=== PATIENT | female | born 1965 | race African-American/Black ===

== ENCOUNTER 2020-04-04 19:51 | Emergency (ER) | payer OTHER, BC, SELFPAY ==
[2020-04-04 19:58] VITALS: BP 143/75; PULSE 100; RESP 18; TEMP 35.7; O2SAT 99
--- NOTE | 2020-04-04 21:23 | PC.NURSE ---
Patient's BG was 518, ERP notified.
[2020-04-04 21:25] LABS: Glucose Point of Care > 500 (65-105)
[2020-04-04 21:45] LABS: Basophils Percent Auto 0.3 % (0.2-1.2); Eosinophils Absolute Auto 0.2 K/mm3 (0-0.3); Eosinophils Percent Auto 2.8 % (0-4.4); Hematocrit 41.8 % (37.0-47.0); Hemoglobin 13.7 g/dL (12.0-15.0); Immature Granulocyte Absolute 0.02 K/mm3 (0.00-0.031); Immature Granulocyte Percent A 0.3 % (0-0.5); Lymphocytes Absolute Auto 2.43 K/mm3 (0.9-3.2); Mean Corpuscular HGB Conc 32.8 g/dl (32-36); Mean Corpuscular Hemoglobin 27.2 pg (26-34); Mean Corpuscular Volume 82.9 fl (80-100); Mean Platelet Volume 11.1 fl (7.4-10.4); Monocytes Absolute Auto 0.5 K/mm3 (0.1-0.6); Monocytes Percent Auto 8.8 % (2.6-8.5); Neutrophils Absolute Auto 2.7 K/mm3 (1.3-6.7); Neutrophils Percent Auto 45.8 % (45.5-73.1); Platelet Count Result 169 k/mm3 (150-375); Red Blood Count 5.04 M/mm3 (4.2-5.4); Red Cell Distribution Width 12.3 % (11.5-14.5); White Blood Count 5.8 K/mm3 (4.5-10.0)
[2020-04-04 21:47] LABS: Add Urine Microscopic? YES; Appearance Urine Clear (Clear); Bilirubin Urine Negative (Negative); Blood Urine Negative (Negative); Color Urine Straw (Yellow); Glucose Urine UA 3+ mg/dL (Negative); Ketones Urine Negative (Negative); Leukocyte Esterase Ur Negative LEU/UL (Negative); Nitrate Urine Negative (Negative); Protein Urine Negative (Negative); RBC Urine 0-2 /hpf (0-2); Squamous Epithelial Cell Urine Rare /hpf (Few); Urobilinogen Urine Negative mg/dL (<2.0); WBC Urine 0-3 /hpf
[2020-04-04 21:50] LABS: Specific Grav Ur 1.035 (1.001-1.035)
[2020-04-04 21:55] LABS: Anion Gap 9 mmol/L (8-16); Blood Urea Nitrogen 18 mg/dL (7-17); Calcium 9.3 mg/dL (8.4-10.2); Carbon Dioxide 33 mmol/L (22-30); Chloride 97 mmol/L (98-107); Estimated CRCL calculation 85 ml/min; Estimated Glomerular Filt Rate > 60; Glucose 496 mg/dL (65-105); Potassium 3.8 mmol/L (3.4-5.0); Sodium 139 mmol/L (137-145)
[2020-04-04] MEDS: INSULIN ASPART (*BKC) 100 UNITS/ML 12 UNITS SUB-Q (22:20)
--- NOTE | 2020-04-04 22:38 | ED.GENADULT ---
HPI - General Adult General Chief complaint: Allergic Reaction Stated complaint: allergic reaction Time Seen by Provider: 04/04/20 20:44 Source: patient and family Mode of arrival: ambulatory Limitations: no limitations History of Present Illness HPI narrative: 54-year-old with a history of diabetes, hypertension here with complaints of facial pain, blurred vision on and off for past few days. Patient states that she has allergies and has been taking no medication. She also states that she has not been checking her blood sugar for past several months. Patient states that she is on insulin. She denies any fever or chills. Patient states that she ate ice cream and chicken earlier prior to coming to the ER. Onset (ago): day(s) (4) Location: face and eyes Severity: moderate Quality: aching Relieving factors: none Related Data Home Medications Medication Instructions Recorded Confirmed blood sugar diagnostic [OneTouch 04/04/20 04/04/20 Ultra Blue Test Strip] gabapentin 04/04/20 insulin glargine [Lantus Solostar SUBCUT 04/04/20 U-100 Insulin] insulin lispro [Humalog KwikPen unit SUBCUT 04/04/20 Insulin] insulin lispro [Humalog U-100 04/04/20 Insulin] lisinopril 04/04/20 lisinopril-hydrochlorothiazide tablet 04/04/20 tramadol mg 04/04/20 Allergies Allergy/AdvReac Type Severity Reaction Status Date / Time No Known Allergies Allergy Mild Verified 04/04/20 20:42 Review of Systems Review of Systems: All systems reviewed & are unremarkable except as noted in HPI and below Constitutional: Constitutional: Reports no additional constitutional complaints Eyes: Eyes: Reports as per HPI ENT: Reports system reviewed and no additional complaints, except as documented Cardiovascular: Cardiovascular: Reports no additional cardiovascular complaints Respiratory: Respiratory: Reports no additional respiratory complaints Musculoskeletal: Musculoskeletal: Reports no additional musculoskeletal complaints Neurologic: Reports system reviewed and no additional complaints, except as documented Exam Narrative: Exam Narrative: GENERAL: Well-appearing, morbidly obese , and in no acute distress. HEAD: Normocephalic, atraumatic. EYES: PERRLA and EOMI.photophobia in the left ENT: Nares clear, no rhinorrhea or epistaxis. Mucous membranes moist. NECK: Supple. CHEST: Clear to auscultation. No respiratory distress. HEART: Regular rate and rhythm. No murmur heard. Normal peripheral pulses. ABDOMEN: Soft, nontender, nondistended, normal active bowel sounds. EXTREMITIES: Normal range of motion. No edema. SKIN: Warm, dry, no rash. NEURO: No focal deficits. Alert and oriented x3. Course Vital Signs Vital signs: Vital Signs Temperature 35.7 C L 04/04/20 19:58 Pulse Rate 100 04/04/20 19:58 Respiratory Rate 18 04/04/20 19:58 Blood Pressure 143/75 H 04/04/20 19:58 Pulse Oximetry 99 04/04/20 19:58 Temperature 35.7 C L 04/04/20 19:58 Pulse Rate 100 04/04/20 19:58 Respiratory Rate 18 04/04/20 19:58 Blood Pressure 143/75 H 04/04/20 19:58 Pulse Oximetry 99 04/04/20 19:58 Medical Decision Making MDM Narrative Medical decision making narrative: I did Accu-Chek on this patient her blood sugar was greater than 500 given l I did obtain CBC and chemistry and a UA on this patient her sugars are elevated most likely from her medication noncompliance. And her vision is blurred secondary to elevated blood sugar. I will give her on NovoLog 12 units subcu. Advised her to follow-up with her stores clerk in the next few days. Also recommended her to go get her glucometer tomorrow from the pharmacy and keep checking her blood sugars. Also recommended strict diet and exercise and take medication as prescribed. She is requesting time off. Vital Signs Vital Signs: Vital Signs Temperature 35.7 C L 04/04/20 19:58 Pulse Rate 100 04/04/20 19:58 Respiratory Rate 18 04/04/20 19:58 Blood Pres
[2020-04-04 22:41] LABS: Glucose Point of Care 487 (65-105)
[2020-04-04 23:00] VITALS: BP 154/82; PULSE 82; RESP 16; TEMP 36.9; O2SAT 100
== END 2020-04-04 23:04 | disposition home or self-care (01) ==
PROVIDERS: Emergency Provider Family Medicine
DX: E11.9 Type 2 diabetes mellitus without complications (principal); I10 Essential (primary) hypertension; Z79.4 Long term (current) use of insulin
CPT/HCPCS: 36415; 80048; 81001; 82948; 85025; 99283; J1815

== ENCOUNTER 2021-01-02 06:07 | Observation (INO) | payer OTHER, BC, SELFPAY ==
[2021-01-02] VITALS (12 sets, daily range): BP systolic 110–166; BP diastolic 60–104; PULSE 87–97; RESP 14–19; TEMP 36.2–36.7; O2SAT 98–100; BMI 53.2
--- NOTE | ~2021-01-02 | MR_ITS ---
EXAMINATION: MR foot RT wo/w con DATE: 01/03/2021 13:18 INDICATION: Nontraumatic right foot pain with abnormal x-ray TECHNIQUE: Magnetic resonance imaging (MRI) of the right fore/mid foot was performed without and with 20 mL Multihance intravenous contrast. Sequences included axial, sagittal and coronal T1-weighted FS E and T2-weighted FS FSE, axial T1-weighted FS FSE and postcontrast axial and coronal T1-weighted FS FSE. COMPARISON: Right foot radiographs dated 01/02/2021 FINDINGS: There is prominent marrow edema throughout the right fourth metatarsal with nondisplaced transverse f racture across the proximal metaphyseal region and nondisplaced transverse fracture across the neck o f the fourth metatarsal. There is some low signal periosteal reaction at the proximal metadiaphyseal region with subtle calcific lesions seen on the prior radiograph suggesting this is subacute. Thin li near fluid signal intensity extends along a mildly comminuted nondisplaced fracture extending across the cuboid which is without significant surrounding marrow edema suggesting this may be chronic. Ther e is mild edema and enhancement at the head of the second metatarsal, neck of the third metatarsal an d at the base of the third and fifth metatarsals which could be related to stress reaction. Curviline ar subarticular sclerosis at the heads of the third and fourth metatarsals, the former without underl milana edema suggesting chronic osteonecrosis. Lisfranc ligament complex as well as the collateral liga ment complex at the metatarsophalangeal and interphalangeal joints appear normal. Visualized portions of the flexor and extensor tendons are normal with no tenosynovitis. Likely reactive subcutaneous ed corinna and mild non mass like enhancement over the dorsum of the foot involving the musculature at the m id to lateral aspect of the forefoot. Mild polyarticular osteoarthritis at multiple joints in the mid and forefoot. Small joint effusion at the third metatarsophalangeal joint. No abscess or other abnor mal fluid collections. IMPRESSION: 1. Likely subacute nondisplaced fractures at the distal neck and proximal metadiaphysis of the right fourth metatarsal. 2. Additional age-indeterminate nondisplaced mildly comminuted fracture of the cuboid without signifi cant surrounding marrow edema. 3. Likely reactive marrow edema and enhancement at the base of the third and fifth metatarsals, the n jackie of the third metatarsal and head of the second metatarsal without evident fracture lines in this could be related to stress reaction related to altered weightbearing resulting from the fourth metata rsal fracture. 4. Likely chronic osteonecrosis at the heads of the third and fourth metatarsals. Reviewed, dictated and finalized at location A. IMPRESSION: 1. Likely subacute nondisplaced fractures at the distal neck and proximal metad iaphysis of the right fourth metatarsal. 2. Additional age-indeterminate nondisplaced mildly comminuted fracture of the cuboid without significant surrounding marrow edema. 3. Likely reactive marrow edema and enhancement at the base of the third and fi fth metatarsals, the neck of the third metatarsal and head of the second metata rsal without evident fracture lines in this could be related to stress reaction related to altered weightbearing resulting from the fourth metatarsal fracture . 4. Likely chronic osteonecrosis at the heads of the third and fourth metatarsal s.
--- NOTE | ~2021-01-02 | XR_ITS ---
XR foot RT min 3V 01/02/2021 07:45 Indication: Right foot pain with swelling. Procedure: 4 views right foot Comparison: No prior studies for comparison. Findings: There is periosteal reaction along the fourth metatarsal shaft. Mild osteoarthritis first M TP joint. No acute fracture is identified. No subluxation. Lisfranc joint intact. There are degenerat kin calcaneal enthesophytes. Mild diffuse soft tissue swelling. Impression: 1: Periosteal reaction of the fourth metatarsal shaft, nonspecific. No discrete healing fracture line is identified. Consider infection in the appropriate clinical setting. If there is concern for osteo myelitis, correlation with MRI recommended. Reviewed, dictated and finalized at location A. Impression: 1: Periosteal reaction of the fourth metatarsal shaft, nonspecific. No discrete healing fracture line is identified. Consider infection in the appropriate cli nical setting. If there is concern for osteomyelitis, correlation with MRI ricardo mmended.
--- NOTE | ~2021-01-02 | XR_ITS ---
EXAMINATION: XR chest 2V 01/02/2021 06:40 INDICATION: Chest pain PROCEDURE: PA and lateral views the chest COMPARISON: 04/15/2019 FINDINGS: The lungs are clear. The cardiomediastinal silhouette is within normal limits. There are no pleural effusions. There is no pneumothorax suspected. IMPRESSION: 1: NO ACUTE CARDIOPULMONARY DISEASE. Reviewed, dictated and finalized at location A.
--- NOTE | ~2021-01-02 | CT_ITS ---
EXAMINATION: CTA chest PE protocol DATE: 01/02/2021 09:01 CDT INDICATION: Chest pain. Elevated d-dimer. TECHNIQUE: Computed tomographic angiography (CTA) of the chest was performed with 100 mL Omnipaque-35 0 intravenous contrast. The dose-length product was 1000.38 mGy-cm. Maximum intensity projection 3D-r econstructions of the aorta and other arteries were constructed by the technologist on a separate wor kstation. Automated exposure control and iterative reconstruction technique were employed. COMPARISON: None. FINDINGS: There is mediastinal lipomatosis. Heart size normal. Small hiatal hernia. No significant pl eural or pericardial effusion. Study is technically adequate without evidence for pulmonary embolism. No thoracic lymphadenopathy. No endobronchial lesions. No focal airspace disease. No pneumothorax. M ild thoracic spondylosis. IMPRESSION: 1. No evidence for pulmonary embolism. No acute cardiopulmonary disease. Reviewed, dictated and finalized at location A.
--- NOTE | ~2021-01-02 | US_ITS ---
EXAMINATION:US venous doppler LE BI INDICATION:Leg swelling and pain TECHNIQUE: Multiple grayscale, color flow and Doppler images of the right and left lower extremity de ep venous systems were obtained and reviewed. COMPARISON:No prior studies for comparison. FINDINGS: The common femoral, superficial femoral and popliteal veins demonstrate normal respiratory variation, augmentation and compressibility. Color flow is also seen within the posterior tibial, pe roneal, greater saphenous and profunda veins. IMPRESSION: 1: No lower extremity deep venous thrombosis. Reviewed, dictated and finalized at location A.
--- NOTE | 2021-01-02 06:26 | ECG_ITS ---
Measurements Intervals [place] Rate: 96 P: 47 CO: 181 QRS: 0 QRSD: 76 T: 43 QT: 348 QTc: 440 Interpretive Statements SINUS RHYTHM DELAYED PRECORDIAL R/S TRANSITION LOW QRS VOLTAGE IN PRECORDIAL LEADS BORDERLINE ECG Electronically Signed On 01-02-2021 8:43:22 CDT by Geovani Champion D.O.
[2021-01-02 06:35] LABS: Basophils Percent Auto 0.6 % (0.2-1.2); Eosinophils Absolute Auto 0.2 K/mm3 (0-0.3); Eosinophils Percent Auto 4.1 % (0-4.4); Hematocrit 38.3 % (37.0-47.0); Hemoglobin 12.9 g/dL (12.0-15.0); Immature Granulocyte Absolute 0.01 K/mm3 (0.00-0.031); Immature Granulocyte Percent A 0.2 % (0-0.5); Lymphocytes Absolute Auto 2.05 K/mm3 (0.9-3.2); Lymphocytes Percent Auto 42.1 % (18.3-44.2); Mean Corpuscular HGB Conc 33.7 g/dl (32-36); Mean Corpuscular Hemoglobin 27.3 pg (26-34); Mean Platelet Volume 10.4 fl (7.4-10.4); Monocytes Absolute Auto 0.5 K/mm3 (0.1-0.6); Monocytes Percent Auto 10.5 % (2.6-8.5); Neutrophils Absolute Auto 2.1 K/mm3 (1.3-6.7); Neutrophils Percent Auto 42.5 % (45.5-73.1); Platelet Count Result 193 k/mm3 (150-375); Red Blood Count 4.73 M/mm3 (4.2-5.4); Red Cell Distribution Width 12.2 % (11.5-14.5); White Blood Count 4.9 K/mm3 (4.5-10.0)
--- NOTE | 2021-01-02 06:35 | PC.NURSE ---
Pt to imaging at this time.
[2021-01-02 06:45] LABS: Anion Gap 9 mmol/L (8-16); Blood Urea Nitrogen 18 mg/dL (7-17); Carbon Dioxide 25 mmol/L (22-30); Chloride 103 mmol/L (98-107); Estimated CRCL calculation 81 ml/min; Estimated Glomerular Filt Rate > 60; Glucose 378 mg/dL (65-105); INR 0.9; Potassium 4.4 mmol/L (3.4-5.0); Prothrombin Time 12.8 Seconds (11.1-14.7); Sodium 137 mmol/L (137-145)
[2021-01-02] MEDS: ASPIRIN 81 MG CHEWABLE TABLET 324 MG PO (06:45)
[2021-01-02 06:46] LABS: Partial Thromboplastin Time 45.4 SECONDS (22.3-36.8)
[2021-01-02 06:57] LABS: Troponin I < 0.012 ng/mL (0.000-0.034)
--- NOTE | 2021-01-02 07:33 | ED.CHESTPAIN ---
HPI - Chest Pain General Chief Complaint: Chest Pain Stated Complaint: chest pain, swollen lower extremities Time Seen by Provider: 01/02/21 07:05 Source: patient, RN notes reviewed and old records reviewed Mode of arrival: ambulatory Limitations: no limitations History of Present Illness HPI narrative: This is a 55 year old female with history of DM, hypertension, morbid obesity who presents for evaluation of bilateral leg pain and chest pain. She states yesterday she developed pain across her chest. She describes her pain as heaviness and she states it is worse with coughing. She also has had a nonproductive cough for 2 months. She also report bilateral feet and leg swelling for 2 months. She was evaluated by a doctor at [facility] for her feet and leg swelling with pain. She has a diagnosis of peripheral neuropathy for her pain, and she takes gabapentin. She reports having a negative leg Doppler performed by her doctors to her evaluate her symptoms, but she states her symptoms have worsened. She reports discoloration to her right foot and worsening pain to her right leg. She also reports shortness of breath with activity and chest fluttering. She denies lung or heart disease. Her BS has been found to be high in ER and she admits to not taking her insulin last night. MD complaint: chest heaviness Related Data Home Medications Medication Instructions Recorded Confirmed blood sugar diagnostic [OneTouch 04/04/20 01/02/21 Ultra Blue Test Strip] gabapentin 04/04/20 insulin glargine [Lantus Solostar SUBCUT 04/04/20 U-100 Insulin] insulin lispro [Humalog KwikPen unit SUBCUT 04/04/20 Insulin] insulin lispro [Humalog U-100 04/04/20 Insulin] lisinopril 04/04/20 tramadol mg 04/04/20 metformin 1,500 mg PO DAILY 01/02/21 01/02/21 rosuvastatin 40 mg PO DAILY 01/02/21 01/02/21 Allergies Allergy/AdvReac Type Severity Reaction Status Date / Time No Known Allergies Allergy Mild Verified 01/02/21 06:24 Review of Systems Review of Systems: All systems reviewed & are unremarkable except as noted in HPI and below Constitutional: Constitutional: Denies chills and Denies fever(s) Cardiovascular: Cardiovascular: Reports chest pain Respiratory: Respiratory: Reports cough, Reports dyspnea and Denies wheezing Gastrointestinal: Gastrointestinal: Denies abdominal pain, Denies nausea and Denies vomiting Genitourinary: Genitourinary: Denies hematuria Musculoskeletal: Musculoskeletal: Denies back pain FORMERLY [facility] Past Medical History Medical History (Updated 01/02/21 @ 13:50 by Radha Sandhu MD) Diabetes mellitus Diabetic peripheral neuropathy HTN (hypertension) with goal to be determined Family History Family History (Updated 01/02/21 @ 12:41 by Ruba Grey RN) Father Cancer Sibling Cancer Kidney disease Father COPD (chronic obstructive pulmonary disease) Mother Kidney disease Social History Social History (Updated 01/02/21 @ 08:18 by Radha Sandhu MD) Smoking status: Never smoker Alcohol intake: never Substance use: never Gender identity (if verbalized by the patient): Female Sexual Orientation (if Verbalized by the Patient): Straight or Heterosexual Spiritual care concerns: No Exam Const: General: alert Nutritional Appearance: obese Orientation/consciousness: patient oriented x3 HENMT: Head: normocephalic and atraumatic Face and sinus: face symmetric Mouth: Yes Normal oral and palatal mucosa present, Yes lip normal, Yes oropharynx normal and Yes moist mucous membranes Eyes: Pupils: Equal, round and reactive pupils present EOM: EOMs intact bilaterally Resp: Effort & Inspection: normal respiratory effort and no retractions Auscultation: clear to auscultation bilaterally Cardio: Rate: regular rate Rhythm: regular rhythm Heart sounds: no murmurs GI: Auscultation: normal bowel sounds Other: nontender Back/Spine/Pelvis: Back: no CVA tende
[2021-01-02] MEDS: INSULIN HUMAN REGULAR (*BKC) 100 UNITS/ML 8 UNITS SUB-Q (07:36)
[2021-01-02] MEDS: NITROGLYCERIN OINTMENT 1 INCH DOSE TRANSDERM (07:52)
[2021-01-02] MEDS: HYDROmorphone HCL INJ (*CRX) 1 MG/ML SYR 0.5 MG IV PUSH (07:52)
[2021-01-02] MEDS: ONDANSETRON INJ 4 MG/2 ML VIAL IV PUSH (07:52)
[2021-01-02 08:10] LABS: Add Urine Microscopic? YES; Appearance Urine Clear (Clear); Bilirubin Urine Negative (Negative); Blood Urine Negative (Negative); Color Urine Yellow (Yellow); Glucose Urine UA 3+ mg/dL (Negative); Ketones Urine Negative (Negative); Leukocyte Esterase Ur Negative LEU/UL (Negative); Nitrate Urine Negative (Negative); Protein Urine 1+ mg/dL (Negative); RBC Urine 0-2 /hpf (0-2); Squamous Epithelial Cell Urine Few /hpf (Few); Urobilinogen Urine Negative mg/dL (<2.0); WBC Urine 0-3 /hpf
--- NOTE | 2021-01-02 08:19 | PC.NURSE ---
called lab [id number] talked to Rosio, added on a D dimer, C reactive prot, MG, BNP. BMP and CBCD were duplicate orders. Doc did not want another one
[2021-01-02 08:26] LABS: D Dimer 1.48 ug/mL (<0.48)
[2021-01-02 08:37] LABS: CRP 1.3 mg/dL (<1.0); Magnesium 1.4 mg/dL (1.6-2.3)
[2021-01-02 08:40] LABS: NT Pro B Type Natriuretic Pept 27 pg/mL (5-100)
[2021-01-02] MEDS: MAGNESIUM SULF 2 GM/WATER 50ML 2 GM/50 ML BAG IVPB (09:15)
[2021-01-02 10:30] LABS: Troponin I < 0.012 ng/mL (0.000-0.034)
--- NOTE | 2021-01-02 12:17 | ADMGEN ---
This patient, Florencia Levy, was admitted to IMU Room 200-01 at 1215 on 01/02/2021. Patient/family oriented to hospital policies and general routines including ID bracelet, bed and alarms, visiting hours, pain management, procedures, bathroom and other care routines, personal items, smoking policy, room service/diet, and visiting hours. Information on how to activate the Rapid Response Team has been discussed. Patient/Family are encouraged to report perceived risks to care and to ask questions if they do not understand what they are told or what they should do.
[2021-01-02 12:31] LABS: Glucose Point of Care 320 mg/dl (65-105)
[2021-01-02] MEDS: MORPHINE SULFATE (*CRX) 4 MG/ML INJ IV PUSH (12:54)
[2021-01-02 13:52] LABS: Troponin I < 0.012 ng/mL (0.000-0.034)
--- NOTE | 2021-01-02 14:25 | PM.IMHP ---
H&P: HPI History of Present Illness Date/Time: 01/02/21 14:25 Chief Complaint: Chest pain. Narrative: This is a pleasant 55-year-old female with insulin-dependent type 2 diabetes mellitus, hypertension, and morbid obesity who presented to the emergency department earlier today via private vehicle from home with complaints of chest pain. She describes a pressure or heavy like sensation diffusely throughout her anterior chest which began sometime last evening almost like somebody was trying to hold me down. She was feeling a bit short of breath with that however she was having a mild coughing fit at the time, which apparently has been going on for approximately 2 months. Additionally she has had quite of bit of swelling in her legs and in fact she was referred to a pay agent just last week and is set to have a stress test tomorrow. At the time my evaluation her main complaint is of pain in her right foot, which she describes as a severe, throbbing pain. She also notes that the right foot is much more swollen when compared to the left and that she has noticed bruising on the side of the foot though she has not had any injury or bite or wound in the area. The pain is different from that which she experiences with her diabetic neuropathy. She denies fever, chills, sweats, exertional chest pain, pleuritic pain, palpitations, nausea, vomiting, and sweats. No history of venous thromboembolism or gout. No known history of cardiac disease or sleep apnea. Review of Systems Review of Systems: Narrative: Twelve systems were reviewed with pertinent positives and negatives as per HPI. She has had a dry cough for a couple of months. No cold or flu symptoms. No known exposure to those positive for COVID-19. She has not been vaccinated against COVID. She sleeps on her right side and tells me that she sleeps pretty good. She does snore on occasion. She has chronic orthopnea and has had for many years. No PND or daytime somnolence. No diarrhea or constipation. She denies dysuria. Except as documented, all other systems were reviewed and are negative. [facility] Past Medical History Medical History (Updated 01/02/21 @ 21:45 by Lacie Perez PA-C) Depression with anxiety Diabetic peripheral neuropathy Essential hypertension History of MRSA infection Skin and soft tissue infection of the left hip requiring debridement. Insulin dependent type 2 diabetes mellitus Morbid obesity Surgical History Surgical History (Updated 01/02/21 @ 21:39 by Lacie Perez PA-C) History of section History of cholecystectomy History of hysterectomy History of tonsillectomy Status post debridement Debridement of wound on the left hip. Family History Family History Father Cancer Sibling Cancer Kidney disease Father COPD (chronic obstructive pulmonary disease) Mother Kidney disease Social History Social History (Updated 01/02/21 @ 21:39 by Lacie Perez PA-C) Social History: The patient lives in [place], [place] with her . She has 4 children. Lifelong nonsmoker. No alcohol or illicit substance abuse. She designates her , Hong, as her surrogate decision maker and she wishes to be a full code. Meds Home Medications and Allergies Home Medications Medication Instructions Recorded Confirmed Type blood sugar diagnostic [OneTouch 04/04/20 01/02/21 History Ultra Blue Test Strip] gabapentin 300 mg PO TID 04/04/20 01/02/21 History insulin glargine [Lantus Solostar 40 unit SUBCUT HS 04/04/20 01/02/21 History U-100 Insulin] insulin lispro [Humalog KwikPen See Protocol SUBCUT TIDWM 04/04/20 01/02/21 History Insulin] lisinopril 40 mg PO DAILY 04/04/20 01/02/21 History tramadol 50 mg PO QID 04/04/20 01/02/21 History metformin 1,500 mg PO DAILY 01/02/21 01/02/21 History rosuvastatin 40 mg PO DAILY 01/02/21 01/02/21 History Allergies A
[2021-01-02 15:33] LABS: Alanine Aminotransferase 20 U/L (4-35); Albumin Level 3.5 g/dL (3.5-5.1); Alkaline Phosphatase 93 U/L (38-126); Aspartate Amino Transferase 30 U/L (14-36); Bilirubin,Total 0.4 mg/dL (0.2-1.3)
[2021-01-02 15:46] LABS: Erythrocyte Sedimentation Rate 89 mm/hr (0-20)
[2021-01-02 15:58] LABS: Hemoglobin A1C 12.7 % (<5.7)
[2021-01-02 16:16] LABS: Glucose Point of Care 382 mg/dl (65-105)
[2021-01-02] MEDS: traMADol HCL (*CRX) 50 MG TABLET PO ×2 (16:43→20:43)
[2021-01-02] MEDS: INSULIN ASPART (*BKC) 100 UNITS/ML SUB-Q (16:43)
[2021-01-02] MEDS: MORPHINE SULFATE (*CRX) 4 MG/ML INJ 2 MG IV PUSH (17:32)
[2021-01-02 20:35] LABS: Glucose Point of Care 386 mg/dl (65-105)
[2021-01-02] MEDS: INSULIN GLARGINE (*BKC) 100 UNITS/ML 42 UNITS SUB-Q (22:07)
[2021-01-02] MEDS: GABAPENTIN 300 MG CAPSULE PO (22:08)
[2021-01-03] VITALS (12 sets, daily range): BP systolic 114–135; BP diastolic 65–87; PULSE 83–100; RESP 14–17; TEMP 35.7–36.9; O2SAT 96–100
[2021-01-03 05:14] LABS: Anion Gap 8 mmol/L (8-16); Blood Urea Nitrogen 20 mg/dL (7-17); Calcium 8.7 mg/dL (8.4-10.2); Carbon Dioxide 25 mmol/L (22-30); Chloride 102 mmol/L (98-107); Estimated CRCL calculation 81 ml/min; Estimated Glomerular Filt Rate > 60; Glucose 365 mg/dL (65-105); Magnesium 1.6 mg/dL (1.6-2.3); Potassium 4.2 mmol/L (3.4-5.0); Sodium 135 mmol/L (137-145)
[2021-01-03] MEDS: GABAPENTIN 300 MG CAPSULE PO ×3 (06:21→21:11)
[2021-01-03 08:00] LABS: Glucose Point of Care 406 mg/dl (65-105)
[2021-01-03] MEDS: traMADol HCL (*CRX) 50 MG TABLET PO ×4 (08:28→21:11)
[2021-01-03] MEDS: INSULIN ASPART (*BKC) 100 UNITS/ML 10 UNITS SUB-Q (08:28)
[2021-01-03] MEDS: ENOXAPARIN 40 MG/0.4 ML SYRINGE SUB-Q ×2 (08:29→21:11)
[2021-01-03] MEDS: ROSUVASTATIN 10 MG TABLET 40 MG PO (08:29)
[2021-01-03] MEDS: INSULIN GLARGINE (*BKC) 100 UNITS/ML 20 UNITS SUB-Q ×2 (08:29→13:31)
[2021-01-03] MEDS: lisinopriL 20 MG TABLET 40 MG PO (08:30)
--- NOTE | 2021-01-03 09:11 | ECG_ITS ---
Measurements Intervals [place] Rate: 94 P: 47 AR: 177 QRS: -2 QRSD: 76 T: 44 QT: 346 QTc: 435 Interpretive Statements SINUS RHYTHM LOW QRS VOLTAGE IN PRECORDIAL LEADS BORDERLINE R WAVE PROGRESSION, ANTERIOR LEADS BASELINE ARTIFACT- I, III, AVL BORDERLINE ECG Electronically Signed On 01-03-2021 11:04:23 CDT by Geovani Champion D.O.
--- NOTE | 2021-01-03 09:17 | PM.CNCAR ---
Assessment and Plan Assessment and plan (1) Cellulitis of right foot: Code(s): L03.115 - Cellulitis of right lower limb Status: Acute Assessment and Plan: Patient is a 55-year-old woman with history of hypertension, morbid obesity, insulin-dependent type 2 diabetes mellitus, diabetic neuropathy, family history premature myocardial infarction (mother with MO at age 48), MRSA infection of the skin and soft tissue involving the left hip requiring debridement, depression, anxiety,who is seen in cardiac consultation for chief complaint of chest pain. - patient was started on antibiotics per the primary service for probable cellulitis involving the right foot, with plans for MRI of the right foot as well to evaluate for osteomyelitis given x-ray findings. - Lower extremity venous Doppler 01/02/2021 was negative for DVT. - She reports snoring but denies any prior testing for sleep apnea. Given her lower extremity edema and morbid obesity, she would benefit from outpatient home sleep testing for JACKY. (2) Chest pain: Code(s): R07.9 - Chest pain, unspecified Status: Acute Assessment and Plan: - Her presenting chest pain has resolved. - EKG without evidence of acute injury. Repeat EKG. - Serial troponin I was negative for injury. - CTA of the chest was negative for pulmonary embolism. - Obtain fasting lipid panel. - Continue aspirin. - Obtain echo to evaluate cardiac structure and function. - Pending resolution of her right lower extremity cellulitis and correction of electrolyte abnormalities as well as marked hyperglycemia, consider Lexiscan nuclear stress testing is an outpatient or inpatient. (3) Hypomagnesemia: Code(s): E83.42 - Hypomagnesemia Status: Acute Assessment and Plan: - continue to monitor and replete magnesium, initially low at 1.3, now improved. - She reports chronic hypomagnesemia and will replete intravenously and orally. (4) Essential hypertension: Code(s): I10 - Essential (primary) hypertension Status: Acute Assessment and Plan: - Blood pressure was mildly elevated on presentation but subsequently improved. - continue to monitor on current regimen. (5) Uncontrolled diabetes mellitus: Code(s): E11.65 - Type 2 diabetes mellitus with hyperglycemia Status: Acute Assessment and Plan: -She has marked hyperglycemia this admission. -adjustment of diabetic regimen as per primary service. History of Present Illness History of Present Illness Consult date/time: 06/28/21 09:17 Patient is a 55-year-old woman with history of hypertension, morbid obesity, insulin-dependent type 2 diabetes mellitus, diabetic neuropathy, family history premature myocardial infarction (mother with MO at age 48), MRSA infection of the skin and soft tissue involving the left hip requiring debridement, depression, anxiety,who is seen in cardiac consultation for chief complaint of chest pain. Patient reports bilateral chest discomfort which was a pressure lasting approximately 6-8 hours, that resolved with aspirin and nitroglycerin. Her chest discomfort was associated with mild dyspnea. She reports she was scheduled to see a base filler at [facility] whom she has not seen yet. She reports chronic 4 pillow orthopnea for years. She reports paroxysmal nocturnal dyspnea for several weeks. She reports occasional palpitations without dizziness or syncope. She reports bilateral foot swelling worse on the right with some associated discomfort in the right foot which is a severe throbbing pain. She reports dark discoloration of the skin involving her right foot for several days. She denies any history of cardiac arrhythmia, congestive heart failure, myocardial infarction, or cardiac valvular disease. She reports snoring but denies any prior testing for sleep apnea. She reports a several month history of dry cough and that she has not bee
[2021-01-03] MEDS: ASPIRIN 81 MG ENTERIC TABLET PO (11:48)
[2021-01-03 11:55] LABS: Glucose Point of Care 481 mg/dl (65-105)
[2021-01-03] MEDS: MAGNESIUM SULF 2 GM/WATER 50ML 2 GM/50 ML BAG IVPB (13:31)
[2021-01-03] MEDS: INSULIN ASPART (*BKC) 100 UNITS/ML 15 UNITS SUB-Q (13:32)
[2021-01-03] MEDS: PERFLUTREN LIPID MICROSPHERES 1.5 ML VIAL DILUTED TO 10 ML TOTAL VOLUME IV PUSH (14:26)
--- NOTE | 2021-01-03 15:51 | PM.IMPN ---
Progress Note: A&P Assessment and Plan (1) Chest pain: Code(s): R07.9 - Chest pain, unspecified Status: Acute Assessment and Plan: Her pain is a bit atypical for a cardiac etiology however she certainly has risk factors for such. Dr. Singh (cardiology) has been consulted and his input is appreciated. It looks like he has ordered an echocardiogram for tomorrow. 01/03/21 15:51 patient is a 55-year-old female with history of diabetes, hypertension, morbid obesity, and family history of premature coronary artery disease her mother had AL at age of 48, patient presented to emergency department with complaint chest pain a 3 sets of cardiac enzymes, there are no acute changes on EKG, CTA of the chest is negative for pulmonary emboli and cardiac echo is pending, patient seen by Prosthodontist/Owner does not recommend any ischemic workup at present time, however Lexiscan stress test as an outpatient, patient chest pain has resolved will continue to monitor, patient also has a complaint of pain, redness, swelling and painful to bear weight suspect patient has cellulitis started on imipenem and vancomycin lower extremity Doppler is negative for DVT, patient had a x-ray of the it showed Periosteal reaction of the fourth metatarsal shaft, nonspecific. No discrete healing fracture line is identified. Consider infection in the appropriate clinical setting. If there is concern for osteomyelitis, correlation with MRI recommended. to further evaluate patient had MRI which showed: 1. Likely subacute nondisplaced fractures at the distal neck and proximal metadiaphysis of the right fourth metatarsal. 2. Additional age-indeterminate nondisplaced mildly comminuted fracture of the cuboid without significant surrounding marrow edema. 3. Likely reactive marrow edema and enhancement at the base of the third and fifth metatarsals, the neck of the third metatarsal and head of the second metatarsal without evident fracture lines in this could be related to stress reaction related to altered weightbearing resulting from the fourth metatarsal fracture. 4. Likely chronic osteonecrosis at the heads of the third and fourth metatarsals. will continue present management with antibiotic and consult orthopedic surgeon for further recommendation, once clinically stable will have a PT OT evaluate the patient (2) Uncontrolled insulin dependent diabetes mellitus: Status: Acute Assessment and Plan: Random glucose today was 317 and she reportedly does not know what insulin she is supposed to be taking. This will need to be clarified IKER or I will give her a dose of lantus tonight if we cannot get in touch with her customer resource specialist. Metformin on hold as she received IV contrast. Check hemoglobin A1c. Initiate sliding scale insulin, Accu-Cheks, and hypoglycemic protocol. (3) Hypomagnesemia: Code(s): E83.42 - Hypomagnesemia Status: Acute Assessment and Plan: Magnesium will be replaced and monitored. (4) Abnormal x-ray of extremity: Code(s): R93.6 - Abnormal findings on diagnostic imaging of limbs Status: Acute Assessment and Plan: Right foot x-ray shows periosteal reaction of the 4th metatarsal shaft, a nonspecific finding. It looks like she may have cellulitis of the right foot thus will start on antibiotics. MRI of the foot ordered to further delineate what is going on. (5) Essential hypertension: Code(s): I10 - Essential (primary) hypertension Status: Acute Assessment and Plan: Blood pressures were reviewed and they are reasonably well controlled. Continue antihypertensives and monitor. (6) Morbid obesity: Code(s): E66.01 - Morbid (severe) obesity due to excess calories Status: Acute Assessment and Plan: We did discuss lifestyle changes that she can make including weight loss and compliance with her medications. (7) Diabetic peripheral neuropath
--- NOTE | 2021-01-03 16:01 | PM.CNOR ---
Assessment and Plan Assessment and plan (1) Fracture of right foot affected by diabetic neuropathy: Qualifiers: Encounter type: initial encounter Fracture type: closed Qualified Code(s): S92.901A - Unspecified fracture of right foot, initial encounter for closed fracture; E11.40 - Type 2 diabetes mellitus with diabetic neuropathy, unspecified Code(s): S92.901A - Unspecified fracture of right foot, initial encounter for closed fracture; E11.40 - Type 2 diabetes mellitus with diabetic neuropathy, unspecified Status: Acute Assessment and Plan: Pleasant morbidly obese female with uncontrolled DM and neuropathy with right foot pain. Reviewed xrays and MRI. MRI shows multiple fractures and osteonecrosis. Consistent with early Charcot neuropathy. Ordered a Cam walking boot for patient. No need for antibiotics from orthopaedic standpoint. No signs of cellulitis or osteomyelitis. She will need to follow up with a insurance specialist or Front End Specialist. Appreciate the consult. History of Present Illness HPI Consult date: 01/03/21 Requesting physician: Abiola Justin MD Consult reason: fracture Chief complaint: chest pain, uncontrolled diabetes mellitus Narrative: Patient complains of right foot pain. Worse when she is walking on uneven surfaces. She notes discoloration and swelling in her foot. She states she feels like she is walking on rocks. Pain is worse on the lateral portion of her foot. No known injury. Review of Systems Review of Systems: All systems reviewed & are unremarkable except as noted in HPI and below PMFSH Past Medical History Medical History Depression with anxiety Diabetic peripheral neuropathy Essential hypertension History of MRSA infection Skin and soft tissue infection of the left hip requiring debridement. Insulin dependent type 2 diabetes mellitus Morbid obesity Surgical History Surgical History History of section History of cholecystectomy History of hysterectomy History of tonsillectomy Status post debridement Debridement of wound on the left hip. Family History Family History Father Cancer Sibling Cancer Kidney disease Father COPD (chronic obstructive pulmonary disease) Mother Kidney disease Social History Social History Social History: The patient lives in [place], [place] with her . She has 4 children. Lifelong nonsmoker. No alcohol or illicit substance abuse. She designates her , Hong, as her surrogate decision maker and she wishes to be a full code. Meds Home Medications and Allergies Home Medications Medication Instructions Recorded Confirmed Type blood sugar diagnostic [OneTouch 04/04/20 01/02/21 History Ultra Blue Test Strip] gabapentin 300 mg PO TID 04/04/20 01/02/21 History insulin glargine [Lantus Solostar 40 unit SUBCUT HS 04/04/20 01/02/21 History U-100 Insulin] insulin lispro [Humalog KwikPen See Protocol SUBCUT TIDWM 04/04/20 01/02/21 History Insulin] lisinopril 40 mg PO DAILY 04/04/20 01/02/21 History tramadol 50 mg PO QID 04/04/20 01/02/21 History metformin 1,500 mg PO DAILY 01/02/21 01/02/21 History rosuvastatin 40 mg PO DAILY 01/02/21 01/02/21 History Allergies Allergy/AdvReac Type Severity Reaction Status Date / Time No Known Allergies Allergy Mild Verified 01/02/21 06:24 Vital Signs Vital Signs - 24 hr 01/02/21 18:00 01/02/21 20:00 01/02/21 21:55 Temperature 98.1 F Pulse Rate 97 97 96 Respiratory Rate 17 Blood Pressure 116/60 Pulse Oximetry 98 01/03/21 00:00 01/03/21 01:42 01/03/21 02:47 Temperature 98.2 F Pulse Rate 97 90 Respiratory Rate 17 Blood Pressure 121/68 Pulse Oximetry 97 96 01/03/21 04:00 01/03/21 06:00 01/03/21 08:00
--- NOTE | 2021-01-03 16:12 | ECHO_ITS ---
Patient Info Name: Florencia Levy Age: 55 years : 1965 Gender: Female Ht: 64 in Wt: 310 lbs BSA: 2.61 m2 HR: 87 bpm BP: 119 / 65 mmHg Technical Quality: Poor Exam Date: 01/03/2021 1:54 PM Exam Location: [facility] Patient Status: Inpatient Admit Date: 01/02/2021 Staff Ordering Physician: Michelet Singh MD ([email or web address]) Community Liaison Officer: Ny Alarcon RDCS Attending Provider: Dexter Mora MD Exam Type: CA echo dop color flow w con Study Info Indications R06.02 - Shortness of breath R07.9 - Chest pain, unspecified Complete two-dimensional, color flow and Doppler transthoracic echocardiogram is performed with contrast to opacify the left ventricle and to improve the deliniation of the left ventricle endocardial borders. Contrast/Agitated Saline Contrast/Ag. Saline: Definity Amount: 2.00 ml Administered By: Avani Bello RN Existing IV Access: Yes IV Access Condition: patent with no signs of infiltration Reason for Poor Study: patient body habitus Summary 1. Suboptimal study due to body habitus. 2. Left ventricular systolic function is normal, estimated at 60-65%. 3. Right ventricle is not well visualized but appears normal in size and systolic function. 4. No significant valvular disease. 5. Unable to estimate pulmonary artery systolic pressure due to lack of TR jet. 6. There is no pericardial effusion. Left Ventricle Left ventricular chamber dimension is normal. Left ventricular systolic function is normal, estimated at 60-65%. There is no increased left ventricular wall thickness. Left ventricular septal wall motion is normal. The left ventricular diastolic function is grade I diastolic dysfunction. Right Ventricle Right ventricle is not well visualized but appears normal in size and systolic function. Left Atria Left atrial chamber dimension is normal. Right Atria Right atrial chamber dimension is normal. Aortic Valve The aortic valve is trileaflet. There is no aortic valve sclerosis. There is no aortic valve stenosis. There is no aortic valve regurgitation. Pulmonic Valve The pulmonic valve is normal. There is no pulmonic valve stenosis. There is no pulmonic regurgitation. Mitral Valve The mitral valve has normal leaflets. There is no mitral valve stenosis. There is no mitral valve regurgitation. Tricuspid Valve The tricuspid valve leaflets are normal. There is no significant tricuspid valve stenosis. There is no tricuspid valve regurgitation. Unable to estimate pulmonary artery systolic pressure due to lack of TR jet. Pericardium/Pleural The pericardium appears normal. There is no pericardial effusion. Inferior Vena Cava Normal inferior vena cava with >50% collapse upon inspiration. Aorta The aortic root size at the sinus of Valsalva is normal. The prox ascending aorta size is normal. Left Ventricular Outflow Tract Name Value Normal LVOT 2D LVOT Diameter 2.10 cm LVOT Doppler LVOT Peak Gradient 5 mmHg LVOT Mean Gradient
[2021-01-03 16:27] LABS: Glucose Point of Care 371 mg/dl (65-105)
[2021-01-03] MEDS: MAGNESIUM OXIDE 400 MG TABLET PO (17:08)
[2021-01-03] MEDS: INSULIN ASPART (*BKC) 100 UNITS/ML SUB-Q (17:09)
[2021-01-03 18:09] LABS: Glucose Point of Care 345 mg/dl (65-105)
--- NOTE | 2021-01-03 18:16 | PC.NURSE ---
This patient, Florencia Levy, was received from IMU on 01/03/21 at 1800. Patient/family oriented to unit policies and routines
[2021-01-03] MEDS: MAGNESIUM HYDROXIDE SUSP 30 ML UDC PO (21:14)
[2021-01-03 21:24] LABS: Glucose Point of Care 382 mg/dl (65-105)
[2021-01-03 23:05] LABS: Vancomycin Trough 18.3 ug/mL (10.0-20.0)
[2021-01-04] VITALS (9 sets, daily range): BP systolic 107–137; BP diastolic 71–86; PULSE 79–108; RESP 16–20; TEMP 35.8–36.4; O2SAT 99–100
[2021-01-04] MEDS: GABAPENTIN 300 MG CAPSULE PO ×3 (05:49→21:17)
[2021-01-04 05:56] LABS: Anion Gap 6 mmol/L (8-16); Blood Urea Nitrogen 19 mg/dL (7-17); Calcium 8.9 mg/dL (8.4-10.2); Carbon Dioxide 27 mmol/L (22-30); Chloride 102 mmol/L (98-107); Cholesterol 121 mg/dL (0-200); Estimated CRCL calculation 100 ml/min; Estimated Glomerular Filt Rate > 60; Glucose 363 mg/dL (65-105); HDL Direct 25 mg/dL; Potassium 4.7 mmol/L (3.4-5.0); Sodium 135 mmol/L (137-145); Triglycerides 382 mg/dL (<150)
[2021-01-04 06:07] LABS: LDL Cholesterol Direct 50 mg/dL
[2021-01-04 08:02] LABS: Glucose Point of Care 296 mg/dl (65-105)
[2021-01-04 08:39] LABS: Glucose Point of Care 332 mg/dl (65-105)
[2021-01-04] MEDS: traMADol HCL (*CRX) 50 MG TABLET PO ×4 (09:01→21:17)
[2021-01-04] MEDS: MAGNESIUM OXIDE 400 MG TABLET PO ×2 (09:01→16:58)
[2021-01-04] MEDS: lisinopriL 20 MG TABLET 40 MG PO (09:01)
[2021-01-04] MEDS: ASPIRIN 81 MG ENTERIC TABLET PO (09:01)
[2021-01-04] MEDS: ROSUVASTATIN 10 MG TABLET 40 MG PO (09:01)
[2021-01-04] MEDS: ENOXAPARIN 40 MG/0.4 ML SYRINGE SUB-Q ×2 (09:02→21:17)
[2021-01-04] MEDS: INSULIN ASPART (*BKC) 100 UNITS/ML SUB-Q ×3 (09:02→17:55)
[2021-01-04] MEDS: MAGNESIUM HYDROXIDE SUSP 30 ML UDC PO (09:19)
--- NOTE | 2021-01-04 10:24 | PM.PNCARD ---
Progress Note: A&P Assessment and Plan (1) Chest pain: Code(s): R07.9 - Chest pain, unspecified Status: Acute Assessment and Plan: 55-year-old woman with history of morbid obesity, HTN, insulin-dependent type 2 DM, family history premature myocardial infarction (mother with AK at age 48),who is seen in cardiac consultation for chief complaint of chest pain and lower ext edema - Her presenting chest pain has resolved. - EKG without evidence of acute injury. Repeat EKG. - Serial troponin I was negative for injury. - CTA of the chest was negative for pulmonary embolism. -Echo with normal EF and no regional wall motion changes - Continue aspirin. - Pending resolution of her right lower extremity cellulitis and correction of electrolyte abnormalities as well as marked hyperglycemia, consider Lexiscan nuclear stress testing in outpatient setting (2) Lower extremity edema: Code(s): R60.0 - Localized edema Status: Acute Assessment and Plan: Treatment for cellulitis per primary team. Diastolic dysfunction noted on echo. Will add lasix. Consider sleep study as outpatient for likely sleep apnea suggested by symptoms and body habitus (3) Hypomagnesemia: Code(s): E83.42 - Hypomagnesemia Status: Acute Assessment and Plan: - continue to monitor and replete magnesium, initially low at 1.3, now improved. - (4) Essential hypertension: Code(s): I10 - Essential (primary) hypertension Status: Acute Assessment and Plan: - Blood pressure was mildly elevated on presentation but subsequently improved. - continue to monitor on current regimen. (5) Uncontrolled diabetes mellitus: Code(s): E11.65 - Type 2 diabetes mellitus with hyperglycemia Status: Acute Assessment and Plan: -She has marked hyperglycemia this admission. -adjustment of diabetic regimen as per primary service. Subjective Date/time seen: 01/04/21 10:24 lower ext edema and pain is better. She feels abx are helping. Was short of breath on admission but that is also getting better Review of Systems Review of Systems: All systems reviewed & are unremarkable except as noted in HPI and below Exam Narrative: Exam Narrative: General: well-developed female sitting up in bed in no acute distress. morbidly obese. HEENT: Normocephalic, atraumatic. PERRL, EOMI. Sclerae anicteric. Oral mucosa moist. Oropharynx is crowded and poorly visualized. Neck: Supple. Exam limited due to neck circumference but no obvious JVD or thyromegaly. Respiratory: Lungs are clear to auscultation bilaterally. She is speaking in full sentences and is in no respiratory distress. Cardiovascular: No heave. No jugular venous distention. Regular rate and rhythm with S1-S2, with 1 of 6 intensity systolic murmur. Peripheral pulses intact. Gastrointestinal: Abdomen is soft, morbidly obese, nontender, and nondistended with positive bowel sounds. Skin: Warm and dry. No rash or lesions on limited exam. there is some hyperpigmentation on the dorsum of the right foot extending throughout the lateral part of the foot. There is marked swelling with mild erythema and warmth. No fluctuance noted. She is exquisitely tender to even light palpation over the right midfoot. Extremities: No cyanosis or clubbing. Bilateral pedal edema, right 2+ much greater than left 1+. Negative Charu sign bilaterally. Radial and pedal pulses intact. Neurological: Alert. Cranial nerves 2-12 are grossly intact. No gross focal deficits to casual conversation. Psychiatric: Pleasant and cooperative with normal mood and affect. Objective Data Vital Signs Vital Signs: Vital Signs - 24 hr 01/03/21 11:50 01/03/21 16:00 01/03/21 16:21 Temperature 35.8 C L 35.7 C L Pulse Rate 100 100 94 Respiratory Rate 16 16 Blood Pressure 114/73 126/73 Pulse Oximetry 100 100 01/03/21 20:00 01/03/21 21:39 01/04/21 00:00 Temperature 36.6 C 36.4
[2021-01-04 13:15] LABS: Glucose Point of Care 394 mg/dl (65-105)
[2021-01-04] MEDS: FUROSEMIDE 40 MG TABLET PO (13:18)
--- NOTE | 2021-01-04 13:24 | PM.PNORT ---
Progress Note: A&P Assessment and Plan (1) Fracture of right foot affected by diabetic neuropathy: Qualifiers: Encounter type: initial encounter Fracture type: closed Qualified Code(s): S92.901A - Unspecified fracture of right foot, initial encounter for closed fracture; E11.40 - Type 2 diabetes mellitus with diabetic neuropathy, unspecified Code(s): S92.901A - Unspecified fracture of right foot, initial encounter for closed fracture; E11.40 - Type 2 diabetes mellitus with diabetic neuropathy, unspecified Status: Acute Assessment and Plan: No significant change in condition. No evidence of cellulitis or infection. I reviewed the previous MRI personally. Examined the patient and agree with the consultation by Maria Eugenia Cowan PA-C. Explained to patient that the subacute fractures can be difficult to treat and can progress. She has risk of developing further degeneration and fractures of the foot with potential Charcot arthropathy. She expresses understanding and says that she will be working on her diabetes and is looking into weight loss surgery. Have ordered a cast boot which is on its way. Maintain partial weight-bearing, with a walker. She will need to follow up with a patient financial services specialist or Installer Helper. Subjective Subjective Date/Time Seen: 01/04/21 13:24 Interval history: No change in patient pain or clinical presentation. Exam Narrative: Exam Narrative: Foot remains moderately swollen. No warmth or erythema. Diffuse tenderness. Weight-bearing as tolerated. Capillary refill brisk. Objective Data Vital Signs Vital Signs: Vital Signs - 24 hr 01/03/21 16:00 01/03/21 16:21 01/03/21 20:00 Temperature 35.7 C L Pulse Rate 100 94 89 Respiratory Rate 16 16 Blood Pressure 126/73 Pulse Oximetry 100 100 01/03/21 21:39 01/04/21 00:00 01/04/21 04:00 Temperature 36.6 C 36.4 C 36.4 C L Pulse Rate 89 90 79 Respiratory Rate 16 16 16 Blood Pressure 119/66 123/82 128/86 Pulse Oximetry 100 99 99 01/04/21 08:00 01/04/21 10:15 Temperature 36.0 C L Pulse Rate 85 96 Respiratory Rate 18 Blood Pressure 116/77 Pulse Oximetry 100 Intake/Output Intake/Output: Intake & Output 01/01/21 01/02/21 01/03/21 01/04/21 23:59 23:59 23:59 23:59 Intake Total 730 3110 1480 Output Total 1600 Balance 730 1510 1480 Meds/Results Medications: Active Medications Generic Name Dose Route Start Last Admin Trade Name Freq PRN Reason Stop Dose Admin Acetaminophen 650 mg 01/02/21 14:47 Acetaminophen 325 Mg Tablet PO Q6H PRN Mild Pain (1-3) or Fever Aspirin 81 mg 01/03/21 09:15 01/04/21 09:01 Aspirin 81 Mg Enteric Tablet PO 81 mg QAM JENNIFER Administration Dextrose 12.5 gm 01/02/21 07:32 Dextrose 50% 25 Gm/50 Ml Syringe IV PUSH PRN PRN Hypoglycemia Protocol Enoxaparin Sodium 40 mg 01/03/21 21:00 01/04/21 09:02 Enoxaparin 40 Mg/0.4 Ml Syringe SUB-Q 40 mg Q12HR JENNIFER Administration Furosemide 40 mg 01/04/21 10:35 01/04/21 13:18 Furosemide 40 Mg Tablet PO 40 mg DAILY JENNIFER Administration Gabapentin 300 mg 01/02/21 14:00 01/04/21 13:18 Gabapentin 300 Mg Capsule PO 300 mg Q8HR JENNIFER Administration Glucagon 1 mg 01/02/21 07:32 Glucagon For Inj 1 Mg Vial IM PRN PRN Hypoglycemia Protocol Glucose 15 gm 01/02/21 07:32 Glucose Oral Gel 15 Gm Of Glucse In 37.5 Gm Tube PO PRN PRN Hypoglycemia Protocol Dextrose 1,000 mls @ 100 mls/hr 01/02/21 07:32 Dextrose 5% 1,000 Ml IVPB PRN PRN Hypoglycemia Protocol Vancomycin HCl 1,500 mg in 500 mls @ 333.333 mls/hr 01/03/21 07:00 01/04/21 02:55 Vancomycin 1,500 Mg/D5w 500 Ml IVPB Infused Q8H JENNIFER Infusion Imipenem/Cilastatin Sodium 500 mg in 100 mls @ 300 mls/hr 01/03/21 18:00 01/04/21 05:48 Primaxin 500 Mg/D5w 100 Ml IVPB 150 mls/hr Q6HR JENNIFER Administration Insulin Aspart 4 - 8 units
--- NOTE | 2021-01-04 13:52 | PM.IMPN ---
Progress Note: A&P Assessment and Plan (1) Chest pain: Code(s): R07.9 - Chest pain, unspecified Status: Acute Assessment and Plan: Her pain is a bit atypical for a cardiac etiology however she certainly has risk factors for such. Dr. Singh (cardiology) has been consulted and his input is appreciated. echocardiogram with left ventricular systolic function of 60-65%, no significant valvular disease, no pericardial effusion, right ventricle with normal size and systolic function. Cardiology has been consulted and is planning to do stress tests either inpatient versus outpatient chest pain has resolved. EKG with no acute changes, serial cardiac enzymes negative, CT of the chest was negative for pulmonary embolism. She does have a history of diabetes hypertension morbid obesity and family history of premature coronary artery disease with her mother having [place] at age of 48. likely will benefit from doing stress test (2) Uncontrolled insulin dependent diabetes mellitus: Status: Acute Assessment and Plan: severely hyperglycemic on admission. Metformin on hold A1c at 12.7. [facility] reports he is on Lantus 60 units at bedtime along with Humalog SSI. Will start Lantus 42 units at bedtime starting this evening. Continue to monitor her Accu-Cheks along with SSI and hypoglycemia protocol. (3) Hypomagnesemia: Code(s): E83.42 - Hypomagnesemia Status: Acute Assessment and Plan: Magnesium Replaced (4) Abnormal x-ray of extremity: Code(s): R93.6 - Abnormal findings on diagnostic imaging of limbs Status: Acute Assessment and Plan: Right foot x-ray shows periosteal reaction of the 4th metatarsal shaft, a nonspecific finding. It looks like she may have cellulitis of the right foot and the os started on antibiotics with vancomycin and IV imipenem. MRI foot with subacute nondisplaced fractures of the distal neck and proximal the meta diaphysis of the right 4th metatarsal. Eight indeterminate nondisplaced mildly commuted fracture of the cuboid without significant surrounding marrow edema, likely reactive marrow edema and enhancement of the base of the 3rd and 5th metatarsals, the neck of the 3rd metatarsal and head of the 2nd metatarsal without evident fracture lines in these. Also notes likely chronic osteonecrosis at the heads of the 3rd and 4th metatarsals. Orthopedics consulted. Recommend partial weight-bearing with a walker cast boot follow-up with crime specialist/build and deployment engineer (5) Essential hypertension: Code(s): I10 - Essential (primary) hypertension Status: Acute Assessment and Plan: Blood pressures were reviewed and they are reasonably well controlled. Continue antihypertensives and monitor. (6) Morbid obesity: Code(s): E66.01 - Morbid (severe) obesity due to excess calories Status: Acute Assessment and Plan: We did discuss lifestyle changes that she can make including weight loss and compliance with her medications. (7) Diabetic peripheral neuropathy: Code(s): E11.42 - Type 2 diabetes mellitus with diabetic polyneuropathy Status: Inactive Assessment and Plan: I think a lot of the pain in her legs and feet are due to her neuropathy from her uncontrolled diabetes. Continue gabapentin. (8) Cellulitis of right foot: Code(s): L03.115 - Cellulitis of right lower limb Status: Acute Assessment and Plan: possible however she does have underlying with recent nondisplaced fractures in her foot chief as well as peripheral neuropathy. She has been started on vancomycin and imipenem. no fever or a white cell count. with her lack of IV access, will change to oral antibiotic at this time. (9) DVT prophylaxis: Code(s): Z29.9 - Encounter for prophylactic measures, unspecified Status: Acute Assessment and Plan: Lovenox (10) Lower extremity edema: Code(s): R60.0
[2021-01-04] MEDS: BISACODYL 10 MG SUPPOSITORY RECTAL (16:59)
[2021-01-04] MEDS: CEPHALEXIN 500 MG CAPSULE PO ×2 (17:00→23:48)
[2021-01-04 17:53] LABS: Glucose Point of Care 339 mg/dl (65-105)
[2021-01-04] MEDS: INSULIN ASPART (*BKC) 100 UNITS/ML 12 UNITS SUB-Q (17:55)
[2021-01-04] MEDS: INSULIN GLARGINE (*BKC) 100 UNITS/ML 42 UNITS SUB-Q (21:19)
[2021-01-04 21:23] LABS: Glucose Point of Care 332 mg/dl (65-105)
[2021-01-05] VITALS (7 sets, daily range): BP systolic 138–142; BP diastolic 76–84; PULSE 78–98; RESP 16–20; TEMP 35.5–36.1; O2SAT 97–100
[2021-01-05] MEDS: CEPHALEXIN 500 MG CAPSULE PO ×2 (05:28→11:52)
[2021-01-05] MEDS: GABAPENTIN 300 MG CAPSULE PO ×2 (05:28→13:13)
[2021-01-05 05:46] LABS: Basophils Percent Auto 0.4 % (0.2-1.2); Eosinophils Absolute Auto 0.2 K/mm3 (0-0.3); Eosinophils Percent Auto 3.3 % (0-4.4); Hematocrit 35.5 % (37.0-47.0); Hemoglobin 11.8 g/dL (12.0-15.0); Immature Granulocyte Absolute 0.01 K/mm3 (0.00-0.031); Immature Granulocyte Percent A 0.2 % (0-0.5); Lymphocytes Absolute Auto 1.94 K/mm3 (0.9-3.2); Lymphocytes Percent Auto 42.5 % (18.3-44.2); Mean Corpuscular HGB Conc 33.2 g/dl (32-36); Mean Corpuscular Hemoglobin 26.7 pg (26-34); Mean Corpuscular Volume 80.3 fl (80-100); Mean Platelet Volume 10.5 fl (7.4-10.4); Monocytes Absolute Auto 0.5 K/mm3 (0.1-0.6); Monocytes Percent Auto 10.7 % (2.6-8.5); Neutrophils Percent Auto 42.9 % (45.5-73.1); Platelet Count Result 172 k/mm3 (150-375); Red Blood Count 4.42 M/mm3 (4.2-5.4); White Blood Count 4.6 K/mm3 (4.5-10.0)
[2021-01-05 05:54] LABS: Anion Gap 5 mmol/L (8-16); Blood Urea Nitrogen 21 mg/dL (7-17); Calcium 9.2 mg/dL (8.4-10.2); Carbon Dioxide 28 mmol/L (22-30); Chloride 102 mmol/L (98-107); Estimated CRCL calculation 90 ml/min; Estimated Glomerular Filt Rate > 60; Glucose 330 mg/dL (65-105); Potassium 4.4 mmol/L (3.4-5.0); Sodium 135 mmol/L (137-145)
[2021-01-05] MEDS: MAGNESIUM HYDROXIDE SUSP 30 ML UDC PO (08:23)
[2021-01-05] MEDS: ENOXAPARIN 40 MG/0.4 ML SYRINGE SUB-Q (08:23)
[2021-01-05] MEDS: ROSUVASTATIN 10 MG TABLET 40 MG PO (08:23)
[2021-01-05] MEDS: lisinopriL 20 MG TABLET 40 MG PO (08:23)
[2021-01-05 08:24] LABS: Glucose Point of Care 294 mg/dl (65-105)
[2021-01-05] MEDS: MAGNESIUM OXIDE 400 MG TABLET PO (08:24)
[2021-01-05] MEDS: ASPIRIN 81 MG ENTERIC TABLET PO (08:24)
[2021-01-05] MEDS: FUROSEMIDE 40 MG TABLET PO ×2 (08:24→13:13)
[2021-01-05] MEDS: traMADol HCL (*CRX) 50 MG TABLET PO ×2 (08:24→12:00)
[2021-01-05] MEDS: INSULIN ASPART (*BKC) 100 UNITS/ML SUB-Q ×2 (08:25→11:52)
[2021-01-05] MEDS: INSULIN ASPART (*BKC) 100 UNITS/ML 12 UNITS SUB-Q ×2 (08:25→11:52)
--- NOTE | 2021-01-05 10:41 | PM.PNCARD ---
Progress Note: A&P Assessment and Plan (1) Chest pain: Code(s): R07.9 - Chest pain, unspecified Status: Acute Assessment and Plan: 55-year-old woman with history of morbid obesity, HTN, insulin-dependent type 2 DM, family history premature myocardial infarction (mother with TX at age 48),who is seen in cardiac consultation for chief complaint of chest pain and lower ext edema - Her presenting chest pain has resolved. - EKG without evidence of acute injury. Repeat EKG. - Serial troponin I was negative for injury. - CTA of the chest was negative for pulmonary embolism. -Echo with normal EF and no regional wall motion changes - Continue aspirin. - Pending resolution of her right lower extremity cellulitis and correction of electrolyte abnormalities as well as marked hyperglycemia, consider Lexiscan nuclear stress testing in outpatient setting (2) Lower extremity edema: Code(s): R60.0 - Localized edema Status: Acute Assessment and Plan: Significantly better after received lasix. Also on Abx per primary team Would given another dose of lasix this afternoon Will continue lasix on discharge 40 mg daily She will need sleep study to be arranged in outpatient settings (3) Hypomagnesemia: Code(s): E83.42 - Hypomagnesemia Status: Acute Assessment and Plan: - continue to monitor and replete magnesium, initially low at 1.3, now improved. - (4) Essential hypertension: Code(s): I10 - Essential (primary) hypertension Status: Acute Assessment and Plan: - Blood pressure was mildly elevated on presentation but subsequently improved. - continue to monitor on current regimen. (5) Uncontrolled diabetes mellitus: Code(s): E11.65 - Type 2 diabetes mellitus with hyperglycemia Status: Acute Assessment and Plan: -She has marked hyperglycemia this admission. -adjustment of diabetic regimen as per primary service. Subjective Date/time seen: 01/05/21 10:41 She feels much better since received lasix. Leg edema as well as dyspnea improved she admits to snoring and falling asleep watching TV. Never tested for sleep apnea in the past. Review of Systems Review of Systems: All systems reviewed & are unremarkable except as noted in HPI and below Exam Narrative: Exam Narrative: General: well-developed female sitting up in bed in no acute distress. morbidly obese. HEENT: Normocephalic, atraumatic. PERRL, EOMI. Sclerae anicteric. Oral mucosa moist. Oropharynx is crowded and poorly visualized. Neck: Supple. Exam limited due to neck circumference but no obvious JVD or thyromegaly. Respiratory: Lungs are clear to auscultation bilaterally. She is speaking in full sentences and is in no respiratory distress. Cardiovascular: No heave. No jugular venous distention. Regular rate and rhythm with S1-S2, with 1 of 6 intensity systolic murmur. Peripheral pulses intact. Gastrointestinal: Abdomen is soft, morbidly obese, nontender, and nondistended with positive bowel sounds. Skin: Warm and dry. No rash or lesions on limited exam. there is some hyperpigmentation on the dorsum of the right foot extending throughout the lateral part of the foot. There is marked swelling with mild erythema and warmth. No fluctuance noted. She is exquisitely tender to even light palpation over the right midfoot. Extremities: No cyanosis or clubbing. Bilateral pedal edema, right 2+ much greater than left 1+. Negative Charu sign bilaterally. Radial and pedal pulses intact. Neurological: Alert. Cranial nerves 2-12 are grossly intact. No gross focal deficits to casual conversation. Psychiatric: Pleasant and cooperative with normal mood and affect. Objective Data Vital Signs Vital Signs: Vital Signs - 24 hr 01/04/21 12:00 01/04/21 14:10 01/04/21 16:00 Temperature 35.8 C L Pulse Rate 108 H 87 97 Respiratory Rate 16 Blood Pressure 137/80 Pulse Oximetry 10
[2021-01-05 11:49] LABS: Glucose Point of Care 363 mg/dl (65-105)
--- NOTE | 2021-01-05 14:48 | PM.DS ---
DS: Admitting Diagnosis Admitting Diagnosis Admitting Diagnosis: Shortness of breath, leg swelling DS: Discharge Diagnosis Discharge Diagnosis (1) Lower extremity edema: Code(s): R60.0 - Localized edema Status: Acute (2) Fracture of right foot affected by diabetic neuropathy: Qualifiers: Encounter type: initial encounter Fracture type: closed Qualified Code(s): S92.901A - Unspecified fracture of right foot, initial encounter for closed fracture; E11.40 - Type 2 diabetes mellitus with diabetic neuropathy, unspecified Code(s): S92.901A - Unspecified fracture of right foot, initial encounter for closed fracture; E11.40 - Type 2 diabetes mellitus with diabetic neuropathy, unspecified Status: Acute (3) Cellulitis of right foot: Code(s): L03.115 - Cellulitis of right lower limb Status: Acute (4) Chest pain: Code(s): R07.9 - Chest pain, unspecified Status: Acute (5) Abnormal x-ray of extremity: Code(s): R93.6 - Abnormal findings on diagnostic imaging of limbs Status: Acute (6) Hypomagnesemia: Code(s): E83.42 - Hypomagnesemia Status: Acute (7) Uncontrolled insulin dependent diabetes mellitus: Status: Acute (8) Morbid obesity: Code(s): E66.01 - Morbid (severe) obesity due to excess calories Status: Acute (9) Essential hypertension: Code(s): I10 - Essential (primary) hypertension Status: Acute (10) Insulin dependent type 2 diabetes mellitus: Code(s): E11.9 - Type 2 diabetes mellitus without complications; Z79.4 - oysterman (current) use of insulin Status: Acute (11) Atypical chest pain: Code(s): R07.89 - Other chest pain Status: Acute (12) Peripheral neuropathy: Code(s): G62.9 - Polyneuropathy, unspecified Status: Acute (13) Hyperlipidemia: Code(s): E78.5 - Hyperlipidemia, unspecified Status: Acute (14) History of snoring: Code(s): Z87.898 - Personal history of other specified conditions Status: Acute DS: Summary Hospital Course Hospital Course: (1) atypical Chest pain: Her pain is a bit atypical for a cardiac etiology however she certainly has risk factors for such. Dr. Singh (cardiology) has been consulted and his input is appreciated. echocardiogram with left ventricular systolic function of 60-65%, no significant valvular disease, no pericardial effusion, right ventricle with normal size and systolic function. Cardiology has been consulted and is planning to do stress tests as an outpatient. Her chest pain has resolved EKG with no acute changes, serial cardiac enzymes negative, CT of the chest was negative for pulmonary embolism. She does have a history of diabetes hypertension morbid obesity and family history of premature coronary artery disease with her mother having VT at age of 48. likely will benefit from doing stress test. To be planned for getting a stress test done as an outpatient basis to follow-up with image editor in 2 weeks for further assessment. (2) Uncontrolled insulin dependent diabetes mellitus: She was severely hyperglycemic on admission. Metformin on hold A1c at 12.7. she reports he is on Lantus 60 units at bedtime along with Humalog SSI. she was started on Lantus 42 units at bedtime . She will continue to titrate the insulin dosing as an outpatient basis. She also have a follow-up appointment with manager salt was he is getting status with soon I have advised her to continue checking her blood sugar making a log of home. She will bring the home blood sugar log at follow-up appointment with primary care as well as manager salt for further assessment. (3) Hypomagnesemia: Code(s): E83.42 - Hypomagnesemia Status: Acute Assessment and Plan: Magnesium Replaced . Continue magnesium 400 mg twice daily at discharge (4) Abnormal x-ray of extremity: Right foot x-ray shows perioste
== END 2021-01-05 15:33 | disposition home or self-care (01) ==
LOC: ANHED 10:16 → ANHIMU 11:54 → ANH2MED 01-04 08:34 → ANHIMU 01-06 17:13
PROVIDERS: Emergency Medicine; Internal Medicine Cardiovascular Disease; Physician Assistant; Admitting Provider Emergency Medicine; Emergency Provider General Practice; Visit Provider Internal Medicine
DX: R07.9 Chest pain, unspecified (principal); S92.901A Unspecified fracture of right foot, initial encounter for closed fracture; L03.115 Cellulitis of right lower limb; E11.9 Type 2 diabetes mellitus without complications; I10 Essential (primary) hypertension; E66.01 Morbid (severe) obesity due to excess calories; R06.02 Shortness of breath; R60.0 Localized edema; E11.42 Type 2 diabetes mellitus with diabetic polyneuropathy; E11.65 Type 2 diabetes mellitus with hyperglycemia; E83.42 Hypomagnesemia; Z79.4 Long term (current) use of insulin; Z68.43 Body mass index [BMI] 50.0-59.9, adult
CPT/HCPCS: 36415; 71046; 71275; 73630; 73720; 80048; 80061; 80076; 80202; 81001; 82948; 83036; 83735; 83880; 84443; 84484; 85025; 85380; 85610; 85652; 85730; 86140; 93005; 93970; 96365; 96366; 96367; 96372; 96375; 96376; 99285; A9270; A9577; C8929; G0378; J0743; J1170; J1650; J1815; J2270; J2405; J3370; J3475; Q9957; Q9967

== ENCOUNTER 2021-05-16 14:52 | Outpatient (CLI) | payer BC, SELFPAY ==
--- NOTE | ~2021-05-16 | US_ITS ---
EXAMINATION: US venous doppler LE RT DATE: 05/16/2021 15:47 INDICATION: Right leg pain TECHNIQUE: Tucker scale images without and with compression and Doppler images of the right lower extre mity veins were obtained. COMPARISON: 01/02/2021 FINDINGS: The right common femoral vein, profunda femoral vein, femoral vein, popliteal vein, peronea l trunk, posterior tibial veins, and greater saphenous vein are patent. IMPRESSION: 1. Patent right lower extremity veins. No evidence of deep venous thrombosis. Reviewed, dictated and finalized at location B. [employer]
[2021-05-16 16:32] LABS: Basophils Percent Auto 0.2 % (0.2-1.2); Eosinophils Absolute Auto 0.1 K/mm3 (0-0.3); Eosinophils Percent Auto 2.6 % (0-4.4); Hematocrit 42.6 % (37.0-47.0); Hemoglobin 13.9 g/dL (12.0-15.0); Immature Granulocyte Absolute 0.01 K/mm3 (0.00-0.031); Immature Granulocyte Percent A 0.2 % (0-0.5); Lymphocytes Absolute Auto 2.12 K/mm3 (0.9-3.2); Lymphocytes Percent Auto 38.7 % (18.3-44.2); Mean Corpuscular HGB Conc 32.6 g/dl (32-36); Mean Corpuscular Hemoglobin 27.3 pg (26-34); Mean Corpuscular Volume 83.7 fl (80-100); Mean Platelet Volume 11.1 fl (7.4-10.4); Monocytes Absolute Auto 0.5 K/mm3 (0.1-0.6); Monocytes Percent Auto 9.1 % (2.6-8.5); Neutrophils Absolute Auto 2.7 K/mm3 (1.3-6.7); Neutrophils Percent Auto 49.2 % (45.5-73.1); Platelet Count Result 159 k/mm3 (150-375); Red Blood Count 5.09 M/mm3 (4.2-5.4); Red Cell Distribution Width 12.9 % (11.5-14.5); White Blood Count 5.5 K/mm3 (4.5-10.0)
[2021-05-16 16:56] LABS: Alanine Aminotransferase 29 U/L (4-35); Albumin Level 4.1 g/dL (3.5-5.1); Alkaline Phosphatase 100 U/L (38-126); Anion Gap 11 mmol/L (8-16); Aspartate Amino Transferase 31 U/L (14-36); Bilirubin,Total 0.4 mg/dL (0.2-1.3); Blood Urea Nitrogen 17 mg/dL (7-17); Calcium 9.4 mg/dL (8.4-10.2); Carbon Dioxide 27 mmol/L (22-30); Chloride 100 mmol/L (98-107); Cholesterol 161 mg/dL (0-200); Estimated Glomerular Filt Rate > 60; Glucose 389 mg/dL (65-110); HDL Direct 34 mg/dL; Potassium 3.7 mmol/L (3.4-5.0); Sodium 138 mmol/L (137-145); Triglycerides 442 mg/dL (<150)
[2021-05-16 17:12] LABS: LDL Cholesterol Direct 73 mg/dL
[2021-05-16 17:23] LABS: Creatinine Urine 179.2 mg/dL
[2021-05-16 17:28] LABS: MALB Creatinine Ratio 61.4 mg/g (0-30)
[2021-05-16 17:30] LABS: Vitamin D 25 Hydroxy 32.9 ng/mL
[2021-05-16 18:02] LABS: Folic Acid 14.9 ng/mL (2.76->20)
[2021-05-18 14:11] LABS: C-Peptide 3.23 ng/mL (0.80-3.85)
[2021-05-18 18:08] LABS: Glutamic acid decarboxylase AA <5 IU/mL (<5)
[2021-05-19 06:53] LABS: Fructosamine 456 umol/L (205-285)
== END 2021-05-16 14:53 | disposition home or self-care (01) ==
LOC: ANHIMG 15:11
PROVIDERS: Visit Provider Podiatrist Foot & Ankle Surgery
DX: M79.606 Pain in leg, unspecified (principal); E78.2 Mixed hyperlipidemia; E11.65 Type 2 diabetes mellitus with hyperglycemia; Z79.4 Long term (current) use of insulin; E55.9 Vitamin D deficiency, unspecified
CPT/HCPCS: 36415; 80053; 80061; 82043; 82306; 82607; 82746; 82985; 84681; 85025; 86341; 93971

== ENCOUNTER 2021-06-06 14:15 | Outpatient (CLI) | payer BC, SELFPAY ==
[2021-06-06 15:05] LABS: D Dimer 0.73 ug/mL (<0.48)
== END 2021-06-06 14:16 | disposition home or self-care (01) ==
LOC: ANHLAB 14:19
PROVIDERS: Visit Provider Podiatrist Foot & Ankle Surgery
DX: I82.401 Acute embolism and thrombosis of unspecified deep veins of right lower extremity (principal)
CPT/HCPCS: 36415; 85380

== ENCOUNTER 2021-10-07 17:05 | Emergency (ER) | payer BC, SELFPAY ==
[2021-10-07] VITALS (12 sets, daily range): BP systolic 144–155; BP diastolic 77–95; PULSE 76–105; RESP 15–42; TEMP 36.8; O2SAT 96–100
--- NOTE | ~2021-10-07 | XR_ITS ---
EXAMINATION: XR chest 2V DATE: 10/07/2021 18:33 INDICATION: Chest pain. TECHNIQUE: Frontal and lateral views of the chest were obtained. COMPARISON: Chest 2 views 01/02/2021, chest CT 01/02/2021 FINDINGS: The chest demonstrates clear lungs without pneumonia, pleural effusion, or pneumothorax. Th e heart size is normal. IMPRESSION: 1. No acute cardiopulmonary disease. Reviewed, dictated and finalized at location A.
--- NOTE | ~2021-10-07 | CT_ITS ---
EXAMINATION: CT brain wo con DATE: 10/07/2021 20:15 INDICATION: Left upper extremity weakness. Headache. TECHNIQUE: Computed tomography (CT) of the head was performed without intravenous contrast. The mA wa s adjusted according to patient size. Iterative reconstruction technique was employed. The dose-lengt h product was 605.33 mGy-cm. COMPARISON: None FINDINGS: There is no intracranial hemorrhage, acute infarction, or abnormal intracranial mass lesion . The ventricles are normal in size. The orbits are normal. There is mild mucosal thickening in the p aranasal sinuses. The mastoid air cells are normal. IMPRESSION: 1. Normal brain. Reviewed, dictated and finalized at location A. IMPRESSION: 1. Normal brain.
--- NOTE | ~2021-10-07 | CT_ITS ---
EXAMINATION: CT cervical spine wo con DATE: 10/07/2021 20:15 INDICATION: Left upper extremity weakness. Neck pain. TECHNIQUE: Computed tomography (CT) of the cervical spine was performed without intravenous contrast. Automated exposure control and iterative reconstruction technique were employed. The dose-length pro duct was 623.78 mGy-cm. COMPARISON: None FINDINGS: There is 4 degrees levocurvature of cervical spine. There is kyphosis of cervical spine. Ve rtebral body heights are normal. There is mildly decreased disc height at C4-C5, moderately decreased disc height at C5-C6, and mildly decreased disc height at C6-C7 and C7-T1. There is intermittent oss ification of posterior longitudinal ligament from C3 to C6. The following disc levels are specificall y discussed: C2-C3: There is no uncovertebral joint osteoarthritis. There is moderate right and severe left facet joint osteoarthritis. There is no neural foraminal stenosis. There is no central canal stenosis. C3-C4: There is no uncovertebral joint osteoarthritis. There is mild bilateral facet joint osteoarthr itis. There is no neural foraminal stenosis. There is mild central canal stenosis. C4-C5: There is no uncovertebral joint osteoarthritis. There is moderate bilateral facet joint osteoa rthritis. There is no neural foraminal stenosis. There is mild central canal stenosis. C5-C6: There is severe bilateral uncovertebral joint osteoarthritis. There is severe right and mild l eft facet joint osteoarthritis. There is mild bilateral neural foraminal stenosis. There is mild cent ral canal stenosis. C6-C7: There is no uncovertebral joint osteoarthritis. There is moderate right and mild left facet julio c int osteoarthritis. There is no neural foraminal stenosis. There is no central canal stenosis. C7-T1: There is no uncovertebral joint osteoarthritis. There is severe right and moderate left facet joint osteoarthritis. There is mild right neural foraminal stenosis. There is no central canal stenos is. IMPRESSION: 1. Moderate cervical spondylosis. Reviewed, dictated and finalized at location A.
--- NOTE | ~2021-10-07 | XR_ITS ---
EXAMINATION: XR shoulder LT min 2V DATE: 10/07/2021 21:12 INDICATION: Left shoulder pain. TECHNIQUE: 4 views of left shoulder were obtained. COMPARISON: Left shoulder radiographs 12/07/16 FINDINGS: Bone alignment is normal. No fracture. There is mild osteoarthritis of glenohumeral joint a nd severe osteoarthritis of acromioclavicular joint. There is calcific tendinitis of the rotator cuff . IMPRESSION: 1. Polyarticular osteoarthritis. 2. Calcific tendinitis of the rotator cuff. Reviewed, dictated and finalized at location A.
--- NOTE | 2021-10-07 17:12 | ECG_ITS ---
Measurements Intervals [place] Rate: 101 P: [place]: 0 QRS: 9 QRSD: 68 T: 52 QT: 340 QTc: 442 Interpretive Statements SINUS TACHYCARDIA LOW QRS VOLTAGE IN PRECORDIAL LEADS [QRS DEFLECTION < 1.0 mV IN CHEST LEADS] BORDERLINE ECG COMPARED TO ECG 01/03/2021 10:11:19 HEART RATE HAS INCREASED Electronically Signed On 10-07-2021 17:39:57 CDT by Neville Waite M.D.
[2021-10-07 17:23] LABS: Basophils Percent Auto 0.4 % (0.2-1.2); Eosinophils Absolute Auto 0.2 K/mm3 (0-0.3); Eosinophils Percent Auto 3.3 % (0-4.4); Hematocrit 40.3 % (37.0-47.0); Hemoglobin 13.1 g/dL (12.0-15.0); Immature Granulocyte Absolute 0.01 K/mm3 (0.00-0.031); Immature Granulocyte Percent A 0.2 % (0-0.5); Immature Platelet Fraction Pct 5.7 % (0.9-11.2); Lymphocytes Absolute Auto 2.17 K/mm3 (0.9-3.2); Lymphocytes Percent Auto 45.1 % (18.3-44.2); Mean Corpuscular HGB Conc 32.5 g/dl (32-36); Mean Corpuscular Hemoglobin 27.3 pg (26-34); Mean Corpuscular Volume 84.1 fl (80-100); Mean Platelet Volume 10.8 fl (7.4-10.4); Monocytes Absolute Auto 0.5 K/mm3 (0.1-0.6); Monocytes Percent Auto 9.8 % (2.6-8.5); Neutrophils Percent Auto 41.2 % (45.5-73.1); Platelet Count Result 150 k/mm3 (150-375); Red Blood Count 4.79 M/mm3 (4.2-5.4); Red Cell Distribution Width 12.8 % (11.5-14.5); White Blood Count 4.8 K/mm3 (4.5-10.0)
[2021-10-07 17:32] LABS: Partial Thromboplastin Time 40.6 SECONDS (22.3-36.8)
[2021-10-07 17:36] LABS: Alanine Aminotransferase 28 U/L (4-35); Albumin Level 3.7 g/dL (3.5-5.1); Alkaline Phosphatase 87 U/L (38-126); Anion Gap 10 mmol/L (8-16); Aspartate Amino Transferase 37 U/L (14-36); Bilirubin,Total 0.3 mg/dL (0.2-1.3); Blood Urea Nitrogen 21 mg/dL (7-17); Calcium 8.7 mg/dL (8.4-10.2); Carbon Dioxide 26 mmol/L (22-30); Chloride 100 mmol/L (98-107); Estimated Glomerular Filt Rate > 60; Glucose 506 mg/dL (65-110); Lipase 92 U/L (23-300); Potassium 4.4 mmol/L (3.4-5.0); Sodium 136 mmol/L (137-145)
[2021-10-07 17:43] LABS: Troponin I < 0.012 ng/mL (0.000-0.034)
[2021-10-07] MEDS: ASPIRIN 81 MG CHEWABLE TABLET 324 MG PO (19:12)
--- NOTE | 2021-10-07 20:29 | ED.CHESTPAIN ---
HPI - Chest Pain General Chief Complaint: Chest Pain Stated Complaint: chest pain since yesterday, head pain Time Seen by Provider: 10/07/21 18:58 Source: patient Mode of arrival: ambulatory Limitations: no limitations History of Present Illness HPI narrative: This is a 56 year old female that presents to the ER for an episode of chest pain today. Reports she has been having trouble with neck pain radiating into her left arm. This has been ongoing for the last week. Associated with some weakness in the left arm. No recent injury or trauma. Reports today she was at the grocery store and had an episode of chest tightness. This lasted for about 5 minutes and resolved. She denies any chest pain currently. Denies shortness of breath, edema, or numbness. Related Data Home Medications Medication Instructions Recorded Confirmed Lantus Solostar U-100 Insulin 40 unit SUBCUT HS 04/04/20 01/02/21 OneTouch Ultra Blue Test Strip 04/04/20 01/02/21 gabapentin 300 mg PO TID 04/04/20 01/02/21 insulin lispro [Humalog KwikPen See Protocol SUBCUT TIDWM 04/04/20 01/02/21 Insulin] lisinopril 40 mg PO DAILY 04/04/20 01/02/21 tramadol 50 mg PO QID 04/04/20 01/02/21 metformin 1,500 mg PO DAILY 01/02/21 01/02/21 rosuvastatin 40 mg PO DAILY 01/02/21 01/02/21 Allergies Allergy/AdvReac Type Severity Reaction Status Date / Time No Known Allergies Allergy Mild Verified 01/02/21 06:24 Review of Systems Review of Systems: CONSTITUTIONAL: Denies fever CARDIOVASCULAR: Reports chest pain. Denies edema. RESPIRATORY: Denies cough or dyspnea. MUSCULOSKELETAL: Reports back pain, joint pain, and myalgia. NEUROLOGIC: Reports weakness. Denies numbness All systems reviewed & are unremarkable except as noted in HPI and below PMFSH Past Medical History Medical History (Updated 10/07/21 @ 22:00 by Lalitha Maddox PA-C) Depression with anxiety Diabetic peripheral neuropathy Essential hypertension History of MRSA infection Skin and soft tissue infection of the left hip requiring debridement. Insulin dependent type 2 diabetes mellitus Morbid obesity Surgical History Surgical History History of section History of cholecystectomy History of hysterectomy History of tonsillectomy Status post debridement Debridement of wound on the left hip. Family History Family History Father Cancer Sibling Cancer Kidney disease Father COPD (chronic obstructive pulmonary disease) Mother Kidney disease Social History Social History Social History: The patient lives in [place], [place] with her . She has 4 children. Lifelong nonsmoker. No alcohol or illicit substance abuse. She designates her , Hong, as her surrogate decision maker and she wishes to be a full code. Exam Narrative: GENERAL: Well-appearing, well-nourished, and in no acute distress. HEAD: Normocephalic, atraumatic. EYES: PERRLA and EOMI. ENT: Nares clear, no rhinorrhea or epistaxis. Mucous membranes moist. Oropharynx without tonsillar hypertrophy exudate or other lesions. Bilateral TMs pearly ortega non-bulging NECK: Supple. No adenopathy or masses. Tender to palpation of the left trapezius and cervical paraspinal musculature CHEST: Clear to auscultation. No respiratory distress. No wheezes rales or rhonchi HEART: Regular rate and rhythm. No murmur heard. Normal peripheral pulses. EXTREMITIES: Normal range of motion. No edema. Strength 4/5 LUE, 5/5 RUE. Strength equal in bilateral lower extremities (5/5) SKIN: Warm, dry, no rash. NEURO: No focal deficits. Alert and oriented x3. CN II-XII grossly intact PSYCH: Normal mood and affect Course Vital Signs Vital signs: Vital Signs Temperature 98.2 F 10/07/21 17:31 Pulse Rate 98 10/07/21 17:31 Respiratory Rate 16 10/07/21 17:31 Blood Pressure
[2021-10-07] MEDS: SODIUM CHLORIDE 0.9% IV 500 ML 999 ML IV CONT (20:41)
[2021-10-07] MEDS: diazePAM INJ (*CRX) 10 MG/2 ML SYRINGE 5 MG IV PUSH (20:45)
[2021-10-07 20:53] LABS: Troponin I < 0.012 ng/mL (0.000-0.034)
[2021-10-07 21:26] LABS: Glucose Point of Care 380 mg/dl (65-105)
== END 2021-10-07 23:30 | disposition home or self-care (01) ==
PROVIDERS: Emergency Provider Emergency Medicine
DX: R07.89 Other chest pain (principal); M77.8 Other enthesopathies, not elsewhere classified; M54.2 Cervicalgia; E11.42 Type 2 diabetes mellitus with diabetic polyneuropathy; E66.01 Morbid (severe) obesity due to excess calories; Z68.43 Body mass index [BMI] 50.0-59.9, adult; M47.812 Spondylosis without myelopathy or radiculopathy, cervical region; M19.012 Primary osteoarthritis, left shoulder; Z86.14 Personal history of Methicillin resistant Staphylococcus aureus infection; Z79.4 Long term (current) use of insulin; Z79.84 Long term (current) use of oral hypoglycemic drugs; R00.0 Tachycardia, unspecified; R94.31 Abnormal electrocardiogram [ECG] [EKG]
CPT/HCPCS: 36415; 70450; 71046; 72125; 73030; 80053; 82948; 83690; 84484; 85025; 85055; 85610; 85730; 93005; 96365; 96366; 96375; 99284; A9270; J0131; J3360; J7040

== ENCOUNTER 2021-11-22 09:11 | Emergency (ER) | payer BC, SELFPAY ==
--- NOTE | ~2021-11-22 | XR_ITS ---
EXAMINATION: XR chest 1V portable DATE: 11/22/2021 12:04 INDICATION: Cough. TECHNIQUE: A single frontal view of the chest was obtained. COMPARISON: Chest 2 views 10/07/2021 FINDINGS: Sensitivity is decreased by obesity. The chest demonstrates clear lungs without pneumonia, pleural effusion, or pneumothorax. The heart size is normal. IMPRESSION: 1. No acute cardiopulmonary disease. Reviewed, dictated and finalized at location B.
[2021-11-22 09:20] VITALS: BP 130/87; PULSE 104; RESP 20; TEMP 35.4; O2SAT 99
[2021-11-22 11:39] VITALS: BP 143/80; PULSE 103; RESP 19; O2SAT 99
[2021-11-22 11:45] LABS: Glucose Point of Care > 500 mg/dl (65-105)
[2021-11-22 12:02] LABS: Basophils Percent Auto 0.5 % (0.2-1.2); Eosinophils Absolute Auto 0.1 K/mm3 (0-0.3); Eosinophils Percent Auto 1.3 % (0-4.4); Hematocrit 37.2 % (37.0-47.0); Hemoglobin 12.3 g/dL (12.0-15.0); Immature Granulocyte Absolute 0.03 K/mm3 (0.00-0.031); Immature Granulocyte Percent A 0.4 % (0-0.5); Lymphocytes Absolute Auto 1.84 K/mm3 (0.9-3.2); Lymphocytes Percent Auto 21.9 % (18.3-44.2); Mean Corpuscular HGB Conc 33.1 g/dl (32-36); Mean Corpuscular Hemoglobin 27.3 pg (26-34); Mean Corpuscular Volume 82.7 fl (80-100); Mean Platelet Volume 10.5 fl (7.4-10.4); Monocytes Absolute Auto 0.8 K/mm3 (0.1-0.6); Monocytes Percent Auto 9.8 % (2.6-8.5); Neutrophils Absolute Auto 5.6 K/mm3 (1.3-6.7); Neutrophils Percent Auto 66.1 % (45.5-73.1); Platelet Count Result 176 k/mm3 (150-375); Red Cell Distribution Width 12.8 % (11.5-14.5); White Blood Count 8.4 K/mm3 (4.5-10.0)
[2021-11-22 12:10] LABS: Alanine Aminotransferase 19 U/L (6-35); Albumin Level 3.5 g/dL (3.5-5.1); Alkaline Phosphatase 97 U/L (38-126); Anion Gap 7 mmol/L (8-16); Aspartate Amino Transferase 25 U/L (14-36); Bilirubin,Total 0.6 mg/dL (0.2-1.3); Blood Urea Nitrogen 10 mg/dL (7-17); Calcium 8.2 mg/dL (8.4-10.2); Carbon Dioxide 27 mmol/L (22-30); Chloride 100 mmol/L (98-107); Estimated CRCL calculation 108 ml/min; Estimated Glomerular Filt Rate > 60; Glucose 491 mg/dL (65-110); Lipase 83 U/L (23-300); Potassium 3.7 mmol/L (3.4-5.0); Sodium 134 mmol/L (137-145)
[2021-11-22] MEDS: MORPHINE SULFATE (*CRX) 4 MG/ML INJ IV PUSH (12:11)
[2021-11-22] MEDS: INSULIN HUMAN REGULAR (*BKC) 100 UNITS/ML 10 UNITS IV PUSH (12:14)
[2021-11-22] MEDS: SODIUM CHLORIDE 0.9% IV 1,000 ML 999 ML IV CONT (12:14)
[2021-11-22 13:00] LABS: SARS-CoV-2 RNA PCR Negative
[2021-11-22 13:06] LABS: Glucose Point of Care 393 mg/dl (65-105)
--- NOTE | 2021-11-22 13:32 | ED.GENADULT ---
HPI - General Adult General Chief complaint: Wound/Laceration Stated complaint: wound to right buttocks, weakness - fell today Time Seen by Provider: 11/22/21 11:39 History of Present Illness HPI narrative: Patient is a 56-year-old female who presents ER with gluteal abscess. She reports that initially 5 days ago she started having sinus congestion with cough. Had a negative home COVID test. She then developed nausea and vomiting and diarrhea. Occasionally the diarrhea will comes fascial go back to Laura. She then developed pain to her right buttock. Notes worsened over the last 2 days and today popped and began draining pus. She does not give recurrent buttock abscesses. No fevers or chills. Patient also reports due to fatigue and her GI illness she has stopped taking her insulin. Related Data Home Medications Medication Instructions Recorded Confirmed Lantus Solostar U-100 Insulin 40 unit SUBCUT HS 04/04/20 01/02/21 OneTouch Ultra Blue Test Strip 04/04/20 01/02/21 gabapentin 300 mg PO TID 04/04/20 01/02/21 insulin lispro [Humalog KwikPen See Protocol SUBCUT TIDWM 04/04/20 01/02/21 Insulin] lisinopril 40 mg PO DAILY 04/04/20 01/02/21 tramadol 50 mg PO QID 04/04/20 01/02/21 metformin 1,500 mg PO DAILY 01/02/21 01/02/21 rosuvastatin 40 mg PO DAILY 01/02/21 01/02/21 Allergies Allergy/AdvReac Type Severity Reaction Status Date / Time No Known Allergies Allergy Mild Verified 11/22/21 11:47 Review of Systems Review of Systems: All systems reviewed & are unremarkable except as noted in HPI and below Constitutional: Constitutional: Denies chills, Reports fatigue and Denies fever(s) ENT: Reports nasal congestion and Denies sore throat Cardiovascular: Cardiovascular: Denies chest pain, Denies rapid heart rate and Denies radiating jaw, neck or arm pain Respiratory: Respiratory: Reports cough, Denies dyspnea and Denies wheezing Gastrointestinal: Gastrointestinal: Denies abdominal pain, Reports diarrhea, Reports nausea and Reports vomiting Integumentary/Breasts: Skin/Breast: Denies erythema and Denies rash Comments: Abscess with drainage PMFSH Past Medical History Medical History (Updated 11/22/21 @ 15:32 by Ash García MD) Depression with anxiety Diabetic peripheral neuropathy Essential hypertension History of MRSA infection Skin and soft tissue infection of the left hip requiring debridement. Insulin dependent type 2 diabetes mellitus Morbid obesity Surgical History Surgical History History of section History of cholecystectomy History of hysterectomy History of tonsillectomy Status post debridement Debridement of wound on the left hip. Family History Family History Father Cancer Sibling Cancer Kidney disease Father COPD (chronic obstructive pulmonary disease) Mother Kidney disease Social History Social History Social History: The patient lives in [place], [place] with her . She has 4 children. Lifelong nonsmoker. No alcohol or illicit substance abuse. She designates her , Hong, as her surrogate decision maker and she wishes to be a full code. Exam Narrative: GENERAL: Well-appearing, morbidly obese, and in no acute distress. HEAD: Normocephalic, atraumatic. EYES: PERRL and EOMI. CHEST: Clear to auscultation. No respiratory distress. HEART: Regular rate and rhythm. Normal peripheral pulses. ABDOMEN: Soft, nontender, nondistended. EXTREMITIES: Normal range of motion. No edema. SKIN: Warm, dry, no rash. Right buttock with draining abscess that does not involve the rectum. There is mild induration but no fluctuance. The indurated ulrich does not move towards the rectum. It does move out towards the external buttock about 1.5 cm. No additional pus can be squeezed the area. No e
[2021-11-22 14:58] VITALS: BP 144/78; PULSE 97; RESP 18; O2SAT 99
[2021-11-22 17:29] VITALS: BP 140/80; PULSE 98; RESP 18; O2SAT 99
== END 2021-11-22 17:20 | disposition home or self-care (01) ==
PROVIDERS: Emergency Provider Emergency Medicine
DX: L02.31 Cutaneous abscess of buttock (principal); E11.65 Type 2 diabetes mellitus with hyperglycemia; Z79.4 Long term (current) use of insulin; Z20.822 Contact with and (suspected) exposure to COVID-19
CPT/HCPCS: 36415; 71045; 80053; 82948; 83690; 85025; 96361; 96374; 96375; 99284; C9803; J1815; J2270; J7030; U0003; U0005

== ENCOUNTER 2022-02-13 21:10 | Emergency (ER) | payer BC, SELFPAY ==
--- NOTE | ~2022-02-13 | XR_ITS ---
EXAM: XR ankle RT min 3V DATE: 02/13/2022 22:05 HISTORY: right ankle pain, injury, SWELLING TO MEDIAL/ LATERAL SIDES . COMPARISON: X-ray foot, same date. FINDINGS: Decreased mineralization. No acute fracture or dislocation. No lytic or blastic lesion. Mi ld degenerative change in the tibiotalar joint. Marked Achilles enthesopathy. Degenerative/posttrauma tic change in the midfoot. No erosion or periosteal change. Soft tissues edema about the ankle. IMPRESSION: No acute osseous finding in the right ankle. Reviewed, dictated and finalized at location K.
--- NOTE | ~2022-02-13 | XR_ITS ---
EXAM: XR foot RT min 3V DATE: 02/13/2022 21:46 HISTORY: MEDIAL RT FOOT PAIN X 2 DAYS POST FALL, BROKE FOOT 1 YR AGO . COMPARISON: None available. FINDINGS: Decreased mineralization. Obliquely oriented fracture, likely involving the cuboid and lat eral cuneiform with surrounding sclerotic degenerative changes. No acute fracture. Flattening of the second through third metatarsal heads, with osteophytosis. Moderate hallux valgus. IMPRESSION: No acute fracture in the right foot. Chronic cuboid and cuneiforms fractures with possibl e nonunion of the cuboid. Osteochondrosis of the second through fourth metatarsal heads. Reviewed, dictated and finalized at location K. IMPRESSION: No acute fracture in the right foot. Chronic cuboid and cuneiforms fractures with possible nonunion of the cuboid. Osteochondrosis of the second t hrough fourth metatarsal heads.
[2022-02-13 21:25] VITALS: BP 154/97; PULSE 97; RESP 19; TEMP 36.7; O2SAT 100
--- NOTE | 2022-02-13 21:46 | ED.LOWEXIN ---
HPI - Extremity Injury (Lower) General Chief Complaint: Extremity Injury, Lower <Lalitha Maddox PA-C - Last Filed: 02/13/22 22:57> Stated Complaint: r foot pain <ZAIN Tate Last Filed: 02/13/22 22:57> Time Seen by Provider: 02/13/22 21:33 <Lalitha Maddox PA-C - Last Filed: 02/13/22 22:57> Source: patient <ZAIN Tate Last Filed: 02/13/22 22:57> Mode of arrival: ambulatory <ZAIN Tate Last Filed: 02/13/22 22:57> Limitations: no limitations <ZAIN Tate Last Filed: 02/13/22 22:57> History of Present Illness HPI Narrative: This is a 56 year old female that presents to the ER for right foot pain after an injury 2 days ago. Reports she slipped while getting out of the tub. Reports rolling the right ankle. Denies any other injuries. Reports decreased range of motion due to pain. Denies numbness. <ZAIN Tate Last Filed: 02/13/22 22:57> Related Data Home Medications: Home Medications Medication Instructions Recorded Confirmed blood sugar diagnostic (OneTouch 04/04/20 01/02/21 Ultra Blue Test Strip) gabapentin 300 mg capsule 300 mg PO TID 04/04/20 01/02/21 insulin glargine 100 unit/mL (3 40 unit subcut HS 04/04/20 01/02/21 mL) subcutaneous pen (Lantus Solostar U-100 Insulin) insulin lispro 100 unit/mL See Protocol subcut TIDWM 04/04/20 01/02/21 subcutaneous pen (Humalog KwikPen (U-100) Insulin) lisinopril 40 mg tablet 40 mg PO DAILY 04/04/20 01/02/21 tramadol 50 mg tablet 50 mg PO QID 04/04/20 01/02/21 metformin 500 mg tablet,extended 1,500 mg PO DAILY 01/02/21 01/02/21 release 24 hr rosuvastatin 40 mg tablet 40 mg PO DAILY 01/02/21 01/02/21 <Lalitha Maddox PA-C - Last Filed: 02/13/22 22:57> Allergies/Adverse Reactions: Allergies Allergy/AdvReac Type Severity Reaction Status Date / Time No Known Allergies Allergy Mild Verified 02/13/22 21:30 <Lalitha Maddox PA-C - Last Filed: 02/13/22 22:57> Review of Systems Review of Systems: CONSTITUTIONAL: Denies fever MUSCULOSKELETAL: Reports joint pain, and myalgia. NEUROLOGIC: Denies numbness <Lalitha Maddox PA-C - Last Filed: 02/13/22 22:57> All systems reviewed & are unremarkable except as noted in HPI and below <Lalitha Maddox PA-C - Last Filed: 02/13/22 22:57> [facility] Past Medical History Medical History: Medical History (Updated 02/14/22 @ 00:01 by Raymundo Smith) Depression with anxiety Diabetic peripheral neuropathy Essential hypertension History of MRSA infection Skin and soft tissue infection of the left hip requiring debridement. Insulin dependent type 2 diabetes mellitus Morbid obesity <Lalitha Maddox PA-C - Last Filed: 02/13/22 22:57> Surgical History Surgical History: Surgical History History of section History of cholecystectomy History of hysterectomy History of tonsillectomy Status post debridement Debridement of wound on the left hip. <Lalitha Maddox PA-C - Last Filed: 02/13/22 22:57> Family History Family History: Family History Father Cancer Sibling Cancer Kidney disease Father COPD (chronic obstructive pulmonary disease) Mother Kidney disease <Lalitha Maddox PA-C - Last Filed: 02/13/22 22:57> Social History Social History: Social History (Updated 02/13/22 @ 21:47 by Lalitha Maddox PA-C) Social History: The patient lives in [place], [place] with her . She has 4 children. Lifelong nonsmoker. No alcohol or illicit substance abuse. She designates her , Hong, as her surrogate decision maker and she wishes to be a full code. Smoking status: Never smoker <Lalitha Maddox PA-C - Last Filed: 02/13/22 22:57> Exam Narrative: GENERAL: Well-appearing, well-nourished, and in no acute distress. HEAD: Normoceph
[2022-02-13] MEDS: HYDROcodone/acetaminophen (*CRX) 5-325 MG TABLET 1 TAB PO (23:06)
== END 2022-02-13 23:10 | disposition home or self-care (01) ==
PROVIDERS: Emergency Provider Emergency Medicine
DX: S93.601A Unspecified sprain of right foot, initial encounter (principal); E11.42 Type 2 diabetes mellitus with diabetic polyneuropathy; I10 Essential (primary) hypertension; E66.01 Morbid (severe) obesity due to excess calories; Z68.43 Body mass index [BMI] 50.0-59.9, adult; Z90.710 Acquired absence of both cervix and uterus; Z86.14 Personal history of Methicillin resistant Staphylococcus aureus infection; Z79.4 Long term (current) use of insulin; Z79.84 Long term (current) use of oral hypoglycemic drugs; M93.871 Other specified osteochondropathies, right ankle and foot; W18.2XXA Fall in (into) shower or empty bathtub, initial encounter
CPT/HCPCS: 73610; 73630; 99283; A9270

== ENCOUNTER 2022-07-26 19:21 | Emergency (ER) | payer OTHER, BC, SELFPAY ==
[2022-07-26] VITALS (20 sets, daily range): BP systolic 129–190; BP diastolic 65–162; PULSE 99–130; RESP 8–31; TEMP 37.1–37.7; O2SAT 69–100
--- NOTE | ~2022-07-26 | XR_ITS ---
EXAMINATION: XR chest 2V DATE: 07/26/2022 20:09 INDICATION: Cough. Central chest pain. TECHNIQUE: Frontal and lateral views of the chest were obtained. COMPARISON: Chest single view 11/22/2021 FINDINGS: The chest demonstrates clear lungs without pneumonia, pleural effusion, or pneumothorax. Th e heart size is normal. Surgical clips in the right upper quadrant are likely from cholecystectomy. IMPRESSION: 1. No acute cardiopulmonary disease. Reviewed, dictated and finalized at location A. VIORAL HEALTH AIDE
--- NOTE | ~2022-07-26 | CT_ITS ---
EXAMINATION: CTA chest PE protocol DATE: 07/26/2022 22:00 INDICATION: Shortness of breath and cough. TECHNIQUE: Computed tomography angiography (CTA) of the chest was performed with 100 mL Omnipaque-350 intravenous contrast timed to evaluate the pulmonary arteries. Coronal maximum intensity projection 3D-reconstructions were created by the technologist. Automated exposure control and iterative reconst ruction technique were employed. The dose-length product was 978.70 mGy-cm. COMPARISON: Chest CT 01/02/2021 FINDINGS: There is mild atelectasis bilaterally. No pleural effusion. The heart size is normal. No pe ricardial effusion. There is a small sliding hiatal hernia. There is no pulmonary embolus. The centra l pulmonary arteries are enlarged, consistent with pulmonary artery hypertension. There are changes o f cholecystectomy. There is diffuse hepatic steatosis. There are bridging endplate osteophytes at mul tiple levels in the spine, consistent with diffuse idiopathic skeletal hyperostosis (DISH). There is mild thoracic spondylosis. IMPRESSION: 1. No pulmonary embolus. Reviewed, dictated and finalized at location A. L TOUCH UP PAINTER IMPRESSION: 1. No pulmonary embolus.
--- NOTE | 2022-07-26 19:26 | ECG_ITS ---
Measurements Intervals [place] Rate: 109 P: 52 ME: 160 QRS: 28 QRSD: 71 T: 56 QT: 324 QTc: 437 Interpretive Statements SINUS TACHYCARDIA LOW QRS VOLTAGE IN PRECORDIAL LEADS CANNOT RULE OUT SEPTAL INFARCT, AGE INDETERMINATE BASELINE ARTIFACT- I, II, III, AVR, AVL, AVF, V1 ABNORMAL ECG COMPARED TO ECG 10/07/2021 17:14:23 NO SIGNIFICANT CHANGES Electronically Signed On 07-27-2022 7:42:06 GAG WRITER by Geovani Champion D.O.
[2022-07-26 20:16] LABS: Glucose Point of Care 409 mg/dl (65-105)
[2022-07-26 20:19] LABS: Basophils Percent Auto 0.5 % (0.2-1.2); Eosinophils Percent Auto 0.1 % (0-4.4); Hematocrit 37.6 % (37.0-47.0); Hemoglobin 12.8 g/dL (12.0-15.0); Immature Granulocyte Absolute 0.02 K/mm3 (0.00-0.031); Immature Granulocyte Percent A 0.2 % (0-0.5); Lymphocytes Percent Auto 20.9 % (18.3-44.2); Mean Corpuscular Hemoglobin 28.1 pg (26-34); Mean Corpuscular Volume 82.5 fl (80-100); Mean Platelet Volume 10.6 fl (7.4-10.4); Monocytes Absolute Auto 0.6 K/mm3 (0.1-0.6); Neutrophils Absolute Auto 5.8 K/mm3 (1.3-6.7); Neutrophils Percent Auto 71.3 % (45.5-73.1); Platelet Count Result 142 k/mm3 (150-375); Red Blood Count 4.56 M/mm3 (4.2-5.4); Red Cell Distribution Width 12.5 % (11.5-14.5); White Blood Count 8.1 K/mm3 (4.5-10.0)
[2022-07-26 20:39] LABS: Troponin I < 0.012 ng/mL (0.000-0.034)
--- NOTE | 2022-07-26 20:40 | ED.GENADULT ---
HPI - General Adult General Chief complaint: Weakness Stated complaint: cough/weakness/SOB. Time Seen by Provider: 07/26/22 19:50 Source: patient Mode of arrival: ambulatory Limitations: no limitations History of Present Illness HPI narrative: Patient is a 57 y/o female who presents to the ED with with multiple complaints. Patient reports she felt ill last week with cough, body aches, fever and chills. She assumed she had the flu and self isolated at home. Patient began feeling unwell again yesterday and reported having shortness of breath and an episode of midsternal chest heaviness yesterday morning. She also complains of generalized weakness, chills and body aches, in addition to nausea. She has not taken any Tylenol or ibuprofen today. She has not documented a fever at home today. Denied having any chest pain today. Denies lower extremity pain or swelling, vomiting, abdominal pain, hemoptysis. Patient is vaccinated for COVID, but not influenza. Related Data Home Medications Medication Instructions Recorded Confirmed blood sugar diagnostic (OneTouch 04/04/20 01/02/21 Ultra Blue Test Strip) gabapentin 300 mg capsule 300 mg PO TID 04/04/20 01/02/21 insulin glargine 100 unit/mL (3 40 unit subcut HS 04/04/20 01/02/21 mL) subcutaneous pen (Lantus Solostar U-100 Insulin) insulin lispro 100 unit/mL See Protocol subcut TIDWM 04/04/20 01/02/21 subcutaneous pen (Humalog KwikPen (U-100) Insulin) lisinopril 40 mg tablet 40 mg PO DAILY 04/04/20 01/02/21 tramadol 50 mg tablet 50 mg PO QID 04/04/20 01/02/21 metformin 500 mg tablet,extended 1,500 mg PO DAILY 01/02/21 01/02/21 release 24 hr rosuvastatin 40 mg tablet 40 mg PO DAILY 01/02/21 01/02/21 Allergies Allergy/AdvReac Type Severity Reaction Status Date / Time No Known Allergies Allergy Mild Verified 07/26/22 20:25 Review of Systems Review of Systems: CONSTITUTIONAL: See HPI. CARDIOVASCULAR: See HPI. RESPIRATORY: See HPI. GASTROINTESTINAL: See HPI. GENITOURINARY: Denies dysuria or hematuria. SKIN: Denies rash or itching. MUSCULOSKELETAL: See HPI. NEUROLOGIC: Denies headache, numbness, or weakness. All systems reviewed & are unremarkable except as noted in HPI and below PMFSH Past Medical History Medical History Depression with anxiety Diabetic peripheral neuropathy Essential hypertension History of MRSA infection Skin and soft tissue infection of the left hip requiring debridement. Insulin dependent type 2 diabetes mellitus Morbid obesity Surgical History Surgical History History of section History of cholecystectomy History of hysterectomy History of tonsillectomy Status post debridement Debridement of wound on the left hip. Family History Family History Father Cancer Sibling Cancer Kidney disease Father COPD (chronic obstructive pulmonary disease) Mother Kidney disease Social History Social History Social History: The patient lives in [place], [place] with her . She has 4 children. Lifelong nonsmoker. No alcohol or illicit substance abuse. She designates her , Hong, as her surrogate decision maker and she wishes to be a full code. Smoking status: Never smoker Exam Narrative: GENERAL: Mildly ill appearing, morbidly obese, non-toxic. Shivering. HEAD: Normocephalic, atraumatic. NECK: Supple. No adenopathy, no masses. RESPIRATORY: Airway patent, respirations nonlabored. Clear to auscultation bilaterally, no rales, rhonchi, wheezing. CARDIOVASCULAR: Tachycardic with regular rhythm without murmurs, rubs, or gallops. Radial pulses 2+ and equal bilaterally. ABDOMINAL: Soft, nontender, nondistended, no hepatosplenomegaly. Normoactive BS. MUSCULOSKELETAL: Moves all extre
[2022-07-26 20:42] LABS: Alanine Aminotransferase 27 U/L (6-35); Albumin Level 3.7 g/dL (3.5-5.1); Alkaline Phosphatase 74 U/L (38-126); Anion Gap 6 mmol/L (8-16); Aspartate Amino Transferase 30 U/L (14-36); Bilirubin,Total 0.6 mg/dL (0.2-1.3); Blood Urea Nitrogen 20 mg/dL (7-17); Calcium 8.3 mg/dL (8.4-10.2); Carbon Dioxide 29 mmol/L (22-30); Chloride 99 mmol/L (98-107); Estimated CRCL calculation 77 ml/min; Estimated Glomerular Filt Rate > 60; Glucose 410 mg/dL (65-110); Potassium 3.5 mmol/L (3.4-5.0); Sodium 134 mmol/L (137-145)
[2022-07-26 20:50] LABS: Influenza A QL RT-PCR Negative (Negative); Influenza B QL RT-PCR Negative (Negative); SARS-CoV-2 RNA PCR Positive
[2022-07-26] MEDS: SODIUM CHLORIDE 0.9% IV 1,000 ML 999 ML IV CONT (20:52)
[2022-07-26 21:29] LABS: D Dimer 0.97 ug/mL (<0.48)
--- NOTE | 2022-07-26 21:42 | PC.NURSE ---
Patient encouraged to give urine sample. patient stating she doesn't need to urinate at this time and refusing straight cath. will attempt to get urine from patient at later time.
[2022-07-26 22:58] LABS: Appearance Urine Clear (Clear); Bilirubin Urine Negative (Negative); Blood Urine 1+ (Negative); Color Urine Yellow (Yellow); Glucose Urine UA 3+ mg/dL (Negative); Ketones Urine Negative (Negative); Leukocyte Esterase Ur Negative LEU/UL (Negative); Nitrate Urine Negative (Negative); Protein Urine 3+ mg/dL (Negative); Urobilinogen Urine 0.2 mg/dL (<2.0); pH Urine 5.5 (5.0-9.0)
[2022-07-26 23:07] LABS: Bacteria Urine Trace /hpf; Mucus Urine Rare /lpf; Squamous Epithelial Cell Urine Rare /hpf (Few); WBC Urine 0-3 /hpf
[2022-07-26 23:10] LABS: Add Urine Microscopic? YES
--- NOTE | 2022-07-26 23:27 | PC.NURSE ---
Notified Provider of patient temp being 100.0 orally and heart rate 119. patient alert and oriented x4.
[2022-07-26] MEDS: SODIUM CHLORIDE 0.9% IV 500 ML 999 ML IV CONT (23:40)
[2022-07-26] MEDS: IBUPROFEN IV 400 MG in SODIUM CHLORIDE 0.9% IV 100 ML 208 MG IVPB (23:52)
[2022-07-27] VITALS: BP 181/92; PULSE 122; RESP 15; O2SAT 97
[2022-07-27 00:01] VITALS: BP 153/80; PULSE 122; RESP 22; O2SAT 96
[2022-07-27 00:47] LABS: Glucose Point of Care 366 mg/dl (65-105)
[2022-07-27 01:12] VITALS: BP 146/96; PULSE 110; RESP 19; TEMP 37.4; O2SAT 99
[2022-07-27 10:33] LABS: Glucose Point of Care 419 mg/dl (65-105)
== END 2022-07-27 01:30 | disposition home or self-care (01) ==
PROVIDERS: Emergency Medicine; Emergency Provider Physician Assistant
DX: U07.1 COVID-19 (principal); E11.65 Type 2 diabetes mellitus with hyperglycemia; I10 Essential (primary) hypertension
CPT/HCPCS: 36415; 71046; 71275; 80053; 81001; 82948; 84484; 85025; 85380; 87636; 93005; 96365; 96367; 99284; J0131; J1741; J7030; J7040; Q9967

== ENCOUNTER 2022-08-06 14:35 | Inpatient (IN) | payer OTHER, BC, SELFPAY ==
--- NOTE | ~2022-08-06 | CT_ITS ---
EXAMINATION: CT foot RT wo con DATE: 08/07/2022 08:54 INDICATION: Diabetic foot wound ulceration with prior puncture injury. TECHNIQUE: High resolution computed tomography (CT) of the right foot was performed without intraveno us contrast. Additional sagittal and coronal reconstructions were performed. Automated exposure contr ol and iterative reconstruction technique were employed. The dose-length product was 374.43 mGy-cm. COMPARISON: None FINDINGS: Again seen is a chronic comminuted nonunited fracture of the cuboid which remains into 3 fr agments with irregular sclerotic margins along the fracture planes. This results in depression of the fifth and to a lesser degree fourth tarsal metatarsal joints. Additional chronic intra-articular fra cture at the base of the fourth metatarsal with a couple small nonunited fragments. Chronic osteonecr osis (Freiberg's infraction) with flattening and mild fragmentation at the heads of the second-fourth metatarsals. No acute fracture. Mild polyarticular osteoarthritis in the mid and forefoot. Chronic A chilles enthesopathy with calcaneal spurs and heterotopic ossicles in the thickened prominently thick ened distal Achilles tendon. Similar findings are seen at the visualized portion of the contralateral right left hindfoot. Small plantar calcaneal spur. Additional small heterotopic ossicles at the varsha neus longus tendon approximately 1 cm distal to the tip of the medial malleolus. There is prominent t hickening of the tendon at the level of the ossicle which abruptly attenuates likely reflecting a chr onic full-thickness tear. There are couple small ulcerations the first located plantar to the base of the fourth metatarsal and the second plantar to the proximal diaphysis of the fifth metatarsal. Each demonstrates some motion skin thickening and edema in the surrounding plantar fat. No evident soft t issue gas, abscess or joint effusion. No interval erosion to suggest acute osteolysis in the setting of osteomyelitis. IMPRESSION: 1. Chronic comminuted nonunited fracture of the cuboid with impaction of the fragments resulting in s ome proximal migration of the base of the fifth and to lesser degree fourth metatarsals. 2. Additional chronic comminuted nonunited intra-articular fracture at the base of the fourth metatar imelda. 3. Chronic osteonecrosis at the heads of the second and fourth metatarsals with some fragmentation al isa the articular surfaces. 4. Chronic tear of the right peroneus longus tendon. 5. Prominent chronic enthesopathy at the distal bilateral Achilles tendons. 6. A couple small skin ulcerations at the lateral plantar aspect of the midfoot without evident absce ss, soft tissue gas or osteomyelitis. Reviewed, dictated and finalized at location A. DENTIAL INSTRUCTOR IMPRESSION: 1. Chronic comminuted nonunited fracture of the cuboid with impaction of the fr agments resulting in some proximal migration of the base of the fifth and to le sser degree fourth metatarsals. 2. Additional chronic comminuted nonunited intra-articular fracture at the base of the fourth metatarsal. 3. Chronic osteonecrosis at the heads of the second and fourth metatarsals with some fragmentation along the articular surfaces. 4. Chronic tear of the right peroneus longus tendon. 5. Prominent chronic enthesopathy at the distal bilateral Achilles tendons. 6. A couple small skin ulcerations at the lateral plantar aspect of the midfoot without evident abscess, soft tissue gas or osteomyelitis.
--- NOTE | ~2022-08-06 | XR_ITS ---
EXAMINATION: XR foot RT min 3V DATE: 08/06/2022 18:38 INDICATION: Right foot diabetic wound. TECHNIQUE: 4 views of right foot were obtained. COMPARISON: Right foot radiographs 02/13/2022, MRI 01/03/21 FINDINGS: Again seen is a comminuted fracture of cuboid with nonunion with 10 mm depression of the ar ticular surface at fifth tarsometatarsal joint. There is an old fracture deformity of base of fourth metatarsal. There is chronic flattening of the heads of the second-fourth metatarsals with articular surface fragmentation. There is mild osteoarthritis of some of the interphalangeal joints and midfoot joints. There are enthesophytes at the posterior and plantar aspects of calcaneal tuberosity. There is heterotopic ossification distal to lateral malleolus. IMPRESSION: 1. Comminuted fracture of cuboid with nonunion. 2. Chronic flattening of the heads of the second-fourth metatarsals with articular surface fragmentat ion. 3. Polyarticular osteoarthritis. Reviewed, dictated and finalized at location A. R TECHNICIAN IMPRESSION: 1. Comminuted fracture of cuboid with nonunion. 2. Chronic flattening of the heads of the second-fourth metatarsals with articu lar surface fragmentation. 3. Polyarticular osteoarthritis.
[2022-08-06 15:22] VITALS: BP 133/83; PULSE 101; RESP 15; TEMP 36.7; O2SAT 100
[2022-08-06 17:03] VITALS: BP 144/80; PULSE 83; TEMP 37.3; O2SAT 99
--- NOTE | 2022-08-06 18:22 | ED.LOWEXIN ---
HPI - Extremity Injury (Lower) General Chief Complaint: Extremity Injury, Lower <Lalitha Maddox PA-C - Last Filed: 08/06/22 21:22> Stated Complaint: RLE wounds <Lalitha Maddox PA-C - Last Filed: 08/06/22 21:22> Time Seen by Provider: 08/06/22 18:00 <Lalitha Maddox PA-C - Last Filed: 08/06/22 21:22> Source: patient <ZAIN Tate Last Filed: 08/06/22 21:22> Mode of arrival: ambulatory <ZAIN Tate Last Filed: 08/06/22 21:22> Limitations: no limitations <ZAIN Tate Last Filed: 08/06/22 21:22> History of Present Illness HPI Narrative: This is a 57 year old female that presents to the ER for right foot wound worsening over the last couple of days. Reports she stepped on a nut shell a couple of weeks ago. Reports over the last couple of days she has had worsening redness and swelling of the foot. She has had some drainage from the area. Denies fever or numbness. <Lalitha Maddox PA-C - Last Filed: 08/06/22 21:22> Related Data Home Medications: Home Medications Medication Instructions Recorded Confirmed blood sugar diagnostic (OneTouch 04/04/20 01/02/21 Ultra Blue Test Strip) gabapentin 300 mg capsule 300 mg PO TID 04/04/20 01/02/21 insulin glargine 100 unit/mL (3 40 unit subcut HS 04/04/20 01/02/21 mL) subcutaneous pen (Lantus Solostar U-100 Insulin) insulin lispro 100 unit/mL See Protocol subcut TIDWM 04/04/20 01/02/21 subcutaneous pen (Humalog KwikPen (U-100) Insulin) lisinopril 40 mg tablet 40 mg PO DAILY 04/04/20 01/02/21 tramadol 50 mg tablet 50 mg PO QID 04/04/20 01/02/21 metformin 500 mg tablet,extended 1,500 mg PO DAILY 01/02/21 01/02/21 release 24 hr rosuvastatin 40 mg tablet 40 mg PO DAILY 01/02/21 01/02/21 <Lalitha Maddox PA-C - Last Filed: 08/06/22 21:22> Allergies/Adverse Reactions: Allergies Allergy/AdvReac Type Severity Reaction Status Date / Time No Known Allergies Allergy Mild Verified 07/26/22 20:25 <Lalitha Maddox PA-C - Last Filed: 08/06/22 21:22> Review of Systems Review of Systems: CONSTITUTIONAL: Denies fever SKIN: Reports wound NEUROLOGIC: Denies numbness <Lalitha Maddox PA-C - Last Filed: 08/06/22 21:22> All systems reviewed & are unremarkable except as noted in HPI and below <Lalitha Maddox PA-C - Last Filed: 08/06/22 21:22> [facility] Past Medical History Medical History: Medical History Depression with anxiety Diabetic peripheral neuropathy Essential hypertension History of MRSA infection Skin and soft tissue infection of the left hip requiring debridement. Insulin dependent type 2 diabetes mellitus Morbid obesity <Lalitha Maddox PA-C - Last Filed: 08/06/22 21:22> Surgical History Surgical History: Surgical History History of section History of cholecystectomy History of hysterectomy History of tonsillectomy Status post debridement Debridement of wound on the left hip. <Lalitha Maddox PA-C - Last Filed: 08/06/22 21:22> Family History Family History: Family History Father Cancer Sibling Cancer Kidney disease Father COPD (chronic obstructive pulmonary disease) Mother Kidney disease <Lalitha Maddox PA-C - Last Filed: 08/06/22 21:22> Social History Social History: Social History Social History: The patient lives in [place], [place] with her . She has 4 children. Lifelong nonsmoker. No alcohol or illicit substance abuse. She designates her , Hong, as her surrogate decision maker and she wishes to be a full code. Smoking status: Never smoker <Lalitha Maddox PA-C - Last Filed: 08/06/22 21:22> Exam Narrative: GENERAL: Well-appearing, well-nourished, and
[2022-08-06 18:51] LABS: Basophils Percent Auto 0.2 % (0.2-1.2); Eosinophils Absolute Auto 0.1 K/mm3 (0-0.3); Eosinophils Percent Auto 1.4 % (0-4.4); Hematocrit 35.5 % (37.0-47.0); Hemoglobin 11.9 g/dL (12.0-15.0); Immature Granulocyte Absolute 0.02 K/mm3 (0.00-0.031); Immature Granulocyte Percent A 0.2 % (0-0.5); Lymphocytes Percent Auto 23.9 % (18.3-44.2); Mean Corpuscular HGB Conc 33.5 g/dl (32-36); Mean Corpuscular Hemoglobin 27.6 pg (26-34); Mean Corpuscular Volume 82.4 fl (80-100); Monocytes Absolute Auto 0.6 K/mm3 (0.1-0.6); Monocytes Percent Auto 7.7 % (2.6-8.5); Neutrophils Absolute Auto 5.6 K/mm3 (1.3-6.7); Neutrophils Percent Auto 66.6 % (45.5-73.1); Platelet Count Result 199 k/mm3 (150-375); Red Blood Count 4.31 M/mm3 (4.2-5.4); Red Cell Distribution Width 12.7 % (11.5-14.5); White Blood Count 8.4 K/mm3 (4.5-10.0)
[2022-08-06 19:01] LABS: Lactic Acid Reflex 1.8 mmol/L (0.7-2.0)
[2022-08-06 19:03] LABS: Anion Gap 5 mmol/L (8-16); Blood Urea Nitrogen 15 mg/dL (7-17); CRP 7.3 mg/dL (<1.0); Calcium 8.6 mg/dL (8.4-10.2); Carbon Dioxide 32 mmol/L (22-30); Chloride 100 mmol/L (98-107); Estimated CRCL calculation 102 ml/min; Estimated Glomerular Filt Rate > 60; Glucose 258 mg/dL (65-110); Sodium 137 mmol/L (137-145)
[2022-08-06 19:24] LABS: Erythrocyte Sedimentation Rate 137 mm/hr (0-20)
--- NOTE | 2022-08-06 20:10 | PM.IMHP ---
H&P: HPI History of Present Illness Date/Time: 08/06/22 20:10 Chief Complaint: Right foot redness Narrative: This is a 57-year-old female with past medical history significant for insulin-dependent type 2 diabetes mellitus, morbid obesity, hypertension, dyslipidemia, diabetic peripheral neuropathy. Patient presents to the emergency room due to right foot redness and discharge from puncture wound inflicted 2 weeks ago when she stepped on a pecan nut shell. Patient now has redness on dorsum of the foot in the plantar aspect there is ulcerated wound with discharge present. Patient also tested positive for COVID 2 weeks ago and has not been feeling well has he been having chills, fevers, night sweats, poor appetite, generalized malaise, tested a 2nd time for COVID and was negative roughly a week ago. Denies any cough, sputum production, no nausea, no vomiting, no diarrhea. Preliminary workup was significant for foot x-ray was reported as: FINDINGS: Again seen is a comminuted fracture of cuboid with nonunion with 10 mm depression of the articular surface at fifth tarsometatarsal joint. There is an old fracture deformity of base of fourth metatarsal. There is chronic flattening of the heads of the second-fourth metatarsals with articular surface fragmentation. There is mild osteoarthritis of some of the interphalangeal joints and midfoot joints. There are enthesophytes at the posterior and plantar aspects of calcaneal tuberosity. There is heterotopic ossification distal to lateral malleolus. IMPRESSION: 1. Comminuted fracture of cuboid with nonunion. 2. Chronic flattening of the heads of the second-fourth metatarsals with articular surface fragmentation. 3. Polyarticular osteoarthritis. Review of Systems Review of Systems: Right foot redness, pain, discharge from puncture wound. Constitutional: Constitutional: Reports body ache(s), Reports chills, Reports fatigue, Reports fever(s), Reports lethargy, Reports malaise, Reports night sweats, Reports poor appetite and Reports weakness Eyes: Eyes: Denies change in vision ENT: Denies dysphagia and Denies odynophagia Cardiovascular: Cardiovascular: Denies chest pain, Denies lightheadedness, Denies palpitations and Denies dyspnea on exertion Respiratory: Respiratory: Denies chest congestion, Denies cough, Denies pain on inspiration, Denies dyspnea, Denies dyspnea on exertion and Denies wheezing Gastrointestinal: Gastrointestinal: Denies abdominal pain, Denies dyspepsia, Denies heartburn, Denies diarrhea, Denies nausea and Denies vomiting Genitourinary: Genitourinary: Denies dysuria Musculoskeletal: Musculoskeletal: Reports myalgias and Reports other (Right foot redness and discharge from puncture wound) Integumentary/Breasts: Skin/Breast: Reports wounds (Plantar aspect of right foot) Neurologic: Denies focal weakness, Denies Sensory deficit (Neuro) and Reports paresthesias Psychiatric: Psychiatric: Reports no additional psychiatric complaints and Reports as per HPI Endocrine: Endocrine: Denies cold intolerance, Denies flushing, Denies heat intolerance, Denies polyphagia, Denies polydipsia and Denies palpitations Hematologic/Lymphatic: Hematologic/Lymphatic: Reports no additional hematologic/lymphatic complaints and Reports as per HPI Allergic/Immunologic: Allergic/Immunologic: Reports no additional allergic/immunologic complaints and Reports as per HPI PMFSH Past Medical History Medical History Depression with anxiety Diabetic peripheral neuropathy Essential hypertension History of MRSA infection Skin and soft tissue infection of the left hip requiring debridement. Insulin dependent type 2 diabetes mellitus Morbid obesity Surgical History Surgical History History of section History of cholecystectomy History of hysterectomy History of tonsillectomy Status
[2022-08-06 21:10] VITALS: BP 131/64; PULSE 95; RESP 18; O2SAT 100
[2022-08-06 21:18] LABS: Influenza A QL RT-PCR Negative (Negative); Influenza B QL RT-PCR Negative (Negative); SARS-CoV-2 RNA PCR Negative
[2022-08-06] MEDS: metroNIDAZOLE 500 MG/ISO 100ML 500 MG/100 ML BAG 100 MG IVPB (21:49)
[2022-08-06 22:03] VITALS: BMI 47.2
--- NOTE | 2022-08-06 22:04 | ADMGEN ---
This patient, Florencia Levy, was admitted to Medical Room 250-01. Patient/family oriented to hospital policies and general routines including ID bracelet, bed and alarms, visiting hours, pain management, procedures, bathroom and other care routines, personal items, smoking policy, room service/diet, and visiting hours. Information on how to activate the Rapid Response Team has been discussed. Patient/Family are encouraged to report perceived risks to care and to ask questions if they do not understand what they are told or what they should do.
[2022-08-06 22:32] VITALS: BP 139/72; PULSE 100; RESP 20; TEMP 36.5; O2SAT 100; BMI 45.3
[2022-08-07 06:00] VITALS: BP 149/87; PULSE 95; RESP 20; TEMP 37.3; O2SAT 96
[2022-08-07] MEDS: metroNIDAZOLE 500 MG/ISO 100ML 500 MG/100 ML BAG 100 MG IVPB ×3 (06:06→21:01)
[2022-08-07 08:31] LABS: Glucose Point of Care 340 mg/dl (65-105)
[2022-08-07] MEDS: GABAPENTIN 300 MG CAPSULE PO ×3 (08:58→21:00)
[2022-08-07] MEDS: ROSUVASTATIN 10 MG TABLET 40 MG PO (08:58)
[2022-08-07] MEDS: ASPIRIN 81 MG ENTERIC TABLET PO (08:58)
[2022-08-07] MEDS: lisinopriL 20 MG TABLET 40 MG PO (08:58)
[2022-08-07] MEDS: INSULIN ASPART (*BKC) 100 UNITS/ML 12 UNITS SUB-Q ×3 (09:06→17:31)
[2022-08-07] MEDS: traMADol HCL (*CRX) 50 MG TABLET PO (09:10)
[2022-08-07 09:55] VITALS: O2SAT 95
--- NOTE | 2022-08-07 10:16 | PM.CNGS ---
Assessment and Plan Assessment and plan (1) Diabetic foot ulcer: Code(s): E11.621 - Type 2 diabetes mellitus with foot ulcer; L97.509 - Non-pressure chronic ulcer of other part of unspecified foot with unspecified severity Status: Acute Assessment and Plan: wound clean, no s/s active infection, will do local wound care c silver gel, will need f/u c operators teacher as outpt (2) Diabetes mellitus: Qualifiers: Diabetes mellitus complication detail: with foot ulcer Diabetes mellitus complication status: with skin complications Diabetes mellitus manager intermediate insulin use: with halfway use Diabetes mellitus type: type 2 Qualified Code(s): E11.621 - Type 2 diabetes mellitus with foot ulcer; L97.509 - Non-pressure chronic ulcer of other part of unspecified foot with unspecified severity; Z79.4 - nursing home (current) use of insulin Code(s): E11.9 - Type 2 diabetes mellitus without complications Status: Acute Assessment and Plan: will need tight control, will need to f/u c PCP after dc History of Present Illness Consult details Consult date: 08/07/22 Reason for consult: wound care Requesting physician: Kenroy Ray MD Narrative: The patient is a 57-year-old female with multiple medical issues including uncontrolled diabetes and peripheral neuropathy presenting with a worsening right foot wound. The patient reports that she stepped on a pecan shell approximately 2 weeks ago and caused a small puncture in her right foot. She reports the wound seems to have enlarged and have worsening surrounding redness over the last 2 weeks. The patient also reports a small amount of drainage, although it does not seem purulent nature. The patient reports that she has not felt well over the last 2 weeks but was initially COVID positive. Review of Systems Constitutional: Constitutional: Reports as per HPI, Denies anorexia, Reports body ache(s), Reports chills, Reports fatigue, Denies fever(s), Reports lethargy, Reports poor appetite, Reports weakness, Denies weight gain and Denies weight loss Eyes: Eyes: Reports no additional eye complaints ENT: Reports system reviewed and no additional complaints, except as documented Cardiovascular: Cardiovascular: Reports no additional cardiovascular complaints Respiratory: Respiratory: Reports no additional respiratory complaints Gastrointestinal: Gastrointestinal: Reports no additional gastrointestinal complaints Genitourinary: Genitourinary: Reports no additional female genitourinary complaints Musculoskeletal: Musculoskeletal: Reports no additional musculoskeletal complaints Integumentary/Breasts: Skin/Breast: Reports as per HPI Neurologic: Reports system reviewed and no additional complaints, except as documented Psychiatric: Psychiatric: Reports no additional psychiatric complaints Endocrine: Endocrine: Reports no additional endocrine complaints Hematologic/Lymphatic: Hematologic/Lymphatic: Reports no additional hematologic/lymphatic complaints Allergic/Immunologic: Allergic/Immunologic: Reports no additional allergic/immunologic complaints PMFSH Past Medical History Medical History Depression with anxiety Diabetic peripheral neuropathy Essential hypertension History of MRSA infection Skin and soft tissue infection of the left hip requiring debridement. Insulin dependent type 2 diabetes mellitus Morbid obesity Surgical History Surgical History History of section History of cholecystectomy History of hysterectomy History of tonsillectomy Status post debridement Debridement of wound on the left hip. Family History Family History Father Cancer Sibling Cancer Kidney disease Father COPD (chronic obstructive pulmonary disease) Mother Kidney disease Social History Social
[2022-08-07] MEDS: SILVERGEL (ELTA) 45 ML 1 APPLIC TOPICAL (10:26)
--- NOTE | 2022-08-07 11:38 | PM.IMPN ---
Progress Note: A&P Assessment and Plan (1) Cellulitis of right foot: Code(s): L03.115 - Cellulitis of right lower limb Status: Acute Assessment and Plan: Admit to regular medical floor CT of the right foot in progress X-ray of the right foot reviewed Cultures in progress Started on cefepime vanc and metronidazole General surgery consult Local care 08/07/2022 interval history: 57-year-old morbidly obese patient with history of diabetes presented with puncture wound on right plantar aspect of her foot. upon arrival there was a concern for cellulitis and abscess, patient was seen by general surgery service patient does not need any surgical intervention however puncture wound has clear drainage and surrounding erythema and painful to bear weight, patient is being treated Cefepime, , Flagyl and vancomycin. will follow-up on wound and blood culture, will have PT OT evaluate the patient, will consult wound nurse, will continue to monitor and further recommendation to follow. (2) Diabetes mellitus: Qualifiers: Diabetes mellitus complication detail: with foot ulcer Diabetes mellitus complication status: with skin complications Diabetes mellitus nursing home insulin use: with manager long term care use Diabetes mellitus type: type 2 Qualified Code(s): E11.621 - Type 2 diabetes mellitus with foot ulcer; L97.509 - Non-pressure chronic ulcer of other part of unspecified foot with unspecified severity; Z79.4 - terminal supervisor (current) use of insulin Code(s): E11.9 - Type 2 diabetes mellitus without complications Status: Acute Assessment and Plan: Continue glargine Continue lisinopril Accu-Cheks AC and HS 1800 calorie restricted carb consistent diet (3) Morbid obesity: Code(s): E66.01 - Morbid (severe) obesity due to excess calories Status: Acute Assessment and Plan: Lifestyle and diet modifications (4) Insulin dependent type 2 diabetes mellitus: Code(s): E11.9 - Type 2 diabetes mellitus without complications; Z79.4 - terminal supervisor (current) use of insulin Status: Acute Assessment and Plan: Continue glargine and lispro (5) Peripheral neuropathy: Code(s): G62.9 - Polyneuropathy, unspecified Status: Acute Assessment and Plan: Continue gabapentin (6) HTN (hypertension) with goal to be determined: Code(s): I10 - Essential (primary) hypertension Status: Acute Assessment and Plan: Continue home meds Continue to monitor Subjective Date/time seen: 08/07/22 11:38 Right foot redness HPI;Narrative: This is a 57-year-old female with past medical history significant for insulin-dependent type 2 diabetes mellitus, morbid obesity, hypertension, dyslipidemia, diabetic peripheral neuropathy.? Patient presents to the emergency room due to right foot redness and discharge from puncture wound inflicted 2 weeks ago when she stepped on a pecan nut shell.? Patient now has redness on dorsum of the foot in the plantar aspect there is ulcerated wound with discharge present.? Patient also tested positive for COVID 2 weeks ago and has not been feeling well has he been having chills, fevers, night sweats, poor appetite, generalized malaise, tested a 2nd time for COVID and was negative roughly a week ago.? Denies any cough, sputum production, no nausea, no vomiting, no diarrhea.? Preliminary workup was significant for foot x-ray was reported as: FINDINGS: Again seen is a comminuted fracture of cuboid with nonunion with 10 mm depression of the articular surface at fifth tarsometatarsal joint. There is an old fracture deformity of base of fourth metatarsal. There is chronic flattening of the heads of the second-fourth metatarsals with articular surface fragmentation. There is mild osteoarthritis of some of the interphalangeal joints and midfoot joints. There are enthesophytes at the posterior and plantar aspects of calcaneal tuberosity. There is heterotopic ossification dis
[2022-08-07 12:20] LABS: Glucose Point of Care 403 mg/dl (65-105)
[2022-08-07] MEDS: INSULIN GLARGINE (*BKC) 100 UNITS/ML 20 UNITS SUB-Q (12:27)
[2022-08-07 14:45] VITALS: BP 150/85; PULSE 91; RESP 16; TEMP 36.8; O2SAT 99
[2022-08-07 17:26] LABS: Glucose Point of Care 308 mg/dl (65-105)
[2022-08-07] MEDS: INSULIN ASPART (*BKC) 100 UNITS/ML SUB-Q (17:31)
[2022-08-07] MEDS: INSULIN GLARGINE (*BKC) 100 UNITS/ML 40 UNITS SUB-Q (20:24)
[2022-08-07 20:29] LABS: Glucose Point of Care 264 mg/dl (65-105)
[2022-08-07 21:11] VITALS: BP 123/67; PULSE 89; RESP 18; TEMP 36.7; O2SAT 98
[2022-08-08 05:05] VITALS: BP 148/81; PULSE 83; RESP 18; TEMP 36.7; O2SAT 99
[2022-08-08] MEDS: GABAPENTIN 300 MG CAPSULE PO ×3 (05:20→21:26)
[2022-08-08] MEDS: metroNIDAZOLE 500 MG/ISO 100ML 500 MG/100 ML BAG 100 MG IVPB ×3 (05:21→22:15)
[2022-08-08 05:47] LABS: Hematocrit 32.5 % (37.0-47.0); Hemoglobin 10.7 g/dL (12.0-15.0); Mean Corpuscular HGB Conc 32.9 g/dl (32-36); Mean Corpuscular Volume 81.9 fl (80-100); Mean Platelet Volume 10.5 fl (7.4-10.4); Platelet Count Result 169 k/mm3 (150-375); Red Blood Count 3.97 M/mm3 (4.2-5.4); Red Cell Distribution Width 12.3 % (11.5-14.5); White Blood Count 5.3 K/mm3 (4.5-10.0)
[2022-08-08 05:56] LABS: Anion Gap 3 mmol/L (8-16); Blood Urea Nitrogen 16 mg/dL (7-17); Calcium 7.8 mg/dL (8.4-10.2); Carbon Dioxide 30 mmol/L (22-30); Chloride 103 mmol/L (98-107); Estimated CRCL calculation 88 ml/min; Estimated Glomerular Filt Rate > 60; Glucose 322 mg/dL (65-110); Potassium 3.7 mmol/L (3.4-5.0); Sodium 136 mmol/L (137-145)
[2022-08-08] MEDS: lisinopriL 20 MG TABLET 40 MG PO (08:44)
[2022-08-08] MEDS: ROSUVASTATIN 10 MG TABLET 40 MG PO (08:44)
[2022-08-08] MEDS: ASPIRIN 81 MG ENTERIC TABLET PO (08:44)
[2022-08-08 08:49] LABS: Glucose Point of Care 316 mg/dl (65-105)
[2022-08-08] MEDS: INSULIN ASPART (*BKC) 100 UNITS/ML SUB-Q ×3 (08:50→17:08)
[2022-08-08] MEDS: INSULIN ASPART (*BKC) 100 UNITS/ML 12 UNITS SUB-Q ×3 (08:50→17:08)
[2022-08-08] MEDS: SILVERGEL (ELTA) 45 ML 1 APPLIC TOPICAL (08:51)
[2022-08-08] MEDS: MAGNESIUM HYDROXIDE SUSP 30 ML UDC PO (10:31)
[2022-08-08 11:28] LABS: Vancomycin Trough 18.6 ug/mL (10.0-20.0)
--- NOTE | 2022-08-08 11:28 | PM.PNGS ---
Progress Note: A&P Assessment and Plan (1) Diabetic foot ulcer: Code(s): E11.621 - Type 2 diabetes mellitus with foot ulcer; L97.509 - Non-pressure chronic ulcer of other part of unspecified foot with unspecified severity Status: Acute Assessment and Plan: cont local wound care, no s/s active infection, no acute surgical issues, will s/o, call c ?s, issues, will need f/u c podiatry as outpt Subjective Subjective Date/Time Seen: 08/08/22 11:28 no acute issues, reports no pain in foot Review of Systems Review of Systems: All systems reviewed & are unremarkable except as noted in HPI and below Exam Const: General: cooperative, comfortable and no acute distress Resp: Auscultation: clear to auscultation bilaterally Cardio: Rate: regular rate Rhythm: regular rhythm GI: Inspection: normal to inspection Extrem: Other: R foot - dressing C/D/I Objective Data Vital Signs Vital Signs: Vital Signs - 24 hr 08/07/22 14:45 08/07/22 20:00 08/07/22 21:11 Temperature 36.8 C 36.7 C Pulse Rate 91 89 Respiratory Rate 16 18 Blood Pressure 150/85 H 123/67 Pulse Oximetry 99 98 Oxygen Delivery Room Air 08/08/22 05:05 Temperature 36.7 C Pulse Rate 83 Respiratory Rate 18 Blood Pressure 148/81 H Pulse Oximetry 99 Oxygen Delivery Intake/Output Intake/Output: Intake & Output 08/05/22 08/06/22 08/07/22 08/08/22 23:59 23:59 23:59 23:59 Intake Total 50 2070 850 Output Total 0 Balance 50 2070 850 Meds/Results Medications: Active Medications Generic Name Dose Route Start Last Admin Trade Name Freq PRN Reason Stop Dose Admin Acetaminophen 1,000 mg 08/06/22 23:33 Acetaminophen 500 Mg Tablet PO Q6H PRN Mild Pain (1-3) or Fever Aspirin 81 mg 08/07/22 09:00 08/08/22 08:44 Aspirin 81 Mg Enteric Tablet PO 81 mg QAM JENNIFER Administration Dextrose 12.5 gm 08/07/22 12:06 Dextrose 50% 25 Gm/50 Ml Syringe IV PUSH PRN PRN Hypoglycemia Protocol Gabapentin 300 mg 08/07/22 22:00 08/08/22 05:20 Gabapentin 300 Mg Capsule PO 300 mg Q8HR JENNIFER Administration Glucagon 1 mg 08/07/22 12:06 Glucagon For Inj 1 Mg Vial IM PRN PRN Hypoglycemia Protocol Glucose 15 gm 08/07/22 12:06 Glucose Oral Gel 15 Gm Of Glucse In 37.5 Gm Tube PO PRN PRN Hypoglycemia Protocol Cefepime HCl 2 gm in 50 mls @ 100 mls/hr 08/07/22 09:00 08/08/22 09:49 Maxipime 2 Gm/D5w 50 Ml IVPB Infused Q12H JENNIFER Infusion Metronidazole 500 mg in 100 mls @ 100 mls/hr 08/07/22 06:00 08/08/22 06:17 Flagyl 500 Mg/Iso Soln 100 Ml IVPB Infused Q8H JENNIFER Infusion Vancomycin HCl 2,000 mg in 500 mls @ 250 mls/hr 08/07/22 12:00 08/08/22 02:07 Vancomycin 2,000 Mg/D5w 500 Ml IVPB Infused Q12H JENNIFER Infusion Dextrose 1,000 mls @ 100 mls/hr 08/07/22 12:06 Dextrose 5% 1,000 Ml IVPB PRN PRN Hypoglycemia Protocol Insulin Aspart 12 units 08/07/22 08:00 08/08/22 08:50 Insulin Aspart (*Bkc) 100 Units/Ml SUB-Q 12 units TIDWM JENNIFER Administration Insulin Aspart 3 - 6 units 08/07/22 12:00 08/08/22 08:50 Insulin Aspart (*Bkc) 100 Units/Ml SUB-Q 5 units TIDWM JENNIFER Administration Protocol Insulin Glargine 40 units 08/06/22 23:40 08/07/22 20:24 Insulin Glargine (*Bkc) 100 Units/Ml SUB-Q 40 units HS JENNIFER Administration Lisinopril 40 mg 08/07/22 09:00 08/08/22 08:44 Lisinopril 20 Mg Tablet PO 40 mg DAILY JENNIFER Administration Rosuvastatin Calcium 40 mg 08/07/22 09:00 08/08/22 08:44 Rosuvastatin 10 Mg Tablet PO 40 mg DAILY JENNIFER Administration Silver Nitrate 1 applic 08/07/22 09:00 08/08/22 08:51 Silvergel (Elta) 45 Ml TOPICAL 1 applic DAILY JENNIFER Administration Tramadol HCl 50 mg 08/06/22 23:33 01/30/23 09:10 Tramadol Hcl (*Crx) 50 Mg Tablet PO 50 mg Q6H PRN Administration Pain Rated 4-6 Radiology Results: ITS Impressions
[2022-08-08 12:32] LABS: Glucose Point of Care 334 mg/dl (65-105)
--- NOTE | 2022-08-08 12:36 | PM.IMPN ---
Progress Note: A&P Assessment and Plan (1) Cellulitis of right foot: Code(s): L03.115 - Cellulitis of right lower limb Status: Acute Assessment and Plan: Admit to regular medical floor CT of the right foot in progress X-ray of the right foot reviewed Cultures in progress Started on cefepime vanc and metronidazole General surgery consult Local care 08/08/2022 interval history: 57-year-old morbidly obese patient with history of diabetes presented with puncture wound on right plantar aspect of her foot. upon arrival there was a concern for cellulitis and abscess, patient was seen by general surgery service patient does not need any surgical intervention however puncture wound has clear drainage and surrounding erythema and painful to bear weight, wound culture is growing group B Streptococcus pending sensitivity patient is being treated Cefepime, Flagyl and vancomycin. will follow-up on wound and blood culture, discussed with ID pharmacist and further recommendation to follow, will have PT OT evaluate the patient, will consult wound nurse, will continue to monitor and further recommendation to follow. (2) Diabetes mellitus: Qualifiers: Diabetes mellitus complication detail: with foot ulcer Diabetes mellitus complication status: with skin complications Diabetes mellitus fdc insulin use: with fdc use Diabetes mellitus type: type 2 Qualified Code(s): E11.621 - Type 2 diabetes mellitus with foot ulcer; L97.509 - Non-pressure chronic ulcer of other part of unspecified foot with unspecified severity; Z79.4 - [facility] (current) use of insulin Code(s): E11.9 - Type 2 diabetes mellitus without complications Status: Acute Assessment and Plan: Continue glargine Continue lisinopril Accu-Cheks AC and HS 1800 calorie restricted carb consistent diet (3) Morbid obesity: Code(s): E66.01 - Morbid (severe) obesity due to excess calories Status: Acute Assessment and Plan: Lifestyle and diet modifications (4) Insulin dependent type 2 diabetes mellitus: Code(s): E11.9 - Type 2 diabetes mellitus without complications; Z79.4 - exterminator termite (current) use of insulin Status: Acute Assessment and Plan: Continue glargine and lispro (5) Peripheral neuropathy: Code(s): G62.9 - Polyneuropathy, unspecified Status: Acute Assessment and Plan: Continue gabapentin (6) HTN (hypertension) with goal to be determined: Code(s): I10 - Essential (primary) hypertension Status: Acute Assessment and Plan: Continue home meds Continue to monitor Subjective Date/time seen: 08/08/22 12:36 08/08/2022 interval history: 57-year-old morbidly obese patient with history of diabetes presented with puncture wound on right plantar aspect of her foot. upon arrival there was a concern for cellulitis and abscess, patient was seen by general surgery service patient does not need any surgical intervention however puncture wound has clear drainage and surrounding erythema and painful to bear weight, wound culture is growing group B Streptococcus pending sensitivity patient is being treated Cefepime, Flagyl and vancomycin. will follow-up on wound and blood culture, discussed with ID pharmacist and further recommendation to follow, will have PT OT evaluate the patient, will consult wound nurse, will continue to monitor and further recommendation to follow. Review of Systems Constitutional: Constitutional: Reports as per HPI, Denies anorexia, Reports body ache(s), Reports chills, Reports fatigue, Denies fever(s), Reports lethargy, Reports malaise, Reports night sweats, Reports poor appetite, Reports weakness, Denies weight gain and Denies weight loss Exam Narrative: morbidly obese Patient is comfortable, NAD HEENT: eyes are clear and none icteric LUNGS: normal respiratory effort ABD: distended Lower extremities: no edema MS: right
[2022-08-08 14:35] VITALS: BP 110/56; PULSE 64; RESP 18; TEMP 36.7; O2SAT 97
[2022-08-08] MEDS: VANCOMYCIN HCL 2,000 MG in SODIUM CHLORIDE 0.9% IV 500 ML 200 MG IVPB (14:55)
[2022-08-08] MEDS: traMADol HCL (*CRX) 50 MG TABLET PO (14:59)
[2022-08-08 17:16] LABS: Glucose Point of Care 288 mg/dl (65-105)
[2022-08-08] MEDS: BISACODYL 5 MG TABLET EC PO (17:33)
[2022-08-08 21:25] LABS: Glucose Point of Care 267 mg/dl (65-105)
[2022-08-08] MEDS: INSULIN GLARGINE (*BKC) 100 UNITS/ML 40 UNITS SUB-Q (21:26)
[2022-08-08 22:15] VITALS: BP 136/71; PULSE 95; RESP 20; TEMP 37.2; O2SAT 99
[2022-08-09] MEDS: VANCOMYCIN HCL 2,000 MG in SODIUM CHLORIDE 0.9% IV 500 ML 200 MG IVPB (01:10)
[2022-08-09 05:21] LABS: Hematocrit 31.4 % (37.0-47.0); Hemoglobin 10.2 g/dL (12.0-15.0); Mean Corpuscular HGB Conc 32.5 g/dl (32-36); Mean Corpuscular Hemoglobin 26.8 pg (26-34); Mean Corpuscular Volume 82.6 fl (80-100); Mean Platelet Volume 10.6 fl (7.4-10.4); Platelet Count Result 157 k/mm3 (150-375); Red Cell Distribution Width 12.3 % (11.5-14.5)
[2022-08-09 05:33] LABS: Anion Gap 2 mmol/L (8-16); Blood Urea Nitrogen 18 mg/dL (7-17); Calcium 7.8 mg/dL (8.4-10.2); Carbon Dioxide 30 mmol/L (22-30); Chloride 103 mmol/L (98-107); Estimated CRCL calculation 72 ml/min; Estimated Glomerular Filt Rate > 60; Glucose 251 mg/dL (65-110); Potassium 3.8 mmol/L (3.4-5.0); Sodium 135 mmol/L (137-145)
[2022-08-09] MEDS: metroNIDAZOLE 500 MG/ISO 100ML 500 MG/100 ML BAG 100 MG IVPB (05:56)
[2022-08-09] MEDS: GABAPENTIN 300 MG CAPSULE PO ×2 (05:57→12:33)
[2022-08-09 06:00] VITALS: BP 144/87; PULSE 86; RESP 20; TEMP 36.4; O2SAT 98
[2022-08-09 07:35] VITALS: RESP 20; O2SAT 99
[2022-08-09 08:51] LABS: Glucose Point of Care 247 mg/dl (65-105)
[2022-08-09 09:30] VITALS: BP 130/70; PULSE 91; RESP 16; TEMP 36.8; O2SAT 99
[2022-08-09] MEDS: SILVERGEL (ELTA) 45 ML 1 APPLIC TOPICAL (10:47)
[2022-08-09] MEDS: ASPIRIN 81 MG ENTERIC TABLET PO (10:48)
[2022-08-09] MEDS: lisinopriL 20 MG TABLET 40 MG PO (10:48)
[2022-08-09] MEDS: ROSUVASTATIN 10 MG TABLET 40 MG PO (10:49)
[2022-08-09 12:14] LABS: Glucose Point of Care 344 mg/dl (65-105)
[2022-08-09] MEDS: INSULIN ASPART (*BKC) 100 UNITS/ML 12 UNITS SUB-Q (12:29)
--- NOTE | 2022-08-09 13:09 | PM.DS ---
DS: Admitting Diagnosis Discharge Date 08/09/2022 Admitting Diagnosis Right foot redness DS: Discharge Diagnosis Discharge Diagnosis (1) Cellulitis of right foot: Code(s): L03.115 - Cellulitis of right lower limb Status: Acute Assessment and Plan: Admit to regular medical floor CT of the right foot in progress X-ray of the right foot reviewed Cultures in progress Started on cefepime vanc and metronidazole General surgery consult Local care 08/08/2022 interval history: 57-year-old morbidly obese patient with history of diabetes presented with puncture wound on right plantar aspect of her foot. upon arrival there was a concern for cellulitis and abscess, patient was seen by general surgery service patient does not need any surgical intervention however puncture wound has clear drainage and surrounding erythema and painful to bear weight, wound culture is growing group B Streptococcus pending sensitivity patient is being treated Cefepime, Flagyl and vancomycin. will follow-up on wound and blood culture, discussed with ID pharmacist and further recommendation to follow, will have PT OT evaluate the patient, will consult wound nurse, will continue to monitor and further recommendation to follow. (2) Diabetes mellitus: Qualifiers: Diabetes mellitus complication detail: with foot ulcer Diabetes mellitus complication status: with skin complications Diabetes mellitus alf insulin use: with oysterman use Diabetes mellitus type: type 2 Qualified Code(s): E11.621 - Type 2 diabetes mellitus with foot ulcer; L97.509 - Non-pressure chronic ulcer of other part of unspecified foot with unspecified severity; Z79.4 - exterminator (current) use of insulin Code(s): E11.9 - Type 2 diabetes mellitus without complications Status: Acute Assessment and Plan: Continue glargine Continue lisinopril Accu-Cheks AC and HS 1800 calorie restricted carb consistent diet (3) Morbid obesity: Code(s): E66.01 - Morbid (severe) obesity due to excess calories Status: Acute Assessment and Plan: Lifestyle and diet modifications (4) Insulin dependent type 2 diabetes mellitus: Code(s): E11.9 - Type 2 diabetes mellitus without complications; Z79.4 - shelter (current) use of insulin Status: Acute Assessment and Plan: Continue glargine and lispro (5) Peripheral neuropathy: Code(s): G62.9 - Polyneuropathy, unspecified Status: Acute Assessment and Plan: Continue gabapentin (6) HTN (hypertension) with goal to be determined: Code(s): I10 - Essential (primary) hypertension Status: Acute Assessment and Plan: Continue home meds Continue to monitor DS: Summary Hospital Course Reason for hospitalization: Right foot redness Narrative: This is a 57-year-old female with past medical history significant for insulin-dependent type 2 diabetes mellitus, morbid obesity, hypertension, dyslipidemia, diabetic peripheral neuropathy.? Patient presents to the emergency room due to right foot redness and discharge from puncture wound inflicted 2 weeks ago when she stepped on a pecan nut shell.? Patient now has redness on dorsum of the foot in the plantar aspect there is ulcerated wound with discharge present.? Patient also tested positive for COVID 2 weeks ago and has not been feeling well has he been having chills, fevers, night sweats, poor appetite, generalized malaise, tested a 2nd time for COVID and was negative roughly a week ago.? Denies any cough, sputum production, no nausea, no vomiting, no diarrhea.? Preliminary workup was significant for foot x-ray was reported as: FINDINGS: Again seen is a comminuted fracture of cuboid with nonunion with 10 mm depression of the articular surface at fifth tarsometatarsal joint. There is an old fracture deformity of base of fourth metatarsal. There is chronic flattening of the heads of the second-fourth metatarsals wi
== END 2022-08-09 14:55 | disposition home or self-care (01) | DRG 383 ==
LOC: ANHED 17:58 → ANH2MED 21:05
PROVIDERS: Admitting Provider Internal Medicine; Emergency Provider Physician Assistant; Visit Provider Family Medicine
DX: L03.115 Cellulitis of right lower limb (principal); E11.42 Type 2 diabetes mellitus with diabetic polyneuropathy; E11.621 Type 2 diabetes mellitus with foot ulcer; L97.519 Non-pressure chronic ulcer of other part of right foot with unspecified severity; F41.8 Other specified anxiety disorders; B95.1 Streptococcus, group B, as the cause of diseases classified elsewhere; E11.628 Type 2 diabetes mellitus with other skin complications; E78.5 Hyperlipidemia, unspecified; E66.01 Morbid (severe) obesity due to excess calories; I10 Essential (primary) hypertension; Z20.822 Contact with and (suspected) exposure to COVID-19; Z86.14 Personal history of Methicillin resistant Staphylococcus aureus infection; Z90.49 Acquired absence of other specified parts of digestive tract; Z90.710 Acquired absence of both cervix and uterus; Z86.16 Personal history of COVID-19; Z79.84 Long term (current) use of oral hypoglycemic drugs; Z79.4 Long term (current) use of insulin; Z79.82 Long term (current) use of aspirin; Z68.42 Body mass index [BMI] 45.0-49.9, adult
CPT/HCPCS: 36415; 73630; 73700; 80048; 80202; 82948; 83605; 85025; 85027; 85652; 86140; 87040; 87070; 87147; 87205; 87636; 96365; 96366; 96367; 96375; 96376; 99285; A9270; G0378; J0692; J1815; J3370; J7040

== ENCOUNTER 2022-08-17 14:34 | Inpatient (IN) | payer OTHER, BC, SELFPAY ==
--- NOTE | ~2022-08-17 | XR_ITS ---
EXAMINATION: XR foot RT min 3V DATE: 08/17/2022 17:04 INDICATION: Wound to the plantar surface of the right foot TECHNIQUE: Dorsoplantar, two oblique and lateral views of the right foot were obtained. COMPARISON: Right foot CT dated 08/07/2022 FINDINGS: Unchanged appearance to the right midfoot. This includes a chronic comminuted fracture of the cuboid with depression of the portion of the distal cortex which articulates with the fifth metatarsal. Cafeteria Helper abraham fracture deformity at the base of the fourth metatarsal with unchanged chronic appearing perioste al reaction along the proximal aspect of the fourth and fifth metatarsals. Chronic flattening and fra gmentation of the articular surfaces at the heads of the second-fourth metatarsals likely related to osteonecrosis. No acute fractures or new or acute appearing erosion/osteolysis or periosteal reaction to suggest ongoing osteomyelitis. Large Achilles calcaneal spur. Mild polyarticular osteoarthritis i nvolving many of the joints in the mid and forefoot. Soft tissue swelling about the foot most promine nt plantar to the mid and forefoot. No radiopaque foreign bodies or soft tissue gas. No right ankle j oint effusion. IMPRESSION: 1. Stable appearance of an old healed fracture base of the fourth metatarsal and malunited comminuted fracture of the cuboid. 2. Chronic osteonecrosis with collapse and fragmentation of the articular cortices at the heads of th e second-fourth metatarsals. 3. Soft tissue swelling centered at the plantar aspect of the forefoot with no radiopaque foreign bod ies, soft tissue gas or findings to suggest acute osteomyelitis. 4. Prominent chronic distal Achilles enthesopathy with prominent hypertrophic osteophytes and heterot opic ossification. Reviewed, dictated and finalized at location A. E MACHINE TENDER IMPRESSION: 1. Stable appearance of an old healed fracture base of the fourth metatarsal an d malunited comminuted fracture of the cuboid. 2. Chronic osteonecrosis with collapse and fragmentation of the articular corti cade at the heads of the second-fourth metatarsals. 3. Soft tissue swelling centered at the plantar aspect of the forefoot with no radiopaque foreign bodies, soft tissue gas or findings to suggest acute osteomy elitis. 4. Prominent chronic distal Achilles enthesopathy with prominent hypertrophic o steophytes and heterotopic ossification.
--- NOTE | ~2022-08-17 | MR_ITS ---
EXAMINATION: MR foot RT wo con DATE: 08/18/2022 16:47 INDICATION: Osteomyelitis with wound to the plantar surface of the right foot TECHNIQUE: Magnetic resonance imaging (MRI) of the right fore/mid foot was performed without intraven ous contrast. Sequences included axial, sagittal and coronal T1-weighted FSE, axial and coronal T2-we ighted FS FSE and sagittal fluid sensitive FSE STIR. COMPARISON: CT dated 08/07/2022 and radiographs dated 2 cm 23 FINDINGS: There is a region of low signal intensity in the plantar fat pad which could represent gas or suscept ibility artifact related to metallic foci of not evident on the prior radiograph or CT is located imm ediately deep to a small skin defect plantar to the base of the fourth metatarsal. No associated absc ess. Chronic fracture deformities of the cuboid and base of the fourth metatarsal. Chronic osteonecro sis with collapse and fragmentation of the articular surfaces at the heads of the second-fourth metat arsals. Small regions of likely degenerative subarticular edema-like signal change associated with os teoarthritis at the third and fourth tarsal metatarsal joints. No evident cortical erosion, more exte nsive marrow edema or loss of T1 marrow fat signal to suggest osteomyelitis. Moderate fatty atrophy o f the abductor digiti minimi muscle. Mild fatty atrophy and increased fluid signal in much of the rem aining intrinsic musculature of the right foot most likely related to acute on chronic diabetic neuro demetri. IMPRESSION: 1. Chronic osteonecrotic, posttraumatic and secondary degenerative changes in the right mid and foref oot as detailed above. No evident abscess or osteomyelitis. Reviewed, dictated and finalized at location A. [place] FIELD SUPERVISOR IMPRESSION: 1. Chronic osteonecrotic, posttraumatic and secondary degenerative changes in t he right mid and forefoot as detailed above. No evident abscess or osteomyeliti s.
[2022-08-17 14:43] VITALS: BP 157/96; PULSE 94; RESP 20; TEMP 36.8; O2SAT 100
--- NOTE | 2022-08-17 17:00 | ED.GENADULT ---
HPI - General Adult General Chief complaint: Extremity Problem,Nontraumatic Stated complaint: right foot pain Time Seen by Provider: 08/17/22 16:32 Source: RN notes reviewed History of Present Illness HPI narrative: Patient presents emergency department from home for right foot wound. The patient states that she had a diabetic foot wound that began last month she states that she had been admitted to the hospital and discharged on the first for the wound states she had been on antibiotics and at discharge this was a follow-up with a foot doctor states that secondary to insurance purposes she has been unable to follow-up she states that the wound had been just a small pinhole and she has been placing silver gel on it and keeping it clean and dry but states that she woke this morning with increased pain and swelling in her foot as well as increased size of the wound she states that she has had increased pain she does have some mild erythema on the front of her ankle but she states that this has been old she denies any new trauma or injury she denies any fevers or chills Related Data Home Medications Medication Instructions Recorded Confirmed blood sugar diagnostic (OneTouch 04/04/20 08/06/22 Ultra Blue Test Strip) gabapentin 300 mg capsule 300 mg PO TID 04/04/20 08/06/22 insulin glargine 100 unit/mL (3 40 unit subcut HS 04/04/20 08/06/22 mL) subcutaneous pen (Lantus Solostar U-100 Insulin) insulin lispro 100 unit/mL See Protocol subcut TIDWM 04/04/20 08/06/22 subcutaneous pen (Humalog KwikPen (U-100) Insulin) lisinopril 40 mg tablet 40 mg PO DAILY 04/04/20 08/06/22 tramadol 50 mg tablet 50 mg PO QID PRN Pain 04/04/20 08/07/22 metformin 500 mg tablet,extended 1,500 mg PO DAILY 01/02/21 08/06/22 release 24 hr rosuvastatin 40 mg tablet 40 mg PO DAILY 01/02/21 08/06/22 ergocalciferol (vitamin D2) 1,250 1,250 mcg PO WEEKLY 08/06/22 08/06/22 mcg (50,000 unit) capsule (Vitamin D2) Allergies Allergy/AdvReac Type Severity Reaction Status Date / Time No Known Allergies Allergy Mild Verified 08/17/22 16:33 Review of Systems Review of Systems: Gen.: Denies fevers or chills ENT: Denies congestion Respiratory: Denies shortness of breath or cough CV: Denies chest pain or palpitations GI: Denies abdominal pain nausea, emesis or diarrhea Musculoskeletal: Denies back pain or muscle pain Neuro: Denies numbness, tingling, weakness or focal weakness Skin: See HPI Except as documented, all other systems reviewed and negative PMFSH Past Medical History Medical History Depression with anxiety Diabetic peripheral neuropathy Essential hypertension History of MRSA infection Skin and soft tissue infection of the left hip requiring debridement. Insulin dependent type 2 diabetes mellitus Morbid obesity Surgical History Surgical History History of section History of cholecystectomy History of hysterectomy History of tonsillectomy Status post debridement Debridement of wound on the left hip. Family History Family History Father Cancer Sibling Cancer Kidney disease Father COPD (chronic obstructive pulmonary disease) Mother Kidney disease Social History Social History Social History: The patient lives in [place], [place] with her . She has 4 children. Lifelong nonsmoker. No alcohol or illicit substance abuse. She designates her , Hong, as her surrogate decision maker and she wishes to be a full code. Smoking status: Never smoker Alcohol intake: never Substance use: never Substance use type: does not use Lack of Transportation: No Lack of Food: Never True Current Housing: I Do Not Have Housing Concerned About Future Housing: No Difficulty Paying [place]
[2022-08-17 18:00] VITALS: BP 146/84; PULSE 80; RESP 16; O2SAT 99
[2022-08-17 18:23] LABS: Lactic Acid Reflex 2.1 mmol/L (0.7-2.0)
[2022-08-17 18:24] LABS: Alanine Aminotransferase 22 U/L (6-35); Albumin Level 3.8 g/dL (3.5-5.1); Alkaline Phosphatase 76 U/L (38-126); Anion Gap 6 mmol/L (8-16); Aspartate Amino Transferase 28 U/L (14-36); Bilirubin,Total 0.5 mg/dL (0.2-1.3); Blood Urea Nitrogen 15 mg/dL (7-17); Calcium 8.5 mg/dL (8.4-10.2); Carbon Dioxide 31 mmol/L (22-30); Chloride 100 mmol/L (98-107); Estimated CRCL calculation 80 ml/min; Estimated Glomerular Filt Rate > 60; Glucose 299 mg/dL (65-110); Potassium 3.4 mmol/L (3.4-5.0); Sodium 137 mmol/L (137-145)
[2022-08-17 18:28] LABS: Basophils Percent Auto 0.6 % (0.2-1.2); Eosinophils Absolute Auto 0.2 K/mm3 (0-0.3); Eosinophils Percent Auto 3.1 % (0-4.4); Hematocrit 34.6 % (37.0-47.0); Hemoglobin 11.4 g/dL (12.0-15.0); Immature Granulocyte Absolute 0.01 K/mm3 (0.00-0.031); Immature Granulocyte Percent A 0.2 % (0-0.5); Lymphocytes Absolute Auto 1.92 K/mm3 (0.9-3.2); Lymphocytes Percent Auto 29.5 % (18.3-44.2); Mean Corpuscular HGB Conc 32.9 g/dl (32-36); Mean Corpuscular Hemoglobin 27.6 pg (26-34); Mean Corpuscular Volume 83.8 fl (80-100); Mean Platelet Volume 10.4 fl (7.4-10.4); Monocytes Absolute Auto 0.5 K/mm3 (0.1-0.6); Monocytes Percent Auto 7.4 % (2.6-8.5); Neutrophils Absolute Auto 3.9 K/mm3 (1.3-6.7); Neutrophils Percent Auto 59.2 % (45.5-73.1); Platelet Count Result 208 k/mm3 (150-375); Red Blood Count 4.13 M/mm3 (4.2-5.4); White Blood Count 6.5 K/mm3 (4.5-10.0)
[2022-08-17 18:37] LABS: INR 1.1; Prothrombin Time 13.6 Seconds (11.1-14.7)
[2022-08-17 18:38] LABS: Partial Thromboplastin Time 49.8 SECONDS (22.3-36.8)
[2022-08-17 18:59] LABS: Influenza A QL RT-PCR Negative (Negative); Influenza B QL RT-PCR Negative (Negative); SARS-CoV-2 RNA PCR Negative
[2022-08-17 20:05] VITALS: BP 148/96; PULSE 83; RESP 16; O2SAT 99
--- NOTE | 2022-08-17 20:54 | PM.IMHP ---
H&P: HPI History of Present Illness Date/Time: 08/17/22 20:54 Chief Complaint: Foot wound Narrative: This is a 57-year-old female with past medical history significant for morbid obesity, type 2 diabetes mellitus insulin dependent, peripheral diabetic neuropathy, chronic back pain, dyslipidemia, right foot wound. Patient just recently discharged after treatment of right foot wound however comes back after worsening and now with redness swelling tenderness and warmth of the right lower extremity. Patient has had night sweats, fevers, chills, denies any nausea, vomiting, diarrhea, abdominal pain, cough, sputum production. Preliminary workup was significant for x-ray of the right foot was reported as: FINDINGS: Unchanged appearance to the right midfoot. This includes a chronic comminuted fracture of the cuboid with depression of the portion of the distal cortex which articulates with the fifth metatarsal. Chronic fracture deformity at the base of the fourth metatarsal with unchanged chronic appearing periosteal reaction along the proximal aspect of the fourth and fifth metatarsals. Chronic flattening and fragmentation of the articular surfaces at the heads of the second-fourth metatarsals likely related to osteonecrosis. No acute fractures or new or acute appearing erosion/osteolysis or periosteal reaction to suggest ongoing osteomyelitis. Large Achilles calcaneal spur. Mild polyarticular osteoarthritis involving many of the joints in the mid and forefoot. Soft tissue swelling about the foot most prominent plantar to the mid and forefoot. No radiopaque foreign bodies or soft tissue gas. No right ankle joint effusion. IMPRESSION: 1. Stable appearance of an old healed fracture base of the fourth metatarsal and malunited comminuted fracture of the cuboid. 2. Chronic osteonecrosis with collapse and fragmentation of the articular cortices at the heads of the second-fourth metatarsals. 3. Soft tissue swelling centered at the plantar aspect of the forefoot with no radiopaque foreign bodies, soft tissue gas or findings to suggest acute osteomyelitis. 4. Prominent chronic distal Achilles enthesopathy with prominent hypertrophic osteophytes and heterotopic ossification. Review of Systems Review of Systems: Worsening right foot wound, warmth, swelling, redness, tenderness. Constitutional: Constitutional: Reports chills, Reports fatigue, Reports fever(s), Reports lethargy, Reports malaise, Reports night sweats, Reports poor appetite and Reports weakness Eyes: Eyes: Denies change in vision ENT: Denies dysphagia and Denies odynophagia Cardiovascular: Cardiovascular: Denies chest pain, Denies lightheadedness, Denies radiating jaw, neck or arm pain and Denies palpitations Respiratory: Respiratory: Denies chest congestion, Denies cough, Denies excessive phlegm production and Denies pain on inspiration Gastrointestinal: Gastrointestinal: Denies abdominal pain, Denies dyspepsia, Denies heartburn, Denies diarrhea, Denies nausea and Denies vomiting Genitourinary: Genitourinary: Denies dysuria Musculoskeletal: Musculoskeletal: Reports joint swelling and Reports other (Right foot worsening wound) Integumentary/Breasts: Skin/Breast: Reports swelling, Reports erythema, Reports skin swelling and Reports skin ulcer (Right foot) Neurologic: Denies focal weakness and Denies Sensory deficit (Neuro) Psychiatric: Psychiatric: Reports no additional psychiatric complaints and Reports as per HPI Endocrine: Endocrine: Denies cold intolerance, Denies flushing, Denies heat intolerance, Denies polyphagia, Denies polydipsia and Denies palpitations Hematologic/Lymphatic: Hematologic/Lymphatic: Reports no additional hematologic/lymphatic complaints and Reports as per HPI Allergic/Immunologic: Allergic/Immunologic: Reports no additional allergic/immunologic complaints and Reports as per HPI PMFSH Past Medical History Medical History (Reviewed 08/17/22 @ 17:01 by Robby Malloy,
[2022-08-17 21:11] LABS: Reflex Lactic Acid Yes or No Add Lactic
[2022-08-17 21:13] VITALS: BP 179/92; PULSE 86; RESP 18; TEMP 36.3; O2SAT 94; BMI 49.1
--- NOTE | 2022-08-17 21:25 | ADMGEN ---
This patient, Florencia Levy, was admitted to Medical Room 247-. Patient/family oriented to hospital policies and general routines including ID bracelet, bed and alarms, visiting hours, pain management, procedures, bathroom and other care routines, personal items, smoking policy, room service/diet, and visiting hours. Information on how to activate the Rapid Response Team has been discussed. Patient/Family are encouraged to report perceived risks to care and to ask questions if they do not understand what they are told or what they should do.
[2022-08-17 22:07] LABS: Lactic Acid 1.7 mmol/L (0.7-2.0)
[2022-08-17] MEDS: metroNIDAZOLE 500 MG/ISO 100ML 500 MG/100 ML BAG 100 MG IVPB (23:03)
[2022-08-18] VITALS (15 sets, daily range): BP systolic 127–179; BP diastolic 68–102; PULSE 83–95; RESP 10–20; TEMP 36.3–36.9; O2SAT 98–100
[2022-08-18] MEDS: hydrALAZINE HCL 20 MG/ML VIAL 10 MG IV PUSH (05:05)
[2022-08-18] MEDS: metroNIDAZOLE 500 MG/ISO 100ML 500 MG/100 ML BAG 100 MG IVPB ×3 (05:10→20:50)
[2022-08-18 05:38] LABS: Alanine Aminotransferase 20 U/L (6-35); Albumin Level 3.5 g/dL (3.5-5.1); Alkaline Phosphatase 75 U/L (38-126); Anion Gap 6 mmol/L (8-16); Aspartate Amino Transferase 25 U/L (14-36); Bilirubin,Total 0.6 mg/dL (0.2-1.3); Blood Urea Nitrogen 12 mg/dL (7-17); Calcium 8.2 mg/dL (8.4-10.2); Carbon Dioxide 28 mmol/L (22-30); Chloride 100 mmol/L (98-107); Estimated CRCL calculation 93 ml/min; Estimated Glomerular Filt Rate > 60; Glucose 251 mg/dL (65-110); Potassium 3.2 mmol/L (3.4-5.0); Sodium 134 mmol/L (137-145)
[2022-08-18 05:58] LABS: Basophils Percent Auto 0.8 % (0.2-1.2); Eosinophils Absolute Auto 0.2 K/mm3 (0-0.3); Hematocrit 33.3 % (37.0-47.0); Hemoglobin 10.9 g/dL (12.0-15.0); Immature Granulocyte Absolute 0.01 K/mm3 (0.00-0.031); Immature Granulocyte Percent A 0.2 % (0-0.5); Lymphocytes Absolute Auto 0.98 K/mm3 (0.9-3.2); Lymphocytes Percent Auto 20.8 % (18.3-44.2); Mean Corpuscular HGB Conc 32.7 g/dl (32-36); Mean Corpuscular Hemoglobin 26.7 pg (26-34); Mean Corpuscular Volume 81.6 fl (80-100); Mean Platelet Volume 10.5 fl (7.4-10.4); Monocytes Absolute Auto 0.5 K/mm3 (0.1-0.6); Monocytes Percent Auto 10.6 % (2.6-8.5); Neutrophils Percent Auto 63.6 % (45.5-73.1); Platelet Count Result 171 k/mm3 (150-375); Red Blood Count 4.08 M/mm3 (4.2-5.4); Red Cell Distribution Width 12.7 % (11.5-14.5); White Blood Count 4.7 K/mm3 (4.5-10.0)
[2022-08-18] MEDS: GABAPENTIN 300 MG CAPSULE PO ×2 (08:02→17:25)
[2022-08-18] MEDS: traMADol HCL (*CRX) 50 MG TABLET PO (08:15)
[2022-08-18] MEDS: POTASSIUM CHLORIDE INJ 40 MEQ in SODIUM CHLORIDE 0.9% IV 500 ML 100 MEQ IVPB (08:44)
[2022-08-18 09:00] LABS: Glucose Point of Care 293 mg/dl (65-105)
--- NOTE | 2022-08-18 09:00 | P.PNIM_ITS ---
Progress Note: A&P Assessment and Plan (1) Osteomyelitis of right foot: Code(s): M86.9 - Osteomyelitis, unspecified Status: Acute Assessment and Plan: * Just recently seen for foot wound * POD 0 * Continue vanco, flagyl, and cefepime * WBC stable at 4.7 * Wound consult * Wound culture grew group B strep * Blood cultures pending * Consider another wound culture * MRI of the foot ordered (2) Cellulitis, leg: Code(s): L03.119 - Cellulitis of unspecified part of limb Status: Acute Assessment and Plan: * Complaints of redness, tenderness, and swelling to the right lower extremity * Continue vanco, flagyl, and cefepime * WBC stable at 4.7 * Wound consult * Wound culture grew group B strep * Blood cultures pending * Consider another wound culture * Most likely related to the osteomyelitis (3) Diabetic foot ulcer: Code(s): E11.621 - Type 2 diabetes mellitus with foot ulcer; L97.509 - Non-pressure chronic ulcer of other part of unspecified foot with unspecified severity Status: Acute Assessment and Plan: * See above (4) Morbid obesity: Code(s): E66.01 - Morbid (severe) obesity due to excess calories Status: Acute Assessment and Plan: * Lifestyle and diet modification * 1800 calorie restricted diet (5) Peripheral neuropathy: Code(s): G62.9 - Polyneuropathy, unspecified Status: Acute Assessment and Plan: * Continue gabapentin (6) Essential hypertension: Code(s): I10 - Essential (primary) hypertension Status: Acute Assessment and Plan: * Current BP is 157/75 * Continue home lisinopril, and lasix * Continue to trend BP * Adjust therapy as indicated (7) Diabetes mellitus: Code(s): E11.9 - Type 2 diabetes mellitus without complications Status: Acute Assessment and Plan: * Current glucose is 251 * Continue home insulin * A1c 12.1 * ISS * Trend labs * Accu Cheks Time Spent With Patient Time: 56 minutes Time with patient: Greater than 35 minutes Subjective Date/time seen: 08/18/22899 Interval history: 08/18/22899 patient seems to be doing okay mentally. Her leg does look inflamed and red. General surgery is to take the patient down to OR for debridement. Currently patient denies any chest pain, shortness a breath, nausea, vomiting, diarrhea constipation. Patient did state that she missed her gabapentin and is having some numbness and tingling in her fingers and toes. 08/17/22? 20:54 This is a 57-year-old female with past medical history significant for morbid obesity, type 2 diabetes mellitus insulin dependent, peripheral diabetic neuropathy, chronic back pain, dyslipidemia, right foot wound.? Patient just recently discharged after treatment of right foot wound however comes back after worsening and now with redness swelling tenderness and warmth of the right lower extremity.? Patient has had night sweats, fevers, chills, denies any nausea, vomiting, diarrhea, abdominal pain, cough, sputum production. Review of Systems Review of Systems: All systems reviewed & are unremarkable except as noted in HPI and below Exam Narrative: General: well-nou
--- NOTE | 2022-08-18 09:00 | PM.IMPN ---
Progress Note: A&P Assessment and Plan (1) Osteomyelitis of right foot: Code(s): M86.9 - Osteomyelitis, unspecified Status: Acute Assessment and Plan: Just recently seen for foot wound POD 0 Continue vanco, flagyl, and cefepime WBC stable at 4.7 Wound consult Wound culture grew group B strep Blood cultures pending Consider another wound culture MRI of the foot ordered (2) Cellulitis, leg: Code(s): L03.119 - Cellulitis of unspecified part of limb Status: Acute Assessment and Plan: Complaints of redness, tenderness, and swelling to the right lower extremity Continue vanco, flagyl, and cefepime WBC stable at 4.7 Wound consult Wound culture grew group B strep Blood cultures pending Consider another wound culture Most likely related to the osteomyelitis (3) Diabetic foot ulcer: Code(s): E11.621 - Type 2 diabetes mellitus with foot ulcer; L97.509 - Non-pressure chronic ulcer of other part of unspecified foot with unspecified severity Status: Acute Assessment and Plan: See above (4) Morbid obesity: Code(s): E66.01 - Morbid (severe) obesity due to excess calories Status: Acute Assessment and Plan: Lifestyle and diet modification 1800 calorie restricted diet (5) Peripheral neuropathy: Code(s): G62.9 - Polyneuropathy, unspecified Status: Acute Assessment and Plan: Continue gabapentin (6) Essential hypertension: Code(s): I10 - Essential (primary) hypertension Status: Acute Assessment and Plan: Current BP is 157/75 Continue home lisinopril, and lasix Continue to trend BP Adjust therapy as indicated (7) Diabetes mellitus: Code(s): E11.9 - Type 2 diabetes mellitus without complications Status: Acute Assessment and Plan: Current glucose is 251 Continue home insulin A1c 12.1 ISS Trend labs Accu Cheks Time Spent With Patient Time: 56 minutes Time with patient: Greater than 35 minutes Subjective Date/time seen: 08/18/22899 Interval history: 08/18/22899 patient seems to be doing okay mentally. Her leg does look inflamed and red. General surgery is to take the patient down to OR for debridement. Currently patient denies any chest pain, shortness a breath, nausea, vomiting, diarrhea constipation. Patient did state that she missed her gabapentin and is having some numbness and tingling in her fingers and toes. 08/17/22? 20:54 This is a 57-year-old female with past medical history significant for morbid obesity, type 2 diabetes mellitus insulin dependent, peripheral diabetic neuropathy, chronic back pain, dyslipidemia, right foot wound.? Patient just recently discharged after treatment of right foot wound however comes back after worsening and now with redness swelling tenderness and warmth of the right lower extremity.? Patient has had night sweats, fevers, chills, denies any nausea, vomiting, diarrhea, abdominal pain, cough, sputum production. Review of Systems Review of Systems: All systems reviewed & are unremarkable except as noted in HPI and below Exam Narrative: General: well-nourished, well-appearing 57-year-old female, sitting up in bed, comfortable, NARD Neuro: awake, alert and oriented x4, speech clear, no focal neuro deficits noted HEENMT: normocephalic, atraumatic, EOMI, sclerae anicteric, moist oral mucosa Respiratory: Clear to auscultation bilaterally without crackles, rhonchi or wheezes, nonlabored breathing Cardio: regular rate, regular rhythm with S1-S2 Abdomen: nondistended, normoactive bowel sounds, soft, nontender to palpation Extremities: no edema, erythema, or tenderness to palpation, DP pulses 2+ bilaterally Skin: no rashes or lesions, warm and dry Right foot is bandaged right leg has red appearance cellulitis.
[2022-08-18] MEDS: INSULIN ASPART (*BKC) 100 UNITS/ML SUB-Q ×3 (09:01→17:44)
--- NOTE | 2022-08-18 10:02 | PM.CNGS ---
Assessment and Plan Assessment and plan (1) Diabetic foot ulcer: Code(s): E11.621 - Type 2 diabetes mellitus with foot ulcer; L97.509 - Non-pressure chronic ulcer of other part of unspecified foot with unspecified severity Status: Acute Assessment and Plan: will need MRI for further evaluation, IV abx, OR for debridement given worsening wound and drainage (2) Diabetes mellitus: Code(s): E11.9 - Type 2 diabetes mellitus without complications Status: Acute Assessment and Plan: mgmt per primary team History of Present Illness Consult details Consult date: 08/18/22 Reason for consult: wound care Requesting physician: Kenroy Ray MD Narrative: Pt is a 57 y/o F presenting c worsening R foot wound. Pt reports wound has been having increased drainage and pain over last few days. Pt reports swelling has also increased. Pt denies any f/c or any other systemic symptoms at this time. Review of Systems Constitutional: Constitutional: Reports as per HPI, Denies anorexia, Denies chills, Reports fatigue, Denies fever(s), Reports lethargy, Denies malaise, Denies poor appetite, Denies weakness, Denies weight gain and Denies weight loss Eyes: Eyes: Reports no additional eye complaints ENT: Reports system reviewed and no additional complaints, except as documented Cardiovascular: Cardiovascular: Reports no additional cardiovascular complaints Respiratory: Respiratory: Reports no additional respiratory complaints Gastrointestinal: Gastrointestinal: Reports no additional gastrointestinal complaints Genitourinary: Genitourinary: Reports no additional female genitourinary complaints Musculoskeletal: Musculoskeletal: Reports as per HPI and Reports abnormal gait Integumentary/Breasts: Skin/Breast: Reports as per HPI and Reports wounds Neurologic: Reports system reviewed and no additional complaints, except as documented Psychiatric: Psychiatric: Reports no additional psychiatric complaints Endocrine: Endocrine: Reports no additional endocrine complaints Hematologic/Lymphatic: Hematologic/Lymphatic: Reports no additional hematologic/lymphatic complaints Allergic/Immunologic: Allergic/Immunologic: Reports no additional allergic/immunologic complaints [facility] Past Medical History Medical History Atypical chest pain Cellulitis of right foot COVID-19 Depression with anxiety Diabetic peripheral neuropathy Fracture of right foot affected by diabetic neuropathy History of MRSA infection Skin and soft tissue infection of the left hip requiring debridement. Hyperlipidemia Insulin dependent type 2 diabetes mellitus Morbid obesity Uncontrolled diabetes mellitus Surgical History Surgical History History of section History of cholecystectomy History of hysterectomy History of tonsillectomy Status post debridement Debridement of wound on the left hip. Family History Family History Father Cancer Sibling Cancer Kidney disease Father COPD (chronic obstructive pulmonary disease) Mother Kidney disease Social History Social History Social History: The patient lives in [place], [place] with her . She has 4 children. Lifelong nonsmoker. No alcohol or illicit substance abuse. She designates her , Hong, as her surrogate decision maker and she wishes to be a full code. Smoking status: Never smoker Alcohol intake: never Substance use: never Substance use type: does not use Lack of Transportation: No Lack of Food: Never True Current Housing: I Have Housing Concerned About Future Housing: No Difficulty Paying Gas/Electric Bills: No Difficulty Paying for Meds: No Currently Unemployed: No Education: Associate Degree Difficulty w/ Chil
--- NOTE | 2022-08-18 10:10 | WPDHPUPDATE1 ---
History and Physical Update Update Date/Time: 08/18/22 10:10 History and Physical has been reviewed, including an updated exam of the patient. There are NO changes in the patient's condition. Risks, benefits, and alternatives have been discussed and questions answered. Patient agrees to proceed with procedure.
[2022-08-18 10:15] LABS: Hemoglobin A1C 12.1 % (<5.7)
[2022-08-18] MEDS: LACTATED RINGERS 1,000 ML 30 ML IV CONT (10:40)
--- NOTE | 2022-08-18 11:02 | WPDANESEPPF ---
Anes - Initial Pre Proc Eval Procedure: Operation Date: 08/18/22 12:45 Proposed Procedures p Incision And Drainage Right Foot - Usha Ross MD Date/Time: 08/18/22 11:02 Surgeon: Ya Sepulveda DO Pre Op Diagnosis: Diabetic Foot Wound with Abscess Patient Data Age: 57 Gender: F Height: 1.63 m Weight: 129.8 kg Last Vital Signs Temp 36.8 C 08/18/22 05:30 Pulse 92 08/18/22 05:30 Resp 18 08/18/22 05:30 BP 157/75 H 08/18/22 06:25 Pulse Ox 98 08/18/22 05:30 O2 Del Method Room Air 08/18/22 08:00 Allergies Allergy/AdvReac Type Severity Reaction Status Date / Time No Known Allergies Allergy Mild Verified 08/17/22 16:33 Home Medications Medication Instructions Recorded Confirmed Type blood sugar diagnostic (OneTouch 04/04/20 08/17/22 History Ultra Blue Test Strip) gabapentin 300 mg capsule 300 mg PO BID 04/04/20 08/17/22 History insulin glargine 100 unit/mL (3 40 unit subcut HS 04/04/20 08/17/22 History mL) subcutaneous pen (Lantus Solostar U-100 Insulin) insulin lispro 100 unit/mL See Protocol subcut TIDWM 04/04/20 08/17/22 History subcutaneous pen (Humalog KwikPen (U-100) Insulin) lisinopril 40 mg tablet 40 mg PO DAILY 04/04/20 08/17/22 History tramadol 50 mg tablet 50 mg PO QID PRN Pain (Scale Score 04/04/20 08/17/22 History 4-6) metformin 500 mg tablet,extended 1,000 mg PO DAILY 01/02/21 08/17/22 History release 24 hr rosuvastatin 40 mg tablet 40 mg PO DAILY 01/02/21 08/17/22 History aspirin 81 mg tablet,delayed 81 mg PO QAM #30 tabs 01/05/21 08/17/22 Rx release ergocalciferol (vitamin D2) 1,250 1,250 mcg PO WEEKLY 08/06/22 08/17/22 History mcg (50,000 unit) capsule (Vitamin D2) bisacodyl 5 mg tablet,delayed 5 mg PO QAM PRN Constipation #30 08/09/22 08/17/22 Rx release (Laxative (bisacodyl)) tabs silver 200 mcg/gram topical gel 1 applic topical DAILY #45 grams 08/09/22 08/17/22 Rx (Silver-Sept) furosemide 40 mg tablet 40 mg PO 3XW 08/17/22 08/17/22 History gabapentin 400 mg capsule 400 mg PO HS 08/17/22 08/17/22 History Laboratory Tests 08/17/22 08/17/22 08/17/22 18:03 18:03 18:03 WBC 6.5 K/mm3 K/mm3 (4.5-10.0) RBC 4.13 M/mm3 L M/mm3 (4.2-5.4) Hgb 11.4 g/dL L g/dL (12.0-15.0) Hct 34.6 % L % (37.0-47.0) MCV 83.8 fl fl (80-100) MCH 27.6 pg pg (26-34) MCHC 32.9 g/dl g/dl (32-36) RDW 13.0 % % (11.5-14.5) Plt Count 208 k/mm3 k/mm3 (150-375) MPV 10.4 fl fl (7.4-10.4) Immature Gran % (Auto) 0.2 % % (0-0.5) Neut % (Auto) 59.2 % % (45.5-73.1) Lymph % (Auto) 29.5 % % (18.3-44.2) Isabella % (Auto) 7.4 % % (2.6-8.5) Eos % (Auto) 3.1 % % (0-4.4) Baso % (Auto) 0.6 % % (0.2-1.2) Lymph # (Auto) 1.92 K/mm3 K/mm3 (0.9-3.2) Isabella # (Auto) 0.5 K/mm3 K/mm3 (0.1-0.6) Eos # (Auto) 0.2 K/mm3 K/mm3 (0-0.3) Baso # (Auto) 0.0 K/mm3 K/mm3 (0.0-0.1) Abs Immat Gran (auto) 0.01 K/mm3 K/mm3 (0.00-0.031) Absolute Neuts (auto) 3.9 K/mm3 K/mm3 (1.3-6.7) Absolute Nucleated RBC 0.0 K/mm3 K/mm3 (0.0-0.012) Nucleated RBC % 0.0 % % (0.0-0.2) PT 13.6 Seconds Seconds (11.1-14.7) INR 1.1 APTT 49.8 SECONDS H SECONDS (22.3-36.8) Sodium 137 mmol/L mmol/L (137-145) Potassium 3.4 mmol/L mmol/L (3.4-5.0) Chloride 100 mmol/L mmol/L (98-107) Carbon Dioxide 31 mmol/L H mmol/L (22-30) Anion Gap 6 mmol/L L mmol/L (8-16) BUN 15 mg/dL mg/dL (7-17) Creatinine 0.90 mg/dL mg/dL (0.7-1.0) Estim Creat Clear Calc 80 ml/min ml/min Estimated GFR > 60 (59 - ) Glucose 299 mg/dL H mg/dL (65-110) POC Capillary Glucose Hemoglobin A1c La
[2022-08-18] MEDS: BUPIVACAINE/EPINEPHRINE 0.5% 10 ML VIAL 20 ML INFILTRATE (11:43)
--- NOTE | 2022-08-18 11:46 | W.PM.PROC2 ---
Procedure Note - Detailed Date of Procedure 08/18/22 Pre-op Diagnosis right diabetic foot wound with abscess Post-op Diagnosis Same Procedure Performed Complex incision and drainage right diabetic foot wound with abscess, washout Surgeon Usha Ross MD Anesthesia MAC and Local Indications 57-year-old female presenting with worsening right diabetic foot wound with purulent drainage Findings 3 x 3 cm wound on the plantar surface the right foot near the 4th and 5th metatarsal, abscess in the subcutaneous tissue did not extend into the bone grossly Description of Procedure The patient was taken to the operating and placed in the supine position. After adequate induction of MAC anesthesia, the patient was prepped and draped in the normal sterile fashion. A time-out was then done to verify the patient's identity, as well as the procedure being performed. I began by opening the most fluctuant area of the abscess including the pinpoint opening draining purulent material. This was carried through the dermis into the subcutaneous tissue. This point I was able to identify a abscess cavity and further purulent drainage was noted. The measurements of the wound once widely open were approximately 3 x 3 cm with a depth of approximately 2.5 cm. There was no grossly exposed bone in the abscess cavity. I was able to wash this out entirely. I then locally anesthetized the entire cavity. Iodoform packing was packed into the cavity to keep it open and draining. Sterile dressing was placed on the wound. The patient tolerated the procedure. She will be transferred to the recovery room in stable condition. Estimated Blood Loss 10 Drains No Packing Yes Pathology None sent Complications No immediate complications Condition Stable Disposition PACU [facility] Billing Surgery - Charge Forward: Surgery Billing
[2022-08-18 12:01] LABS: Glucose Point of Care 257 mg/dl (65-105)
--- NOTE | 2022-08-18 12:14 | SUR.PHASEI ---
Dr. Clark aware of BG 257. No further treatment for at this time.
--- NOTE | 2022-08-18 12:28 | SUR.PHASEI ---
Dr. Clark aware of patient's elevated BP. No treatment at this time.
--- NOTE | 2022-08-18 13:15 | PC.NURSE ---
Patient returned from surgery. Report received from ELSA Funez.
[2022-08-18] MEDS: ROSUVASTATIN 10 MG TABLET 40 MG PO (13:23)
[2022-08-18] MEDS: lisinopriL 20 MG TABLET 40 MG PO (13:23)
[2022-08-18] MEDS: ENOXAPARIN 40 MG/0.4 ML SYRINGE SUB-Q (13:51)
[2022-08-18] MEDS: ASPIRIN 81 MG ENTERIC TABLET PO (13:52)
[2022-08-18 13:56] LABS: Glucose Point of Care 275 mg/dl (65-105)
[2022-08-18] MEDS: INSULIN ASPART (*BKC) 100 UNITS/ML 12 UNITS SUB-Q ×2 (13:57→17:44)
[2022-08-18 17:32] LABS: Glucose Point of Care 343 mg/dl (65-105)
[2022-08-18 20:41] LABS: Glucose Point of Care 415 mg/dl (65-105)
[2022-08-18] MEDS: GABAPENTIN 400 MG CAPSULE PO (20:53)
[2022-08-18] MEDS: INSULIN GLARGINE (*BKC) 100 UNITS/ML 40 UNITS SUB-Q (20:58)
[2022-08-19 02:14] LABS: Glucose Point of Care 376 mg/dl (65-105)
[2022-08-19] MEDS: INSULIN HUMAN REGULAR (*BKC) 100 UNITS/ML 12 UNITS SUB-Q (03:15)
[2022-08-19 06:00] VITALS: BP 149/88; PULSE 89; RESP 16; TEMP 36.8; O2SAT 99
[2022-08-19] MEDS: metroNIDAZOLE 500 MG/ISO 100ML 500 MG/100 ML BAG 100 MG IVPB ×3 (06:02→22:05)
[2022-08-19 06:59] LABS: Basophils Percent Auto 0.3 % (0.2-1.2); Eosinophils Percent Auto 0.3 % (0-4.4); Hemoglobin 11.1 g/dL (12.0-15.0); Immature Granulocyte Absolute 0.02 K/mm3 (0.00-0.031); Immature Granulocyte Percent A 0.3 % (0-0.5); Lymphocytes Absolute Auto 1.28 K/mm3 (0.9-3.2); Lymphocytes Percent Auto 22.1 % (18.3-44.2); Mean Corpuscular HGB Conc 33.6 g/dl (32-36); Mean Corpuscular Hemoglobin 27.7 pg (26-34); Mean Corpuscular Volume 82.3 fl (80-100); Mean Platelet Volume 10.2 fl (7.4-10.4); Monocytes Absolute Auto 0.4 K/mm3 (0.1-0.6); Monocytes Percent Auto 7.6 % (2.6-8.5); Neutrophils Percent Auto 69.4 % (45.5-73.1); Platelet Count Result 165 k/mm3 (150-375); Red Blood Count 4.01 M/mm3 (4.2-5.4); Red Cell Distribution Width 12.6 % (11.5-14.5); White Blood Count 5.8 K/mm3 (4.5-10.0)
[2022-08-19 07:16] LABS: Alanine Aminotransferase 22 U/L (6-35); Albumin Level 3.5 g/dL (3.5-5.1); Alkaline Phosphatase 72 U/L (38-126); Anion Gap 7 mmol/L (8-16); Aspartate Amino Transferase 20 U/L (14-36); Bilirubin,Total 0.4 mg/dL (0.2-1.3); Blood Urea Nitrogen 14 mg/dL (7-17); Carbon Dioxide 27 mmol/L (22-30); Chloride 102 mmol/L (98-107); Estimated CRCL calculation 75 ml/min; Estimated Glomerular Filt Rate > 60; Glucose 366 mg/dL (65-110); Magnesium 1.3 mg/dL (1.6-2.3); Potassium 3.8 mmol/L (3.4-5.0); Sodium 136 mmol/L (137-145)
[2022-08-19 07:47] LABS: Vancomycin Trough 25.9 ug/mL (10.0-20.0)
[2022-08-19 08:07] VITALS: O2SAT 99
[2022-08-19] MEDS: ENOXAPARIN 40 MG/0.4 ML SYRINGE SUB-Q (08:17)
[2022-08-19] MEDS: traMADol HCL (*CRX) 50 MG TABLET PO (08:18)
[2022-08-19] MEDS: ROSUVASTATIN 10 MG TABLET 40 MG PO (08:18)
[2022-08-19] MEDS: ASPIRIN 81 MG ENTERIC TABLET PO (08:18)
[2022-08-19] MEDS: GABAPENTIN 300 MG CAPSULE PO ×2 (08:22→17:40)
[2022-08-19] MEDS: lisinopriL 20 MG TABLET 40 MG PO (08:22)
[2022-08-19 08:56] LABS: Glucose Point of Care 333 mg/dl (65-105)
[2022-08-19] MEDS: INSULIN ASPART (*BKC) 100 UNITS/ML 14 UNITS SUB-Q ×3 (09:04→17:37)
[2022-08-19] MEDS: INSULIN ASPART (*BKC) 100 UNITS/ML SUB-Q ×3 (09:07→17:38)
[2022-08-19] MEDS: SILVERGEL (ELTA) 45 ML 1 APPLIC TOPICAL (09:12)
--- NOTE | 2022-08-19 09:34 | PM.PNGS ---
Progress Note: A&P Assessment and Plan (1) Diabetic foot ulcer: Code(s): E11.621 - Type 2 diabetes mellitus with foot ulcer; L97.509 - Non-pressure chronic ulcer of other part of unspecified foot with unspecified severity Status: Acute Assessment and Plan: s/p I and D, local wound care, ok to dc home c po abx, f/u 2 wks Subjective Subjective Date/Time Seen: 08/19/22 09:34 feels better, less pain, swelling in R foot Review of Systems Review of Systems: All systems reviewed & are unremarkable except as noted in HPI and below Exam Const: General: cooperative, comfortable and no acute distress Resp: Auscultation: clear to auscultation bilaterally Cardio: Rate: regular rate Rhythm: regular rhythm GI: Inspection: normal to inspection and non-distended Skin: General skin exam: normal color and no rashes or lesions noted Extrem: Other: R foot - drsg C/D/I, unpacked, good drainage Objective Data Vital Signs Vital Signs: Vital Signs - 24 hr 08/18/22 10:37 08/18/22 11:48 08/18/22 12:00 Temperature 36.9 C 36.6 C Pulse Rate 93 95 92 Respiratory Rate 18 16 10 L Blood Pressure 127/68 135/102 H 149/88 H Pulse Oximetry 100 100 100 Oxygen Delivery Room Air Simple Face Mask Simple Face Mask Oxygen Flow Rate 10 6 08/18/22 12:15 08/18/22 12:30 08/18/22 12:45 Temperature Pulse Rate 91 92 86 Respiratory Rate 12 11 L 12 Blood Pressure 165/94 H 154/95 H 164/95 H Pulse Oximetry 100 99 100 Oxygen Delivery Room Air Room Air Room Air Oxygen Flow Rate 08/18/22 13:00 08/18/22 13:15 08/18/22 13:30 Temperature 36.4 C 36.3 C L Pulse Rate 88 85 83 Respiratory Rate 12 18 18 Blood Pressure 165/96 H 166/90 H 156/88 H Pulse Oximetry 100 99 99 Oxygen Delivery Room Air Oxygen Flow Rate 08/18/22 14:00 08/18/22 20:23 08/18/22 21:20 Temperature 36.4 C L 36.8 C Pulse Rate 83 87 Respiratory Rate 18 20 Blood Pressure 161/75 H 147/85 H Pulse Oximetry 99 98 99 Oxygen Delivery Room Air Oxygen Flow Rate 08/19/22 06:00 08/19/22 08:07 Temperature 36.8 C Pulse Rate 89 Respiratory Rate 16 Blood Pressure 149/88 H Pulse Oximetry 99 99 Oxygen Delivery Room Air Oxygen Flow Rate Intake/Output Intake/Output: Intake & Output 08/16/22 08/17/22 08/18/22 08/19/22 23:59 23:59 23:59 23:59 Intake Total 550 2110 800 Output Total 1000 Balance 550 1110 800 Meds/Results Medications: Active Medications Generic Name Dose Route Start Last Admin Trade Name Freq PRN Reason Stop Dose Admin Aspirin 81 mg 08/18/22 09:00 08/19/22 08:18 Aspirin 81 Mg Enteric Tablet PO 81 mg QAM JENNIFER Administration Bisacodyl 5 mg 08/18/22 00:49 Bisacodyl 5 Mg Tablet Ec PO QAM PRN Constipation Dextrose 12.5 gm 08/18/22 02:51 Dextrose 50% 25 Gm/50 Ml Syringe IV PUSH PRN PRN Hypoglycemia Protocol Enoxaparin Sodium 40 mg 08/18/22 09:00 08/19/22 08:17 Enoxaparin 40 Mg/0.4 Ml Syringe SUB-Q 40 mg DAILY JENNIFER Administration Ergocalciferol 50,000 units 08/20/22 09:00 Ergocalciferol 50,000 Units Capsule PO Frye JENNIFER Gabapentin 300 mg 08/18/22 09:00 08/19/22 08:22 Gabapentin 300 Mg Capsule PO 300 mg BID JENNIFER Administration Gabapentin 400 mg 08/18/22 01:15 08/18/22 20:53 Gabapentin 400 Mg Capsule PO 400 mg HS JENNIFER Administration Glucagon 1 mg 08/18/22 02:51 Glucagon For Inj 1 Mg Vial IM PRN PRN Hypoglycemia Protocol Glucose 15 gm 08/18/22 02:51 Glucose Oral Gel 15 Gm Of Glucse In 37.5 Gm Tube PO PRN PRN Hypoglycemia Protocol Cefepime HCl 2 gm in 50 mls @ 100 mls/hr 08/18/22 08:00 08/19/22 08:09 Maxipime 2 Gm/D5w 50 Ml IVPB 100 mls/hr Q12H JENNIFER Administration Metronidazole 500 mg in 100 mls @ 100 mls/hr 08/18/22 06:00 08/19/22 06:02 Flagyl 500 Mg/Iso Soln 100 Ml IVPB 100 mls/hr Q8H JENNIFER Administration Dextrose 1,000 mls @ 100 mls/hr
[2022-08-19] MEDS: CEFEPIME 2 GM in SODIUM CHLORIDE 0.9% IV 50 ML IVPB ×2 (11:21→22:04)
--- NOTE | 2022-08-19 11:39 | WPDANESPN ---
Anes - Prog Note Post-Op Date/Time: 08/19/22 11:39 Cardiovascular status: normal Respiratory status: normal Airway patency: baseline Mental status: baseline Post-Op hydration status: normal Vital Signs: Last Vital Signs Temp 36.8 C 08/19/22 06:00 Pulse 89 08/19/22 06:00 Resp 16 08/19/22 06:00 BP 149/88 H 08/19/22 06:00 Pulse Ox 99 08/19/22 08:07 O2 Del Method Room Air 08/19/22 09:51 O2 Flow Rate 6 08/18/22 12:00 Pain Score (VAS): 08/18 I/O: Intake & Output 08/18/22 08/19/22 08/19/22 23:59 07:59 15:59 Intake Total 1260 800 240 Balance 1260 800 240 Laboratory Tests 08/19/22 06:45 08/19/22 06:45 08/18/22 08/18/22 08/18/22 11:59 13:51 17:24 WBC RBC Hgb Hct MCV MCH MCHC RDW Plt Count MPV Immature Gran % (Auto) Neut % (Auto) Lymph % (Auto) [place] % (Auto) Eos % (Auto) Baso % (Auto) Lymph # (Auto) [place] # (Auto) Eos # (Auto) Baso # (Auto) Abs Immat Gran (auto) Absolute Neuts (auto) Absolute Nucleated RBC Nucleated RBC % Sodium Potassium Chloride Carbon Dioxide Anion Gap BUN Creatinine Estim Creat Clear Calc Estimated GFR Glucose POC Capillary Glucose 257 H 275 H 343 H Calcium Magnesium Total Bilirubin AST ALT Alkaline Phosphatase Total Protein Albumin Vancomycin Trough 08/18/22 08/19/22 08/19/22 19:53 02:11 06:45 WBC RBC Hgb Hct MCV MCH MCHC RDW Plt Count MPV Immature Gran % (Auto) Neut % (Auto) Lymph % (Auto) [place] % (Auto) Eos % (Auto) Baso % (Auto) Lymph # (Auto) [place] # (Auto) Eos # (Auto) Baso # (Auto) Abs Immat Gran (auto) Absolute Neuts (auto) Absolute Nucleated RBC Nucleated RBC % Sodium Potassium Chloride Carbon Dioxide Anion Gap BUN Creatinine Estim Creat Clear Calc Estimated GFR Glucose POC Capillary Glucose 415 H 376 H Calcium Magnesium Total Bilirubin AST ALT Alkaline Phosphatase Total Protein Albumin Vancomycin Trough 25.9 H 08/19/22 08/19/22 08/19/22 06:45 06:45 08:35 WBC 5.8 RBC 4.01 L Hgb 11.1 L Hct 33.0 L MCV 82.3 MCH 27.7 MCHC 33.6 RDW 12.6 Plt Count 165 MPV 10.2 Immature Gran % (Auto) 0.3 Neut % (Auto) 69.4 Lymph % (Auto) 22.1 [place] % (Auto) 7.6 Eos % (Auto) 0.3 Baso % (Auto) 0.3 Lymph # (Auto) 1.28 [place] # (Auto) 0.4 Eos # (Auto) 0.0 Baso # (Auto) 0.0 Abs Immat Gran (auto) 0.02 Absolute Neuts (auto) 4.0 Absolute Nucleated RBC 0.0 Nucleated RBC % 0.0 Sodium 136 L Potassium 3.8 Chloride 102 Carbon Dioxide 27 Anion Gap 7 L BUN 14 Creatinine 1.00 Estim Creat Clear Calc 75 Estimated GFR > 60 Glucose 366 H POC Capillary Glucose 333 H Calcium 8.0 L Magnesium 1.3 L Total Bilirubin 0.4 AST 20 ALT 22 Alkaline Phosphatase 72 Total Protein 7.0 Albumin 3.5 Vancomycin Trough Microbiology 08/17/22 18:02 Blood Blood Culture - Preliminary 08/17/22 18:02 Blood Blood Culture - Preliminary Post-procedural complaints: none Patient Feedback: Patient satisfied with anesthetic care.
[2022-08-19 12:30] LABS: Glucose Point of Care 227 mg/dl (65-105)
[2022-08-19] MEDS: MAGNESIUM SULF 4 GM/WATER100ML 4 GM/100 ML BAG IVPB (12:31)
--- NOTE | 2022-08-19 13:00 | P.PNIM_ITS ---
Progress Note: A&P Assessment and Plan (1) Osteomyelitis of right foot: Code(s): M86.9 - Osteomyelitis, unspecified Status: Acute Assessment and Plan: * Just recently seen for foot wound * POD 1 * Continue vanco, flagyl, and cefepime * WBC stable at 5.8 * Wound consult, recommended MRI * Wound culture grew group B strep * Blood cultures pending * Consider another wound culture * MRI of the foot Chronic osteonecrotic, posttraumatic and secondary degenerative changes in the right mid and forefoot as detailed above. No evident abscess or osteomyelitis. (2) Cellulitis, leg: Code(s): L03.119 - Cellulitis of unspecified part of limb Status: Acute Assessment and Plan: * Complaints of redness, tenderness, and swelling to the right lower extremity * Continue vanco, flagyl, and cefepime * WBC stable at 5.8 * Wound consult * Wound culture grew group B strep * Blood cultures pending * MRI does not indicated osteomylitis (3) Diabetic foot ulcer: Code(s): E11.621 - Type 2 diabetes mellitus with foot ulcer; L97.509 - Non-pressure chronic ulcer of other part of unspecified foot with unspecified severity Status: Acute Assessment and Plan: * See above (4) Diabetes mellitus: Code(s): E11.9 - Type 2 diabetes mellitus without complications Status: Acute Assessment and Plan: * Current glucose is 366 * Continue home insulin * Increased lantus to 45 units at HS, aspart increased to 14 units with meals, ISS protocol increased and changed * A1c 12.1 * 24 hour roll is 86 * Trend labs * Accu Cheks * Continue to trend, adjust therapy as indicated (5) Morbid obesity: Code(s): E66.01 - Morbid (severe) obesity due to excess calories Status: Acute Assessment and Plan: * Lifestyle and diet modification * 1800 calorie restricted diet (6) Peripheral neuropathy: Code(s): G62.9 - Polyneuropathy, unspecified Status: Acute Assessment and Plan: * Continue gabapentin (7) Essential hypertension: Code(s): I10 - Essential (primary) hypertension Status: Acute Assessment and Plan: * Current BP is 149/88 * Continue home lisinopril, and lasix * Continue to trend BP * Adjust therapy as indicated Time Spent With Patient Time: 51 minutes Time with patient: Greater than 35 minutes Subjective Date/time seen: 08/19/22 1300 Interval history: 08/19/22 1300 The patient is siting on the edge of the bed.Patient stated that she feels a lot better today. She also stated this is the 1st day and a long time that she has woke up with no pain. She denies any chest pain, shortness a breath, nausea, vomiting, diarrhea, constipation, weakness or fatigue. Glucose is a little out of control however insulin has been adjusted. Currently patient is stable. 08/18/22 0900 patient seems to be doing okay mentally. Her leg does look inflamed and red. General surgery is to take the patient down to OR for debridement. Currently patient denies any chest pain, shortness a breath, nausea, vomiting, diarrhea constipation. Patient did state that she missed her gabapentin and is having some numbness and tingling in her fingers and toes. 08/17/22? 20:54
--- NOTE | 2022-08-19 13:00 | PM.IMPN ---
Progress Note: A&P Assessment and Plan (1) Osteomyelitis of right foot: Code(s): M86.9 - Osteomyelitis, unspecified Status: Acute Assessment and Plan: Just recently seen for foot wound POD 1 Continue vanco, flagyl, and cefepime WBC stable at 5.8 Wound consult, recommended MRI Wound culture grew group B strep Blood cultures pending Consider another wound culture MRI of the foot Chronic osteonecrotic, posttraumatic and secondary degenerative changes in the right mid and forefoot as detailed above. No evident abscess or osteomyelitis. (2) Cellulitis, leg: Code(s): L03.119 - Cellulitis of unspecified part of limb Status: Acute Assessment and Plan: Complaints of redness, tenderness, and swelling to the right lower extremity Continue vanco, flagyl, and cefepime WBC stable at 5.8 Wound consult Wound culture grew group B strep Blood cultures pending MRI does not indicated osteomylitis (3) Diabetic foot ulcer: Code(s): E11.621 - Type 2 diabetes mellitus with foot ulcer; L97.509 - Non-pressure chronic ulcer of other part of unspecified foot with unspecified severity Status: Acute Assessment and Plan: See above (4) Diabetes mellitus: Code(s): E11.9 - Type 2 diabetes mellitus without complications Status: Acute Assessment and Plan: Current glucose is 366 Continue home insulin Increased lantus to 45 units at HS, aspart increased to 14 units with meals, ISS protocol increased and changed A1c 12.1 24 hour roll is 86 Trend labs Accu Cheks Continue to trend, adjust therapy as indicated (5) Morbid obesity: Code(s): E66.01 - Morbid (severe) obesity due to excess calories Status: Acute Assessment and Plan: Lifestyle and diet modification 1800 calorie restricted diet (6) Peripheral neuropathy: Code(s): G62.9 - Polyneuropathy, unspecified Status: Acute Assessment and Plan: Continue gabapentin (7) Essential hypertension: Code(s): I10 - Essential (primary) hypertension Status: Acute Assessment and Plan: Current BP is 149/88 Continue home lisinopril, and lasix Continue to trend BP Adjust therapy as indicated Time Spent With Patient Time: 51 minutes Time with patient: Greater than 35 minutes Subjective Date/time seen: 08/19/22 1300 Interval history: 08/19/22 1300 The patient is siting on the edge of the bed.Patient stated that she feels a lot better today. She also stated this is the 1st day and a long time that she has woke up with no pain. She denies any chest pain, shortness a breath, nausea, vomiting, diarrhea, constipation, weakness or fatigue. Glucose is a little out of control however insulin has been adjusted. Currently patient is stable. 08/18/22 0900 patient seems to be doing okay mentally. Her leg does look inflamed and red. General surgery is to take the patient down to OR for debridement. Currently patient denies any chest pain, shortness a breath, nausea, vomiting, diarrhea constipation. Patient did state that she missed her gabapentin and is having some numbness and tingling in her fingers and toes. 08/17/22? 20:54 This is a 57-year-old female with past medical history significant for morbid obesity, type 2 diabetes mellitus insulin dependent, peripheral diabetic neuropathy, chronic back pain, dyslipidemia, right foot wound.? Patient just recently discharged after treatment of right foot wound however comes back after worsening and now with redness swelling tenderness and warmth of the right lower extremity.? Patient has had night sweats, fevers, chills, denies any nausea, vomiting, diarrhea, abdominal pain, cough, sputum production. Review of Systems Review of Systems: All systems reviewed & are unremarkable except as noted in HPI and
[2022-08-19 15:08] VITALS: BP 122/76; PULSE 78; RESP 16; TEMP 36.4; O2SAT 99
[2022-08-19] MEDS: VANCOMYCIN HCL 2,000 MG in SODIUM CHLORIDE 0.9% IV 500 ML 250 MG IVPB (15:44)
[2022-08-19 17:25] LABS: Glucose Point of Care 223 mg/dl (65-105)
[2022-08-19] MEDS: GABAPENTIN 400 MG CAPSULE PO (21:20)
[2022-08-19] MEDS: BISACODYL 5 MG TABLET EC PO (22:04)
[2022-08-19 22:30] VITALS: BP 120/66; PULSE 77; RESP 21; TEMP 36.4; O2SAT 100
[2022-08-19 22:43] LABS: Glucose Point of Care 220 mg/dl (65-105)
[2022-08-19] MEDS: INSULIN GLARGINE (*BKC) 100 UNITS/ML 45 UNITS SUB-Q (22:52)
[2022-08-20] MEDS: metroNIDAZOLE 500 MG/ISO 100ML 500 MG/100 ML BAG 100 MG IVPB ×2 (05:19→14:36)
[2022-08-20 05:24] LABS: Basophils Percent Auto 0.5 % (0.2-1.2); Eosinophils Absolute Auto 0.2 K/mm3 (0-0.3); Eosinophils Percent Auto 3.7 % (0-4.4); Hematocrit 31.6 % (37.0-47.0); Hemoglobin 10.4 g/dL (12.0-15.0); Immature Granulocyte Absolute 0.01 K/mm3 (0.00-0.031); Immature Granulocyte Percent A 0.2 % (0-0.5); Lymphocytes Absolute Auto 2.25 K/mm3 (0.9-3.2); Lymphocytes Percent Auto 37.7 % (18.3-44.2); Mean Corpuscular HGB Conc 32.9 g/dl (32-36); Mean Corpuscular Hemoglobin 26.8 pg (26-34); Mean Corpuscular Volume 81.4 fl (80-100); Mean Platelet Volume 10.6 fl (7.4-10.4); Monocytes Absolute Auto 0.6 K/mm3 (0.1-0.6); Monocytes Percent Auto 9.7 % (2.6-8.5); Neutrophils Absolute Auto 2.9 K/mm3 (1.3-6.7); Neutrophils Percent Auto 48.2 % (45.5-73.1); Platelet Count Result 142 k/mm3 (150-375); Red Blood Count 3.88 M/mm3 (4.2-5.4); Red Cell Distribution Width 12.8 % (11.5-14.5)
[2022-08-20 05:37] LABS: Alanine Aminotransferase 20 U/L (6-35); Albumin Level 3.2 g/dL (3.5-5.1); Alkaline Phosphatase 65 U/L (38-126); Anion Gap 5 mmol/L (8-16); Aspartate Amino Transferase 25 U/L (14-36); Bilirubin,Total 0.3 mg/dL (0.2-1.3); Blood Urea Nitrogen 20 mg/dL (7-17); Carbon Dioxide 28 mmol/L (22-30); Chloride 105 mmol/L (98-107); Estimated CRCL calculation 69 ml/min; Estimated Glomerular Filt Rate > 60; Glucose 229 mg/dL (65-110); Potassium 3.8 mmol/L (3.4-5.0); Sodium 138 mmol/L (137-145)
[2022-08-20 06:00] VITALS: BP 125/80; PULSE 77; RESP 20; TEMP 36.2; O2SAT 98
--- NOTE | 2022-08-20 06:13 | PC.NURSE ---
Pt refused to take the increased dosage of lantus (45u) as opposed to original 40u . Pt states that her blood glucose elevated due to dextrose in IV antibiotics. This was changed to normal saline as of 08/19/22 . Large lunch bag noted in room. Requests snacks from staff members.
[2022-08-20 08:10] LABS: Glucose Point of Care 196 mg/dl (65-105)
[2022-08-20] MEDS: ENOXAPARIN 40 MG/0.4 ML SYRINGE SUB-Q (08:29)
[2022-08-20] MEDS: traMADol HCL (*CRX) 50 MG TABLET PO ×2 (08:29→16:06)
[2022-08-20] MEDS: ROSUVASTATIN 10 MG TABLET 40 MG PO (08:30)
[2022-08-20] MEDS: ERGOCALCIFEROL 50,000 UNITS CAPSULE 50000 UNITS PO (08:30)
[2022-08-20] MEDS: ASPIRIN 81 MG ENTERIC TABLET PO (08:30)
[2022-08-20] MEDS: GABAPENTIN 300 MG CAPSULE PO ×2 (08:31→16:07)
[2022-08-20] MEDS: VANCOMYCIN HCL 2,000 MG in SODIUM CHLORIDE 0.9% IV 500 ML 250 MG IVPB (08:31)
[2022-08-20] MEDS: lisinopriL 20 MG TABLET 40 MG PO (08:31)
[2022-08-20] MEDS: INSULIN ASPART (*BKC) 100 UNITS/ML 14 UNITS SUB-Q ×3 (08:46→17:52)
[2022-08-20] MEDS: INSULIN ASPART (*BKC) 100 UNITS/ML SUB-Q ×3 (08:48→17:53)
[2022-08-20] MEDS: SILVERGEL (ELTA) 45 ML 1 APPLIC TOPICAL (10:00)
[2022-08-20] MEDS: CEFEPIME 2 GM in SODIUM CHLORIDE 0.9% IV 50 ML IVPB (11:14)
[2022-08-20 11:52] LABS: Glucose Point of Care 218 mg/dl (65-105)
--- NOTE | 2022-08-20 12:00 | P.PNIM_ITS ---
Progress Note: A&P Assessment and Plan (1) Osteomyelitis of right foot: Code(s): M86.9 - Osteomyelitis, unspecified Status: Acute Assessment and Plan: * Just recently seen for foot wound * POD 2 * Continue vanco, flagyl, and cefepime * WBC stable at 6.0 * Wound consult * Wound culture grew group B strep from earlier in the month * Blood cultures pending * Another Wound culture obtained * MRI of the foot Chronic osteonecrotic, posttraumatic and secondary degenerative changes in the right mid and forefoot as detailed above. No evident abscess or osteomyelitis. (2) Cellulitis, leg: Code(s): L03.119 - Cellulitis of unspecified part of limb Status: Acute Assessment and Plan: * Complaints of redness, tenderness, and swelling to the right lower extremity * Continue vanco, flagyl, and cefepime * WBC stable at 6.0 * Wound consult * Wound culture grew group B strep * Blood cultures NGTD * MRI does not indicated osteomyelitis * Seems to be resolving (3) Diabetic foot ulcer: Code(s): E11.621 - Type 2 diabetes mellitus with foot ulcer; L97.509 - Non-pressure chronic ulcer of other part of unspecified foot with unspecified severity Status: Acute Assessment and Plan: * See above (4) Diabetes mellitus: Code(s): E11.9 - Type 2 diabetes mellitus without complications Status: Acute Assessment and Plan: * Current glucose is 229 * Continue home insulin * Increased lantus to 55 units at HS, aspart increased to 18 units with meals * ISS protocol continued with the protocol changes * A1c 12.1 * 24 hour roll is 110 * Trend labs * Accu Cheks AC/HS * Continue to trend, adjust therapy as indicated (5) Morbid obesity: Code(s): E66.01 - Morbid (severe) obesity due to excess calories Status: Acute Assessment and Plan: * Lifestyle and diet modification * 1800 calorie restricted diet (6) Peripheral neuropathy: Code(s): G62.9 - Polyneuropathy, unspecified Status: Acute Assessment and Plan: * Continue gabapentin (7) Essential hypertension: Code(s): I10 - Essential (primary) hypertension Status: Acute Assessment and Plan: * Current BP is 125/80 * Continue home lisinopril, and lasix * Continue to trend BP * Adjust therapy as indicated Time Spent With Patient Time: 53 minutes, wound dressing change, wound culture Subjective Date/time seen: 08/20/22 1200 Interval history: 08/20/221199 Patient was sitting in the chair. Patient stated that she is having some indigestion. Patient also stated that she is worried about her glucose and did not sleep well last night. Currently glucose Is getting better controlled. foot wound does not look bad there is a pocket of area was skin. Will ask wound nurse to come and re-evaluate tomorrow did get a new wound culture with the drainage. 08/19/22 1300 The patient is siting on the edge of the bed.Patient stated that she feels a lot better today. She also stated this is the 1st day and a long time that she has woke up with no pain. She denies any chest pain, shortness a breath, nausea, vomiting, diarrhea, constipation, weakness or fatigue. Glucose is a little out of control however insulin has
--- NOTE | 2022-08-20 12:00 | PM.IMPN ---
Progress Note: A&P Assessment and Plan (1) Osteomyelitis of right foot: Code(s): M86.9 - Osteomyelitis, unspecified Status: Acute Assessment and Plan: Just recently seen for foot wound POD 2 Continue vanco, flagyl, and cefepime WBC stable at 6.0 Wound consult Wound culture grew group B strep from earlier in the month Blood cultures pending Another Wound culture obtained MRI of the foot Chronic osteonecrotic, posttraumatic and secondary degenerative changes in the right mid and forefoot as detailed above. No evident abscess or osteomyelitis. (2) Cellulitis, leg: Code(s): L03.119 - Cellulitis of unspecified part of limb Status: Acute Assessment and Plan: Complaints of redness, tenderness, and swelling to the right lower extremity Continue vanco, flagyl, and cefepime WBC stable at 6.0 Wound consult Wound culture grew group B strep Blood cultures NGTD MRI does not indicated osteomyelitis Seems to be resolving (3) Diabetic foot ulcer: Code(s): E11.621 - Type 2 diabetes mellitus with foot ulcer; L97.509 - Non-pressure chronic ulcer of other part of unspecified foot with unspecified severity Status: Acute Assessment and Plan: See above (4) Diabetes mellitus: Code(s): E11.9 - Type 2 diabetes mellitus without complications Status: Acute Assessment and Plan: Current glucose is 229 Continue home insulin Increased lantus to 55 units at HS, aspart increased to 18 units with meals ISS protocol continued with the protocol changes A1c 12.1 24 hour roll is 110 Trend labs Accu Cheks AC/HS Continue to trend, adjust therapy as indicated (5) Morbid obesity: Code(s): E66.01 - Morbid (severe) obesity due to excess calories Status: Acute Assessment and Plan: Lifestyle and diet modification 1800 calorie restricted diet (6) Peripheral neuropathy: Code(s): G62.9 - Polyneuropathy, unspecified Status: Acute Assessment and Plan: Continue gabapentin (7) Essential hypertension: Code(s): I10 - Essential (primary) hypertension Status: Acute Assessment and Plan: Current BP is 125/80 Continue home lisinopril, and lasix Continue to trend BP Adjust therapy as indicated Time Spent With Patient Time: 53 minutes, wound dressing change, wound culture Subjective Date/time seen: 08/20/22 1200 Interval history: 08/20/22 1200 Patient was sitting in the chair. Patient stated that she is having some indigestion. Patient also stated that she is worried about her glucose and did not sleep well last night. Currently glucose Is getting better controlled. foot wound does not look bad there is a pocket of area was skin. Will ask wound nurse to come and re-evaluate tomorrow did get a new wound culture with the drainage. 08/19/22 1300 The patient is siting on the edge of the bed.Patient stated that she feels a lot better today. She also stated this is the 1st day and a long time that she has woke up with no pain. She denies any chest pain, shortness a breath, nausea, vomiting, diarrhea, constipation, weakness or fatigue. Glucose is a little out of control however insulin has been adjusted. Currently patient is stable. 08/18/22 0900 patient seems to be doing okay mentally. Her leg does look inflamed and red. General surgery is to take the patient down to OR for debridement. Currently patient denies any chest pain, shortness a breath, nausea, vomiting, diarrhea constipation. Patient did state that she missed her gabapentin and is having some numbness and tingling in her fingers and toes. 08/17/22? 20:54 This is a 57-year-old female with past medical history significant for morbid obesity, type 2 diabetes mellitus insulin dependent, peripheral diabetic neuropathy, chronic back
[2022-08-20 14:00] VITALS: BP 130/84; PULSE 77; RESP 18; TEMP 36.6; O2SAT 98
[2022-08-20 17:27] LABS: Glucose Point of Care 173 mg/dl (65-105)
--- NOTE | 2022-08-20 20:12 | PC.NURSE ---
At 1500 TOWER FOREMAN Ayan Jones notifed that patient's IV began hurting and was removed during flagyl infusion. Patient refused for RN to attempt to place a new IV at this time. T[employer] notified that the patient did not receive flagyl. TOWER FOREMAN states he will switch patient to PO antibiotics and is aware the patient does not have IV access.
[2022-08-20] MEDS: BISACODYL 5 MG TABLET EC PO (20:43)
[2022-08-20] MEDS: AMOXICILLIN/CLAVULANATE K 875-125 MG TAB 1 TABLET PO (20:44)
[2022-08-20] MEDS: DOXYCYCLINE HYCLATE 100 MG TABLET PO (20:44)
[2022-08-20] MEDS: GABAPENTIN 400 MG CAPSULE PO (20:44)
[2022-08-20] MEDS: INSULIN GLARGINE (*BKC) 100 UNITS/ML 45 UNITS SUB-Q (20:47)
[2022-08-20 21:47] LABS: Glucose Point of Care 265 mg/dl (65-105)
[2022-08-20 22:00] VITALS: BP 126/77; PULSE 81; RESP 20; TEMP 36.8; O2SAT 100
[2022-08-21 05:03] LABS: Basophils Absolute Auto 0.1 K/mm3 (0.0-0.1); Basophils Percent Auto 1.1 % (0.2-1.2); Eosinophils Absolute Auto 0.3 K/mm3 (0-0.3); Eosinophils Percent Auto 5.6 % (0-4.4); Hematocrit 33.2 % (37.0-47.0); Hemoglobin 10.7 g/dL (12.0-15.0); Immature Granulocyte Absolute 0.01 K/mm3 (0.00-0.031); Immature Granulocyte Percent A 0.2 % (0-0.5); Lymphocytes Absolute Auto 2.09 K/mm3 (0.9-3.2); Lymphocytes Percent Auto 38.8 % (18.3-44.2); Mean Corpuscular HGB Conc 32.2 g/dl (32-36); Mean Corpuscular Hemoglobin 26.8 pg (26-34); Mean Corpuscular Volume 83.2 fl (80-100); Mean Platelet Volume 10.7 fl (7.4-10.4); Monocytes Absolute Auto 0.5 K/mm3 (0.1-0.6); Neutrophils Absolute Auto 2.4 K/mm3 (1.3-6.7); Neutrophils Percent Auto 44.3 % (45.5-73.1); Platelet Count Result 173 k/mm3 (150-375); Red Blood Count 3.99 M/mm3 (4.2-5.4); White Blood Count 5.4 K/mm3 (4.5-10.0)
[2022-08-21 05:14] LABS: Alanine Aminotransferase 30 U/L (6-35); Albumin Level 3.3 g/dL (3.5-5.1); Alkaline Phosphatase 71 U/L (38-126); Anion Gap 5 mmol/L (8-16); Aspartate Amino Transferase 47 U/L (14-36); Bilirubin,Total 0.3 mg/dL (0.2-1.3); Blood Urea Nitrogen 21 mg/dL (7-17); Carbon Dioxide 27 mmol/L (22-30); Chloride 107 mmol/L (98-107); Estimated CRCL calculation 63 ml/min; Estimated Glomerular Filt Rate 57; Glucose 207 mg/dL (65-110); Magnesium 1.9 mg/dL (1.6-2.3); Potassium 3.8 mmol/L (3.4-5.0); Sodium 139 mmol/L (137-145)
[2022-08-21 06:00] VITALS: BP 152/80; PULSE 83; RESP 20; TEMP 36.7; O2SAT 96
[2022-08-21 08:28] LABS: Glucose Point of Care 173 mg/dl (65-105)
[2022-08-21] MEDS: INSULIN ASPART (*BKC) 100 UNITS/ML 14 UNITS SUB-Q ×3 (08:56→17:45)
[2022-08-21] MEDS: ROSUVASTATIN 10 MG TABLET 40 MG PO (08:58)
[2022-08-21] MEDS: AMOXICILLIN/CLAVULANATE K 875-125 MG TAB 1 TABLET PO ×2 (08:58→20:06)
[2022-08-21] MEDS: INSULIN ASPART (*BKC) 100 UNITS/ML SUB-Q ×2 (08:58→12:36)
[2022-08-21] MEDS: lisinopriL 20 MG TABLET 40 MG PO (08:59)
[2022-08-21] MEDS: DOXYCYCLINE HYCLATE 100 MG TABLET PO ×2 (08:59→20:06)
[2022-08-21] MEDS: ASPIRIN 81 MG ENTERIC TABLET PO (08:59)
[2022-08-21] MEDS: ENOXAPARIN 40 MG/0.4 ML SYRINGE SUB-Q (08:59)
[2022-08-21] MEDS: SILVERGEL (ELTA) 45 ML 1 APPLIC TOPICAL (09:00)
[2022-08-21] MEDS: GABAPENTIN 300 MG CAPSULE PO ×2 (09:00→17:46)
--- NOTE | 2022-08-21 11:57 | P.PNIM_ITS ---
Progress Note: A&P Assessment and Plan (1) Osteomyelitis of right foot: Code(s): M86.9 - Osteomyelitis, unspecified Status: Acute Assessment and Plan: Patient seen in the ED on 08/17/2022 for worsening redness, tenderness and warmth of the right lower extremity. Patient recently discharged on 08/09/2022 for the same right foot wound. Patient was unable to keep her follow- up appointment due to insurance. * General surgery consulted and patient underwent I/D on 08/18/2022 * POD 3 * Continue vanco, flagyl, and cefepime * WBC stable * Wound consult * Wound culture grew group B strep from earlier in the month * Blood cultures no growth to date * Another Wound culture obtained and preliminary with no growth to date. * MRI of the foot revealed chronic osteo necrotic, posttraumatic and secondary degenerative changes in the right mid and forefoot. No evident abscess or osteomyelitis noted. (2) Cellulitis, leg: Code(s): L03.119 - Cellulitis of unspecified part of limb Status: Acute Assessment and Plan: Complaints of redness, tenderness, and swelling to the right lower extremity. Patient still has full feeling in her feet. * Unknown if cellulitis is related to diabetes. * Continue vanco, flagyl, and cefepime * WBC stable * Wound consult * Blood cultures no growth to date * Repeat wound culture no growth to date * MRI does not indicated osteomyelitis * Seems to be resolving (3) Diabetic foot ulcer: Code(s): E11.621 - Type 2 diabetes mellitus with foot ulcer; L97.509 - Non-pressure chronic ulcer of other part of unspecified foot with unspecified severity Status: Acute Assessment and Plan: * See above (4) Diabetes mellitus: Code(s): E11.9 - Type 2 diabetes mellitus without complications Status: Chronic Assessment and Plan: * Increased lantus to 55 units at HS, aspart increased to 18 units with meals * ISS protocol continued with the protocol changes * A1c 12.1 * Accu Cheks AC/HS * community nutrition educator consult (5) Morbid obesity: Code(s): E66.01 - Morbid (severe) obesity due to excess calories Status: Acute Assessment and Plan: * Lifestyle and diet modification * 1800 calorie restricted diet (6) Peripheral neuropathy: Code(s): G62.9 - Polyneuropathy, unspecified Status: Acute Assessment and Plan: * Continue gabapentin (7) Essential hypertension: Code(s): I10 - Essential (primary) hypertension Status: Acute Assessment and Plan: * Current BP is 125/80 * Continue home lisinopril, and lasix * Continue to trend BP * Adjust therapy as indicated Time Spent With Patient Time with patient: 25 - 35 minutes Subjective Date/time seen: 08/21/22 11:57 Interval history: Patient sitting up in bed having breakfast when being interviewed. Patient stated that she was feeling a little down about her medical situation and that she wants to turn her life around control her diabetes. Patient is somewhat tearful when discussing her health. Patient states she has some sharp pain in her foot ever once in a while but is manageable. The swelling and redness have also improved per the patient. Patient denies fever, chest pain, shortness a breath, nausea and vomiting. Sharif
--- NOTE | 2022-08-21 11:57 | PM.IMPN ---
Progress Note: A&P Assessment and Plan (1) Osteomyelitis of right foot: Code(s): M86.9 - Osteomyelitis, unspecified Status: Acute Assessment and Plan: Patient seen in the ED on 08/17/2022 for worsening redness, tenderness and warmth of the right lower extremity. Patient recently discharged on 08/09/2022 for the same right foot wound. Patient was unable to keep her follow-up appointment due to insurance. General surgery consulted and patient underwent I/D on 08/18/2022 POD 3 Continue vanco, flagyl, and cefepime WBC stable Wound consult Wound culture grew group B strep from earlier in the month Blood cultures no growth to date Another Wound culture obtained and preliminary with no growth to date. MRI of the foot revealed chronic osteo necrotic, posttraumatic and secondary degenerative changes in the right mid and forefoot. No evident abscess or osteomyelitis noted. (2) Cellulitis, leg: Code(s): L03.119 - Cellulitis of unspecified part of limb Status: Acute Assessment and Plan: Complaints of redness, tenderness, and swelling to the right lower extremity. Patient still has full feeling in her feet. Unknown if cellulitis is related to diabetes. Continue vanco, flagyl, and cefepime WBC stable Wound consult Blood cultures no growth to date Repeat wound culture no growth to date MRI does not indicated osteomyelitis Seems to be resolving (3) Diabetic foot ulcer: Code(s): E11.621 - Type 2 diabetes mellitus with foot ulcer; L97.509 - Non-pressure chronic ulcer of other part of unspecified foot with unspecified severity Status: Acute Assessment and Plan: See above (4) Diabetes mellitus: Code(s): E11.9 - Type 2 diabetes mellitus without complications Status: Chronic Assessment and Plan: Increased lantus to 55 units at HS, aspart increased to 18 units with meals ISS protocol continued with the protocol changes A1c 12.1 Accu Cheks / elementary educator consult (5) Morbid obesity: Code(s): E66.01 - Morbid (severe) obesity due to excess calories Status: Acute Assessment and Plan: Lifestyle and diet modification 1800 calorie restricted diet (6) Peripheral neuropathy: Code(s): G62.9 - Polyneuropathy, unspecified Status: Acute Assessment and Plan: Continue gabapentin (7) Essential hypertension: Code(s): I10 - Essential (primary) hypertension Status: Acute Assessment and Plan: Current BP is 125/80 Continue home lisinopril, and lasix Continue to trend BP Adjust therapy as indicated Time Spent With Patient Time with patient: 25 - 35 minutes Subjective Date/time seen: 08/21/22 11:57 Interval history: Patient sitting up in bed having breakfast when being interviewed. Patient stated that she was feeling a little down about her medical situation and that she wants to turn her life around control her diabetes. Patient is somewhat tearful when discussing her health. Patient states she has some sharp pain in her foot ever once in a while but is manageable. The swelling and redness have also improved per the patient. Patient denies fever, chest pain, shortness a breath, nausea and vomiting. Review of Systems Review of Systems: All systems reviewed & are unremarkable except as noted in HPI and below Exam Narrative: GENERAL: Comfortable, no acute distress , obese HENMT: moist mucous membranes EYES: EOM intact b/l NECK: no lymphadenopathy RESPIRATORY: clear to auscultation CARDIO: RRR GI: soft, nontender, bowel sounds present SKIN: no rashes EXTREMITIES: right leg from the knee down +2 edema, redness improved, right foot bandage dry and intact. Objective Data Vital Signs Vital Signs: Vital Signs - 24 hr 08/20/22 14:00 08/20/22 20:30 08/20/22 22:00
--- NOTE | 2022-08-21 12:33 | P.CDI_ITS ---
CDI Query Clarified Diagnosis Clarified Diagnosis: Please clarify if there is a cause and effect relationship between Cellulitis and Diabetes Mellitus. * Cellulitis is related to Diabetes Mellitus * Cellulitis is not related to Diabetes Mellitus. * Unknown if Cellulitis is related to Diabetes Mellitus.
--- NOTE | 2022-08-21 12:33 | WPDCDIQUERY2 ---
CDI Query Clarified Diagnosis Clarified Diagnosis: Please clarify if there is a cause and effect relationship between Cellulitis and Diabetes Mellitus. Cellulitis is related to Diabetes Mellitus Cellulitis is not related to Diabetes Mellitus. Unknown if Cellulitis is related to Diabetes Mellitus.
[2022-08-21 12:52] LABS: Glucose Point of Care 192 mg/dl (65-105)
[2022-08-21 14:00] VITALS: BP 158/84; PULSE 90; RESP 15; TEMP 36.2; O2SAT 100
[2022-08-21 15:50] VITALS: BMI 49.1
[2022-08-21 17:24] LABS: Glucose Point of Care 143 mg/dl (65-105)
[2022-08-21] MEDS: traMADol HCL (*CRX) 50 MG TABLET PO (19:01)
[2022-08-21 19:34] VITALS: BP 164/81; PULSE 96; RESP 18; TEMP 36.4; O2SAT 99
[2022-08-21] MEDS: INSULIN GLARGINE (*BKC) 100 UNITS/ML 45 UNITS SUB-Q (20:06)
[2022-08-21] MEDS: GABAPENTIN 400 MG CAPSULE PO (20:06)
[2022-08-21 21:12] LABS: Glucose Point of Care 154 mg/dl (65-105)
[2022-08-22 04:23] VITALS: BP 133/76; PULSE 81; RESP 17; TEMP 36.4; O2SAT 99
[2022-08-22 06:19] LABS: Basophils Percent Auto 0.7 % (0.2-1.2); Eosinophils Absolute Auto 0.3 K/mm3 (0-0.3); Eosinophils Percent Auto 5.8 % (0-4.4); Hematocrit 32.4 % (37.0-47.0); Hemoglobin 10.5 g/dL (12.0-15.0); Immature Granulocyte Absolute 0.02 K/mm3 (0.00-0.031); Immature Granulocyte Percent A 0.4 % (0-0.5); Lymphocytes Absolute Auto 2.15 K/mm3 (0.9-3.2); Mean Corpuscular HGB Conc 32.4 g/dl (32-36); Mean Corpuscular Hemoglobin 26.5 pg (26-34); Mean Corpuscular Volume 81.8 fl (80-100); Mean Platelet Volume 10.2 fl (7.4-10.4); Monocytes Absolute Auto 0.5 K/mm3 (0.1-0.6); Monocytes Percent Auto 9.9 % (2.6-8.5); Neutrophils Absolute Auto 2.3 K/mm3 (1.3-6.7); Neutrophils Percent Auto 43.2 % (45.5-73.1); Platelet Count Result 171 k/mm3 (150-375); Red Blood Count 3.96 M/mm3 (4.2-5.4); Red Cell Distribution Width 12.7 % (11.5-14.5); White Blood Count 5.4 K/mm3 (4.5-10.0)
[2022-08-22 06:33] LABS: Alanine Aminotransferase 29 U/L (6-35); Albumin Level 3.2 g/dL (3.5-5.1); Alkaline Phosphatase 67 U/L (38-126); Anion Gap 4 mmol/L (8-16); Aspartate Amino Transferase 37 U/L (14-36); Bilirubin,Total 0.3 mg/dL (0.2-1.3); Blood Urea Nitrogen 16 mg/dL (7-17); Calcium 8.3 mg/dL (8.4-10.2); Carbon Dioxide 29 mmol/L (22-30); Chloride 108 mmol/L (98-107); Estimated CRCL calculation 75 ml/min; Estimated Glomerular Filt Rate > 60; Glucose 141 mg/dL (65-110); Potassium 3.7 mmol/L (3.4-5.0); Sodium 141 mmol/L (137-145)
[2022-08-22 09:03] LABS: Glucose Point of Care 138 mg/dl (65-105)
[2022-08-22] MEDS: INSULIN ASPART (*BKC) 100 UNITS/ML 14 UNITS SUB-Q ×2 (09:35→12:41)
[2022-08-22] MEDS: ROSUVASTATIN 10 MG TABLET 40 MG PO (09:36)
[2022-08-22] MEDS: ENOXAPARIN 40 MG/0.4 ML SYRINGE SUB-Q (09:36)
[2022-08-22] MEDS: ASPIRIN 81 MG ENTERIC TABLET PO (09:37)
[2022-08-22] MEDS: AMOXICILLIN/CLAVULANATE K 875-125 MG TAB 1 TABLET PO (09:37)
[2022-08-22] MEDS: GABAPENTIN 300 MG CAPSULE PO (09:37)
[2022-08-22] MEDS: DOXYCYCLINE HYCLATE 100 MG TABLET PO (09:37)
[2022-08-22] MEDS: SILVERGEL (ELTA) 45 ML 1 APPLIC TOPICAL (09:37)
[2022-08-22] MEDS: lisinopriL 20 MG TABLET 40 MG PO (09:37)
[2022-08-22] MEDS: traMADol HCL (*CRX) 50 MG TABLET PO (10:04)
[2022-08-22 12:16] LABS: Glucose Point of Care 159 mg/dl (65-105)
[2022-08-22] MEDS: INSULIN ASPART (*BKC) 100 UNITS/ML SUB-Q (12:41)
--- NOTE | 2022-08-22 12:41 | P.DS_ITS ---
DS: Admitting Diagnosis Discharge Date 08/22/22 Admitting Diagnosis Right foot ulcer DS: Discharge Diagnosis Discharge Diagnosis (1) Osteomyelitis of right foot: Code(s): M86.9 - Osteomyelitis, unspecified Status: Acute Assessment and Plan: Patient seen in the ED on 08/17/2022 for worsening redness, tenderness and warmth of the right lower extremity. Patient recently discharged on 08/09/2022 for the same right foot wound. Patient was unable to keep her follow- up appointment due to insurance. * Unable to determine if foot wound is from diabetes. * General surgery consulted and patient underwent I/D on 08/18/2022 * POD 4 * WBC stable * Patient transitioned from vanc, cefepime and flagyl to Augmentin and doxy for a total of 14 days. * Wound consult * Wound culture grew group B strep from earlier in the month * Blood cultures no growth after 5 days * Another Wound culture obtained and preliminary with no growth to date. * MRI of the foot revealed chronic osteo necrotic, posttraumatic and secondary degenerative changes in the right mid and forefoot. No evident abscess or osteomyelitis noted. (2) Cellulitis, leg: Code(s): L03.119 - Cellulitis of unspecified part of limb Status: Acute Assessment and Plan: Complaints of redness, tenderness, and swelling to the right lower extremity. Patient still has full feeling in her feet. * Unknown if cellulitis is related to diabetes. * Continue vanco, flagyl, and cefepime transitioned to Augmentin and doxy for a total of 14 days. * WBC stable * Wound consult * Blood cultures no growth to date * Repeat wound culture no growth to date * MRI does not indicated osteomyelitis * Seems to be resolving (3) Diabetic foot ulcer: Code(s): E11.621 - Type 2 diabetes mellitus with foot ulcer; L97.509 - Non-pressure chronic ulcer of other part of unspecified foot with unspecified severity Status: Acute Assessment and Plan: * See above (4) Diabetes mellitus: Code(s): E11.9 - Type 2 diabetes mellitus without complications Status: Chronic Assessment and Plan: * Increased lantus to 55 units at HS, aspart increased to 18 units with meals * ISS protocol continued with the protocol changes * A1c 12.1 * Accu Cheks AC/HS * returned case inspector consulted and talked with patient (5) Morbid obesity: Code(s): E66.01 - Morbid (severe) obesity due to excess calories Status: Acute Assessment and Plan: * Lifestyle and diet modification * 1800 calorie restricted diet (6) Peripheral neuropathy: Code(s): G62.9 - Polyneuropathy, unspecified Status: Acute Assessment and Plan: * Continue gabapentin (7) Essential hypertension: Code(s): I10 - Essential (primary) hypertension Status: Acute Assessment and Plan: * Current BP is 125/80 * Continue home lisinopril, and lasix * Continue to trend BP * Adjust therapy as indicated DS: Summary Hospital Course Reason for hospitalization: right foot ulcer Hospital Course: 57-year-old female present to the ED on 08/17/2022 due to a right foot wound. Patient had been recently hospitalized for this foot wound last month. Patient was instructed to follow up with performing arts road manager as an outpatient but due to insurance purposes she was unable to keep this appointment. Patient had noticed
--- NOTE | 2022-08-22 12:41 | PM.DS ---
DS: Admitting Diagnosis Discharge Date 08/22/22 Admitting Diagnosis Right foot ulcer DS: Discharge Diagnosis Discharge Diagnosis (1) Osteomyelitis of right foot: Code(s): M86.9 - Osteomyelitis, unspecified Status: Acute Assessment and Plan: Patient seen in the ED on 08/17/2022 for worsening redness, tenderness and warmth of the right lower extremity. Patient recently discharged on 08/09/2022 for the same right foot wound. Patient was unable to keep her follow-up appointment due to insurance. Unable to determine if foot wound is from diabetes. General surgery consulted and patient underwent I/D on 08/18/2022 POD 4 WBC stable Patient transitioned from vanc, cefepime and flagyl to Augmentin and doxy for a total of 14 days. Wound consult Wound culture grew group B strep from earlier in the month Blood cultures no growth after 5 days Another Wound culture obtained and preliminary with no growth to date. MRI of the foot revealed chronic osteo necrotic, posttraumatic and secondary degenerative changes in the right mid and forefoot. No evident abscess or osteomyelitis noted. (2) Cellulitis, leg: Code(s): L03.119 - Cellulitis of unspecified part of limb Status: Acute Assessment and Plan: Complaints of redness, tenderness, and swelling to the right lower extremity. Patient still has full feeling in her feet. Unknown if cellulitis is related to diabetes. Continue vanco, flagyl, and cefepime transitioned to Augmentin and doxy for a total of 14 days. WBC stable Wound consult Blood cultures no growth to date Repeat wound culture no growth to date MRI does not indicated osteomyelitis Seems to be resolving (3) Diabetic foot ulcer: Code(s): E11.621 - Type 2 diabetes mellitus with foot ulcer; L97.509 - Non-pressure chronic ulcer of other part of unspecified foot with unspecified severity Status: Acute Assessment and Plan: See above (4) Diabetes mellitus: Code(s): E11.9 - Type 2 diabetes mellitus without complications Status: Chronic Assessment and Plan: Increased lantus to 55 units at HS, aspart increased to 18 units with meals ISS protocol continued with the protocol changes A1c 12.1 Accu Cheks AC/HS special educator consulted and talked with patient (5) Morbid obesity: Code(s): E66.01 - Morbid (severe) obesity due to excess calories Status: Acute Assessment and Plan: Lifestyle and diet modification 1800 calorie restricted diet (6) Peripheral neuropathy: Code(s): G62.9 - Polyneuropathy, unspecified Status: Acute Assessment and Plan: Continue gabapentin (7) Essential hypertension: Code(s): I10 - Essential (primary) hypertension Status: Acute Assessment and Plan: Current BP is 125/80 Continue home lisinopril, and lasix Continue to trend BP Adjust therapy as indicated DS: Summary Hospital Course Reason for hospitalization: right foot ulcer Hospital Course: 57-year-old female present to the ED on 08/17/2022 due to a right foot wound. Patient had been recently hospitalized for this foot wound last month. Patient was instructed to follow up with cycle manager as an outpatient but due to insurance purposes she was unable to keep this appointment. Patient had noticed that her ulcer had increased in size and pain. Patient's foot had increased in swelling and size with erythema present. Patient was admitted. Previous wound culture grew group B strep patient was treated accordingly. right foot x-ray revealed chronic osteonecrosis, soft tissue swelling, soft tissue gas or findings to suggest acute osteomyelitis. Patient started on cefepime, vanc and Flagyl for suspected osteomyelitis. MRI of the foot ordered and revealed chronic osteo necrotic, posttraumatic and secondary degenerative changes in the righ
--- NOTE | 2022-08-22 15:00 | PC.NURSE ---
On 08/22/22, the student, Winsome Tellez, provided care and completed [facility] documentation on this patient. I have reviewed the student's documentation and agree with the findings.
== END 2022-08-22 15:20 | disposition home health service (06) | DRG 638 ==
LOC: ANHED 19:06 → ANH2MED 20:14
PROVIDERS: Nurse Practitioner; Surgery; Admitting Provider Student in an Organized Health Care Education/Training Program; Emergency Provider Emergency Medicine; Visit Provider Internal Medicine Critical Care Medicine
PROC: 0J9Q0ZZ Drainage of Right Foot Subcutaneous Tissue and Fascia, Open Approach (ICD-10-PCS; principal; 2022-08-18 12:45)
DX: E11.628 Type 2 diabetes mellitus with other skin complications (principal); L02.611 Cutaneous abscess of right foot; M87.274 Osteonecrosis due to previous trauma, right foot; Z68.42 Body mass index [BMI] 45.0-49.9, adult; L03.115 Cellulitis of right lower limb; Z20.822 Contact with and (suspected) exposure to COVID-19; E11.621 Type 2 diabetes mellitus with foot ulcer; L97.519 Non-pressure chronic ulcer of other part of right foot with unspecified severity; E66.01 Morbid (severe) obesity due to excess calories; E11.42 Type 2 diabetes mellitus with diabetic polyneuropathy; F41.8 Other specified anxiety disorders; Z90.49 Acquired absence of other specified parts of digestive tract; Z90.710 Acquired absence of both cervix and uterus
CPT/HCPCS: 36415; 73630; 73718; 80053; 80202; 82948; 83036; 83605; 83735; 85025; 85610; 85730; 87040; 87070; 87205; 87636; 96365; 96368; 99285; A9270; C9113; J0360; J0692; J1100; J1650; J1815; J2405; J2704; J3010; J3370; J3475; J3480; J7040; J7120

== ENCOUNTER 2023-01-01 09:39 | Emergency (ER) | payer BC, SELFPAY ==
[2023-01-01] VITALS (14 sets, daily range): BP systolic 124–168; BP diastolic 60–105; PULSE 86–97; RESP 7–26; TEMP 36; O2SAT 99–100
--- NOTE | 2023-01-01 10:55 | ECG_ITS ---
Measurements Intervals [place] Rate: 90 P: 30 DE: 168 QRS: -2 QRSD: 74 T: 29 QT: 342 QTc: 419 Interpretive Statements SINUS RHYTHM LOW QRS VOLTAGE IN PRECORDIAL LEADS [QRS DEFLECTION < 1.0 mV IN CHEST LEADS] ANTEROSEPTAL MYOCARDIAL INFARCTION , OF INDETERMINATE AGE [40+ ms Q WAVE IN V1-V4] COMPARED TO ECG 07/26/2022 20:35:26 SINUS RHYTHM NOW PRESENT Electronically Signed On 01-02-2023 13:04:18 CDT by Frank Sow M.D.
--- NOTE | 2023-01-01 12:08 | ED.GENADULT ---
HPI - General Adult General Chief complaint: Unspecified Stated complaint: htn/floaters/leg wound/sob Time Seen by Provider: 01/01/23 10:49 History of Present Illness HPI narrative: Patient is a 57-year-old female who presents ER with multiple complaints. Main complaint is floaters and abnormal vision in the left eye. Ongoing for 10 days. Reports she woke up in the middle the night and could only see read out of her eye. She then had some pressure in her eye for about a day. She purchased Visine red eye relief eyedrops and use those for couple days. Since then she has had a haziness that she is looking through and sees floaters in her left visual field no double vision. Does endorse some light sensitivity to the left eye. No trauma to the eye. She is not on any blood thinners. Her tubing supervisor is located at [facility]. She is unsure of their name. She reports when she has been seen by them they tell her she needs surgery but she does not know what she needs surgery for. She reports she has been looking for a second opinion in regards to her eye. Additionally patient reports she has a chronic diabetic foot ulcer on the right side that some blood clots came out of yesterday. She then repacked it. No new pain. No fevers or chills or sweats. No redness to her foot. Related Data Home Medications Medication Instructions Recorded Confirmed blood sugar diagnostic (OneTouch 04/04/20 09/05/22 Ultra Blue Test Strip) gabapentin 300 mg capsule 300 mg PO BID 04/04/20 09/05/22 insulin glargine 100 unit/mL (3 40 unit subcut HS 04/04/20 09/05/22 mL) subcutaneous pen (Lantus Solostar U-100 Insulin) insulin lispro 100 unit/mL See Protocol subcut TIDWM 04/04/20 09/05/22 subcutaneous pen (Humalog KwikPen (U-100) Insulin) lisinopril 40 mg tablet 40 mg PO DAILY 04/04/20 09/05/22 tramadol 50 mg tablet 50 mg PO QID PRN Pain (Scale Score 04/04/20 09/05/22 4-6) metformin 500 mg tablet,extended 1,000 mg PO DAILY 01/02/21 09/05/22 release 24 hr rosuvastatin 40 mg tablet 40 mg PO DAILY 01/02/21 09/05/22 ergocalciferol (vitamin D2) 1,250 1,250 mcg PO WEEKLY 08/06/22 09/05/22 mcg (50,000 unit) capsule (Vitamin D2) furosemide 40 mg tablet 40 mg PO 3XW 08/17/22 09/05/22 gabapentin 400 mg capsule 400 mg PO HS 08/17/22 09/05/22 Allergies Allergy/AdvReac Type Severity Reaction Status Date / Time No Known Allergies Allergy Mild Verified 09/05/22 09:57 Review of Systems Review of Systems: All systems reviewed & are unremarkable except as noted in HPI and below Constitutional: Constitutional: Denies chills and Denies fever(s) Eyes: Eyes: Reports change in vision, Denies diplopia, Denies eye discharge, Reports floaters and Denies loss of vision Musculoskeletal: Musculoskeletal: Denies myalgias, Denies arthralgias and Denies muscle cramps Comments: right foot wound chronic PMFSH Past Medical History Medical History (Updated 01/01/23 @ 14:08 by Ash García MD) Atypical chest pain Cellulitis of right foot COVID-19 Depression with anxiety Diabetic peripheral neuropathy Fracture of right foot affected by diabetic neuropathy History of MRSA infection Skin and soft tissue infection of the left hip requiring debridement. Hyperlipidemia Insulin dependent type 2 diabetes mellitus Morbid obesity Uncontrolled diabetes mellitus Surgical History Surgical History (Updated 09/05/22 @ 09:58 by Latoya Bautista) History of section History of cholecystectomy History of hysterectomy History of tonsillectomy Status post debridement Debridement of wound on the left hip. Status post incision and drainage Complex incision and drainage right diabetic foot wound with abscess, washout 08/18/22 Family History Family History Father Cancer Sibling Cancer Kidney disease Father COPD (chronic obstructive pulmonary disease) Mother Kidney
== END 2023-01-01 14:31 | disposition home or self-care (01) ==
PROVIDERS: Emergency Provider Emergency Medicine; PCP Physician Assistant
DX: H43.12 Vitreous hemorrhage, left eye (principal); E11.319 Type 2 diabetes mellitus with unspecified diabetic retinopathy without macular edema; E78.5 Hyperlipidemia, unspecified; Z79.4 Long term (current) use of insulin
CPT/HCPCS: 93005; 99283

== ENCOUNTER 2023-09-17 15:18 | Emergency (ER) | payer BC, SELFPAY ==
--- NOTE | ~2023-09-17 | CT_ITS ---
EXAMINATION: CT abdomen pelvis w con DATE: 09/17/2023 17:43 INDICATION: perianal abscess TECHNIQUE: Computed tomography (CT) of the abdomen and pelvis was performed with 100 mL Omnipaque-350 intravenous contrast. Automated exposure control and iterative reconstruction technique were employe d. The dose-length product was 2931.95 mGy-cm. COMPARISON: CT abdomen 02/02/2005. FINDINGS: Lower thorax: Coronary artery calcifications. Liver: Normal. Biliary/Gallbladder: Gallbladder is absent. No bile duct dilation. Pancreas: No mass or duct dilation. Spleen: 1.6 cm hypodensity, likely cyst or hemangioma. Subcentimeter hypodensity likely representing a cyst or hemangioma. Adrenals:No mass. Kidneys: No suspicious mass, obstructing stone, or hydronephrosis. GI tract: Mild distal esophageal and gastric wall edema. No small or large bowel dilation. Normal marianna endix. Mesentery/Peritoneum: No ascites, mass, or free air. Retroperitoneum: No mass. Pelvis: Absent uterus. Normal urinary bladder. Borderline enlarged pelvic lymph nodes. Soft Tissues: 3.3 x 1.7 x 2.5 cm gas collection in the medial left buttock with minimal fluid. Large fat, small, and large bowel containing lower abdominal ventral hernia, without complication. Small un complicated fat-containing periumbilical hernia. Enlarged bilateral inguinal lymph nodes. Bones: No acute osseous finding. IMPRESSION: Mild esophagitis/gastritis. 3.3 cm gas collection with minimal fluid in the medial left buttock, likely abscess. Bilateral inguinal lymphadenopathy. Reviewed, dictated and finalized at location K. IMPRESSION: Mild esophagitis/gastritis. 3.3 cm gas collection with minimal fluid in the medial left buttock, likely abs cess. Bilateral inguinal lymphadenopathy.
[2023-09-17 15:22] VITALS: BP 144/87; PULSE 109; RESP 18; TEMP 37.1; O2SAT 98
[2023-09-17 16:59] LABS: Basophils Percent Auto 0.4 % (0.2-1.2); Eosinophils Absolute Auto 0.1 K/mm3 (0-0.3); Eosinophils Percent Auto 0.7 % (0-4.4); Hematocrit 36.6 % (37.0-47.0); Hemoglobin 11.9 g/dL (12.0-15.0); Immature Granulocyte Absolute 0.04 K/mm3 (0.00-0.031); Immature Granulocyte Percent A 0.4 % (0-0.5); Lymphocytes Percent Auto 18.7 % (18.3-44.2); Mean Corpuscular HGB Conc 32.5 g/dl (32-36); Mean Corpuscular Hemoglobin 27.2 pg (26-34); Mean Corpuscular Volume 83.6 fl (80-100); Mean Platelet Volume 10.7 fl (7.4-10.4); Monocytes Absolute Auto 1.2 K/mm3 (0.1-0.6); Neutrophils Absolute Auto 7.7 K/mm3 (1.3-6.7); Neutrophils Percent Auto 68.8 % (45.5-73.1); Platelet Count Result 182 k/mm3 (150-375); Red Blood Count 4.38 M/mm3 (4.2-5.4); Red Cell Distribution Width 12.5 % (11.5-14.5); White Blood Count 11.2 K/mm3 (4.5-10.0)
[2023-09-17] MEDS: MORPHINE SULFATE (*CRX) 4 MG/ML INJ IV PUSH (17:00)
[2023-09-17] MEDS: SODIUM CHLORIDE 0.9% IV 1,000 ML 999 ML IV CONT (17:00)
[2023-09-17 17:12] LABS: INR 1.1; Prothrombin Time 14.8 Seconds (11.1-14.7)
[2023-09-17 17:13] LABS: Partial Thromboplastin Time 46.6 SECONDS (22.3-36.8)
[2023-09-17 17:15] LABS: Alanine Aminotransferase 23 U/L (6-35); Albumin Level 3.4 g/dL (3.5-5.1); Alkaline Phosphatase 110 U/L (38-126); Anion Gap 6 mmol/L (8-16); Aspartate Amino Transferase 42 U/L (14-36); Bilirubin,Total 0.9 mg/dL (0.2-1.3); Blood Urea Nitrogen 14 mg/dL (7-17); Calcium 8.6 mg/dL (8.4-10.2); Carbon Dioxide 27 mmol/L (22-30); Chloride 104 mmol/L (98-107); Estimated CRCL calculation 66 ml/min; Estimated Glomerular Filt Rate > 60; Glucose 255 mg/dL (65-110); Potassium 3.5 mmol/L (3.4-5.0); Sodium 137 mmol/L (137-145)
--- NOTE | 2023-09-17 17:38 | ED.GENADULT ---
HPI - General Adult General Chief complaint: Wound/Laceration Stated complaint: boil Time Seen by Provider: 09/17/23 16:06 History of Present Illness HPI narrative: patient is a 58-year-old female who presents ER with multiple complaints. Her main complaint is the development of an abscess to the left side of her buttock medially. It is not draining. It is tender to touch and hurts to sit. Ongoing for 5 days. Patient also reports she got after the bathroom today and passed out prior to getting to the bathroom. Reports she has had some mild nausea with vomiting. No fevers or chills or sweats. No chest pain or chest pressure. She has been without diarrhea. No urinary frequency urgency or dysuria. The abscess is not draining. Related Data Home Medications Medication Instructions Recorded Confirmed blood sugar diagnostic (OneTouch 04/04/20 09/05/22 Ultra Blue Test Strip) gabapentin 300 mg capsule 300 mg PO BID 04/04/20 09/05/22 insulin glargine 100 unit/mL (3 40 unit subcut HS 04/04/20 09/05/22 mL) subcutaneous pen (Lantus Solostar U-100 Insulin) insulin lispro 100 unit/mL See Protocol subcut TIDWM 04/04/20 09/05/22 subcutaneous pen (Humalog KwikPen (U-100) Insulin) lisinopril 40 mg tablet 40 mg PO DAILY 04/04/20 09/05/22 tramadol 50 mg tablet 50 mg PO QID PRN Pain (Scale Score 04/04/20 09/05/22 4-6) metformin 500 mg tablet,extended 1,000 mg PO DAILY 01/02/21 09/05/22 release 24 hr rosuvastatin 40 mg tablet 40 mg PO DAILY 01/02/21 09/05/22 ergocalciferol (vitamin D2) 1,250 1,250 mcg PO WEEKLY 08/06/22 09/05/22 mcg (50,000 unit) capsule (Vitamin D2) furosemide 40 mg tablet 40 mg PO 3XW 08/17/22 09/05/22 gabapentin 400 mg capsule 400 mg PO HS 08/17/22 09/05/22 Allergies Allergy/AdvReac Type Severity Reaction Status Date / Time No Known Allergies Allergy Mild Verified 09/17/23 15:19 Review of Systems Review of Systems: All systems reviewed & are unremarkable except as noted in HPI and below Constitutional: Constitutional: Reports no additional constitutional complaints ENT: Reports system reviewed and no additional complaints, except as documented Cardiovascular: Cardiovascular: Reports no additional cardiovascular complaints Respiratory: Respiratory: Reports no additional respiratory complaints Gastrointestinal: Gastrointestinal: Denies abdominal pain, Denies diarrhea, Reports nausea and Denies vomiting Integumentary/Breasts: Comments: buttock abscess Neurologic: Reports syncope, Denies headache(s) and Denies focal weakness [facility] Past Medical History Medical History (Updated 09/17/23 @ 19:12 by Ash García MD) Atypical chest pain Cellulitis of right foot COVID-19 Depression with anxiety Diabetic peripheral neuropathy Fracture of right foot affected by diabetic neuropathy History of MRSA infection Skin and soft tissue infection of the left hip requiring debridement. Hyperlipidemia Insulin dependent type 2 diabetes mellitus Morbid obesity Uncontrolled diabetes mellitus Surgical History Surgical History (Updated 09/05/22 @ 09:58 by Latoya Bautista) History of section History of cholecystectomy History of hysterectomy History of tonsillectomy Status post debridement Debridement of wound on the left hip. Status post incision and drainage Complex incision and drainage right diabetic foot wound with abscess, washout 08/18/22 Family History Family History Father Cancer Sibling Cancer Kidney disease Father COPD (chronic obstructive pulmonary disease) Mother Kidney disease Social History Social History Social History: The patient lives in [place], [place] with her . She has 4 children. Lifelong nonsmoker. No alcohol or illicit substance abuse. She designates her , Hong, as her surrogate decision maker and sh
[2023-09-17 20:31] VITALS: BP 140/84; PULSE 97; RESP 16; O2SAT 100
--- NOTE | 2023-09-18 10:58 | PCCARD ---
EKG ORDERED AT 1625 WAS NOT DONE. ONLY EKG DONE AT 1703 DICTATED WAS DONE ON ANOTHER PATIENT NOT THIS PATIENT. ALL 3 ER MACHINES CHECKED BY 2 PEOPLE.
== END 2023-09-17 20:33 | disposition home or self-care (01) ==
PROVIDERS: Emergency Provider Emergency Medicine; PCP Physician Assistant
DX: L02.31 Cutaneous abscess of buttock (principal); K29.70 Gastritis, unspecified, without bleeding; E11.42 Type 2 diabetes mellitus with diabetic polyneuropathy; E78.5 Hyperlipidemia, unspecified; E66.01 Morbid (severe) obesity due to excess calories; Z68.42 Body mass index [BMI] 45.0-49.9, adult; Z86.14 Personal history of Methicillin resistant Staphylococcus aureus infection; Z86.16 Personal history of COVID-19; Z79.84 Long term (current) use of oral hypoglycemic drugs; Z79.4 Long term (current) use of insulin; Z90.49 Acquired absence of other specified parts of digestive tract; Z90.710 Acquired absence of both cervix and uterus
CPT/HCPCS: 10061; 36415; 74177; 80053; 85025; 85610; 85730; 96361; 96374; 99284; J2270; J7030; Q9967

== ENCOUNTER 2023-09-24 09:26 | Emergency (ER) | payer BC, SELFPAY ==
[2023-09-24 11:06] VITALS: BP 183/108; PULSE 95; RESP 20; TEMP 36.5; O2SAT 100
--- NOTE | 2023-09-24 12:25 | ED.GENADULT ---
HPI - General Adult General Chief complaint: Skin/Abscess/Foreign Body Stated complaint: boil on bottom smells Time Seen by Provider: 09/24/23 11:25 History of Present Illness HPI narrative: For pre patient is a 58-year-old female who presents ER with an infection to her left foot but at. She was seen 1 week ago in underwent I& D. She has not followed up with General surgery. No fevers or chills or sweats. She reports it is foul-smelling but drainage has increased. She still have induration to her buttock. Pain is decreased as well but worsened healing she sits on it. Related Data Home Medications Medication Instructions Recorded Confirmed blood sugar diagnostic (OneTouch 04/04/20 09/05/22 Ultra Blue Test Strip) gabapentin 300 mg capsule 300 mg PO BID 04/04/20 09/05/22 insulin glargine 100 unit/mL (3 40 unit subcut HS 04/04/20 09/05/22 mL) subcutaneous pen (Lantus Solostar U-100 Insulin) insulin lispro 100 unit/mL See Protocol subcut TIDWM 04/04/20 09/05/22 subcutaneous pen (Humalog KwikPen (U-100) Insulin) lisinopril 40 mg tablet 40 mg PO DAILY 04/04/20 09/05/22 tramadol 50 mg tablet 50 mg PO QID PRN Pain (Scale Score 04/04/20 09/05/22 4-6) metformin 500 mg tablet,extended 1,000 mg PO DAILY 01/02/21 09/05/22 release 24 hr rosuvastatin 40 mg tablet 40 mg PO DAILY 01/02/21 09/05/22 ergocalciferol (vitamin D2) 1,250 1,250 mcg PO WEEKLY 08/06/22 09/05/22 mcg (50,000 unit) capsule (Vitamin D2) furosemide 40 mg tablet 40 mg PO 3XW 08/17/22 09/05/22 gabapentin 400 mg capsule 400 mg PO HS 08/17/22 09/05/22 Allergies Allergy/AdvReac Type Severity Reaction Status Date / Time No Known Allergies Allergy Mild Verified 09/17/23 15:19 Review of Systems Review of Systems: All systems reviewed & are unremarkable except as noted in HPI and below Constitutional: Constitutional: Reports no additional constitutional complaints ENT: Reports system reviewed and no additional complaints, except as documented Gastrointestinal: Gastrointestinal: Reports no additional gastrointestinal complaints Integumentary/Breasts: Skin/Breast: Denies erythema and Denies rash Comments: Buttock abscess PMFSH Past Medical History Medical History (Updated 09/24/23 @ 15:08 by Ash García MD) Atypical chest pain Cellulitis of right foot COVID-19 Depression with anxiety Diabetic peripheral neuropathy Fracture of right foot affected by diabetic neuropathy History of MRSA infection Skin and soft tissue infection of the left hip requiring debridement. Hyperlipidemia Insulin dependent type 2 diabetes mellitus Morbid obesity Uncontrolled diabetes mellitus Surgical History Surgical History (Updated 09/05/22 @ 09:58 by Latoya Bautista) History of section History of cholecystectomy History of hysterectomy History of tonsillectomy Status post debridement Debridement of wound on the left hip. Status post incision and drainage Complex incision and drainage right diabetic foot wound with abscess, washout 08/18/22 Family History Family History Father Cancer Sibling Cancer Kidney disease Father COPD (chronic obstructive pulmonary disease) Mother Kidney disease Social History Social History Social History: The patient lives in [place], [place] with her . She has 4 children. Lifelong nonsmoker. No alcohol or illicit substance abuse. She designates her , Hong, as her surrogate decision maker and she wishes to be a full code. Smoking status: Never smoker Alcohol intake: never Substance use: never Substance use type: does not use Lack of Transportation: No Lack of Food: Never True Current Housing: I Have Housing Concerned About Future Housing: No Difficulty Paying Gas/Electric Bills: No Difficulty Paying for Meds: No Currently Unempl
[2023-09-24] MEDS: HYDROcodone/acetaminophen (*CRX) 5-325 MG TABLET 1 TAB PO (12:28)
[2023-09-24 13:26] LABS: Basophils Percent Auto 0.3 % (0.2-1.2); Eosinophils Absolute Auto 0.2 K/mm3 (0-0.3); Eosinophils Percent Auto 2.9 % (0-4.4); Hematocrit 34.9 % (37.0-47.0); Hemoglobin 11.2 g/dL (12.0-15.0); Immature Granulocyte Absolute 0.15 K/mm3 (0.00-0.031); Immature Granulocyte Percent A 2.3 % (0-0.5); Lymphocytes Percent Auto 32.5 % (18.3-44.2); Mean Corpuscular HGB Conc 32.1 g/dl (32-36); Mean Corpuscular Hemoglobin 26.7 pg (26-34); Mean Corpuscular Volume 83.1 fl (80-100); Mean Platelet Volume 9.9 fl (7.4-10.4); Monocytes Absolute Auto 0.4 K/mm3 (0.1-0.6); Monocytes Percent Auto 6.5 % (2.6-8.5); Neutrophils Absolute Auto 3.6 K/mm3 (1.3-6.7); Neutrophils Percent Auto 55.5 % (45.5-73.1); Nucleated Red Blood Cells Perc 0.3 % (0.0-0.2); Platelet Count Result 321 k/mm3 (150-375); Red Cell Distribution Width 12.6 % (11.5-14.5); White Blood Count 6.5 K/mm3 (4.5-10.0)
[2023-09-24 13:36] LABS: Anion Gap 3 mmol/L (8-16); Blood Urea Nitrogen 16 mg/dL (7-17); Calcium 8.9 mg/dL (8.4-10.2); Carbon Dioxide 29 mmol/L (22-30); Chloride 107 mmol/L (98-107); Estimated CRCL calculation 75 ml/min; Estimated Glomerular Filt Rate > 60; Glucose 357 mg/dL (65-110); Potassium 4.3 mmol/L (3.4-5.0); Sodium 139 mmol/L (137-145)
[2023-09-24 15:16] VITALS: BP 172/97; PULSE 90; RESP 20; TEMP 36.3; O2SAT 100
== END 2023-09-24 15:20 | disposition home or self-care (01) ==
PROVIDERS: Emergency Provider Emergency Medicine; PCP Physician Assistant
DX: L02.31 Cutaneous abscess of buttock (principal); E78.5 Hyperlipidemia, unspecified; E11.9 Type 2 diabetes mellitus without complications; E66.01 Morbid (severe) obesity due to excess calories; Z68.42 Body mass index [BMI] 45.0-49.9, adult; Z86.14 Personal history of Methicillin resistant Staphylococcus aureus infection; Z86.16 Personal history of COVID-19; Z90.49 Acquired absence of other specified parts of digestive tract; Z90.710 Acquired absence of both cervix and uterus; Z79.4 Long term (current) use of insulin; Z79.84 Long term (current) use of oral hypoglycemic drugs
CPT/HCPCS: 36415; 80048; 85025; 99283; A9270

== ENCOUNTER 2023-09-25 10:56 | Inpatient (IN) | payer BC, SELFPAY ==
[2023-09-25] VITALS (11 sets, daily range): BP systolic 121–181; BP diastolic 57–92; PULSE 82–93; RESP 13–28; TEMP 36.2–36.7; O2SAT 95–100; BMI 48.2
--- NOTE | 2023-09-25 11:00 | ADMGEN ---
This patient, Florencia Levy, was admitted to Medical Room 261-01. Patient/family oriented to hospital policies and general routines including ID bracelet, bed and alarms, visiting hours, pain management, procedures, bathroom and other care routines, personal items, smoking policy, room service/diet, and visiting hours. Information on how to activate the Rapid Response Team has been discussed. Patient/Family are encouraged to report perceived risks to care and to ask questions if they do not understand what they are told or what they should do.
--- NOTE | 2023-09-25 12:37 | PM.IMHP ---
H&P: HPI History of Present Illness Date/Time: 09/25/23 12:37 Chief Complaint: Left buttock abscess Narrative: Patient presents to the office for evaluation of a left lower buttock abscess which was incised and drained in the [facility] Room about a week ago. She has continued to have redness and drainage from the wound. She did not follow-up with surgery as she was instructed do after the incision and drainage in the all emergency room. She complains of foul odor but no fevers or chills at home. Patient is an insulin-dependent diabetic. Her blood sugars have been around 300 at home. She is poorly controlled. Review of Systems Review of Systems: The remainder of the review of systems to include constitutional, HEENT, cardiovascular, respiratory, GI, , integumentary, musculoskeletal, endocrine, immunologic, hematologic, psychiatric, and neurologic are all negative except for which is mentioned above in the HPI. [facility] Past Medical History Medical History Atypical chest pain Cellulitis of right foot COVID-19 Depression with anxiety Diabetic peripheral neuropathy Fracture of right foot affected by diabetic neuropathy History of MRSA infection Skin and soft tissue infection of the left hip requiring debridement. Hyperlipidemia Insulin dependent type 2 diabetes mellitus Morbid obesity Uncontrolled diabetes mellitus Surgical History Surgical History History of section History of cholecystectomy History of hysterectomy History of tonsillectomy Status post debridement Debridement of wound on the left hip. Status post incision and drainage Complex incision and drainage right diabetic foot wound with abscess, washout 08/18/22 Family History Family History Father Cancer Sibling Cancer Kidney disease Father COPD (chronic obstructive pulmonary disease) Mother Kidney disease Social History Social History Social History: The patient lives in [place], [place] with her . She has 4 children. Lifelong nonsmoker. No alcohol or illicit substance abuse. She designates her , Hong, as her surrogate decision maker and she wishes to be a full code. Smoking status: Never smoker Alcohol intake: never Substance use: never Substance use type: does not use Lack of Transportation: No Lack of Food: Never True Current Housing: I Have Housing Concerned About Future Housing: No Difficulty Paying Gas/Electric Bills: No Difficulty Paying for Meds: No Currently Unemployed: No Education: Associate Degree Difficulty w/ Childcare or Family Care: No Spiritual care concerns: No Meds Home Medications and Allergies Home Medications Medication Instructions Recorded Confirmed Type blood sugar diagnostic (OneTouch 04/04/20 09/05/22 History Ultra Blue Test Strip) insulin glargine 100 unit/mL (3 40 unit subcut HS 04/04/20 09/05/22 History mL) subcutaneous pen (Lantus Solostar U-100 Insulin) insulin lispro 100 unit/mL See Protocol subcut TIDWM 04/04/20 09/05/22 History subcutaneous pen (Humalog KwikPen (U-100) Insulin) rosuvastatin 40 mg tablet 40 mg PO DAILY 01/02/21 09/05/22 History ergocalciferol (vitamin D2) 1,250 1,250 mcg PO WEEKLY 08/06/22 09/05/22 History mcg (50,000 unit) capsule (Vitamin D2) hydrocodone 5 mg-acetaminophen 325 1 tablet PO Q6H PRN pain #20 tabs 09/17/23 Rx mg tablet ondansetron 4 mg disintegrating 4 mg PO Q6H PRN nausea and 09/17/23 Rx tablet vomiting #10 tabs sulfamethoxazole 800 1 tablet PO Q12H #20 tabs 09/17/23 Rx mg-trimethoprim 160 mg tablet (Bactrim DS) pregabalin 25 mg capsule (Lyrica) 25 mg PO BID 09/25/23 History Allergies Allergy/AdvReac Type Severity Reaction
--- NOTE | 2023-09-25 12:48 | WPDHPUPDATE1 ---
History and Physical Update Update Date/Time: 09/25/23 12:48 History and Physical has been reviewed, including an updated exam of the patient. There are NO changes in the patient's condition. Risks, benefits, and alternatives have been discussed and questions answered. Patient agrees to proceed with procedure.
[2023-09-25 13:19] LABS: Basophils Percent Auto 0.4 % (0.2-1.2); Eosinophils Absolute Auto 0.2 K/mm3 (0-0.3); Eosinophils Percent Auto 3.1 % (0-4.4); Hematocrit 37.4 % (37.0-47.0); Immature Granulocyte Percent A 1.5 % (0-0.5); Lymphocytes Absolute Auto 2.11 K/mm3 (0.9-3.2); Lymphocytes Percent Auto 30.9 % (18.3-44.2); Mean Corpuscular HGB Conc 32.1 g/dl (32-36); Mean Corpuscular Hemoglobin 26.5 pg (26-34); Mean Corpuscular Volume 82.7 fl (80-100); Mean Platelet Volume 9.7 fl (7.4-10.4); Monocytes Absolute Auto 0.6 K/mm3 (0.1-0.6); Monocytes Percent Auto 8.3 % (2.6-8.5); Neutrophils Absolute Auto 3.8 K/mm3 (1.3-6.7); Neutrophils Percent Auto 55.8 % (45.5-73.1); Nucleated Red Blood Cells Perc 0.3 % (0.0-0.2); Platelet Count Result 325 k/mm3 (150-375); Red Blood Count 4.52 M/mm3 (4.2-5.4); Red Cell Distribution Width 12.8 % (11.5-14.5); White Blood Count 6.8 K/mm3 (4.5-10.0)
[2023-09-25 13:31] LABS: Alanine Aminotransferase 18 U/L (6-35); Albumin Level 3.4 g/dL (3.5-5.1); Alkaline Phosphatase 104 U/L (38-126); Anion Gap 4 mmol/L (8-16); Aspartate Amino Transferase 25 U/L (14-36); Bilirubin,Total 0.3 mg/dL (0.2-1.3); Blood Urea Nitrogen 18 mg/dL (7-17); Calcium 9.1 mg/dL (8.4-10.2); Carbon Dioxide 29 mmol/L (22-30); Chloride 107 mmol/L (98-107); Estimated Glomerular Filt Rate 56; Glucose 205 mg/dL (65-110); Sodium 140 mmol/L (137-145)
[2023-09-25] MEDS: MORPHINE SULFATE (*CRX) 4 MG/ML INJ IV PUSH (15:29)
[2023-09-25] MEDS: PIPERACILLN/TAZ 3.375GM/NS50ML 3.375 GM/50 ML BAG IVPB ×2 (15:29→21:04)
[2023-09-25] MEDS: SODIUM CHLORIDE 0.9% IV 1,000 ML 100 ML IV CONT ×2 (15:30→21:04)
[2023-09-25 16:20] LABS: Hemoglobin A1C 10.7 % (<5.7)
--- NOTE | 2023-09-25 16:45 | PC.NURSE ---
Patient off floor to surgery via bed.
--- NOTE | 2023-09-25 16:46 | WPDANESEPPF ---
Anes - Initial Pre Proc Eval Procedure: Operation Date: 09/25/23 17:30 Proposed Procedures p Incision and Drainage Left Buttock Abscess - Ramon Fernandez MD Date/Time: 09/25/23 16:46 Surgeon: Ramon Fernandez MD Pre Op Diagnosis: left buttock abscess Patient Data Age: 58 Gender: F Height: 1.65 m Weight: 131.3 kg Last Vital Signs Temp 36.4 C 09/25/23 14:00 Pulse 82 09/25/23 14:00 Resp 16 09/25/23 14:00 BP 128/78 09/25/23 14:00 Pulse Ox 98 09/25/23 14:00 O2 Del Method Room Air 09/25/23 11:30 Allergies Allergy/AdvReac Type Severity Reaction Status Date / Time No Known Allergies Allergy Mild Verified 09/25/23 10:12 Home Medications Medication Instructions Recorded Confirmed Type blood sugar diagnostic (OneTouch 04/04/20 09/05/22 History Ultra Blue Test Strip) insulin glargine 100 unit/mL (3 40 unit subcut HS 04/04/20 09/05/22 History mL) subcutaneous pen (Lantus Solostar U-100 Insulin) insulin lispro 100 unit/mL See Protocol subcut TIDWM 04/04/20 09/05/22 History subcutaneous pen (Humalog KwikPen (U-100) Insulin) rosuvastatin 40 mg tablet 40 mg PO DAILY 01/02/21 09/05/22 History ergocalciferol (vitamin D2) 1,250 1,250 mcg PO WEEKLY 08/06/22 09/05/22 History mcg (50,000 unit) capsule (Vitamin D2) hydrocodone 5 mg-acetaminophen 325 1 tablet PO Q6H PRN pain #20 tabs 09/17/23 Rx mg tablet ondansetron 4 mg disintegrating 4 mg PO Q6H PRN nausea and 09/17/23 Rx tablet vomiting #10 tabs sulfamethoxazole 800 1 tablet PO Q12H #20 tabs 09/17/23 Rx mg-trimethoprim 160 mg tablet (Bactrim DS) pregabalin 25 mg capsule (Lyrica) 25 mg PO BID 09/25/23 History Laboratory Tests 09/25/23 13:13 WBC 6.8 K/mm3 (4.5-10.0) RBC 4.52 M/mm3 (4.2-5.4) Hgb 12.0 g/dL (12.0-15.0) Hct 37.4 % (37.0-47.0) MCV 82.7 fl (80-100) MCH 26.5 pg (26-34) MCHC 32.1 g/dl (32-36) RDW 12.8 % (11.5-14.5) Plt Count 325 k/mm3 (150-375) MPV 9.7 fl (7.4-10.4) Immature Gran % (Auto) 1.5 H % (0-0.5) Neut % (Auto) 55.8 % (45.5-73.1) Lymph % (Auto) 30.9 % (18.3-44.2) [place] % (Auto) 8.3 % (2.6-8.5) Eos % (Auto) 3.1 % (0-4.4) Baso % (Auto) 0.4 % (0.2-1.2) Lymph # (Auto) 2.11 K/mm3 (0.9-3.2) [place] # (Auto) 0.6 K/mm3 (0.1-0.6) Eos # (Auto) 0.2 K/mm3 (0-0.3) Baso # (Auto) 0.0 K/mm3 (0.0-0.1) Abs Immat Gran (auto) 0.10 H K/mm3 (0.00-0.031) Absolute Neuts (auto) 3.8 K/mm3 (1.3-6.7) Absolute Nucleated RBC 0.020 H K/mm3 (0.0-0.012) Nucleated RBC % 0.3 H % (0.0-0.2) Sodium 140 mmol/L (137-145) Potassium 4.0 mmol/L (3.4-5.0) Chloride 107 mmol/L (98-107) Carbon Dioxide 29 mmol/L (22-30) Anion Gap 4 L mmol/L (8-16) BUN 18 H mg/dL (7-17) Creatinine 1.20 H mg/dL (0.7-1.0) Estim Creat Clear Calc Not Reportable Estimated GFR 56 L (59 - ) Glucose 205 H mg/dL (65-110) Hemoglobin A1c 10.7 H % (<5.7) Calcium 9.1 mg/dL (8.4-10.2) Total Bilirubin 0.3 mg/dL (0.2-1.3) AST 25 U/L (14-36) ALT 18 U/L (6-35) Alkaline Phosphatase 104 U/L (38-126) Total Protein 7.0 g/dL (6.3-8.2) Albumin 3.4 L g/dL (3.5-5.1) Patient hx anesthesia problems: none Family hx anesthesia problems: none Results Review: All pre-operative results and documents have been reviewed as part of the pre-operative evaluation. [facility] Past Medical History Medical History Atypical chest pain Cellulitis of right foot COVID-19 Depression with anxiety Diabetic peripheral neuropathy Fracture of right foot affected by diabetic neuropathy History of MRSA infection Skin and soft tissue infection of the left hip requiring debridement. Hyperlipidemia Insulin dependent type 2 diabetes mellitus Morbid obesity Uncontrolled diabetes mellitus
[2023-09-25] MEDS: LACTATED RINGERS 1,000 ML 30 ML IV CONT (17:15)
[2023-09-25 17:27] LABS: Glucose Point of Care 156 mg/dl (65-105)
[2023-09-25] MEDS: BUPivacaine HCL 0.5% 10 ML AMP 20 ML INFILTRATE (18:20)
[2023-09-25] MEDS: LIDO 1%/EPINEPHRINE 1:100,000 50 ML VIAL 20 ML INFILTRATE (18:20)
--- NOTE | 2023-09-25 19:11 | W.PM.PROC2 ---
Procedure Note - Detailed Date of Procedure 09/25/23 Pre-op Diagnosis left buttock abscess Post-op Diagnosis Same Procedure Performed Incision and drainage of left buttock abscess Surgeon Ramon Fernandez MD Anesthesia General Indications Patient is a 58-year-old female who is an poorly controlled diabetic. She had a left buttock abscess which was incised and drained in the emergency room last week. That did not resolve the issue and she continues to have infection and drainage of pus with some necrotic tissue in the abscess cavity. She presents now for formal incision and drainage of the abscess of the left buttock in the operating room was some debridement of necrotic tissue. Findings Patient had necrotic tissue in the abscess cavity wound. This was all subcutaneous tissue and skin. No muscle or fascia was involved. Once the necrotic tissue was debrided the wound measured [id number]. There is no evidence of fistulous connection to the anal opening. Description of Procedure After informed consent was obtained patient brought to the operating room she was placed under LMA general anesthesia. She was then turned into a left lateral decubitus position on the operating table. The area the lower inner buttock region was then prepped and draped usual sterile fashion. A time-out was then performed correctly identifying the patient as well as procedure to be performed verifying site marking. I then proceeded to size the scalpel sharp scissor dissection to debride away the necrotic tissue in the abscess cavity. A culture swab was taken and sent to microbiology. There was a 1.5cm area of skin bridge between the previous I and D incision from the ER last week and the area necrotic tissue I divided this bridge of tissue to make it 1 cavity. I then placed my finger inside the abscess cavity and broke down the loculations. Once I had all the necrotic skin and subcutaneous tissue excised out that was nonviable I then irrigated out the incision sterile saline solution. Hemostasis was then achieved in the incision and the skin edges with electrocautery. 1% lidocaine mixed with 0.5% Marcaine with some epinephrine was injected around the wound for local anesthetic effect. The wound was then packed tightly 1/2inch iodoform gauze. It was then cleaned and then sterile 4x4 gauze, ABD pad, and disposable underwear was used for final dressing. The patient tolerated the procedure well no complications. All sponges, needles, and instrument counts were correct at the end procedure. EBL was _10__cc. The patient was awakened and taken to recovery in stable and satisfactory condition. Implants None Estimated Blood Loss 10 Urine Output 350 Drains No Packing Yes (Half-inch iodoform gauze packed in wound. Approximately 2.5m used.) Pathology Other (Wound culture sent to microbiology for aerobic and anaerobic cultures) Complications No immediate complications Condition Stable Disposition PACU [facility] Billing Surgery - Charge Forward: Surgery Billing
[2023-09-25 19:23] LABS: Glucose Point of Care 168 mg/dl (65-105)
[2023-09-25 21:00] LABS: Glucose Point of Care 244 mg/dl (65-105)
[2023-09-25] MEDS: HYDROcodone/acetaminophen (*CRX) 5-325 MG TABLET 1 TAB PO (21:07)
[2023-09-25] MEDS: ENOXAPARIN 40 MG/0.4 ML SYRINGE SUB-Q (21:20)
[2023-09-26 00:28] VITALS: BP 142/78; PULSE 86; RESP 20; TEMP 36.8; O2SAT 98
[2023-09-26] MEDS: PIPERACILLN/TAZ 3.375GM/NS50ML 3.375 GM/50 ML BAG IVPB ×2 (01:00→05:58)
[2023-09-26 06:12] LABS: Basophils Percent Auto 0.3 % (0.2-1.2); Eosinophils Percent Auto 0.1 % (0-4.4); Hematocrit 36.7 % (37.0-47.0); Hemoglobin 11.5 g/dL (12.0-15.0); Immature Granulocyte Absolute 0.08 K/mm3 (0.00-0.031); Immature Granulocyte Percent A 1.1 % (0-0.5); Lymphocytes Absolute Auto 1.33 K/mm3 (0.9-3.2); Lymphocytes Percent Auto 17.9 % (18.3-44.2); Mean Corpuscular HGB Conc 31.3 g/dl (32-36); Mean Corpuscular Hemoglobin 26.7 pg (26-34); Mean Corpuscular Volume 85.3 fl (80-100); Mean Platelet Volume 10.3 fl (7.4-10.4); Monocytes Absolute Auto 0.2 K/mm3 (0.1-0.6); Monocytes Percent Auto 3.1 % (2.6-8.5); Neutrophils Absolute Auto 5.7 K/mm3 (1.3-6.7); Neutrophils Percent Auto 77.5 % (45.5-73.1); Platelet Count Result 337 k/mm3 (150-375); Red Cell Distribution Width 12.9 % (11.5-14.5); White Blood Count 7.4 K/mm3 (4.5-10.0)
[2023-09-26 06:35] LABS: Anion Gap 8 mmol/L (8-16); Blood Urea Nitrogen 22 mg/dL (7-17); Calcium 8.5 mg/dL (8.4-10.2); Carbon Dioxide 24 mmol/L (22-30); Chloride 104 mmol/L (98-107); Estimated CRCL calculation 55 ml/min; Estimated Glomerular Filt Rate 47; Glucose 404 mg/dL (65-110); Potassium 4.6 mmol/L (3.4-5.0); Sodium 136 mmol/L (137-145)
[2023-09-26] MEDS: HYDROcodone/acetaminophen (*CRX) 5-325 MG TABLET 1 TAB PO ×2 (06:50→23:01)
--- NOTE | 2023-09-26 07:16 | PM.IMCN ---
Assessment and Plan Assessment and plan (1) Left buttock abscess: Code(s): L02.31 - Cutaneous abscess of buttock Status: Acute Assessment and Plan: S/P surgical debridement in OR on 09/24. Prior MRSA history Wound culture pending Change Zosyn to Vancomycin, cefepime and Flagyl pending wound culture Wound care per Surgery service, operative note reports 2.5 meters of 1/2 inch iodoform used to pack wound in OR on 09/24 (2) Insulin dependent type 2 diabetes mellitus: Code(s): E11.9 - Type 2 diabetes mellitus without complications; Z79.4 - USP (current) use of insulin Status: Acute Assessment and Plan: Resume Lantus but give 25 units Q12 instead of 50 units HS, high dose SSI with 10 units lispro per meals (usually takes 25-30 units lispro with meals) and resume Jardiance. (3) Morbid obesity: Code(s): E66.01 - Morbid (severe) obesity due to excess calories Status: Acute Assessment and Plan: Patient inquired about CPAP and Bariatric Surgery. Will do ApneaLink tonight. Deferred patient back to PCP for Bariatric Surgery discussion but she likely would meet requirements based on history and BMI. (4) Essential hypertension: Code(s): I10 - Essential (primary) hypertension Status: Acute Assessment and Plan: Blood pressure reviewed on 09/25 and stable. Resume home medications however incorrect dose of losartan reported. Losartan 100 mg daily last filled from pharmacy April 2023 for 30 day fill. Will hold at this time but if BP increases would add this back in. HPI Date of Consult Consult date: 09/26/23 Requesting Physician: Ramon Fernandez MD Primary Care Provider: Cande Ruff, PA Consult Narrative Reason for consult: Medical Management of HTN, IDDM, morbid obesity Narrative: Florencia Levy is a 58 year old female who was taken to the OR by Dr. Fernandez from the clinic when she arrived to follow up on abscess that had been I&D in ER a week ago and discharged home on Bactrim. Patient was nearly out of doses of Bactrim and came to clinic due to ongoing pain/swelling at site of prior I&D. Dr. Fernandez stated that proper care could not be completed in the office so she was brought to OR yesterday for wound debridement and washout. Post operatively patient was started on Zosyn and admitted to the floor. Hospitalist service was contacted to help manage patient due to history of insulin dependent diabetes, HTN and morbid obesity. Patient reports she feels much better than yesterday. She notes that she has sleep apnea but her sleep study is too old for her insurance to pay for CPAP. She also wants to seek out bariatric surgery. Glucose is elevated as she had no insulin at all yesterday. Her home meds were restarted except patient usually takes 25-30 units lispro with meals. We will start with 10 units lispro plus high dose slide with meals. Incorrect dose of losartan noted in med rec. Verified with pharmacy her last fill was 30 day RX in April 2023. Will hold this as well for now. Blood pressure reasonable this morning. Further review of medical history shows prior MRSA. For this reason I discussed with Surgery INSERTING OPERATOR and we will change Zosyn to Vancomycin, cefepime, Flagyl for now pending wound culture results obtained during surgery. Review of Systems Review of Systems: All systems reviewed & are unremarkable except as noted in HPI and below PMFSH Past Medical History Medical History Atypical chest pain Cellulitis of right foot COVID-19 Depression with anxiety Diabetic peripheral neuropathy Fracture of right foot affected by diabetic neuropathy History of MRSA infection Skin and soft tissue infection of the left hip requiring debridement. Hyperlipidemia Insulin dependent type 2 diabetes mellitus Morbid obesity Uncontrolled diabetes mellitus Surgical History Surgical History (Reviewed 09/26/23
--- NOTE | 2023-09-26 07:30 | WPDANESPN ---
Anes - Prog Note Post-Op Date/Time: 09/26/23 07:30 Cardiovascular status: normal Respiratory status: normal Airway patency: baseline Mental status: baseline Post-Op hydration status: normal Vital Signs: Last Vital Signs Temp 36.8 C 09/26/23 00:28 Pulse 86 09/26/23 00:28 Resp 20 09/26/23 00:28 BP 142/78 H 09/26/23 00:28 Pulse Ox 98 09/26/23 00:28 O2 Del Method Room Air 09/25/23 20:14 O2 Flow Rate 10 09/25/23 19:14 Pain Score (VAS): 3 I/O: Intake & Output 09/25/23 09/25/23 09/26/23 15:59 23:59 07:59 Intake Total 50 706.7 840 Output Total 350 350 Balance -300 356.7 840 Laboratory Tests 09/26/23 05:04 09/26/23 05:04 09/25/23 09/25/23 09/25/23 13:13 17:24 19:21 WBC 6.8 RBC 4.52 Hgb 12.0 Hct 37.4 MCV 82.7 MCH 26.5 MCHC 32.1 RDW 12.8 Plt Count 325 MPV 9.7 Immature Gran % (Auto) 1.5 H Neut % (Auto) 55.8 Lymph % (Auto) 30.9 [place] % (Auto) 8.3 Eos % (Auto) 3.1 Baso % (Auto) 0.4 Lymph # (Auto) 2.11 [place] # (Auto) 0.6 Eos # (Auto) 0.2 Baso # (Auto) 0.0 Abs Immat Gran (auto) 0.10 H Absolute Neuts (auto) 3.8 Absolute Nucleated RBC 0.020 H Nucleated RBC % 0.3 H Sodium 140 Potassium 4.0 Chloride 107 Carbon Dioxide 29 Anion Gap 4 L BUN 18 H Creatinine 1.20 H Estim Creat Clear Calc Not Reportable Estimated GFR 56 L Glucose 205 H POC Capillary Glucose 156 H 168 H Hemoglobin A1c 10.7 H Calcium 9.1 Total Bilirubin 0.3 AST 25 ALT 18 Alkaline Phosphatase 104 Total Protein 7.0 Albumin 3.4 L 09/25/23 09/26/23 20:54 05:04 WBC 7.4 RBC 4.30 Hgb 11.5 L Hct 36.7 L MCV 85.3 MCH 26.7 MCHC 31.3 L RDW 12.9 Plt Count 337 MPV 10.3 Immature Gran % (Auto) 1.1 H Neut % (Auto) 77.5 H Lymph % (Auto) 17.9 L [place] % (Auto) 3.1 Eos % (Auto) 0.1 Baso % (Auto) 0.3 Lymph # (Auto) 1.33 [place] # (Auto) 0.2 Eos # (Auto) 0.0 Baso # (Auto) 0.0 Abs Immat Gran (auto) 0.08 H Absolute Neuts (auto) 5.7 Absolute Nucleated RBC 0.000 Nucleated RBC % 0.0 Sodium 136 L Potassium 4.6 Chloride 104 Carbon Dioxide 24 Anion Gap 8 BUN 22 H Creatinine 1.40 H Estim Creat Clear Calc 55 Estimated GFR 47 L Glucose 404 H POC Capillary Glucose 244 H Hemoglobin A1c Calcium 8.5 Total Bilirubin AST ALT Alkaline Phosphatase Total Protein Albumin Post-procedural complaints: none Patient Feedback: Patient satisfied with anesthetic care.
[2023-09-26 08:21] LABS: Glucose Point of Care 355 mg/dl (65-105)
[2023-09-26] MEDS: PANTOPRAZOLE 40 MG TABLET PO (08:26)
[2023-09-26] MEDS: buPROPion HCL XL (24 HR) 150 MG TABCR 300 MG PO (08:26)
[2023-09-26] MEDS: ENOXAPARIN 40 MG/0.4 ML SYRINGE SUB-Q (08:26)
[2023-09-26] MEDS: ROSUVASTATIN 10 MG TABLET 40 MG PO (08:26)
[2023-09-26] MEDS: DOCUSATE SODIUM 100 MG CAPSULE PO ×2 (08:26→20:32)
[2023-09-26] MEDS: INSULIN ASPART (*BKC) 100 UNITS/ML SUB-Q ×4 (08:27→20:48)
[2023-09-26] MEDS: INSULIN GLARGINE (*BKC) 100 UNITS/ML 25 UNITS SUB-Q ×2 (08:29→20:40)
[2023-09-26] MEDS: EMPAGLIFLOZIN 25 MG TABLET PO (08:31)
[2023-09-26] MEDS: CEFEPIME 1 GM/NS 50 ML 1 GM/50 ML BAG IVPB ×2 (10:50→17:37)
[2023-09-26] MEDS: PREGABALIN (*CRX) 25 MG CAPSULE PO ×2 (10:50→16:14)
[2023-09-26] MEDS: SODIUM CHLORIDE 0.9% IV 1,000 ML 100 ML IV CONT (10:50)
[2023-09-26] MEDS: VANCOMYCIN 1,250 MG/NS 250 ML 1,250 MG/250 ML BAG 166.67 MG IVPB ×2 (11:58→13:57)
[2023-09-26] MEDS: INSULIN ASPART (*BKC) 100 UNITS/ML 10 UNITS SUB-Q ×2 (12:03→17:42)
[2023-09-26 12:15] LABS: Glucose Point of Care 326 mg/dl (65-105)
--- NOTE | 2023-09-26 13:22 | PM.PNGS ---
Progress Note: A&P Assessment and Plan (1) Left buttock abscess: Code(s): L02.31 - Cutaneous abscess of buttock Status: Acute Assessment and Plan: POD1 following I&D of left buttock abscess. Packing removed and abscess appears to be adequately drained. This was repacked today but it does not appear like she will need to pack this wound on discharge. Continue IV antibiotics. Cultures pending. Hopefully discharge in the next 1-2 days if she continues to improve. Plan I have discussed the patient's case and plan of care with Dr. Aguilera. Subjective Subjective Date/Time Seen: 09/26/23 11:22 Post Op day: 1 (Incision and drainage of left buttock abscess) Patient reports: no new complaints, feels better, pain is less, tolerating a regular diet and afebrile Interval history: Patient directly admitted yesterday for a left buttock abscess and was taken to the OR for I&D. She reports having some packing and her dressing fall off earlier this morning, which was painful and she required [place], but otherwise she is not having any pain at this time. Exam GI: Other: Left buttock dressing and packing removed. Abscess adequately drained with a healthy pink open wound, no purulent drainage or necrotic tissue. There is about 1-2 cm of tunneling at 12 o'clock. Swelling improving. Objective Data Vital Signs Vital Signs: Vital Signs - 24 hr 09/25/23 14:00 09/25/23 17:00 09/25/23 18:59 Temperature 97.6 F 97.2 F L 97.1 F L Pulse Rate 82 82 93 Respiratory Rate 16 18 20 Blood Pressure 128/78 148/92 H 181/86 H Pulse Oximetry 98 97 100 Oxygen Delivery Simple Face Mask Oxygen Flow Rate 10 09/25/23 19:14 09/25/23 19:29 09/25/23 19:44 Temperature Pulse Rate 89 88 87 Respiratory Rate 28 H 13 14 Blood Pressure 151/80 H 164/88 H 169/89 H Pulse Oximetry 100 97 98 Oxygen Delivery Simple Face Mask Room Air Room Air Oxygen Flow Rate 10 09/25/23 20:14 09/25/23 19:59 09/25/23 22:47 Temperature 98.0 F Pulse Rate 87 85 88 Respiratory Rate 13 14 19 Blood Pressure 167/88 H 175/87 H 132/69 Pulse Oximetry 96 98 96 Oxygen Delivery Room Air Room Air Oxygen Flow Rate 09/25/23 22:00 09/26/23 00:28 09/26/23 08:27 Temperature 98.1 F 98.2 F Pulse Rate 86 86 Respiratory Rate 19 20 Blood Pressure 121/57 L 142/78 H Pulse Oximetry 95 98 Oxygen Delivery Room Air Oxygen Flow Rate Intake/Output Intake/Output: Intake & Output 09/23/23 09/24/23 09/25/23 09/26/23 23:59 23:59 23:59 23:59 Intake Total 756.7 2550 Output Total 700 Balance 56.7 2550 Meds/Results Medications: Active Medications Generic Name Dose Route Start Last Admin Trade Name Freq PRN Reason Stop Dose Admin Acetaminophen 650 mg 09/25/23 19:09 Acetaminophen 325 Mg Tablet PO Q6H PRN Mild Pain (1-3) or Fever Hydrocodone Bitart/Acetaminophen 1 tab 09/25/23 19:09 09/26/23 06:50 Hydrocodone/Acetaminophen (*Crx) 5-325 Mg Tablet PO 1 tab Q4H PRN Administration Pain Rated 4-6 Bupropion HCl 300 mg 09/26/23 09:00 09/26/23 08:26 Bupropion Hcl Xl (24 Hr) 150 Mg Tabcr PO 300 mg DAILY JENNIFER Administration Dextrose 12.5 gm 09/26/23 07:05 Dextrose 50% 25 Gm/50 Ml Syringe IV PUSH PRN PRN Hypoglycemia Protocol Docusate Sodium 100 mg 09/26/23 09:00 09/26/23 08:26 Docusate Sodium 100 Mg Capsule PO 100 mg Q12HR JENNIFER Administration Empagliflozin 25 mg 09/26/23 09:00 09/26/23 08:31 Empagliflozin 25 Mg Tablet PO 25 mg DAILY JENNIFER Administration Enoxaparin Sodium 40 mg 09/25/23 21:00 09/26/23 08:26 Enoxaparin 40 Mg/0.4 Ml Syringe SUB-Q 40 mg DAILY JENNIFER Administration Glucagon 1 mg 09/26/23 07:05 Glucagon For Inj 1 Mg Vial IM PRN PRN Hypoglycemia Protocol Glucose 15 gm 09/26/23 07:05 Glucose Oral Gel 15 Gm Of Glucse In 37.5 Gm Tube PO PRN PRN Hypoglycemia Protocol Sodium Chloride 1,000 ml
[2023-09-26] MEDS: metroNIDAZOLE 500 MG/ISO 100ML 500 MG/100 ML BAG 100 MG IVPB ×3 (15:27→23:02)
[2023-09-26 17:24] LABS: Glucose Point of Care 270 mg/dl (65-105)
[2023-09-26 20:00] VITALS: PULSE 86; RESP 20; O2SAT 98
--- NOTE | 2023-09-26 23:06 | PCRCNOTE ---
Patient refused Apnea link monitoring for the night. Patient states she does not want to wear anything wrapped around her. She states she drinks a lot of water at night and she uses the restroom frequently.
[2023-09-26 23:27] LABS: Glucose Point of Care 231 mg/dl (65-105)
[2023-09-27] MEDS: CEFEPIME 1 GM/NS 50 ML 1 GM/50 ML BAG IVPB ×3 (05:17→17:13)
[2023-09-27] MEDS: metroNIDAZOLE 500 MG/ISO 100ML 500 MG/100 ML BAG 100 MG IVPB ×3 (05:39→17:14)
[2023-09-27 06:00] VITALS: BP 158/88; PULSE 77; RESP 18; TEMP 35.6; O2SAT 100
[2023-09-27 06:03] LABS: Estimated CRCL calculation 49 ml/min; Estimated Glomerular Filt Rate 40
[2023-09-27 08:27] LABS: Glucose Point of Care 191 mg/dl (65-105)
[2023-09-27] MEDS: ROSUVASTATIN 10 MG TABLET 40 MG PO (08:57)
[2023-09-27] MEDS: polyethylene glycoL 3350 17 GM POWD.PACK PO (08:58)
[2023-09-27] MEDS: PREGABALIN (*CRX) 25 MG CAPSULE PO ×2 (08:58→17:06)
[2023-09-27] MEDS: buPROPion HCL XL (24 HR) 150 MG TABCR 300 MG PO (08:58)
[2023-09-27] MEDS: ENOXAPARIN 40 MG/0.4 ML SYRINGE SUB-Q (08:58)
[2023-09-27] MEDS: PANTOPRAZOLE 40 MG TABLET PO (08:58)
[2023-09-27] MEDS: DOCUSATE SODIUM 100 MG CAPSULE PO (08:58)
[2023-09-27] MEDS: INSULIN GLARGINE (*BKC) 100 UNITS/ML 25 UNITS SUB-Q (08:59)
[2023-09-27] MEDS: EMPAGLIFLOZIN 25 MG TABLET PO (09:01)
[2023-09-27] MEDS: INSULIN ASPART (*BKC) 100 UNITS/ML 10 UNITS SUB-Q ×3 (09:01→17:06)
[2023-09-27] MEDS: SODIUM CHLORIDE 0.9% IV 1,000 ML 100 ML IV CONT (11:04)
[2023-09-27] MEDS: VANCOMYCIN 1,500 MG/NS 500 ML 1,500 MG/500 ML BAG 250 MG IVPB (11:57)
[2023-09-27 12:08] LABS: Glucose Point of Care 339 mg/dl (65-105)
[2023-09-27] MEDS: INSULIN ASPART (*BKC) 100 UNITS/ML SUB-Q (12:14)
[2023-09-27 14:00] VITALS: BP 141/76; PULSE 86; RESP 16; TEMP 36.3; O2SAT 100
--- NOTE | 2023-09-27 14:15 | PM.IMPN ---
Progress Note: A&P Assessment and Plan (1) Left buttock abscess: Code(s): L02.31 - Cutaneous abscess of buttock Status: Acute Assessment and Plan: 09/26/23: S/P surgical debridement in OR on 09/24. Prior MRSA history Wound culture pending Change Zosyn to Vancomycin, cefepime and Flagyl pending wound culture Wound care per Surgery service, operative note reports 2.5 meters of 1/2 inch iodoform used to pack wound in OR on 09/2409/27/23: Patient is postop day 1 from I and D of left buttock abscess Continue vancomycin, cefepime, Flagyl Blood cultures showing no growth on preliminary read Wound culture showing no growth on preliminary (2) Insulin dependent type 2 diabetes mellitus: Code(s): E11.9 - Type 2 diabetes mellitus without complications; Z79.4 - [facility] (current) use of insulin Status: Acute Assessment and Plan: 09/26/23: Resume Lantus but give 25 units Q12 instead of 50 units HS, high dose SSI with 10 units lispro per meals (usually takes 25-30 units lispro with meals) and resume Jardiance. 09/27/23: Blood sugars ranging 191-339 Hemoglobin A1c 10.7 which is down from 12.1 on a previous read. Continue Jardiance Increase Lantus to 30 units b.i.d., this is above which she takes at home Continue high-dose sliding scale insulin (3) Morbid obesity: Code(s): E66.01 - Morbid (severe) obesity due to excess calories Status: Acute Assessment and Plan: 09/26/23: Patient inquired about CPAP and Bariatric Surgery. Will do ApneaLink tonight. Deferred patient back to PCP for Bariatric Surgery discussion but she likely would meet requirements based on history and BMI. 09/27/23: No change (4) Essential hypertension: Code(s): I10 - Essential (primary) hypertension Status: Acute Assessment and Plan: 09/26/23: Blood pressure reviewed on 09/25 and stable. Resume home medications however incorrect dose of losartan reported. Losartan 100 mg daily last filled from pharmacy April 2023 for 30 day fill. Will hold at this time but if BP increases would add this back in. 09/27/23: Blood pressures ranging 141/76 to 158/88 Will start losartan 50 mg daily, can slowly increase to 100 mg Time Spent With Patient Time with patient: Greater than 35 minutes Subjective Date/time seen: 09/27/23 14:15 Interval history: 09/26/23: (copied from chart) Florencia Levy is a 58 year old female who was taken to the OR by Dr. Fernandez from the clinic when she arrived to follow up on abscess that had been I&D in ER a week ago and discharged home on Bactrim.? Patient was nearly out of doses of Bactrim and came to clinic due to ongoing pain/swelling at site of prior I&D.? Dr. Fernandez stated that proper care could not be completed in the office so she was brought to OR yesterday for wound debridement and washout.? Post operatively patient was started on Zosyn and admitted to the floor.? Hospitalist service was contacted to help manage patient due to history of insulin dependent diabetes, HTN and morbid obesity.? Patient reports she feels much better than yesterday.? She notes that she has sleep apnea but her sleep study is too old for her insurance to pay for CPAP.? She also wants to seek out bariatric surgery.? Glucose is elevated as she had no insulin at all yesterday.? Her home meds were restarted except patient usually takes 25-30 units lispro with meals.? We will start with 10 units lispro plus high dose slide with meals.? Incorrect dose of losartan noted in med rec.? Verified with pharmacy her last fill was 30 day RX in April 2023.? Will hold this as well for now.? Blood pressure reasonable this morning.? Further review of medical history shows prior MRSA.? For this reason I discussed with Surgery COMPRESSED GASES TESTER and we will change Zosyn to Vancomycin, cefepime, Flagyl for now pending wound culture results obtained during surgery. 09/27/23: Patient is postop day 1 from an I&D of the left buttock absces
[2023-09-27 14:46] LABS: Basophils Percent Auto 0.4 % (0.2-1.2); Eosinophils Absolute Auto 0.2 K/mm3 (0-0.3); Eosinophils Percent Auto 2.9 % (0-4.4); Hematocrit 32.2 % (37.0-47.0); Hemoglobin 10.3 g/dL (12.0-15.0); Immature Granulocyte Absolute 0.03 K/mm3 (0.00-0.031); Immature Granulocyte Percent A 0.5 % (0-0.5); Lymphocytes Absolute Auto 1.75 K/mm3 (0.9-3.2); Lymphocytes Percent Auto 31.9 % (18.3-44.2); Mean Corpuscular Hemoglobin 27.4 pg (26-34); Mean Corpuscular Volume 85.6 fl (80-100); Mean Platelet Volume 9.5 fl (7.4-10.4); Monocytes Absolute Auto 0.4 K/mm3 (0.1-0.6); Monocytes Percent Auto 6.8 % (2.6-8.5); Neutrophils Absolute Auto 3.2 K/mm3 (1.3-6.7); Neutrophils Percent Auto 57.5 % (45.5-73.1); Platelet Count Result 243 k/mm3 (150-375); Red Blood Count 3.76 M/mm3 (4.2-5.4); White Blood Count 5.5 K/mm3 (4.5-10.0)
[2023-09-27 15:08] LABS: Alanine Aminotransferase 19 U/L (6-35); Albumin Level 3.1 g/dL (3.5-5.1); Alkaline Phosphatase 83 U/L (38-126); Anion Gap 4 mmol/L (8-16); Aspartate Amino Transferase 31 U/L (14-36); Bilirubin,Total 0.3 mg/dL (0.2-1.3); Blood Urea Nitrogen 24 mg/dL (7-17); Carbon Dioxide 25 mmol/L (22-30); Chloride 110 mmol/L (98-107); Estimated CRCL calculation 55 ml/min; Estimated Glomerular Filt Rate 47; Glucose 274 mg/dL (65-110); Potassium 3.7 mmol/L (3.4-5.0); Sodium 139 mmol/L (137-145)
--- NOTE | 2023-09-27 16:12 | PM.DS ---
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 She had been to the ER on 09/24/2023 and also on 09/17/2023. Incision and drainage was performed in the ED on 09/16, she was having worsening drainage and returned with worsening symptoms. She was directly admitted from the surgery office by Dr. Fernandez on 09/25/2023. She was started on broad-spectrum IV antibiotics and hospitalist was consulted for medical management of her diabetes and hypertension. She underwent incision and drainage of left buttock abscess on 09/25/2023. On postop day 1 the packing was removed and the wound was looking healthy without any further purulence discharge. Her white blood count was normal and she was remaining afebrile. Blood cultures were negative so far and wound cultures were only growing normal skin malu. She was tolerating the dressing changes and pain was adequately controlled. She was discharged on 09/27/2023. Status at Discharge Functional status at discharge: independent ambulation Overall status at discharge: patient is progressing back to baseline Time Spent with Patient Time attestation: Total time spent providing and/or coordinating discharge services: Time spent: Less than 30 minutes Exam Const: General: comfortable and no acute distress Orientation/consciousness: patient oriented x3 Skin: Other: Left buttock wound with healthy granulation tissue and no surrounding erythema or purulence drainage DS: Data Data Completed and Pending Labs on day of discharge: Labs from last 24 hours 09/27/23 09/27/23 09/27/23 14:41 11:59 08:14 WBC 5.5 RBC 3.76 L Hgb 10.3 L Hct 32.2 L MCV 85.6 MCH 27.4 MCHC 32.0 RDW 13.0 Plt Count 243 MPV 9.5 Immature Gran % (Auto) 0.5 Neut % (Auto) 57.5 Lymph % (Auto) 31.9 Dickson % (Auto) 6.8 Eos % (Auto) 2.9 Baso % (Auto) 0.4 Lymph # (Auto) 1.75 Dickson # (Auto) 0.4 Eos # (Auto) 0.2 Baso # (Auto) 0.0 Abs Immat Gran (auto) 0.03 Absolute Neuts (auto) 3.2 Absolute Nucleated RBC 0.000 Nucleated RBC % 0.0 Sodium 139 Potassium 3.7 Chloride 110 H Carbon Dioxide 25 Anion Gap 4 L BUN 24 H Creatinine 1.40 H Estim Creat Clear Calc 55 Estimated GFR 47 L Glucose 274 H POC Capillary Glucose 339 H 191 H Calcium 8.0 L Total Bilirubin 0.3 AST 31 ALT 19 Alkaline Phosphatase 83 Total Protein 7.0 Albumin 3.1 L 09/27/23 09/26/23 09/26/23 05:13 20:31 17:19 WBC RBC Hgb Hct MCV MCH MCHC RDW Plt Count MPV Immature Gran % (Auto) Neut % (Auto) Lymph % (Auto) Dickson % (Auto) Eos % (Auto) Baso % (Auto) Lymph # (Auto) Dickson # (Auto) Eos # (Auto) Baso # (Auto) Abs Immat Gran (auto) Absolute Neuts (auto) Absolute Nucleated RBC Nucleated RBC % Sodium Potassium Chloride Carbon Dioxide Anion Gap BUN Creatinine 1.60 H Estim Creat Clear Calc 49 Estimated GFR 40 L Glucose POC Capillary Glucose 231 H 270 H Calcium Total Bilirubin AST ALT Alkaline Phosphatase Total Protein Albumin Preliminary micro results at discharge
[2023-09-27 17:00] LABS: Glucose Point of Care 167 mg/dl (65-105)
[2023-09-27] MEDS: LOSARTAN POTASSIUM 50 MG TABLET PO (17:06)
== END 2023-09-27 18:15 | disposition home or self-care (01) | DRG 383 ==
PROVIDERS: Nurse Practitioner; Nurse Practitioner Acute Care; Admitting Provider Surgery; PCP Physician Assistant; Visit Provider Surgery
PROC: 0J990ZX Drainage of Buttock Subcutaneous Tissue and Fascia, Open Approach, Diagnostic (ICD-10-PCS; CPT 46040; principal; 2023-09-25 17:30)
DX: L02.31 Cutaneous abscess of buttock (principal); I10 Essential (primary) hypertension; E11.42 Type 2 diabetes mellitus with diabetic polyneuropathy; E78.5 Hyperlipidemia, unspecified; E66.01 Morbid (severe) obesity due to excess calories; Z68.42 Body mass index [BMI] 45.0-49.9, adult; Z86.16 Personal history of COVID-19; Z79.4 Long term (current) use of insulin; Z90.49 Acquired absence of other specified parts of digestive tract; Z90.710 Acquired absence of both cervix and uterus
CPT/HCPCS: 36415; 80048; 80053; 82565; 82948; 83036; 85025; 87040; 87070; 87075; 87076; 87205; A9270; J0692; J1650; J1815; J1836; J2270; J2543; J3010; J3370; J7030; J7120

== ENCOUNTER 2024-05-13 10:36 | Outpatient (CLI) | payer OTHER, SELFPAY ==
[2024-05-13 11:22] LABS: Basophils Percent Auto 0.6 % (0.2-1.2); Eosinophils Absolute Auto 0.2 K/mm3 (0-0.3); Eosinophils Percent Auto 3.4 % (0-4.4); Hematocrit 36.6 % (37.0-47.0); Hemoglobin 12.2 g/dL (12.0-15.0); Immature Granulocyte Absolute 0.02 K/mm3 (0.00-0.031); Immature Granulocyte Percent A 0.4 % (0-0.5); Lymphocytes Absolute Auto 2.05 K/mm3 (0.9-3.2); Lymphocytes Percent Auto 41.2 % (18.3-44.2); Mean Corpuscular HGB Conc 33.3 g/dl (32-36); Mean Corpuscular Hemoglobin 27.6 pg (26-34); Mean Corpuscular Volume 82.8 fl (80-100); Mean Platelet Volume 10.8 fl (7.4-10.4); Monocytes Absolute Auto 0.4 K/mm3 (0.1-0.6); Neutrophils Absolute Auto 2.3 K/mm3 (1.3-6.7); Neutrophils Percent Auto 46.4 % (45.5-73.1); Platelet Count Result 168 k/mm3 (150-375); Red Blood Count 4.42 M/mm3 (4.2-5.4); Red Cell Distribution Width 12.7 % (11.5-14.5)
[2024-05-13 11:26] LABS: Add Urine Microscopic? YES; Appearance Urine Cloudy (Clear); Bacteria Urine Rare /hpf; Bilirubin Urine Negative (Negative); Blood Urine Trace (Negative); Color Urine Yellow (Yellow); Glucose Urine UA 3+ mg/dL (Negative); Ketones Urine Negative (Negative); Leukocyte Esterase Ur Negative LEU/UL (Negative); Nitrate Urine Negative (Negative); Non Pathogenic Casts 0-2; Protein Urine 3+ mg/dL (Negative); Specific Grav Ur 1.025 (1.001-1.035); Squamous Epithelial Cell Urine Moderate /hpf (Few); Urobilinogen Urine 0.2 mg/dL (<2.0); WBC Urine 0-5 /hpf (0-3); pH Urine 5.5 (5.0-9.0)
[2024-05-13 11:35] LABS: Albumin Level 3.7 g/dL (3.5-5.1); Anion Gap 11 mmol/L (4-12); Blood Urea Nitrogen 27 mg/dL (7-17); Calcium 8.8 mg/dL (8.4-10.2); Carbon Dioxide 26 mmol/L (22-30); Chloride 100 mmol/L (98-107); Estimated Glomerular Filt Rate 47; Glucose 461 mg/dL (65-110); Phosphorus 4.1 mg/dL (2.5-4.5); Sodium 137 mmol/L (137-145)
[2024-05-13 11:42] LABS: Complement C3 186 mg/dL (88-165); Rheumatoid Factor 96.2 IU/ML (<12)
[2024-05-13 11:47] LABS: Parathyroid Intact 58.6 pg/mL (14.5-75.2)
[2024-05-13 12:19] LABS: Erythrocyte Sedimentation Rate 116 mm/hr (0-20)
[2024-05-13 12:26] LABS: Creatinine Urine 98.2 mg/dL
[2024-05-13 12:34] LABS: Vitamin D 25 Hydroxy < 12.8 ng/mL
[2024-05-13 13:31] LABS: Microalbumin Urine Random > 1140.0 mg/L (0-16.7)
[2024-05-13 13:32] LABS: MALB Creatinine Ratio > 1160.9 mg/g (0-30)
[2024-05-16 22:18] LABS: Immunofixation, Serum Normal pattern.
[2024-05-17 09:39] LABS: ANCA Screen NEGATIVE (NEGATIVE)
== END 2024-05-13 10:37 | disposition home or self-care (01) ==
PROVIDERS: PCP Physician Assistant
DX: R80.9 Proteinuria, unspecified (principal)
CPT/HCPCS: 36415; 80069; 81001; 82043; 82306; 83883; 83970; 85025; 85652; 86036; 86038; 86039; 86160; 86334; 86335; 86430

== ENCOUNTER 2024-06-02 15:32 | Outpatient (CLI) | payer OTHER, SELFPAY ==
--- NOTE | ~2024-06-02 | US_ITS ---
US renal BI 06/02/2024 16:22 Procedure: Realtime transabdominal ultrasound of the kidneys and bladder. Indication: Chronic kidney disease stage III Comparison: No prior studies for comparison. Findings: Renal echotexture is normal bilaterally without hydronephrosis, contour deforming mass or r enal calculus. The right kidney measures 10.8 cm and left kidney measures 11.2 cm. Bladder within no rmal limits. Impression: 1: Unremarkable renal ultrasound. No stones, masses or hydronephrosis. Reviewed, dictated and finalized at location B. OND FINISHING SUPERVISOR Impression: 1: Unremarkable renal ultrasound. No stones, masses or hydronephrosis.
== END 2024-06-02 15:33 | disposition home or self-care (01) ==
PROVIDERS: PCP Physician Assistant
DX: N18.30 Chronic kidney disease, stage 3 unspecified (principal)
CPT/HCPCS: 76775

== ENCOUNTER 2024-10-09 06:13 | Emergency (ER) | payer OTHER, SELFPAY ==
[2024-10-09] VITALS (7 sets, daily range): BP systolic 124–219; BP diastolic 62–159; PULSE 90–100; RESP 15–20; TEMP 36.1; O2SAT 97–99
--- NOTE | ~2024-10-09 | US_ITS ---
EXAMINATION:US venous doppler LE BI INDICATION:Calf pain TECHNIQUE: Multiple grayscale, color flow and Doppler images of the right and left lower extremity de ep venous systems were obtained and reviewed. COMPARISON:No prior studies for comparison. FINDINGS: The common femoral, superficial femoral and popliteal veins demonstrate normal respiratory variation, augmentation and compressibility. Color flow is also seen within the posterior tibial, pe roneal, greater saphenous and profunda veins. IMPRESSION: 1: No lower extremity deep venous thrombosis. Reviewed, dictated and finalized at location A.
--- OUTSIDE RECORDS SUMMARY | 2024-10-09 06:16 | XMS_ITS | Referral Summary ---
Author Organization [facility] [address] Address [address] [place] [address] Care Team Providers Care Hospitality Services Manager Name Role Phone Keshawn Zurita MD Primary Care Provider [phone] Encounters Date Type Department Care Team Description 07/22/2024 10:00 AM PATIENT RELATIONS DIRECTOR Office Visit [facility] Rhe[facility]ology [facility] 5[address] [place] [address] [place] [id number] Beverly Rai MD Raised antibody titer (Primary Dx); Diabetic polyneuropathy associated with diabetes mellitus due to underlying condition (HCC); 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); Fibromyalgia; Primary osteoarthritis involving multiple joints; Elevated sed rate from Last 3 Months Allergies No known active allergies Medications insulin regular (HumuLIN R Regular U-100 Insuln) 100 unit/mL injection Active rosuvastatin (CRESTOR) 20 mg tablet Take 1 tablet (20 mg total) by mouth daily 04/27/2020 Active HumaLOG KwikPen Insulin 100 unit/mL insulin pen Inject 30 units under skin tid 6 pen 3 07/27/2020 Active blood glucose diagnostic (glucose blood) stripIndication s:Type 2 diabetes mellitus with hyperglycemia, with long-term current use of insulin (HCC) TEST BLOOD SUGAR UP TO 6 TIMES DAILY 550 each 09/28/2020 Active LANTUS 100 unit/mL (3 mL) pen for injection INJECT 54 UNITS UNDER THE SKIN AT BEDTIME 60 mL 05/20/2021 Active acetaminophen (TYLENOL) 325 mg tablet Take 2 tablets (650 mg total) by mouth every 4 (four) hours as needed 01/26/2023 Active losartan (COZAAR) 50 mg tablet Take 1 tablet (50 mg total) by mouth daily 40MG Active Active Problems Problem Noted Date Diagnosed Date Type 2 diabetes mellitus wit h hyperglycemia, with long-term current use of insulin 08/02/2020 Hyperlipidemia 08/02/2020 Essential hypertension 08/02/2020 Gastroesophageal reflux disease with esophagitis 08/02/2020 Social History Tobacco Use Types Packs/Day Years Used Date Smoking Tobacco: Never Smokeless Tobacco: Never Tobacco Cessation:Counseling Given: Not Answered Alcohol Use Standard Drinks/Week Comments Not Currently 0 (1 standard drink = 0.6 oz pur e alcohol) Comments No Sex and Gender Information Value Date Recorded Sex Assigned at Not on file Legal Sex Female 4:01 AM PATIENT RELATIONS DIRECTOR Gender Identity Not on file Sexual Orientation Not on file Last Filed Vital Signs Vital Sign Reading Time Taken Comments Blood Pressure 162/91 07/22/2024 10:18 AM PATIENT RELATIONS DIRECTOR Pulse 90 07/22/2024 10:18 AM PATIENT RELATIONS DIRECTOR Temperature 36.7 C (98 F) 07/10/2020 11:30 AM PATIENT RELATIONS DIRECTOR Respiratory Rate 21 07/10/2020 11:30 AM PATIENT RELATIONS DIRECTOR Oxygen Saturation 100% 10/04/2020 12:51 PM CDT Inhaled Oxygen Concentration - - Weight 141.1 kg (311 lb) 07/22/2024 10:18 AM PATIENT RELATIONS DIRECTOR Height 162.6 cm (5' 4 ) 07/22/2024 10:18 AM PATIENT RELATIONS DIRECTOR Body Mass Index 53.38 07/22/2024 10:18 AM PATIENT RELATIONS DIRECTOR Plan of Treatment Not on file Procedures Procedure Name Priority Date/Time Associated Diagnosis Comments POCT LIPID PANEL Routine 08/02/2020 3:42 PM PATIENT RELATIONS DIRECTOR Type 2 diabetes mellitus with hyperglycemia, with long-term current use of insulin (HCC) Hyperlipidemia, unspecified hyperlipidemia type Essential hypertension Gastroesophageal reflux disease with esophagitis, unspecified whether hemorrhage POCT HEMOGLOBIN A1C Routine 08/02/2020 3 :41 PM PATIENT RELATIONS DIRECTOR Type 2 diabetes mellitus with hyperglycemia, with long-term current use of insulin (HCC) Hyperlipidemia, unspecified hyperlipidemia type Essential hypertension Gastroesophageal reflux disease with esophagitis, unspecified whether hemorrhage EGFR STAT 07/10/2020 8:01 AM PATIENT RELATIONS DIRECTOR SERUM HEPATITIS C AB Routine 07/30/2013 3:26 AM PATIENT RELATIONS DIRECTOR from Last 3 Months or Most Recently Relevant to Health Maintenance Results * POCT lipid panel (08/02/2020 3:42 PM PATIENT RELATIONS DIRECTOR) HDL, POC 27 mg/dL Triglycerides, POC 355 mg/dL LDL Cholesterol POC 72 mg/dL Chol/HDL Ratio, POC 6.3 Non-HDL Cholesterol, POC 143 mg/dL Cholesterol Total, POC 170 mg/dL Capillary blood 08/02/2020 3 :42 PM PATIENT RELATIONS DIRECTOR us Keshawn Zurita MD POINT OF CARE TEST ORDERABLES Final Result * POCT hemoglobin A1c (08/02/2020 3:41 PM PATIENT RELATIONS DIRECTOR) Hemoglobin A1C, POC 12.9 Blood specimen (specimen) 08/02/2020 3:41 PM PATIENT RELATIONS DIRECTOR us Keshawn Zurita MD POINT OF CARE TEST ORDERABLES Final Result * eGFR (07/10/2020 8:01 AM PATIENT RELATIONS DIRECTOR) eGFR 94 mL/min/1.7 3 m2 [facility] Comment: Interpretive Data Reference Interval Normal >/= 90 mL/min/1.73m2 Mildly decreased* 60 - 89 mL/min/1.73m2 Mildly to moderately decreased 45 - 59 mL/min/1.73m2 Moderately to severely decreased 30 - 44 mL/min/1.73m2 Severely decreased 15 - 29 mL/min/1.73m2 Kidney Failure < 15 mL/min/1.73m2 *Relative to young adult level If -Honduran multiply value by 1.16. Estimated glomerular filtration rate is determined by the CKD-EPI equation recommended by the National Kidney Foundation (KDIGO 2012 Clinical Practice Guideline for the Evaluation and Management of Chronic Kidney Disease. Kidney Intnl Suppl Jul 2012;3:1). The CKD-EPI equation should not be used for patients with unstable renal function and has not been validated in children and those over 70. Current interpretive data was last reviewed 2016. Blood specimen (specimen) 07/10/2020 8:01 AM PATIENT RELATIONS DIRECTOR 07/10/2020 8:06 AM PATIENT RELATIONS DIRECTOR us Babak Billings MD LAB BLOOD ORDERABLES Kim l Result [facility] [address] Department [place] [address] * Serum Hepatitis C ab (07/30/2013 3:26 AM PATIENT RELATIONS DIRECTOR) HCV ab Negative NEG HISTORICAL RESULTS Serum 07/30/2013 3:26 AM PATIENT RELATIONS DIRECTOR Narrative HISTORICAL RESULTS - 07/30/2013 8:37 AM PATIENT RELATIONS DIRECTOR Interpretive Data If confirmation is required, call Laboratory Customer Service to request sample to be sent to [facility] for Hepatitis C Virus (HCV) RNA Detection and Quantitation by Real-Time Reverse Assistant Maintenance Manager-PCR (RT-PCR). Current interpretive data was last revised on 2011 us Cecilia Bartlett MD LAB BLOOD ORDERABLES Final Result Performing Organization Address City/State[facility] Co de Phone Number HISTORICAL RESULTS from Last 3 Months or Most Recently Relevant to Health Maintenance Insurance [facility] ANTHEM ACCESS CHOICE [facility] [employer] [place] [id number] Care Teams Hospitality Services Manager Relationship Specialty Start Date End Date Keshawn Zurita MD [address] [facility] [address], [place] [address] PCP - General Endocrinology Diabetes & Metabolism 08/02/20
--- OUTSIDE RECORDS SUMMARY | 2024-10-09 06:16 | XMS_ITS | Clinical Summary ---
Author Organization [facility] [address] Address [address] [place] [address] Care Team Providers Care Rectification Printer Name Role Phone Keshawn Zurita MD Primary Care Provider [phone] Allergies No known active allergies Medications insulin [...] 08/02/2020 Gastroesophageal reflux disease with esophagitis 08/02/2020 Encounters Date Type Department Care Team Description 07/22/2024 10:00 AM FAMILY LAW MEDIATOR Office Visit [facility] Rheumatology [address] 5[address] [place] [address] [place] [id number] Beverly Rai MD Raised antibody titer (Primary Dx); Diabetic polyneuropathy associated with diabetes mellitus due to underlying condition (HCC); 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); Fibromyalgia; Primary osteoarthritis involving multiple joints; Elevated sed rate from Last 3 Months Surgical History Surgery Date Site/Laterality Comments CHOLECYSTECTOMY HYSTERECTOMY SECTION BREAST BIOPSY Medical History Medical History Date Comments Diabetes mellitus (HCC) Hypertension Social History Tobacco Use Types Packs/Day Years Used Date Smoking Tobacco: Never Smokeless Tobacco: Never Tobacco Cessation:Counseling Given: Not Answered Alcohol Use Standard Drinks/Week Comments Not Currently 0 (1 standard drink = 0.6 oz pur e alcohol) Comments No Sex and Gender Information Value Date Recorded Sex Assigned at Not on file Legal Sex Female 4:01 AM FAMILY LAW MEDIATOR Gender Identity Not on file Sexual Orientation Not on file Obstetrics History Last Filed Vital Signs Vital Sign Reading Time Taken Comments Blood Pressure 162/91 07/22/2024 10:18 AM FAMILY LAW MEDIATOR Pulse 90 07/22/2024 10:18 AM FAMILY LAW MEDIATOR Temperature 36.7 C (98 F) 07/10/2020 11:30 AM FAMILY LAW MEDIATOR Respiratory Rate 21 07/10/2020 11:30 AM FAMILY LAW MEDIATOR Oxygen Saturation 100% 10/04/2020 12:51 PM CDT Inhaled Oxygen Concentration - - Weight 141.1 kg (311 lb) 07/22/2024 10:18 AM FAMILY LAW MEDIATOR Height 162.6 cm (5' 4 ) 07/22/2024 10:18 AM FAMILY LAW MEDIATOR Body Mass Index 53.38 07/22/2024 10:18 AM FAMILY LAW MEDIATOR Plan of Treatment Health Maintenance Due Date Last Done Comments Albumin Creatinine Ratio, Urine 1967 Colon Cancer Screening-Colonoscopy 1967 Depression Screening 1967 Dilated Eye Exam 1967 Foot Exam 1967 Hepatitis B Screening 1985 Regular Well Visit/Exam 18-64 1985 Pneumococcal vaccine <65 (1 of 2 - PCV) 1986 Zoster Vaccine (1 of 2) 2017 Hemoglobin A1C 01/30/2021 08/02/2020, 04/09, 05/16/2017 eGFR 07/10/2021 07/10/2020, 05/09, 05/20/2017, Additional history exists Lipid Panel 01/21/2024 01/20/2023, 07/10, 05/04/2020, Additional history exists Covid-19 Vaccine (3 - 2023-2 5 season) 2024 02/27/2021, 01/30/2021 Influenza Vaccine (#1) 2024 Breast Cancer Screening-Mammogram 01/10/2025 01/11/2024, 01/11/2024, 05/05/2021, Additional history exists DTaP/Tdap/Td Vaccine (3 - Td or Tdap) 10/06/2026 10/06/2016, 02/22/2010 Hepatitis C Screening Completed 07/30/2013 Procedures Procedure Name Priority Date/Time Associated Diagnosis Comments POCT LIPID PANEL Routine 08/02/2020 3:42 PM FAMILY LAW MEDIATOR Type 2 diabetes mellitus with hyperglycemia, with long-term current use of insulin (HCC) Hyperlipidemia, unspecified hyperlipidemia type Essential hypertension Gastroesophageal reflux disease with esophagitis, unspecified whether hemorrhage POCT HEMOGLOBIN A1C Routine 08/02/2020 3 :41 PM FAMILY LAW MEDIATOR Type 2 diabetes mellitus with hyperglycemia, with long-term current use of insulin (HCC) Hyperlipidemia, unspecified hyperlipidemia type Essential hypertension Gastroesophageal reflux disease with esophagitis, unspecified whether hemorrhage EGFR STAT 07/10/2020 8:01 AM FAMILY LAW MEDIATOR SERUM HEPATITIS C AB Routine 07/30/2013 3:26 AM FAMILY LAW MEDIATOR from Last 3 Months or Most Recently Relevant to Health Maintenance Results * POCT lipid panel (08/02/2020 3:42 PM FAMILY LAW MEDIATOR) HDL, POC 27 mg/dL Triglycerides, POC 355 mg/dL LDL Cholesterol POC 72 mg/dL Chol/HDL Ratio, POC 6.3 Non-HDL Cholesterol, POC 143 mg/dL Cholesterol Total, POC 170 mg/dL Capillary blood 08/02/2020 3 :42 PM FAMILY LAW MEDIATOR Keshawn Zurita MD POINT OF CARE TEST ORDERABLES Final Result * POCT hemoglobin A1c (08/02/2020 3:41 PM FAMILY LAW MEDIATOR) Pathologist [facility] [place] Hemoglobin A1C, POC 12.9 Blood specimen (specimen) 08/02/2020 3:41 PM FAMILY LAW MEDIATOR Keshawn Zurita MD POINT OF CARE TEST ORDERABLES Final Result * eGFR (07/10/2020 8:01 AM FAMILY LAW MEDIATOR) Pathologist [facility] [place] eGFR 94 mL/min/1.7 3 m2 [facility] Comment: Interpretive Data Reference Interval Normal >/= 90 mL/min/1.73m2 Mildly decreased* 60 - 89 mL/min/1.73m2 Mildly to moderately decreased 45 - 59 mL/min/1.73m2 Moderately to severely decreased 30 - 44 mL/min/1.73m2 Severely decreased 15 - 29 mL/min/1.73m2 Kidney Failure < 15 mL/min/1.73m2 *Relative to young adult level If -Scottish multiply value by 1.16. Estimated glomerular filtration [...] 2016. Blood specimen (specimen) 07/10/2020 8:01 AM FAMILY LAW MEDIATOR 07/10/2020 8:06 AM FAMILY LAW MEDIATOR Babak Billings MD LAB BLOOD ORDERABLES Kim l Result [facility] [address] [facility] Department [place] [address] * Serum Hepatitis C ab (07/30/2013 3:26 AM FAMILY LAW MEDIATOR) HCV ab Negative NEG HISTORICAL RESULTS Serum 07/30/2013 3:26 AM FAMILY LAW MEDIATOR Narrative HISTORICAL RESULTS - 07/30/2013 8:37 AM FAMILY LAW MEDIATOR Interpretive Data If confirmation is required, call Laboratory Customer Service to request sample to be sent to [facility] for Hepatitis C Virus (HCV) RNA Detection and Quantitation by Real-Time Reverse Paper Inserter-PCR (RT-PCR). Current interpretive data was last revised on 2011 us Cecilia Bartlett MD LAB BLOOD ORDERABLES Final Result HISTORICAL RESULTS from Last 3 Months or Most Recently Relevant to Health Maintenance Insurance [facility] ACCESS CHOICE [facility] Care Teams Rectification Printer Relationship Specialty Start Date End Date Keshawn Zurita MD [address] [place] [address] PCP - General Endocrinology Diabetes & Metabolism 08/02/20
--- OUTSIDE RECORDS SUMMARY | 2024-10-09 06:16 | XMS_ITS | Clinical Summary ---
Author Organization [facility] Address [address] [place] [address] Care Team Providers Care Graves Registration Specialist Name Role Phone Lucas Hoang DPM Unavailable [phone] Cande Ruff PA-C Primary Care Provider [phone] Allergies No known active allergies Medications empagliflozin (JARDIANCE) 25 MG tabletIndication s:Diabetes Mellitus Take 1 tablet (25 mg total) by mouth daily. Indications: Diabetes Active gabapentin (NEURONTIN) 400 MG capsuleIndicatio ns:Neuropathic Pain Take 1 capsule (400 mg total) by mouth 3 (three) times daily. Indications: Neuropathic Pain Active hydroCHLOROthiaz clint (HYDRODIURIL) 25 MG tabletIndication s:Hypertension Take 1 tablet (25 mg total) by mouth every morning. Indications: High Blood Pressure Disorder Active buPROPion XL (WELLBUTRIN XL) 150 MG 24 hr tabletIndication s:Depressed Mood Take 1 tablet (150 mg total) by mouth daily. Indications: Lowered Mood Active losartan (COZAAR) 100 MG tabletIndication s:Hypertension Take 1 tablet (100 mg total) by mouth daily. Indications: High Blood Pressure Disorder Active insulin lispro (HUMALOG) 100 UNIT/ML injection (VIAL)Indication s:Diabetes Mellitus Inject 25-30 Units into the skin 3 (three) times daily before meals. Active insulin glargine (LANTUS) 100 UNIT/ML injection (VIAL)Indication s:Diabetes Mellitus Inject 50 Units into the skin nightly at bedtime. Indications: Diabetes Active rosuvastatin (CRESTOR) 40 MG tabletIndication s:Hyperlipidemia Take 1 tablet (40 mg total) by mouth nightly at bedtime. Indications: High Amount of Fats in the Blood Active dulaglutide (TRULICITY) 0.75 MG/0.5ML injectionIndicat ions:Diabetes Mellitus Inject into the skin once a week. Indications: Diabetes Active calamine with zinc lotionIndication s:Rash and other nonspecific skin eruption Apply topically as needed. 177 mL 3 3 Active acetaminophen (TYLENOL) 325 MG tabletIndication s:Pain Take 2 tablets (650 mg total) by mouth every 4 (four) hours as needed for Pain. 100 tablet 3 Active normal saline 0.9 % injectionIndicat ions:Flushing Inject 5-10 mLs into the vein daily. When not in use, PICC line care 100 mL 3 Active potassium chloride CR (K-TAB) 20 MEQ tablet Take 1 tablet (20 mEq total) by mouth daily. 3 Active TRULICITY 3 MG/0.5ML injectionIndicat ions:Diabetes Mellitus Inject 3 mg into the skin once a week. Indications: Diabetes 3 Active acetaminophen-co deine (TYLENOL/CODEINE #3) 300-30 MG tabletIndication s:Acute Pain < 3 Day Supply Take 1 tablet by mouth every 6 (six) hours as needed for Pain. Indications: Acute Pain < 3 Day Supply 12 tablet 3 Active traMADol (ULTRAM) 50 MG tabletIndication s:Acute Pain < 3 Day Supply Take 1 tablet (50 mg total) by mouth every 6 (six) hours as needed for Pain. Indications: Acute Pain < 3 Day Supply 10 tablet 4 Active ondansetron (ZOFRAN) 4 MG tablet Take 1 tablet (4 mg total) by mouth every 8 (eight) hours as needed for Nausea. 20 tablet 4 Active Active Problems Problem Noted Date Diagnosed Date Acute bronchitis 01/22/2023 Calculus of gallbladder with cholecystitis 01/22 Groin mass 01/22/2023 Diabetic foot infection ([facility]) 2022 Diabetic peripheral neuropathy ([facility]) 08/24/2022 Hypertriglyceridemia 12/07/2021 Chronic cholecystitis 12/13/2020 Nonalcoholic fatty liver 12/13/2020 Recurrent ventral incisional hernia 12/13/2020 Edema of lower extremity 11/29/2020 Fatigue 11/29/2020 Paresthesia of upper extremity 11/29/2020 Gastroesophageal reflux disease with esophagitis 08/02/2020 Hyperlipidemia 08/02/2020 Type 2 diabetes mellitus ([facility]) 08/02 History of section 04/04/2010 Supervision of high-risk ([facility]) Overview (01/22/2023): labs: A+/I/-/-; HIV neg Datinwk 5d documented u/s Morbid obesity 10/08/2009 Overview (01/22/2023): Body mass index is 56.64 kg/(m^2). Essential hypertension 10/06/2009 Immunizations Name Administration Dates Next Due MODERNA COVID-19 (12+) MRNA, LNP-S, PF, 100 MCG/ 0.5 ML DOSE 02/27/2021,01/30/2021 Tdap (Generic) 10/06/2016,02/22/2010 Family History Medical History Relation Comments Alcohol Abuse Father Cancer Father prostate Heart Disease Father Hyperlipidemia Father Hypertension Father Dementia Mother Depression Mother Diabetes Mother Heart Disease Mother Kidney Disease Mother Stroke Mother Relation Status Comments Father Mother Social History Tobacco Use Types Packs/Day Years Used Date Smoking Tobacco: Never Smokeless Tobacco: Never Tobacco Cessation:Counseling Given: Not Answered Alcohol Use Standard Drinks/Week Comments Not Currently 0 (1 standard drink = 0.6 oz pur e alcohol) OASIS D0700: Social Isolation Answer Da te Recorded Frequency of experiencing loneliness or isolatio n Never 05/10/2023 OASIS A1250: Transportation Answer Date Recorded Lack of Transportation (Medical) No 05/10/2023 Lack of Transportation (Non-Medical) No 05/10/2023 Patient Unable or Declines to Respond No 05/10/2023 OASIS B1300: Health Literacy Answer Alex e Recorded Frequency of needing help to read materials from doctor or pharmacy Never 05/10/2023 Humiliation, Afraid, Rape, and Kick questionnair e Answer Date Recorded Within the last year, have y ou been afraid of your partner or ex-partner? No 01/20/2023 Within the last year, have y ou been humiliated or emotionally abused in other ways by your partner or ex-partner? No Within the last year, have y ou been kicked, hit, slapped, or otherwise physically hurt by your partner or ex-partner? No 01/20/2023 Within the last year, have y ou been raped or forced to have any kind of sexual activity by your partner or ex-partner? No 01/20/2023 Overall Financial Resource Strain (CARDIA) Answe r Date Recorded How hard is it for you to pa y for the very basics like food, housing, medical care, and heating? Not hard at all 01/20/2023 PHQ-2 Answer Date Recorded Patient Health Questionnaire-2 Score 0 02/14/2023 Hunger Vital Sign Answer Date Recorded Within the past 12 months, y ou worried that your food would run out before you got the money to buy more. Never true 01/21/20 Within the past 12 months, t he food you bought just didn't last and you didn't have money to get more. Never true 01/20/2023 PRAPARE - Transportation Answer Date Re corded In the past 12 months, has l ack of transportation kept you from medical appointments or from getting medications? No 01/06 In the past 12 months, has l ack of transportation kept you from meetings, work, or from getting things needed for daily living? No 01/20/2023 Housing Stability Vital Sign Answer Alex e Recorded In the last 12 months, was t here a time when you were not able to pay the mortgage or rent on time? No 01/20/2023 In the last 12 months, how many places have you lived? 1 01/20/2023 In the last 12 months, was t here a time when you did not have a steady place to sleep or slept in a senior care (including now)? No 01/20/2023 Comments No Sex and Gender Information Value Date Recorded Sex Assigned at Not on file Legal Sex Female 10:02 AM CDT Gender Identity Not on file Sexual Orientation Not on file Last Filed Vital Signs Vital Sign Reading Time Taken Comments Blood Pressure 146/91 06/24/2024 12:55 AM CASE PICKER Pulse 87 06/24/2024 12:55 AM CASE PICKER Temperature 36.8 C (98.3 F) 06/24/2024 12:55 AM CASE PICKER Respiratory Rate 18 06/24/2024 12:5 5 AM CASE PICKER Oxygen Saturation 100% 06/24/2024 12: 55 AM CASE PICKER Inhaled Oxygen Concentration - - Weight 139.3 kg (307 lb 1.6 oz) 06/23/2024 7:54 PM CASE PICKER Height 162.6 cm (5' 4 ) 06/23/2024 7:54 PM CASE PICKER Body Mass Index 52.71 06/23/2024 7:54 PM CASE PICKER Plan of Treatment Health Maintenance Due Date Last Done Comments Colorectal Cancer Screening Colonoscopy (10 Years) 1967 Kidney Health Evaluation 1967 Annual Physical 1970 Pneumococcal Vaccine: Pediatrics (0 to 5 Years) and At-Risk Patients (6 to 64 Years) (1 of 2 - PCV) 1973 Diabetes: Retinopathy Eye Exam 1985 Hepatitis C 1985 Hepatitis B Vaccines (1 of 3 - 19+ 3-dose series) 1986 Zoster Vaccines (1 of 2) 2017 Hemoglobin A1C 2023 01/20/2023 Lipid Panel 01/21/2024 01/20/2023, 01/06, 05/17/2022, Additional history exists COVID-19 Vaccine ( - season) 2024 02/27/2021, 01/30/2021 PHQ-2 (Physician [place]) 07/09/2024 02/14/2023 Mammogram Screening 01/10/2026 01/11/2024, 05/05/2021, 05/03/2020, Additional history exists DTaP, Tdap and Td Vaccines (3 - Td or Tdap) 10/06/2026 10/06/2016, 02/22/2010 Meningococcal B Vaccine Aged Out No l onger eligible based on patient's age to complete this topic Meningococcal Vaccine Aged Out No cat marshal eligible based on patient's age to complete this topic RSV Immunizations Under 20 Months Aged Out No longer eligible based on patient's age to complete this topic Procedures Procedure Name Priority Date/Time Associated Diagnosis Comments LIPID PANEL Routine 01/20/2023 6:10 AM CDT HEMOGLOBIN, GLYCOSYLATED Routine 01/20/2023 6:10 AM CDT from Last 3 Months or Most Recently Relevant to Health Maintenance Results * (ABNORMAL) HEMOGLOBIN, GLYCOSYLATED (01/20/2023 6:10 AM CDT) HGB A1C 11.4(H) <5.7 % 01/20/2023 7:07 AM CDT [facility] Comment: ADA GUIDELINES 2010 5.7 TO 6.4% INCREASED RISK OF DIABETES > OR = 6.5% CONSISTENT WITH DIABETES ESTIMATED AVG GLUCOSE 280 mg/dL 01/20/2023 7:07 AM CDT [facility] 01/20/2023 6:10 AM CDT Vandana Velez [employer]ION[employer] SYSTEMS ENGINEER LABORATORY Final Resul t [facility] [address] [id number], [place] [phone] * (ABNORMAL) LIPID PANEL (01/20/2023 6:10 AM CDT) CHOLESTEROL 139 <200 MG/DL 01/20/2023 6:52 AM CDT [facility] TRIGLYCERIDES 505(H) <150 MG/DL 01/20/2023 6:52 AM CDT [facility] Comment:REFLEXED DIRECT LDL DUE TO TRIG >400. HDL 28(L) >40.0 MG/DL 01/20/2023 6:52 AM CDT [facility] LDL (CALCULATED) NOT CALCULATED <100 MG/DL 01/20/2023 6:52 AM CDT [facility] Comment:TRIGLYCERIDE >400 IN VALIDATES FRACTIONATION. NON HDL CHOLESTEROL 111 <130 MG/DL 01/20/2023 6:52 AM CDT [facility] CHOL/HDL RATIO 5.0(H) 0.0 - 4.5 01/20/2023 6:52 AM CDT [facility] VLDL CALCULATION NOT CALCULATED 5 - 55 MG/DL 01/20/2023 6:52 AM CDT [facility] Comment:TRIGLYCERIDE >400 IN VALIDATES FRACTIONATION. LIPID INTERPRETATION 01/20/2023 6:52 AM CDT [facility] Comment: NIH CONCENSUS REPORT RECOMMENDATIONS: ADULT CHILD LOW RISK: CHOLESTEROL <200 <170 TRIGLYCERIDE <150 --- HDL >=60 --- LDL <100 <110 BORDERLINE: CHOLESTEROL 200-239 170-199 TRIGLYCERIDE 150-199 --- HDL 40-59 --- LDL 100-159 110-129 HIGH RISK: CHOLESTEROL >=240 >=200 TRIGLYCERIDE >=200 --- HDL <40 --- LDL >=160 >=130 01/20/2023 6:10 AM CDT us Vandana Velez [employer] [facility] [facility] Final Resul t [facility] [address] [place] [address], from Last 3 Months or Most Recently Relevant to Health Maintenance Insurance [employer] Advance Directives * Full Code (Latest Code Status on File) Date Activated Date Inactivated Comments 02/05/2023 11:38 AM 05/09/2023 9:42 AM * Full Code Date Activated Date Inactivated Comments 01/27/2023 10:09 PM 02/02/2023 9:59 AM * Full Code Date Activated Date Inactivated Comments 01/20/2023 1:18 AM 01/26/2023 4:40 PM Care Teams Graves Registration Specialist Relationship Specialty Start Date End Date Cande Ruff PA-C [address] [place] [address] PCP - General PHYSICIAN MANAGER MOTOR 09/28/22 Lucas Hoang DPM [address] [place] [address] Referring Physician PODIATRY/SURGERY 09/28/22
--- OUTSIDE RECORDS SUMMARY | 2024-10-09 06:16 | XMS_ITS | CONTINUITY OF CARE DOCUMENT ---
Author Name mirza blue Address Unknown Organization [facility] Address [address] [place] [address] Phone [phone] Care Team Providers Care Electric Range Preparer Name Role Phone Fred RAWLS, You Unavailable CHAS CARY MD Unavailable [phone] DAKOTA JARAMILLO MD Unavailable [phone] PROBLEMS Condition Status Date Provider Notes Shortness of breath active Mark Nacht Leg edema, bilateral active Mark Nacht Hyperlipidemia active Mark Nacht Diabetes mellitus, type 2 active Mark Nach t Morbid obesity active Mark Nacht Fatigue active Mark Nacht Numbness and tingling, fingers/toes, both arms active Mark Nacht ENCOUNTERS Date Type Provider Location Encounter Diag nosis 4 - 4 In-person encounter Office Visit You Ibarra MD [place] [facility] Shortness of breathLeg edema, bilateralHyperlipidemiaDiabetes mellitus, type 2Morbid obesityFatigueNumbness and tingling, fingers/toes, both arms VITAL SIGNS Date Observation Value Provider Body Mass Index (Ratio) 53.55 kg/m2 Bernardino Ibarra MD blood pressure, cuff size large Ke rri Jessicanesudheer blood pressure, diastolic 90 mm[Hg] Ke rri Julianuenesudheer blood pressure, systolic 122 mm[Hg] Merlyn Cullen oxygen saturation, oximetry 98 % Suze Cullen respiratory rate E&M 16 /min Suze de diosjoseleandro pulse rate 107 /min Suze Jang hallieer weight E&M 312 [lb_av] Suze Jang hallieer height E&M 64 [in_i] Suze Jang myriam ALLERGIES No Known Drug Allergies HISTORY OF MEDICATION USE Medication Status Instructions Dates Provider Indications Com ments CRESTOR 20 MG ORAL TABLET active ONE TAB. DAILY Suze Jordantrish ASPIRIN 81 81 MG ORAL TABLET DELAYED RELEASE active One Tab By Mouth Daily Suze Jordantrish GABAPENTIN 300 MG ORAL CAPSULE active TAKE 1 CAPSULE BY MOUTH THREE TIMES DAILY Suze Jordantrish #90, 30 days supply, Prescribed by KEON GRACIA, Filled 09/02/2020 TRAMADOL HCL 50 MG ORAL TABLET active TAKE 1 TABLET BY MOUTH 4 TIMES DAILY Suze Jorier #120, 30 days supply, Prescribed by KEON GRACIA, Filled 10/14/2020 HUMALOG KWIKPEN 100 UNIT/ML SUBCUTANEOUS SOLUTION PEN-INJECTOR active sliding scale with meals 3 times a day Suze Jorier #90, 90 days supply, Prescribed by KEON GRACIA, Filled 11/01/2020 LISINOPRIL 40 MG ORAL TABLET active once a day Suze Subhash #90, 90 days supply, Prescribed by KEON GRACIA, Filled 11/21/2020 LANTUS SOLOSTAR 100 UNIT/ML SUBCUTANEOUS SOLUTION PEN-INJECTOR active sliding scale twice a day Suze Cullen #60, 90 days supply, Prescribed by KEON GRACIA, Filled 11/21/2020 FLUCONAZOLE 150 MG ORAL TABLET active TAKE 1 TABLET BY MOUTH ONCE PER WEEK FOR 2 WEEKS Suze Subhash #2, 14 days supply, Prescribed by SARAH PAUL, Filled 11/25/2020 SOCIAL HISTORY Date Observation Value Provider number of grandchildren You Ron social history E&M S moking History: Gaurang tate has never smoked. Mark Ariadne social history reviewed E&M revi ewed - no changes required Mark Ron smoking status Never smoker Suze fisher INSURANCE PROVIDERS Payer name Policy type / Coverage type [place] red republican ID [facility] [id number] [facility] [id number] ADVANCE DIRECTIVES Name Date DISCUSSED - NO DECISION MADE TREATMENT PLAN Date Name Performer Cardiology New Patient Mark Nac ht Cardiology New Patient Mark Nac ht Cardiology New Patient Mark Nac ht Cardiology New Patient Mark Nac ht Cardiology New Patient Mark Nac ht Cardiology New Patient Mark Nac ht Date Name Sleep Study Home Venous Doppler Bilat eral LE - Reflux Stress Regadenoson Complete Echo HISTORY OF PROCEDURES Procedure Date Procedure Name Provider Procedure Notes S tatus EKG You Ibarra MD completed
--- OUTSIDE RECORDS SUMMARY | 2024-10-09 06:16 | XMS_ITS | Data Portability ---
Author Organization [place] [facility] [employer], Main Office Address [address] [place] [address] Assessment Encounter Date Assessment Date Assessment LastModified by Organization Details LastModified Time 07/19/2023 07/19/2023 Assessment: Early REM onset Mild OSAHS, AHI = 13 Plan: The following were reviewed and explained to the patient: primary care/referral note [facility] home sleep study 02/22/21 AHI = 13, supine AHI = 18 [facility] titration sleep study 10/20/21 sleep onset = 8.5 minutes, REM onset = 57 minutes, ResMed medium AirFit P10 nasal pillows @ 12 cmH2O Educated the patient on problems and solutions associated with positive airway pressure (PAP) use. Difficulty tolerating pressure, mask leaks, intolerance of interface, nasal congestion, claustrophobic response, dry mouth, and unintentional mask removal during sleep were covered. Dry mouth is a normal occurrence for people who just start out on PAP therapy because they are not used to air blowing in to the throat to hold open. Dry mouth is exacerbated for people who wear nasal PAP mask and whose jaw drops open during sleep. Not only does this create a much less efficient therapy because of leakage, it also causes dry mouth. There are a couple solutions to help prevent this type of problem. A simple solution would be to wear a chinstrap which essentially holds the jaw in place. A second solution would be a switch to a full face mask which covers both the nose and mouth. Although this is another easy solution, using a full face mask for some could seem claustrophobic or confining. There is no silver bullet solution as no single mask is right for everybody. Sometimes it takes a bit of experimentation to find a PAP mask which best meets the patient's needs as well as fits comfortably. Another tactic is to use a humidifier on your PAP machine. Most new PAP machines have integrated humidifiers. Humidification is esquivel when dealing with symptoms of dry mouth because the humidifier can supply both warm and room temperate air. Even a small amount of humidity in the airflow will help nasal passages to stay hydrated. If a person is using both a full face mask and a PAP machine with a heated humidifier and is still experiencing dry mouth, an ill-fitted PAP mask might be causing the problem. Leakage can be caused by a mask that is to large or small, the wrong style mask, the cushion is degraded or simply because the mask's straps aren't adjusted correctly. If leakage occurs, dry air from the room can leak in while humidification escapes. The result is reduced humidification within the circuit and resulting in dry throat and mouth. Finally, beyond factors involving the PAP machine and mask, dry mouth can also be caused or worsened by dehydration. The general recommendation to during eight 8 oz. glasses of water a day might be too little for many people. When people drink large amounts of coffee or other caffeine beverages, or sweat a lot during the day, making sure to rehydrate is an important part of PAP therapy. ResMed Air Sense 11 auto set unit with heated humidifier, supplies, ResMed medium AirFit P10 nasal pillows @ 12 cmH2O ordered. Further titration will be based on clinical response. Provided the patient with a list of local home care stores where positive airway pressure (PAP) units, accoutrement, and services are available. Home care store selection is based on patient's insurance carrier. Patient will setup an appointment with [facility] for supplies and pressure adjustments. A major predictor of success with use of PAP is follow-up with both the respiratory supplier and the treating physician. The respiratory supplier optimally will follow-up within two weeks after starting use while the treating physician optimally will follow-up within 90 days after starting therapy to assess adherence and effectiveness of treatment. The download results can show the treating physician information about adherence to treatment, residual AHI while on treatment and presence of large mask leakage. This information is especially helpful if the patient has residual sleepiness despite treatment. General information on sleep disordered breathing, evaluation of sleep disordered breathing, treatment with PAP therapy, and living with PAP therapy were covered. Chapter 4 of educational DVD was shown. We discussed with the patient the impact of weight on: Sleep disordered breathing DM Incisional hernia We discussed with the patient the benefit of PAP therapy on: Sleep disordered breathing DM Educated the patient on sleep hygiene measures. Relaxing rituals to rest easy, understanding foods with positive and negative impact on sleep, creating a peaceful sleep environment, timing of exercise, using herbal sleep aids, and practicing sleep-friendly meditation were covered. To determine how much sleep is needed, the patient will assess where (s)he falls on the spectrum, examine what lifestyle factors such as work schedules and stress are affecting the quality and quantity of sleep. In general, adults need 7-9 hours of sleep. Educated the patient regarding foods that promote sleep. These include but are not limited to cherries, bananas, toast, oatmeal, and warm milk. Educated the patient regarding foods and drinks to avoid before bedtime. These include but are not limited to aged cheese, chocolate, spicy foods, tomato-based sauces, soy, ginseng tea and processed meat. Advocated influenza vaccination annually and pneumonia vaccination IKER. Advocated weight loss through diet and exercise. Patient's ideal body weight according to height and gender is up to 130 lbs. Encouraged patient to adjust caloric intake to maintain/achieve ideal body weight, emphasizing on fruits, vegetables, whole grains, and fat-free or low-fat products. These include lean meats, poultry, fish, beans, eggs, and nuts and foods that are low in saturated fats, trans-fats, cholesterol, salt (sodium), and glycemic index. Stressed the importance of regular exercise up to the patient's capacity limits. In this case, we recommend 20 min daily walking, 2 days a week of resistance training. Patient to monitor BP daily and bring records to PCP for further management. Follow-up: 3 months, October 2023 [email or web address] Not available 07/19/2023 12:01:06 Plan of Treatment Reminders Order Date Submit Date Provider Last Modified By Organization Details Last Modified Time Details Appointments None record ed. Lab None record ed. Referral None record ed. Procedures None record ed. Surgeries None record ed. Imaging None record ed. Medication Orders None record ed. Patient TargetsNo targets recorded. Patient InstructionsNo instructions recorded. Reason for Referral None Reported. Results Created Date Observation Date Name Description Value Unit Range Abnormal Flag Note LastModifiedBy Organization Detail LastModifiedTime 06/21/20 23 10/20/2021 polys omnog irineo, titra tion study No observ ation record ed. [facility] Not Available 2022 15:04:04 06/21/20 23 02/22/2021 home sleep study No observ ation record ed. [facility] Not Available 2022 15:04:04 Result Notes None recorded. Problems Name Problem SNOMED Code Status Onset Date Resolution Date Notes Provider Name and Address Organization Details Recorded Time Incisional hernia 931655995 Active Not Available [facility] 08:48:58 Obstructive sleep apnea syndrome 76186086 Active 2023 Richard Feliciano MD [address] [facility], [facility] [address], [place], [address] , [facility] PATHEOS [facility] [employer] 11:47:59 Notes:Medical History: Rhini tis with postnasal drip Early REM onset Obesity with mild OSAHS, AHI = 13, 02/22/21, CPAP denied by insurance T2DM with neuropathy Incisional hernia GIBRAN Procedure History: T&A 1978 Left breast benign biopsy 2004 C-sections 2006, 2009 Tubal ligation 2010 FLAVIO-BSO 2011 Cholecystectomy 2016 Right foot surgery 2022 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 Procedures Surgical History Date Name Laterality Status Provider Name and Address Organization Details Recorded Time delivery completed Alcira cheung [place] [facility] [employer] 07/19/2023 11:37:21 delivery completed Alcira cheung MA [facility] [employer] 07/19/2023 11:37:22 Biopsy of breast open completed Alcira Clark MA [place] [facility] [employer] 07/19/2023 11:37:34 Foot Surgery completed Alcira Clark MA [facility] 07/19/2023 11:37:41 Foot Surgery completed Alcira Calrk [place] [facility] [employer] 07/19/2023 11:37:43 Cholecystectomy completed Alcira inxon MA [facility] [employer] 07/19/2023 11:37:53 Tubal Ligation completed Alcira Clark [place] [facility] [employer] 07/19/2023 11:38:09 Hysterectomy completed Alcira Clark MA [facility] 07/19/2023 11:38:15 Imaging Results Imaging Date Name Status LastModified by [facility] Details LastModified Time 10/20/2021 polysomnogram, titration study completed [facility] Information not available 06/21/2023 15:04:04 02/22/2021 home sleep study completed [facility] Information not available 06/21/2023 15:04:04 Procedure Notes None recorded. Medical Equipment None Reported. Allergies No known drug allergies Medications Name Sig Start Date Stop Date Status Note LastModified by Organization Details LastModified Time insulin syringe U-100 with needle 1/2 mL 29 USE BID active Not Available Not Available Not Available Humalog Mix 75-25 (U-100) Insulin 100 unit/mL subcutaneou s suspension INJECT 30 UNITS SUBCUTANE OUSLY BID active Not Available Not Available No t Available fluconazole 100 mg tablet TAKE 1 TABLET BY MOUTH ONCE DAILY 07/19 completed Not Available Not Available Not Available metformin 500 mg tablet TK 1 T PO BID active Not Available Not Available No t Available doxycycline hyclate 100 mg capsule TAKE 1 CAPSULE BY MOUTH ONCE DAILY 07/19 completed Not Available Not Available Not Available clindamycin HCl 300 mg capsule TK 1 C PO Q 6 H FOR 10 DAYS active Not Available Not Available No t Available Glucagon Emergency Kit 1 mg solution for injection 06/19 completed Not Available Not Available Not Available hydrocodone 5 mg-acetamin ophen 325 mg tablet TK 1 T PO Q 6 H PRN P active Not Available Not Available No t Available fluconazole 200 mg tablet TAKE 1 TAB BY MOUTH NOW AND 1 TAB IN 3 DAYS 07/19 completed Not Available Not Available Not Available FreeStyle Lancets 28 gauge USE TO TEST SUGAR UTD 06/19 completed Not Available Not Available Not Available ondansetron HCl 4 mg tablet 06/19 completed Not Available Not Available Not Available gabapentin 400 mg capsule TAKE 1 CAPSULE BY MOUTH THREE TIMES DAILY active Not Available Not Available No t Available Lantus U-100 Insulin 100 unit/mL subcutaneou s solution INJECT 50 UNITS SUBCUTANE OUSLY ONCE DAILY AT BEDTIME active Not Available Not Available No t Available acetaminoph en 300 mg-codeine 30 mg tablet TAKE 1 TABLET BY MOUTH EVERY 6 HOURS NEEDED FOR PAIN 07/19 completed Not Available Not Available Not Available sulfamethox azole 800 mg-trimetho prim 160 mg tablet TAKE 1 TABLET BY MOUTH TWICE DAILY FOR 10 DAYS 07/19 completed Not Available Not Available Not Available tramadol 50 mg tablet TAKE 1 TABLET BY MOUTH EVERY 6 HOURS NEEDED 07/19 completed Not Available Not Available Not Available triamcinolo ne acetonide 0.1 % topical cream SHERRI SML AMT AA BID UTD active Not Available Not Available No t Available pantoprazol e 20 mg tablet,cortes yed release TAKE 1 TABLET BY MOUTH ONCE DAILY IN THE MORNING FOR 30 DAYS active Not Available Not Available No t Available oxycodone-a cetaminophe n 5 mg-325 mg tablet TK 1 T PO Q 6 H PRN P active Not Available Not Available No t Available potassium chloride ER 20 mEq tablet,exte nded release(par t/cryst) TAKE 1 BY MOUTH ONCE DAILY WITH MEALS FOR 30 DAYS active Not Available Not Available No t Available piperacilli n-tazobacta m 4.5 gram intravenous solution 07/19 completed Not Available Not Available Not Available pantoprazol e 40 mg tablet,cortes yed release active Not Available Not Available Not Available triamcinolo ne acetonide 0.1 % topical ointment APPLY Q 12 H PRN active Not Available Not Available No t Available nystatin 100,000 unit/gram topical cream APPLY AA BID UTD active Not Available Not Available No t Available Humulin 70/30 U-100 Insulin 100 unit/mL subcutaneou s suspension INJECT 50 UNITS UNDER THE SKIN BID 07/19 completed Not Available Not Available Not Available gabapentin 300 mg capsule TK ONE C PO TID 07/19 completed Not Available Not Available Not Available hydrochloro thiazide 25 mg tablet TAKE 1 TABLET BY MOUTH ONCE DAILY IN THE MORNING FOR 30 DAYS 07/19 completed Not Available Not Available Not Available mupirocin 2 % topical ointment APPLY OINTMENT TOPICALLY TO AFFECTED AREA ONCE DAILY 07/19 completed Not Available Not Available Not Available Vitamin D2 1,250 mcg (50,000 unit) capsule TAKE ONE CAPSULE BY MOUTH ONCE A WEEK WITH A MEAL active Not Available Not Available No t Available lisinopril 40 mg tablet TAKE ONE TABLET BY MOUTH ONCE DAILY 07/19 completed Not Available Not Available Not Available ondansetron 4 mg disintegrat ing tablet DISSOLVE 1 TABLET IN MOUTH EVERY 8 HOURS NEEDED FOR NAUSEA AND VOMITING 07/19 completed Not Available Not Available Not Available losartan 100 mg tablet TAKE 1 TABLET BY MOUTH ONCE DAILY IN THE MORNING FOR 30 DAYS active Not Available Not Available No t Available metformin ER 500 mg tablet,exte nded release 24 hr TAKE ONE TABLET BY MOUTH IN THE MORNING AND TWO TABLETS WITH EVENING MEAL 07/19 completed Not Available Not Available Not Available doxycycline hyclate 100 mg tablet TAKE 1 TABLET BY MOUTH ONCE DAILY 07/19 completed Not Available Not Available Not Available amoxicillin 875 mg-potassiu m clavulanate 125 mg tablet TAKE 1 TABLET BY MOUTH EVERY 12 HOURS 07/19 completed Not Available Not Available Not Available insulin lispro (U-100) 100 unit/mL subcutaneou s pen INJECT 25 UNITS SUBCUTANE OUSLY THREE TIMES DAILY BEFORE MEAL(S) active Not Available Not Available No t Available rosuvastati n 40 mg tablet TAKE 1 TABLET BY MOUTH ONCE DAILY AT BEDTIME active Not Available Not Available No t Available bupropion HCl XL 300 mg 24 hr tablet, extended release TAKE 1 TABLET BY MOUTH ONCE DAILY IN THE MORNING active Not Available Not Available No t Available bupropion HCl XL 150 mg 24 hr tablet, extended release TAKE 1 TABLET BY MOUTH ONCE DAILY IN THE MORNING 07/19 completed Not Available Not Available Not Available omega-3 fatty acids-fish oil 300 mg-1,000 mg capsule TAKE ONE CAPSULE BY MOUTH THREE TIMES DAILY WITH FOOD active Not Available Not Available No t Available FreeStyle Lite Meter kit FPD 06/19 completed Not Available Not Available Not Available Lantus Solostar U-100 Insulin 100 unit/mL (3 mL) subcutaneou s pen active Not Available Not Available Not Available OneTouch Delica Lancets 33 gauge 06/19 completed Not Available Not Available Not Available BD Ultra-Fine Leni Pen Needle 32 gauge x 5/32 06/19 completed Not Available Not Available Not Available OneTouch Verio test strips USE 1 STRIP TO CHECK GLUCOSE THREE TIMES DAILY 06/19 completed Not Available Not Available Not Available TRUEplus Insulin 1 mL 31 gauge x 5/16 syringe USE DIRECTED 07/19 completed Not Available Not Available Not Available Jardiance 10 mg tablet TAKE 1 TABLET BY MOUTH ONCE DAILY IN THE MORNING FOR 30 DAYS 07/19 completed Not Available Not Available Not Available Jardiance 25 mg tablet TAKE 1 TABLET BY MOUTH ONCE DAILY IN THE MORNING FOR 30 DAYS active Not Available Not Available No t Available Trulicity 1.5 mg/0.5 mL subcutaneou s pen injector INJECT 1.5 MG SUBCUTANE OUSLY EVERY WEEK DIRECTED 07/19 completed Not Available Not Available Not Available Trulicity 0.75 mg/0.5 mL subcutaneou s pen injector INJECT 1 PEN SUBCUTANE OUSLY ONCE A WEEK active Not Available Not Available No t Available SolarBuddyTouch Verio Flex Meter USE 1 TO CHECK GLUCOSE TWICE DAILY 07/19 completed Not Available Not Available Not Available Trulicity 3 mg/0.5 mL subcutaneou s pen injector INJECT 3 MG SUBCUTANE OUSLY ONCE A WEEK 07/19 completed Not Available Not Available Not Available Vitals Date Recorded Body weight Body mass index (BMI) Body height Heart rate Oxygen saturation Oxygen saturation in Arterial blood by Pulse oximetry Body temperature Systolic blood pressure Diastolic blood pressure Provider Name and Address Organization Details Last Updated DateTime 992868. 38 g 49.9 kg/m2 162.56 cm 87 /min 98 % 98 % 98.5 [degF] 124 mm[Hg] 72 mm[Hg] Alcira Clark MA [employer] 11:40:46 Date Recorded Heart rate Respiratory rate Provider Armando centeno and Address Organization Details Last Updated DateTime 07/19/2023 87 /min 15 /min Richard Feliciano MD [address], [address], [employer] 07/19/2023 11:42:53 Social History Question Answer Notes LastModified by Organizat ion Details LastModified Time Tobacco Smoking Status Never Smoker Alcira Clark MA null, [employer] 07/19/2023 11:35:24 What Is Your Level Of Alcohol Consumption? None Information not available 07/19/2023 What Is Your Level Of Caffeine Consumption? Moderate Information not available 07/19/2023 In The 14 Days Before Symptom Onset, Have You Had Close Contact With A Laboratory-confirm ed COVID-19 While That Case Was Ill? No Information n ot available 07/19/2023 In The 14 Days Before Symptom Onset, Have You Had Close Contact With A Person Who Is Under Investigation For COVID-19 While That Person Was Ill? No Information not available 07/19/2023 Are You Currently Employed? No Information not available 07/19/2023 What Type Of Diet Are You Following? REGULAR Information n ot available 07/19/2023 Do You Have An Electrostatic Air Filter? No Information not available 07/19/2023 Do You Have A Humidifier? Yes Information not available 07/19/2023 Do You Have Moisture Problems In Your Home? No Information not available 07/19/2023 What Was The Date Of Your Most Recent Tobacco Screening? 07/19/2023 Information not available 07/19/2023 Do You Have Any Pets? Yes Information not available 07/19/2023 Do You Use Your Seat Belt Or Car Seat Routinely? Yes Information not available 07/19/2023 Do You Have Smoke And Carbon Monoxide Detectors In Your Home? Yes Information not available 07/19/2023 Are You Passively Exposed To Smoke? No Information no t available 07/19/2023 Do You Use Any Illicit Or Recreational Drugs? No Information not available 07/19/2023 Do You Use Sunscreen Routinely? No Information not available 07/19/2023 Have You Recently Traveled Abroad? No Information not available 07/19/2023 Do You Have Any Dietary Restrictions? No Information not available 07/19/2023 Sex: Unknown Functional Status Question Answer Note LastModified by Organizat ion Details LastModified Time What is your exercise level? Occasional Information not available 07/19/2023 Mental Status None recorded. Family History Nothing Reported. Medical History No medical history recorded. Gynecological HistoryNo gynecological history recorded. Obstetrics History GPAL:G 0 P 0 0 0 0 Past Encounters Encounter ID Performer Location Encounter Start Date Encounter Closed Date Diagnosis/Indication Diagnosis SNOMED-CT Code Diagnosis ICD10 Code Diagnosis Note [id number] Richard Feliciano MD [facility] [address] [address] 07/19/2023 10:49:33 07/20/2023 08:34:52 Obstructive sleep apnea syndrome 19001305 G47.33 Health Concerns Section Related Observation LastModified by Organization Detai ls LastModified Time None Recorded Concern Status LastModified by Organization Details LastModified Time None Recorded Advance Directives Directive None Recorded Payers Encounter Date Sequence Insurance Name Policy Number Policy Aranda Covered Member ID Aranda Member ID Guarantor Name 07/19/2023 1 [facility] (MEDICAID REPLACEMENT - HMO) [id number] Florencia Levy [id number] Florencia Levy Notes Date Note Type Note Provider Name and Address Organization Details Recorded Time 07/19/2023 text/html Primary care/Ref erring provider: BILLY Patrick During the [facility] home sleep study on 02/22/21, AHI = 13, supine AHI = 18. During the [facility] titration sleep study on 10/20/21 sleep onset = 8.5 minutes, REM onset = 57 minutes. The patient uses a ResMed AirSense 11 autoset unit with heated humidification. The patient does not need the ramp to start low and go up slowly on the pressure anymore. There is some xerostomia in a.m. There is no hose/mask condensation with water.The patient wears a ResMed medium AirFit P10 nasal pillows without chin strap. There is no claustrophobia, no nostril/nose bridge irritation, no facial rash, no facial numbness, no nosebleeding. The patient feels more refreshed upon waking and daytime alertness is improved. Energy levels are sustained until noon. At home, the patient sleeps from 9 pm to 5 am and wakes up without an alarm. Snoring: heavy, since .Snorting: noChoking: yesCoughing: yesGasping: yesGagging: noSighing: yesWitnessed apnea: yesTwitching or jerking of leg(s), arm(s), body, head: noTeeth grinding: noTeeth clenching: noSleeptalking: noSleepwalking: noSleep crying: yesBedwetting: yesTongue/lip/gum/cheek biting: noSleeping with open mouth: yesSleep paralysis: noHypnagogic hallucinations: yes, sees shadowsHypnopompic hallucinations: noVivid dreams: yesDifficulty with sleep onset: noDifficulty with sleep maintenance: yesSleep interruptions: for no known reasonsPatient wakes up with: fatigue, xerostomia, sore throat, headaches, jaw pain, mobility impairment, dexterity impairmentDaytime cataplexy: noMorning hypersomnolence: yesAfternoon hypersomnolence: yesCaffeine sources in diet: coffee 1/2 cup per day, tea 1/2 cup per day, soda 1/3 bottle per day Associated medical and psychiatric conditions:Congestive heart failure: noCoronary artery disease: noMyocardial infarction: noHypertension: noStroke: noBronchial asthma: noChronic obstructive pulmonary disease: noDepression: noBipolar disorder: noAnxiety: noPanic disorder: noPosttraumatic stress disorder: noAttention deficit and hyperactivity disorder: noObsessive Compulsive disorder: noSchizophrenia: noSchizoaffective disorder: noPersonality disorder: noChronic analgesic use: noChronic sedative/hypnotic use: no EPWORTH SLEEPINESS SCALE (ESS) CHANCE OF DOZING SCORE0 = would never doze1 = slight chance of dozing2 = moderate chance of dozing3 = high chance of dozing SITUATION AND CHANCE OF DOZINGSitting and reading - 1Watching television - 0Sitting inactive in a public place (e.g. a theater or meeting) - 1As a passenger in a car for an hour without a break - 3Lying down to rest in the afternoon when circumstances permit - 2Sitting and talking to someone - 0Sitting quietly after lunch without alcohol - 1In a car, while stopped for a few minutes in the traffic - 0TOTAL SCORE 8Subjectively, patient has a slight chance of dozing. Richard Feliciano MD [address] [place] [address], [place] [address], [place], [address], [facility] 07/19/2023 12:07:01 OBGyn Episode No OBEpisode recorded.
--- OUTSIDE RECORDS SUMMARY | 2024-10-09 06:16 | XMS_ITS | Clinical Summary ---
Author Organization [facility] Address [address] [place] [address] Care Team Providers Care Information Strategist Name Role Phone Cande Ruff PA-C Primary Care Provider Source Comments [facility],non-owned Affiliates and Associated Physician Practices is amultiple site organization consisting of ambulatory clinics and hospital sitesin [place], [place], [place] and [place]. This disclosure is being madepursuant to the Care Everywhere program and may not contain all information available regarding this patient. Last updated 18.[facility] Allergies No known active allergies Medications * Be aware that medications may not be up to date on this document. Alwaysverify current medications with the patient. Medication Sig Dispensed Refills Start Date End Date Status lancets BD Ultra-Fine Leni Pen Needle 32 gauge x 5/32 Active OneTouch Delica Lancets 33G MISC OneTouch Delica Lancets 33 gauge Active aspirin EC (ECOTRIN) 81 MG tablet 11/29/2020 Active Insulin Pen Needle (PEN NEEDLES) 32G X 4 MM MISC Use 1 Each 4 times daily - before meals & nightly 200 Each 11 12/13/2020 Active furosemide (LASIX) 40 MG tablet Take 40 mg by mouth every other day as needed for 30 days 02/10/2021 Active magnesium oxide (MAG-OX) 400 (241.3 Mg) MG tablet Take 400 mg by mouth 2 times daily 02/10/2021 Active Insulin Glargine, 1 Unit Dial, (TOUJEO SOLOSTAR) penIndications:T ype 2 Diabetes Mellitus Inject 40 (forty) Units subcutaneously at bedtime Replacing Lantus Reasons: Type 2 Diabetes 15 mL 5 03/28/2021 Active Additional Information Patient not taking.Reported on 10/13/2021 Continuous Blood Gluc Transmit (DEXCOM G6 TRANSMITTER) MISCIndications: Diabetes Mellitus Use 1 Each Every 90 days Reasons: Diabetes 1 Each 3 03/28/2021 Active Additional Information Patient not taking.Reported on 05/17/2022 Continuous Blood Gluc Sensor (DEXCOM G6 SENSOR) MISCIndications: Diabetes Mellitus Use 1 Each every 10 days Reasons: Diabetes 9 Each 3 03/28/2021 Active Additional Information Patient not taking.Reported on 05/17/2022 Cholecalciferol (VITAMIN D3) 25 MCG (1000 UT)Indications:V itamin D Deficiency Take 1 (one) capsule by mouth once daily Unsure of dose Reasons: Vitamin D Deficiency 30 capsule 03/28/2021 Active insulin lispro (HUMALOG KWIKPEN) 200 UNIT/ML Inject 20 (twenty) Units subcutaneously 3 times daily before meals +scale TDD 90U-replacing lyumjev 27 mL 5 03/28/2021 Active Additional Information Patient not taking.Reported on 08/16/2023 GVOKE HYPOPEN 2-PACK 1 MG/0.2ML SOAJ INJECT 1 SYRINGE SUB-Q ONCE NEEDED 0.4 mL 3 03/28/2021 Active Glucagon, rDNA, (GLUCAGON EMERGENCY) 1 MG KITIndications:H ypoglycemia glucagon emergency kit 1 mg kit Reasons: Disorder with Low Blood Sugar 2 mg 3 03/28/2021 Active gabapentin (NEURONTIN) 400 MG capsule Take 1 (one) capsule by mouth 3 times daily Replacing the 300 mg cap 270 capsule 4 05/16/2021 Active traMADol (ULTRAM) 50 MG tablet Take 1 tablet by mouth twice daily 60 tablet 12/15/2021 Active Additional Information Patient not taking.Reported on 08/16/2023 icosapent ethyl (VASCEPA) 1 g capsuleIndicatio ns:Hypertriglyce ridemia Take 2 (two) capsules by mouth 2 times daily with morning and evening meal Reasons: High Amount of Triglycerides in the Blood 120 capsule 3 12/19/2021 Active Additional Information Patient not taking.Reported on 08/16/2023 insulin degludec (Tresiba) 100 UNIT/ML pen Inject 40 (forty) Units subcutaneously once daily Replacing lantuse 45 mL 3 05/17/2022 Active Additional Information Patient not taking.Reported on 08/16/2023 Insulin Lispro-aabc (Suhail ZunigaFlex) 200 UNIT/ML SOPN Inject 25 Units subcutaneously 3 times daily before meals Replacing humalog 90 mL 3 05/17/2022 Active semaglutide (Ozempic, 0.25 or 0.5 MG/DOSE,) 2 MG/1.5ML penIndications:T ype 2 Diabetes Mellitus Inject 0.5 (one-half) mg subcutaneously every 7 days Start by injecting subq 0.25mg weekly x 4 weeks then increase to 0.5mg weekly if tolerated Reasons: Type 2 Diabetes 4.5 mL 4 05/17/2022 Active Additional Information Patient not taking.Reported on 08/16/2023 blood glucose (Zimride Verio) test strip Use 1 (one) strip 4 times daily - before meals & nightly 200 strip 11 05/17/2022 Active Blood Glucose Monitoring Suppl (Tradaio) w/Device KIT Use 1 kit as directed 1 kit 05/17/2022 Active metFORMIN ER 24hr (Glucophage XR) 500MG tabletIndication s:Type 2 Diabetes Mellitus Take 1 (one) tablet by mouth 2 times daily after meals Reasons: Type 2 Diabetes 180 tablet 1 05/17/2022 Active Additional Information Patient not taking.Reported on 08/16/2023 rosuvastatin (Crestor) 20 MG tablet Take 1 (one) tablet by mouth once daily 30 tablet 4 05/18/2022 Active acetaminophen (Tylenol) 325 MG tablet Take 2 (two) tablets by mouth every 4 hours as needed 01/26/2023 Active buPROPion XL 24hr (Wellbutrin-XL) 300 MG tablet Take 1 (one) tablet by mouth every morning 08/03/2023 Active Jardiance 25 MG tablet TAKE 1 TABLET BY MOUTH ONCE DAILY IN THE MORNING FOR 30 DAYS 04/29/2023 Active losartan (Cozaar) 100 MG tablet 2023 Active [place]-3 Fatty Acids (fish oil) 1000 MG capsule TAKE ONE CAPSULE BY MOUTH THREE TIMES DAILY WITH FOOD 08/18/2022 Active Active Problems Problem Noted Date Diagnosed Date Hypertriglyceridemia 12/07/2021 Chronic cholecystitis 12/13/2020 Nonalcoholic fatty liver disease 12/13/2020 Recurrent ventral incisional hernia 12/13/2020 Mixed hyperlipidemia 12/13/2020 Right leg swelling 12/13/2020 Edema of lower extremity 11/29/2020 Fatigue 11/29/2020 Paresthesia of upper extremity 11/29/2020 Shortness of breath 11/29/2020 Gastroesophageal reflux disease with esophagitis 08/02/2020 Type 2 diabetes mellitus wit h hyperglycemia, with long-term current use of insulin 08/02/2020 History of section 04/04/2010 Supervision of high-risk 01/26/2010 Overview (01/26/2010): labs: A+/I/-/-; HIV neg Datinwk 5d documented u/s Advanced maternal age in 01/26/2010 Overview (02/17/2010): Sequential Screen 1:13 for trisomy 18; declined genetic amnio, normal ultrasound Morbid obesity 10/08/2009 Overview (10/08/2009): Body mass index is 56.64 kg/(m^2). Essential hypertension 10/06/2009 Resolved Problems Problem Noted Date Diagnosed Date Resolved Date Type 2 diabetes mellitus com plicating , antepartum 10/06/2009 12/13/2020 Overview (01/26/2010): HbA1c= 7.7 (01/26) Echo: The echocardiogram is within normal limits, however small atrial and ventricular septal defects, and persistent ductus arteriosus cannot be excluded as findings Immunizations Name Administration Dates Next Due Covid Moderna primary monovalent 12+ yr 0.5mL TDAP (7yrs+) 02/22/2010 Family History Medical History Relation Name Comments Hypertension Brother Kidney Disease Brother Arthritis Father Cancer Father Multiple Births Maternal Grandmother Arthritis Mother Diabetes Mother Hypertension Mother Kidney Disease Mother Multiple Births Mother Stroke Mother Twins Mother Cancer - Breast Other cousin Multiple Births Paternal Grandmother Cancer - Breast Sister Relation Name Status Comments Brother Alive Father Maternal Grandmother Mother Alive Other cousin Alive Paternal Grandmother Sister Social History Tobacco Use Types Packs/Day Years Used Date Smoking Tobacco: Never Smokeless Tobacco: Never Tobacco Cessation:Counseling Given: Not Answered Alcohol Use Standard Drinks/Week Comments No 0 (1 standard drink = 0.6 oz pur e alcohol) PHQ-2 Answer Date Recorded PHQ2 TOTAL SCORE 0 12/13/2020 Sex and Gender Information Value Date Recorded Sex Assigned at Not on file Gender Identity Not on file Sexual Orientation Not on file Last Filed Vital Signs Vital Sign Reading Time Taken Comments Blood Pressure 124/80 08/16/2023 11:09 AM DIRECTOR HEART Pulse 94 08/16/2023 11:09 AM DIRECTOR HEART Temperature 36.7 C (98 F) 08/16/2023 11:09 AM DIRECTOR HEART Respiratory Rate 16 08/16/2023 11:09 AM DIRECTOR HEART Oxygen Saturation 98% 08/16/2023 11:09 AM DIRECTOR HEART Inhaled Oxygen Concentration - - Weight 133.4 kg (294 lb) 01/11/2024 2:03 PM CDT Height 162.6 cm (5' 4 ) 01/11/2024 2:03 PM CDT Body Mass Index 50.46 01/11/2024 2:03 PM CDT Plan of Treatment Health Maintenance Due Date Last Done Comments COLOGUARD (AGES 45-75) - COLON CA SCREENING 1967 COLON MONITORING 1967 COLONOSCOPY - COLON CA SCREENING 1967 CT COLONOGRAPHY - COLON CA SCREENING 1967 Colorectal Cancer Screening 1967 FIT - COLON CA SCREENING 1967 FLEX SIG - COLON CA SCREENING 1967 HEPATITIS C SCREENING 04/17/1985 HEPATITIS B VACCINE (1 of 3 - 19+ 3-dose series) 1986 PNEUMOCOCCAL VACCINE 50+ (1 of 2 - PCV) 1986 PNEUMOCOCCAL VACCINE (1 of 2 - PCV) 1986 PAP SMEAR 07/29/2012 07/29/2009, 07/09/1998 ZOSTER VACCINE (1 of 2) 2017 DTAP/TDAP/TD VACCINES (2 - Td or Tdap) 02/23/2020 02/22/2010 DIABETES RETINOPATHY SCREENING 12/13/2020 DIABETES-HGB A1C 2023 01/20/2023, 03/2022, 11/14/2021, Additional history exists DIABETES-FOOT EXAM WITH MONOFILAMENT 05/17/2023 05/17/2022 DIABETES-SERUM CREATININE 05/17/20232021, 11/14/2021, 02/07/2011, Additional history exists COVID-19 VACCINE ( season) 2024 02/27/2021, 01/30/2021 DEPRESSION SCREENING 07/09/2024 DIABETES - URINE PROTEIN SCREENING 07/09/2024 05/17/2022, 11/14/2021 INFLUENZA VACCINE (Season Ended) 2025 MAMMOGRAM 01/10/2026 01/11/2024, 04/09, 05/03/2020, Additional history exists HIV SCREENING Completed 08/03/2009 HIB VACCINE Aged Out No longer eligi ble based on patient's age to complete this topic HPV VACCINE Aged Out No longer eligi ble based on patient's age to complete this topic MENINGOCOCCAL (Group B) VACCINE SHARED DECISION-MAKING Aged Out No longer eligible based on patient's age to complete this topic MENINGOCOCCAL GROUPS A/C/Y/W VACCINE Aged Out No longer eligible based on patient's age to complete this topic Procedures Procedure Name Priority Date/Time Associated Diagnosis Comments MAMMO BILAT SCREENING W OTILIA Routine 01/11/2024 2:05 PM CDT Visit for screening mammogram MICROALB/CREAT RATIO URINE RANDOM PANEL Routine 05/17/2022 12:16 PM DIRECTOR HEART Type 2 diabetes mellitus with hyperglycemia, with long-term current use of insulin COMPREHENSIVE METABOLIC PANEL Routine 05/17/2022 12:16 PM DIRECTOR HEART Type 2 diabetes mellitus with hyperglycemia, with long-term current use of insulin HEMOGLOBIN A1C - POINT OF CARE (AMB) Routine 05/17/2022 Type 2 diabetes mellitus with hyperglycemia, with long-term current use of insulin HIV-1 HIV-2 ANTIBODIES W RFLX REFLEXED Routine 08/03/2009 3:00 PM DIRECTOR HEART PAP SMEAR 1 SLIDE Routine 07/29/2009 from Last 3 Months or Most Recently Relevant to Health Maintenance Results * MAMMO BILAT SCREENING W OTILIA (01/11/2024 2:05 PM CDT) Anatomical Region Laterality Modality Breast Bilateral Mammography 01/11/2024 3:12 PM CDT Impressions 01/11/2024 3:22 PM CDT : Annual screening mammography is recommended. OVERALL FINAL ASSESSMENT: BI-RADS Category 1: Negative. > Interpreting Provider: Norm Holt MD on 01/11/2024 3:22 PM Narrative 01/11/2024 3:22 PM CDT EXAMINATION: BILATERAL DIGITAL SCREENING MAMMOGRAM AND BILATERAL BREAST TOMOSYNTHESIS HISTORY: Screening. COMPARISON: Serial examinations dating back to May 07, 2019. TECHNIQUE: BILATERAL digital breast tomosynthesis (DBT) and synthetic 2D digital mammogram images were obtained (bilateral craniocaudal and mediolateral oblique projections) including computer aided detection (CAD.) BREAST PARENCHYMAL COMPOSITION:Category A: The breasts are almost entirely fatty. MAMMOGRAM FINDINGS: There is no suspicious finding in either breast. Cande Ruff PA-C MAMMO ORDERABLES * (ABNORMAL) MICROALB/CREAT RATIO URINE RANDOM PANEL (05/17/2022 12:16 PM DIRECTOR HEART) Creatinine Urine 66.0 Not Estab. mg/dL [facility] ACCOUNT BILL Microalbumin Urine 455.1 Not Estab. ug/mL [facility] ACCOUNT BILL Comment: Results confirmed on dilution. Microalbumin/Crea tinine Ratio 690(H) 0 - 29 mg/g creat [facility] ACCOUNT BILL Comment: Normal: 0 - 29 Moderately increased: 30 - 300 Severely increased: >300 FASTING Urine URINE SPECIMEN OBTAINED BY CLEAN CATCH PROCEDURE / Unknown 05/17/2022 12:16 PM DIRECTOR HEART 05/17/2022 Narrative Resulting Agency Comment [facility]: [facility] [address] [id number] Elise Eisenberg MD LAB - URINE CHEM ISTRY ORDERABLES [facility] ACCOUNT BILL [address] [place] [address] * (ABNORMAL) COMPREHENSIVE METABOLIC PANEL (05/17/2022 12:16 PM DIRECTOR HEART) Glucose 433(H) 70 - 99 mg/dL [facility] ACCOUNT BILL BUN 25(H) 6 - 24 mg/dL [facility] ACCOUNT BILL Creatinine 0.99 0.57 - 1.00 mg/dL [facility] ACCOUNT BILL eGFR by CKD-EPI 67 >59 mL/min/1.7 3 [facility] ACCOUNT BILL BUN/Creatinine Ratio 25(H) 9 - 23 [facility] ACCOUNT BILL Sodium 138 134 - 144 mmol/L [facility] ACCOUNT BILL Potassium 4.2 3.5 - 5.2 mmol/L [facility] ACCOUNT BILL Chloride 98 96 - 106 mmol/L [facility] ACCOUNT BILL CO2 24 20 - 29 mmol/L [facility] ACCOUNT BILL Calcium 9.0 8.7 - 10.2 mg/dL [facility] ACCOUNT BILL Protein Total 6.8 6.0 - 8.5 g/dL [facility] ACCOUNT BILL Albumin 3.7(L) 3.8 - 4.9 g/dL [facility] ACCOUNT BILL Globulin Total 3.1 1.5 - 4.5 g/dL [facility] ACCOUNT BILL Albumin/Globulin Ratio 1.2 1.2 - 2.2 [facility] ACCOUNT BILL Bilirubin Total 0.3 0.0 - 1.2 mg/dL [facility] ACCOUNT BILL Alkaline Phosphatase 81 44 - 121 IU/L [facility] ACCOUNT BILL AST 20 0 - 40 IU/L [facility] ACCOUNT BILL ALT 25 0 - 32 IU/L [facility] ACCOUNT BILL Comment:FASTING Blood BLOOD SPECIMEN / Unknown 05/17/2022 12:16 PM DIRECTOR HEART 05/17/2022 Narrative Resulting Agency Comment [facility] performed [facility]: [facility] [address] [id number] Elise Eisenberg MD LAB - CHEMISTRY ORDERABLES [facility] ACCOUNT BILL [address] [place] [address] * HEMOGLOBIN A1C - POINT OF CARE (HgbA1C) (05/17/2022) Pathologist [facility] Hemoglobin A1c POCT 12.4 % Expiration Date 01/09/2024 Lot # [id number] QC Verified Yes Yes Blood BLOOD SPECIMEN / Unknown 05/17/2022 Elise Eisenberg MD LAB - POINT OF C ARE ORDERABLES * HIV-1 HIV-2 ANTIBODIES W RFLX REFLEXED (08/03/2009 3:00 PM DIRECTOR HEART) HIV 1/2 EIA Antibody NON-REACTI VE NON-REACT [facility] ([facility]) Comment: A Nonreactive HIV-1/2 antibody result does not exclude HIV infection since the time frame for seroconversion is variable. If acute HIV infection is suspected, antibody retesting and nucleic acid amplification (HIV DNA/RNA) testing is recommended. Test Performed at: [facility] [address] [place] [address] JOVON WHITE DO,MPH 08/03/2009 3:00 PM DIRECTOR HEART 08/03/2009 2:57 PM DIRECTOR HEART Gucci Sage MD LAB - CHEMISTRY [facility] ([facility]) * PAP SMEAR 1 SLIDE (07/29/2009) Other (qualifier value) 07/29/2009 Narrative [facility] - 08/03/2009 9:39 AM DIRECTOR HEART This external order was created through the Results Console. Historical Provider LAB - PATHOLOGY/C YTOLOGY ORDERABLES [facility] from Last 3 Months or Most Recently Relevant to Health Maintenance Advance Directives * FULL RESUSCITATION (Latest Code Status on File) Date Activated Date Inactivated Comments 02/13/2011 7:37 PM 02/16/2011 6:48 AM * Full Code Date Activated Date Inactivated Comments 02/21/2010 6:25 AM 02/23/2010 2:09 AM * Full Code Date Activated Date Inactivated Comments 02/18/2010 1:40 PM 02/19/2010 12:54 AM * Full Code Date Activated Date Inactivated Comments 02/17/2010 6:35 PM 02/18/2010 1:40 PM * Full Code Date Activated Date Inactivated Comments 01/26/2010 9:42 PM 01/29/2010 12:21 AM Care Teams Information Strategist Relationship Specialty Start Date End Date Cande Ruff PA-C [address] [place] [id number] PCP - General 05/17/23
--- OUTSIDE RECORDS SUMMARY | 2024-10-09 06:17 | XMS_ITS | Clinical Summary ---
Author Organization [facility] Address [address] [place] [id number] Care Team Providers Care Mobile Equipment Servicer Name Role Phone Unavailable Primary Care Provider Unavailabl e Social History Tobacco Use Types Packs/Day Years Used Date Smoking Tobacco: Never Assessed Comments Unknown Sex and Gender Information Value Date Recorded Sex Assigned at Not on file Legal Sex Female 3:05 PM NUDE MODEL Gender Identity Not on file Sexual Orientation Not on file Plan of Treatment Health Maintenance Due Date Last Done Comments Hepatitis C Virus (HCV) Screening 1965 Hepatitis B Immunization (1 of 3 - 19+ 3-dose series) 1986 Pap Smear 1988 Cervical Cancer Screening (CCS) 1997 HPV/Cotest 1997 Colonoscopy 2012 Colorectal Cancer Screening 2012 Cologuard 2017 Immunochemical Fecal Occult Blood 2017 Mammogram 2017 Pneumococcal Immunization (5 0+ years) (1 of 1 - PCV) 2017 Zoster Immunization (1 of 2) 2017 Influenza Immunization (#1) 2024 SARS-COV-2 Immunization ( season) 2024 Respiratory Syncytial Virus (RSV) Immunization (Adult) (1 - 1-dose 75+ series) 2042 DTaP/Tdap/Td Immunization Discontinued 10/06/2016 TdaP Immunization Completed 10/06/2016 Meningococcal Immunization (ACWY) Aged Out No longer eligible based on patient's age to complete this topic Pneumococcal Immunization Combined Aged Out No longer eligible based on patient's age to complete this topic Rotavirus Immunization Aged Out No lo nger eligible based on patient's age to complete this topic Insurance [employer] on file
--- NOTE | 2024-10-09 06:27 | ED_ITS ---
HPI - Extremity Problem General Chief complaint: Extremity Problem,Nontraumatic <Mandeep Perdue MD - Last Filed: 10/09/24 19:08> Stated complaint: bilateral calf pain, L>R <Mandeep Perdue MD - Last Filed: 10/09/24 19:08> Time Seen by Provider: 10/09/24 06:21 <Mandeep Perdue MD - Last Filed: 10/09/24 19:08> History of Present Illness HPI Narrative: 59-year-old female with a past medical history including hypertension and diabetes. She has a chronic peripheral neuropathy that she takes pregabalin 4. Patient presents to the emergency room with chief complaint of left ankle pain radiating up towards her left calf as well as right ankle pain radiating towards her right calf. Symptoms going on for several days. States she took Tylenol without any relief. She called her doctor and was concerned about a blood clot so she came to the ER. Patient states she does not like taking pregabalin although it does help her peripheral neuropathy she feels it makes her mentation weird. Patient denies any recent injuries or falls. No recent travel, procedures or surgeries in the last 6 months. No history of DVT or PE. Not any anticoagulation medication. Denies any systemic features such as fever, chills, chest pain, shortness a breath, nausea. Patient describes her pain is a cramping muscle spasm that mostly affects her left calf. <Mandeep Perdue MD - Last Filed: 10/09/24 19:08> Related Data Home medications: Home Medications ?Medication ?Instructions ?Recorded ?Confirmed ?Last Taken ?Type blood sugar diagnostic (OneTouch 04/04/20 10/29/23 Unknown History Ultra Blue Test Strip) insulin glargine 100 unit/mL (3 50 unit subcut HS 04/04/20 10/29/23 08/04/22 History mL) subcutaneous pen (Lantus Solostar U-100 Insulin) insulin lispro 100 unit/mL See Protocol subcut TIDWM 04/04/20 10/29/23 Unknown History subcutaneous pen (Humalog KwikPen (U-100) Insulin) rosuvastatin 40 mg tablet 40 mg PO DAILY 01/02/21 10/29/23 08/05/22 History ergocalciferol (vitamin D2) 1,250 1,250 mcg PO WEEKLY 08/06/22 10/29/23 07/30/22 History mcg (50,000 unit) capsule (Vitamin D2) bupropion HCl 300 mg 24 hr tablet, 300 mg PO DAILY 09/25/23 10/29/23 Unknown History extended release empagliflozin 25 mg tablet 25 mg PO DAILY 09/25/23 10/29/23 Unknown History (Jardiance) losartan 25 mg tablet 40 mg PO DAILY 09/25/23 10/29/23 Unknown History pregabalin 25 mg capsule (Lyrica) 25 mg PO BID 09/25/23 10/29/23 Unknown History <Mandeep Perdue MD - Last Filed: 10/09/24 19:08> Allergies/Adverse reactions: Allergies Allergy/AdvReac Type Severity Reaction Status Date / Time No Known Allergies Allergy Mild Verified 10/09/24 06:26 <Mandeep Perdue MD - Last Filed: 10/09/24 19:08> Review of Systems 2 Review of Systems: As reviewed above in HPI <Mandeep Perdue MD - Last Filed: 10/09/24 19:08> [facility] Past Medical History Medical History: Medical History COVID-19 Hyperlipidemia Fracture of right foot affected by diabetic neuropathy Cellulitis of right foot History of MRSA infection Skin and soft tissue infection of the left hip requiring debridement. Morbid obesity Depression with anxiety Insulin dependent type 2 diabetes mellitus Uncontrolled diabetes mellitus Atypical chest pain Diabetic peripheral neuropathy <Mandeep Perdue MD - Last Filed: 10/09/24 19:08> Surgical History Surgical History: Surgical History Status post incision and drainage Complex incision and drainage right diabetic foot wound with abscess, washout 08/18/22 Incision and drainage of left buttock abscess 09/25/23 Status post debridement Debridement of wound on the left hip. History of hysterectomy History of section History of tonsillectomy History of cholecystectomy <Mandeep Perdue MD - Last Filed: 10/09/24 19:08> Family History Family History: Family History Father Cancer Sibling Cancer Kidney disease Father COPD (chronic obstructive pulmonary disease) Mother Kidney disease <Mandeep Perdue MD - Last Filed: 10/09/24 19:08> Social History Social History: Social History Social History: The patient lives in [place], [place] with her . She has 4 children. Lifelong nonsmoker. No alcohol or illicit substance abuse. She designates her , Hong, as her surrogate decision maker and she wishes to be a full code. Smoking status: Never smoker Alcohol intake: never Substance use: never Substance use type: does not use Do You Feel Safe in your Home?: Yes Lack of Transportation: No Lack of Food: Never True Current Housing: I Have Housing Concerned About Future Housing: No Difficulty Paying Gas/Electric Bills: No Difficulty Paying for Meds: No Currently Unemployed: No Education: Associate Degree Difficulty w/ Childcare or Family Care: No Spiritual care concerns: No <Mandeep Perdue MD - Last Filed: 10/09/24 19:08> Exam 2 Narrative: GENERAL: Morbidly obese, not in any distress HEAD: [Normocephalic, atraumatic.] EYES: [PERRLA and EOMI.] ENT: Nares clear, no rhinorrhea or epistaxis. Mucous membranes moist. NECK: Supple. CHEST: [Clear to auscultation. No respiratory distress.] HEART: [Regular rate and rhythm]. No murmur heard. [Normal peripheral pulses.] ABDOMEN: [Soft, nondistended], [nontender], [No rigidity or guarding] EXTREMITIES: Asymmetric bilateral lower extremities with right calf greater in circumference than left calf, reproducible pain with palpation of the left calf compared to the right. Plantar dorsiflexion of bilateral ankles is full with 5/5 strength. EHL and FHL 5/5. Able to ambulate throughout the emergency depart without any ataxia or antalgic gait. No bony step-offs or deformity. 2+ dorsalis pedis pulses and warm extremities. SKIN: Warm, dry, no rash. NEURO: [No focal deficits]. Alert and oriented [x3.] PSYCH: [Normal mood and affect.] <Mandeep Perdue MD - Last Filed: 10/09/24 19:08> Course Vital Signs Vital signs: Vital Signs Temperature 36.1 C L 10/09/24 06:19 Pulse Rate 100 10/09/24 06:19 Respiratory Rate 20 10/09/24 06:19 Blood Pressure 191/91 H 10/09/24 06:19 Pulse Oximetry 99 10/09/24 06:19 Oxygen Delivery Room Air 10/09/24 06:19 Temperature 36.1 C L 10/09/24 06:19 Pulse Rate 90 10/09/24 08:17 Respiratory Rate 15 10/09/24 08:17 Blood Pressure 124/67 10/09/24 08:17 Pulse Oximetry 97 10/09/24 08:17 Oxygen Delivery Room Air 10/09/24 06:19 <Mandeep Perdue MD - Last Filed: 10/09/24 19:08> Vital Signs Temperature 36.1 C L 10/09/24 06:19 Pulse Rate 100 10/09/24 06:19 Respiratory Rate 20 10/09/24 06:19 Blood Pressure 191/91 H 10/09/24 06:19 Pulse Oximetry 99 10/09/24 06:19 Oxygen Delivery Room Air 10/09/24 06:19 Temperature 36.1 C L 10/09/24 06:19 Pulse Rate 90 10/09/24 08:17 Respiratory Rate 15 10/09/24 08:17 Blood Pressure 124/67 10/09/24 08:17 Pulse Oximetry 97 10/09/24 08:17 Oxygen Delivery Room Air 10/09/24 06:19 <Dano Mccoy MD - Last Filed: 10/09/24 17:53> MDM - Extremity (Nontraumatic) MDM Narrative Medical decision making narrative: 59-year-old female with history of type 2 diabetes, peripheral neuropathy on pregabalin, hypertension. Patient presents to the emergency depart with bilateral calf pain left worse than right and some asymmetric swelling right worse than left. Patient describes the sensation as a muscle cramping/spasm and is mostly in her left calf. She states his symptoms started in her ankle and radiated up towards her calf but denies any injury or trauma. On clinical examination she is morbidly obese, has 2+ symmetric pulses in both legs with warm extremities. Plantar and dorsiflexion of the ankle is symmetric 5/5 and she is able to ambulate unassisted. Vital signs show hypertension but no other anomaly such as tachycardia, fever, hypoxia. She is otherwise well-appearing. Duplex ultrasonography of the bilateral lower extremities was ordered to rule out DVT. Suspicion presently is for potential myalgias from muscle cramping, dehydration, possibility of a deep venous thrombosis versus superficial thrombophlebitis. Basic laboratory studies were drawn, she was given Toradol. Patient care signed over to [facility] physician at 7:00 a.m. pending ultrasound and likely discharge home +/-anticoagulation. <Mandeep Perdue MD - Last Filed: 10/09/24 19:08> 59-year-old female with history of type 2 diabetes, peripheral neuropathy on pregabalin, hypertension. Patient presents to the emergency depart with bilateral calf pain left worse than right and some asymmetric swelling right worse than left. Patient describes the sensation as a muscle cramping/spasm and is mostly in her left calf. She states his symptoms started in her ankle and radiated up towards her calf but denies any injury or trauma. On clinical examination she is morbidly obese, has 2+ symmetric pulses in both legs with warm extremities. Plantar and dorsiflexion of the ankle is symmetric 5/5 and she is able to ambulate unassisted. Vital signs show hypertension but no other anomaly such as tachycardia, fever, hypoxia. She is otherwise well-appearing. Duplex ultrasonography of the bilateral lower extremities was ordered to rule out DVT. Suspicion presently is for potential myalgias from muscle cramping, dehydration, possibility of a deep venous thrombosis versus superficial thrombophlebitis. Basic laboratory studies were drawn, she was given Toradol. Patient care signed over to [facility] morning physician at 7:00 a.m. pending ultrasound and likely discharge home +/-anticoagulation. 9:03 a.m. patient does have history of poorly controlled diabetes with a hemoglobin A1c close to 11. This correlates with a blood sugar of 290. Patient did have some hyperglycemia with a blood sugar of 505 after L of fluid and 5 insulin patient's blood sugar is down to 298. Patient has no anion gap, no concern for DKA at this time. Patient is ultrasound was negative. <Dano Mccoy MD - Last Filed: 10/09/24 17:53> Lab Data Result diagrams: 10/09/24 06:43 10/09/24 06:43 <Mandeep Perdue MD - Last Filed: 10/09/24 19:08> Labs: Lab Results 10/09/24 10/09/24 10/09/24 Range/Units 06:43 07:27 08:41 WBC 6.0 (4.5-10.0) K/mm3 RBC 4.24 (4.2-5.4) M/mm3 Hgb 11.5 L (12.0-15.0) g/dL Hct 35.6 L (37.0-47.0) % MCV 84.0 (80-100) fl MCH 27.1 (26-34) pg MCHC 32.3 (32-36) g/dl RDW 13.2 (11.5-14.5) % Plt Count 186 (150-375) k/mm3 MPV 10.4 (7.4-10.4) fl Immature Gran % (Auto) 0.2 (0-0.5) % Neut % (Auto) 46.5 (45.5-73.1) % Lymph % (Auto) 41.3 (18.3-44.2) % Miner % (Auto) 7.5 (2.6-8.5) % Eos % (Auto) 4.0 (0-4.4) % Baso % (Auto) 0.5 (0.2-1.2) % Lymph # (Auto) 2.49 (0.9-3.2) K/mm3 Miner # (Auto) 0.5 (0.1-0.6) K/mm3 Eos # (Auto) 0.2 (0-0.3) K/mm3 Baso # (Auto) 0.0 (0.0-0.1) K/mm3 Abs Immat Gran (auto) 0.01 (0.00-0.031) K/mm3 Absolute Neuts (auto) 2.8 (1.3-6.7) K/mm3 Absolute Nucleated RBC 0.000 (0.0-0.012) K/mm3 Nucleated RBC % 0.0 (0.0-0.2) % Sodium 136 L (137-145) mmol/L Potassium 4.2 (3.4-5.0) mmol/L Chloride 103 (98-107) mmol/L Carbon Dioxide 21 L (22-30) mmol/L Anion Gap 12 (4-12) mmol/L BUN 32 H (7-17) mg/dL Creatinine 1.71 H (0.7-1.0) mg/dL Estim Creat Clear Calc 47 ml/min Estimated GFR 31 L (59 - ) Glucose 505 H* (65-110) mg/dL POC Capillary Glucose 418 H 298 H (65-105) mg/dl Calcium 9.1 (8.4-10.2) mg/dL <Mandeep Perdue MD - Last Filed: 10/09/24 19:08> Lab Results 10/09/24 10/09/24 10/09/24 Range/Units 06:43 07:27 08:41 WBC 6.0 (4.5-10.0) K/mm3 RBC 4.24 (4.2-5.4) M/mm3 Hgb 11.5 L (12.0-15.0) g/dL Hct 35.6 L (37.0-47.0) % MCV 84.0 (80-100) fl MCH 27.1 (26-34) pg MCHC 32.3 (32-36) g/dl RDW 13.2 (11.5-14.5) % Plt Count 186 (150-375) k/mm3 MPV 10.4 (7.4-10.4) fl Immature Gran % (Auto) 0.2 (0-0.5) % Neut % (Auto) 46.5 (45.5-73.1) % Lymph % (Auto) 41.3 (18.3-44.2) % Miner % (Auto) 7.5 (2.6-8.5) % Eos % (Auto) 4.0 (0-4.4) % Baso % (Auto) 0.5 (0.2-1.2) % Lymph # (Auto) 2.49 (0.9-3.2) K/mm3 Miner # (Auto) 0.5 (0.1-0.6) K/mm3 Eos # (Auto) 0.2 (0-0.3) K/mm3 Baso # (Auto) 0.0 (0.0-0.1) K/mm3 Abs Immat Gran (auto) 0.01 (0.00-0.031) K/mm3 Absolute Neuts (auto) 2.8 (1.3-6.7) K/mm3 Absolute Nucleated RBC 0.000 (0.0-0.012) K/mm3 Nucleated RBC % 0.0 (0.0-0.2) % Sodium 136 L (137-145) mmol/L Potassium 4.2 (3.4-5.0) mmol/L Chloride 103 (98-107) mmol/L Carbon Dioxide 21 L (22-30) mmol/L Anion Gap 12 (4-12) mmol/L BUN 32 H (7-17) mg/dL Creatinine 1.71 H (0.7-1.0) mg/dL Estim Creat Clear Calc 47 ml/min Estimated GFR 31 L (59 - ) Glucose 505 H* (65-110) mg/dL POC Capillary Glucose 418 H 298 H (65-105) mg/dl Calcium 9.1 (8.4-10.2) mg/dL <Dano Mccoy MD - Last Filed: 10/09/24 17:53> Discharge Plan Discharge Clinical Impression: Bilateral calf pain, Peripheral neuropathy, Diabetes mellitus <Mandeep Perdue MD - Last Filed: 10/09/24 19:08> Patient Disposition: Home, Self-Care <Mandeep Perdue MD - Last Filed: 10/09/24 19:08> Condition: Stable <Mandeep Perdue MD - Last Filed: 10/09/24 19:08> Instructions: Antibiotic Form <Mandeep Perdue MD - Last Filed: 10/09/24 19:08> Patient Language: Romansh <Mandeep Perdue MD - Last Filed: 10/09/24 19:08> Prescriptions: No Action pregabalin [Lyrica] 25 mg capsule 25 mg PO BID (DME) OneTouch Ultra Blue Test Strip Strip MISCELLANEOUS insulin lispro [Humalog KwikPen Insulin] 100 unit/mL insulin pen See Protocol SUBCUT TIDWM Protocol: Insulin Corrective High-Dose Condition: glucose < 70 mg/dl Dose/Route: Follow hypoglycemia order Condition: glucose 70-200 mg/dl Dose/Route: No additional insulin Condition: glucose 201-250 mg/dl Dose/Route: 4 units sub-Q Condition: glucose 251-300 mg/dl Dose/Route: 5 units sub-Q Condition: glucose 301-350 mg/dl Dose/Route: 6 units sub-Q Condition: glucose 351-400 mg/dl Dose/Route: 8 units sub-Q Condition: glucose > 400 mg/dl Dose/Route: Call MD Protocol Text: *No Correction Dose at Bedtime* insulin glargine [Lantus Solostar U-100 Insulin] 100 unit/mL (3 mL) insulin pen 50 unit SUBCUT HS losartan 25 mg Tablet 40 mg PO DAILY bupropion HCl 300 mg tablet extended release 24 hr 300 mg PO DAILY Jardiance 25 mg tablet 25 mg PO DAILY rosuvastatin 40 mg tablet 40 mg PO DAILY ergocalciferol (vitamin D2) [Vitamin D2] 1,250 mcg (50,000 unit) capsule 1,250 mcg PO WEEKLY Rx Instructions: On Sundays <Mandeep Perdue MD - Last Filed: 10/09/24 19:08> Follow-up/Referrals: Elzbieta,BILLY Castellon [Primary Care Provider] - <Mandeep Perdue MD - Last Filed: 10/09/24 19:08>
--- OUTSIDE RECORDS SUMMARY | 2024-10-09 06:30 | XMS_ITS | CONTINUITY OF CARE DOCUMENT ---
Author Name mirza blue Address Unknown Organization [facility] Address [address] [place] [address] Phone [phone] Care Team Providers Care Architectural Technologist Name Role Phone Fred RAWLS, You Unavailable [phone] CHAS CARY MD Unavailable DAKOTA JARAMILLO MD Unavailable [phone] PROBLEMS Condition Status Date Provider Notes Shortness [...] In-person encounter Office Visit You Ibarra MD [facility] Shortness of breathLeg edema, bilateralHyperlipidemiaDiabetes mellitus, type 2Morbid obesityFatigueNumbness and tingling, fingers/toes, both arms VITAL SIGNS Date Observation Value Provider Body Mass Index (Ratio) 53.55 kg/m2 Bernadrino Ibarra MD blood pressure, cuff size large [...] Payer name Policy type / Coverage type Holden red democrat ID [facility] [id number] [facility] [id number] ADVANCE DIRECTIVES Name Date DISCUSSED - NO [...]
[2024-10-09] MEDS: KETOROLAC 15 MG/ML VIAL (*BKC) IV PUSH (06:39)
[2024-10-09 06:49] LABS: Basophils Percent Auto 0.5 % (0.2-1.2); Eosinophils Absolute Auto 0.2 K/mm3 (0-0.3); Hematocrit 35.6 % (37.0-47.0); Hemoglobin 11.5 g/dL (12.0-15.0); Immature Granulocyte Absolute 0.01 K/mm3 (0.00-0.031); Immature Granulocyte Percent A 0.2 % (0-0.5); Lymphocytes Absolute Auto 2.49 K/mm3 (0.9-3.2); Lymphocytes Percent Auto 41.3 % (18.3-44.2); Mean Corpuscular HGB Conc 32.3 g/dl (32-36); Mean Corpuscular Hemoglobin 27.1 pg (26-34); Mean Platelet Volume 10.4 fl (7.4-10.4); Monocytes Absolute Auto 0.5 K/mm3 (0.1-0.6); Monocytes Percent Auto 7.5 % (2.6-8.5); Neutrophils Absolute Auto 2.8 K/mm3 (1.3-6.7); Neutrophils Percent Auto 46.5 % (45.5-73.1); Platelet Count Result 186 k/mm3 (150-375); Red Blood Count 4.24 M/mm3 (4.2-5.4); Red Cell Distribution Width 13.2 % (11.5-14.5)
[2024-10-09 07:04] LABS: Anion Gap 12 mmol/L (4-12); Blood Urea Nitrogen 32 mg/dL (7-17); Calcium 9.1 mg/dL (8.4-10.2); Carbon Dioxide 21 mmol/L (22-30); Chloride 103 mmol/L (98-107); Estimated CRCL calculation 47 ml/min; Estimated Glomerular Filt Rate 31; Glucose 505 mg/dL (65-110); Potassium 4.2 mmol/L (3.4-5.0); Sodium 136 mmol/L (137-145)
[2024-10-09] MEDS: SODIUM CHLORIDE 0.9% IV 1,000 ML 999 ML IV CONT (07:28)
--- NOTE | 2024-10-09 07:31 | PC.NURSE ---
pt told this RN she took 30 units of her long acting insulin at 0400 today. this RN made EDP aware and gave verbal order for 5 units instead of 7.2 units
[2024-10-09 07:32] LABS: Glucose Point of Care 418 mg/dl (65-105)
[2024-10-09] MEDS: INSULIN HUMAN REGULAR (*BKC) 100 UNITS/ML 7.2 UNITS IV PUSH (07:34)
[2024-10-09 08:44] LABS: Glucose Point of Care 298 mg/dl (65-105)
== END 2024-10-09 09:29 | disposition home or self-care (01) ==
PROVIDERS: Emergency Provider Student in an Organized Health Care Education/Training Program; PCP Physician Assistant
DX: E11.42 Type 2 diabetes mellitus with diabetic polyneuropathy (principal); I10 Essential (primary) hypertension; E78.5 Hyperlipidemia, unspecified
CPT/HCPCS: 36415; 80048; 82948; 85025; 93970; 96361; 96374; 96375; 99284; J1815; J1885; J7030